=== PATIENT | female | born 1965 | race Caucasian/White ===

== ENCOUNTER 2018-01-04 10:48 | Emergency (ER) | payer BC ==
[~2018-01-04] VITALS: Ht 162.6 cm; Wt 100.0 kg
[~2018-01-04 10:48] MED LIST: ACET-1256 PO; ALPR0.254 PO; CRANBERRY D MANNOSE PO
[2018-01-04 10:50] VITALS: TEMP 36.8; Ht 162.6 cm; Wt 100.0 kg
[2018-01-04] MEDS ORDERED: SODIUM CHLORIDE 0.9% 1000ML 1,000 ML IV STA (11:06)
[2018-01-04] MEDS ORDERED: SODIUM CHLORIDE 0.9% 500ML 500 ML IV STA (11:06)
[2018-01-04] MEDS ORDERED: POLYSOL (11:27)
[2018-01-04 11:32] LABS: BASO % 0.4 %; BASO ABS # 0.02 K/uL (0-0.2); EOS % 0.2 %; EOS ABS # 0.01 K/uL (0-0.5); HEMATOCRIT 45.5 % (37-47); HEMOGLOBIN 15.2 g/dL (12.0-16.0); IG# 0.01 K/uL (0.00-0.02); LYMPH % 29.3 %; LYMPH ABS # 1.46 K/uL (1.2-3.4); MEAN CELL VOLUME 83.6 fL (80-100); MEAN CORPUSCULAR HEMOGLOBIN 27.9 pg (25-34); MEAN CORPUSCULAR HGB CONC 33.4 g/dl (32-36); MEAN PLATELET VOLUME 10.9 fL (7.4-10.4); MONO % 6.8 %; MONO ABS # 0.34 K/uL (0.11-0.59); NEUT % 63.1 %; NEUT ABS # 3.15 K/uL (1.4-6.5); PLATELET COUNT 157 K/uL (130-400); RED CELL DISTRIBUTION WIDTH CV 12.5 % (11.5-14.5); RED CELL DISTRIBUTION WIDTH SD 37.5 fL (36.4-46.3); WHITE BLOOD COUNT 4.99 K/uL (4.8-10.8)
[2018-01-04 11:53] LABS: ALBUMIN 4.1 gm/dl (3.4-5.0); CALCIUM 8.9 mg/dl (8.5-10.1); CREATININE 0.83 mg/dl (0.60-1.20); POTASSIUM 4.2 mmol/L (3.5-5.1); TOTAL PROTEIN 7.9 gm/dl (6.4-8.2)
--- NOTE | 2018-01-04 12:07 | DIAGNOSTIC IMAGING REPORT ---
CT SCAN OF THE ABDOMEN AND PELVIS WITHOUT CONTRAST CLINICAL HISTORY: Lower abdominal pain and urinary symptoms. COMPARISON STUDY: No previous studies for comparison. TECHNIQUE: CT scan of the abdomen and pelvis was performed from the lung bases to the proximal femurs. Images are reviewed in the axial, sagittal, and coronal planes. IV contrast was not administered for this examination. A dose lowering technique was utilized adhering to the principles of ALARA. CT DOSE: 1519.36 mGy.cm FINDINGS: Lower chest: The heart is normal in size and configuration, without pericardial effusion. The lung bases and pleural spaces are clear. Liver: The unenhanced liver is normal in size, contour, and attenuation. There is no intrahepatic biliary ductal dilatation. Gallbladder: Surgically absent Spleen: Normal in size and attenuation. Pancreas: Unremarkable. Adrenal glands: Unremarkable. Kidneys: No renal, ureteral, or bladder calculi are visualized. Bowel: There are no transition zones indicate bowel obstruction. There are no findings to indicate acute appendicitis. There is no evidence of acute diverticulitis. Peritoneum: There is no intraperitoneal free air or abdominal ascites. Vasculature: The abdominal aorta is normal in course and caliber. Adenopathy: None. Pelvic viscera: The uterus appears surgically absent. Skeletal structures: No destructive osseous lesions are seen. IMPRESSION: 1. No acute intra-abdominal or pelvic findings 2. Surgically absent gallbladder and uterus 3. No renal, ureteral, or bladder calculi identified 4. No evidence of bowel obstruction. No evidence of free air. Electronically signed by: Delfino Lagunas M.D. 01/04/2018 12:06 PM Dictated Date/Time: 01/04/2018 12:03 PM
[2018-01-04] MEDS ORDERED: PHENAZOPYRIDINE HCL 200 MG TAB PO STA (12:35)
[2018-01-04] MEDS ORDERED: PHEN-775 PO (12:37)
[2018-01-04 12:42] VITALS: BP 132/78; PULSE 67; O2SAT 97
--- NOTE | 2018-01-04 13:47 | EMERGENCY ROOM VISIT NOTE ---
History Report prepared by Luis: Marlene oRgers Under the Supervision of: Dr. Sangita Arita M.D. First contact with patient: 11:03 Chief Complaint: URINARY SYMPTOMS Stated Complaint: URINARY SY, BACK PAIN History of Present Illness The patient is a 52 year old female who presents to the Emergency Room with complaints of worsening urinary symptoms that started today. The patient states she could not urinate today and woke up with back pain that radiated to her abdomen. She states she was constantly urinating yesterday. She claims she has been having urinary problems for the past 3 months and has been taking Amoxicillin. She notes that she called her urologist, Dr. Rodriguez, yesterday, but they never called back. The patient complains of feeling faint, dizzy, exhausted, abdominal pain, vaginal gas, loss of appetite, weight loss, and pain/ spasms in her urethra. Source of History: patient Onset: today Position: abdomen Quality: other (urianry symptoms) Timing: worsening Associated Symptoms: + abdominal pain, + back pain Note: The patient complains of feeling faint, dizzy, exhausted, vaginal gas, loss of appetite, weight loss, and pain/spasms in her urethra. Review of Systems See HPI for pertinent positives & negatives. A total of 10 systems reviewed and were otherwise negative. Past Medical & Surgical Medical Problems: (1) Factor VIII deficiency (2) HTN (hypertension) (3) Von Willebrand disease Surgical Problems: (1) H/O: hysterectomy (2) S/P cholecystectomy Family History Patient reports no known family medical history. Social History Smoking Status: Former Smoker Marital Status: Housing Status: lives with family Occupation Status: unemployed Current/Historical Medications Scheduled Phenazopyridine Hcl (Pyridium), 200 MG PO TID [Cranberry D-Mannose], 1 DOSE PO UD Scheduled PRN Acetaminophen (Tylenol), 1,000 MG PO UD PRN for Pain Alprazolam (Alprazolam), 0.5 MG PO QID PRN for Anxiety Miscellaneous Medications Polyvinyl Alcohol-Povidone (Op (Refresh) Allergies Coded Allergies: Azelastine (Verified Allergy, Unknown, UNSURE, 01/04/18) Budesonide (Verified Allergy, Unknown, PT UNSURE, 01/04/18) CI Pigment Blue 63 (Verified Allergy, Unknown, PT UNSURE, 01/04/18) Cephalexin (Verified Allergy, Unknown, PT UNSURE, 01/04/18) Clavulanic Acid (Verified Allergy, Unknown, PT UNSURE, 01/04/18) Fexofenadine (Verified Allergy, Unknown, UNSURE, 01/04/18) Fluoxetine (Verified Allergy, Unknown, PT UNSURE, 01/04/18) Iodinated Diagnostic Agents (Verified Allergy, Unknown, ANAPHYLAXIS, ) DOCTOR WAS UNSURE IF IT WAS THE CONTRAST DYE OR VERSED THAT CAUSED ANAPHYLAXIS Levofloxacin (Verified Allergy, Unknown, PT UNSURE, 01/04/18) Midazolam (Verified Allergy, Unknown, ANAPHYLAXIS, 01/04/18) VERSED VS IV CONTRAST DYE Nebivolol (Verified Allergy, Unknown, PT UNSURE, 01/04/18) Nitrofurantoin (Verified Allergy, Unknown, PT UNSURE, 01/04/18) Nizatidine (Verified Allergy, Unknown, PT UNSURE, 01/04/18) Sorbitan (Verified Allergy, Unknown, PT UNSURE, 01/04/18) Sulfa Antibiotics (Verified Allergy, Unknown, PT UNSURE, 01/04/18) Sulfamethoxazole w/Trimethoprim (Verified Allergy, Unknown, PT UNSURE, ) Venlafaxine (Verified Allergy, Unknown, PT UNSURE, 01/04/18) Yellow Dye (Verified Allergy, Unknown, PT UNSURE, 01/04/18) Aspirin (Verified Adverse Reaction, Unknown, PT BLEEDS VERY EASILY, ) Caffeine (Verified Adverse Reaction, Unknown, PT BLEEDS VERY EASILY, ) Phenacetin (Verified Adverse Reaction, Unknown, PT BLEEDS VERY EASILY, ) Physical Exam Vital Signs Date Time Temp Pulse Resp B/P (MAP) Pulse Ox O2 Delivery O2 Flow Rate FiO2 01/04/18 12:42 67 20 132/78 97 Room Air 01/04/18 11:21 84 20 161/92 97 Room Air 01/04/18 11:18 96 01/04/18 10:50 36.8 93 17 140/84 98 Room Air Physical Exam Vital signs reviewed. General: Well-appearing, in no significant distress. HEENT: No scleral icterus, PERRLA, neck supple. Atraumatic. Cardiovascular: Regular rate and rhythm, no extra sounds. Pulmonary: Clear to auscultation bilaterally, normal work of breathing. Abdomen: Soft, mild diffuse abdominal tenderness, no guarding, no rebound, nondistended, positive bowel sounds. Obese abdomen with appendicular folds. Musculoskeletal: Atraumatic, no peripheral edema. Neurologic: Patient awake alert and oriented x 3 Skin: Warm, dry, no rash Medical Decision & Procedures ER Provider Diagnostic Interpretation: Radiology results as stated below per my review and radiologist interpretation: CT SCAN OF THE ABDOMEN AND PELVIS WITHOUT CONTRAST CLINICAL HISTORY: Lower abdominal pain and urinary symptoms. COMPARISON STUDY: No previous studies for comparison. TECHNIQUE: CT scan of the abdomen and pelvis was performed from the lung bases to the proximal femurs. Images are reviewed in the axial, sagittal, and coronal planes. IV contrast was not administered for this examination. A dose lowering technique was utilized adhering to the principles of ALARA. CT DOSE: 1519.36 mGy.cm FINDINGS: Lower chest: The heart is normal in size and configuration, without pericardial effusion. The lung bases and pleural spaces are clear. Liver: The unenhanced liver is normal in size, contour, and attenuation. There is no intrahepatic biliary ductal dilatation. Gallbladder: Surgically absent Spleen: Normal in size and attenuation. Pancreas: Unremarkable. Adrenal glands: Unremarkable. Kidneys: No renal, ureteral, or bladder calculi are visualized. Bowel: There are no transition zones indicate bowel obstruction. There are no findings to indicate acute appendicitis. There is no evidence of acute diverticulitis. Peritoneum: There is no intraperitoneal free air or abdominal ascites. Vasculature: The abdominal aorta is normal in course and caliber. Adenopathy: None. Pelvic viscera: The uterus appears surgically absent. Skeletal structures: No destructive osseous lesions are seen. IMPRESSION: 1. No acute intra-abdominal or pelvic findings 2. Surgically absent gallbladder and uterus 3. No renal, ureteral, or bladder calculi identified 4. No evidence of bowel obstruction. No evidence of free air. Electronically signed by: Delfino Lagunas M.D. 01/04/2018 12:06 PM Dictated Date/Time: 01/04/2018 12:03 PM Laboratory Results 01/04/18 11:22 Red Blood Count 5.44, Mean Corpuscular Volume 83.6, Mean Corpuscular Hemoglobin 27.9, Mean Corpuscular Hemoglobin Concent 33.4, Mean Platelet Volume 10.9, Neutrophils (%) (Auto) 63.1, Lymphocytes (%) (Auto) 29.3, Monocytes (%) (Auto) 6.8, Eosinophils (%) (Auto) 0.2, Basophils (%) (Auto) 0.4, Neutrophils # (Auto) 3.15, Lymphocytes # (Auto) 1.46, Monocytes # (Auto) 0.34, Eosinophils # (Auto) 0.01, Basophils # (Auto) 0.02 01/04/18 11:22 Test 01/04/18 11:00 01/04/18 11:22 Urine Color YELLOW Urine Appearance CLEAR (CLEAR) Urine pH 7.0 (4.5-7.5) Urine Specific [place] 1.003 (1.000-1.030) Urine Protein NEG (NEG) Urine Glucose (UA) NEG (NEG) Urine Ketones NEG (NEG) Urine Occult Blood NEG (NEG) Urine Nitrite NEG (NEG) Urine Bilirubin NEG (NEG) Urine Urobilinogen NEG (NEG) Urine Leukocyte Esterase NEG (NEG) White Blood Count 4.99 K/uL (4.8-10.8) Red Blood Count 5.44 M/uL (4.2-5.4) Hemoglobin 15.2 g/dL (12.0-16.0) Hematocrit 45.5 % (37-47) Mean Corpuscular Volume 83.6 fL (80-100) Mean Corpuscular Hemoglobin 27.9 pg (25-34) Mean Corpuscular Hemoglobin Concent 33.4 g/dl (32-36) Platelet Count 157 K/uL (130-400) Mean Platelet Volume 10.9 fL (7.4-10.4) Neutrophils (%) (Auto) 63.1 % Lymphocytes (%) (Auto) 29.3 % Monocytes (%) (Auto) 6.8 % Eosinophils (%) (Auto) 0.2 % Basophils (%) (Auto) 0.4 % Neutrophils # (Auto) 3.15 K/uL (1.4-6.5) Lymphocytes # (Auto) 1.46 K/uL (1.2-3.4) Monocytes # (Auto) 0.34 K/uL (0.11-0.59) Eosinophils # (Auto) 0.01 K/uL (0-0.5) Basophils # (Auto) 0.02 K/uL (0-0.2) RDW Standard Deviation 37.5 fL (36.4-46.3) RDW Coefficient of Variation 12.5 % (11.5-14.5) Immature Granulocyte % (Auto) 0.2 % Immature Granulocyte # (Auto) 0.01 K/uL (0.00-0.02) Anion Gap 6.0 mmol/L (3-11) Est Creatinine Clear Calc Drug Dose 90.1 ml/min Estimated GFR () 93.3 Estimated GFR (Non- 80.5 BUN/Creatinine Ratio 11.4 (10-20) Calcium Level 8.9 mg/dl (8.5-10.1) Total Bilirubin 0.5 mg/dl (0.2-1) Direct Bilirubin 0.2 mg/dl (0-0.2) Aspartate Amino Transf (AST/SGOT) 32 U/L (15-37) Alanine Aminotransferase (ALT/SGPT) 56 U/L (12-78) Alkaline Phosphatase 67 U/L (45-117) Total Protein 7.9 gm/dl (6.4-8.2) Albumin 4.1 gm/dl (3.4-5.0) Laboratory results per my review. Medications Administered Medications (Trade) Dose Ordered Sig/Ade Route Start Time Stop Time Status Last Admin Dose Admin Sodium Chloride 500 ml @ 999 mls/hr Q31M STAT IV 01/04/18 11:06 01/04/18 11:36 DC 01/04/18 11:06 999 MLS/HR Sodium Chloride 1,000 ml @ 125 mls/hr Q8H STAT IV 01/04/18 11:06 01/04/18 13:23 DC 01/04/18 11:06 125 MLS/HR Phenazopyridine HCl (Pyridium Tab) 200 mg NOW STAT PO 01/04/18 12:35 01/04/18 12:37 DC 01/04/18 12:43 200 MG ED Course 1103: Past medical records reviewed. The patient was evaluated in room C6. A complete history and physical examination was performed. 1106: Ordered NSS 1000 ml @ 125 mls/hr IV, NSS 500 ml @ 999 mls/hr IV. 1235: Ordered Pyridium Tab 200 mg PO. 1243: Upon reevaluation, the patient appeared to have improvement of her symptoms. I discussed findings with her. She verbalized agreement of the treatment plan. The patient was discharged home. Medical Decision Differential diagnoses include kidney stone, UTI, pyelonephritis, rectovaginal fistula, diverticulitis, psychosomatic symptoms. This patient was evaluated and appeared to be in no significant distress. IV access was obtained and laboratory work was drawn. Patient was placed on media monitor. The patient is concerned with the possibility of a rectovaginal fistula. She states she has been passing stool in her urine. Patient also is concerned with the possibility of kidney stone. She states she has had multiple CT scans in the past however had an ultrasound just 10 days ago. Laboratory work is fairly unrevealing, UA is clean. Patient is afebrile. CT scan of the abdomen pelvis was performed without contrast to rule out kidney stone. This study is negative. The patient was informed of the negative findings and was reassured. She was given Pyridium 3 days. She will follow-up with her urologist for further issues. She will return to the ED for worsening of symptoms or any medical concerns. Medication Reconcilliation Current Medication List: was personally reviewed by me Blood Pressure Screening Patient's blood pressure: Elevated blood pressure Blood pressure disposition: Elevated BP felt to be situational Impression Primary Impression: Dysuria Scribe Attestation The scribe's documentation has been prepared under my direction and personally reviewed by me in its entirety. I confirm that the note above accurately reflects all work, treatment, procedures, and medical decision making performed by me. Departure Information Dispostion Home / Self-Care Prescriptions Phenazopyridine Hcl (PYRIDIUM) 200 Mg Tab 200 MG PO TID, #6 TAB Prov: Sangita Arita M.D. 01/04/18 Referrals Warner Sharma M.D. (PCP) Forms HOME CARE DOCUMENTATION FORM, IMPORTANT VISIT INFORMATION Patient Instructions My [facility] Additional Instructions Diagnosis: Dysuria Pyridium 200 mg three times daily as needed for urinary symptoms 3 days. Drink plenty of clear fluids. Follow-up with your primary care physician and urology for further management. Return to the emergency department for worsening of symptoms or any medical concerns.
== END 2018-01-04 12:54 | disposition home or self-care (01) ==
LOC: C.EDB 10:49 → C.EDC 12:54
DX: R30.0 Dysuria (principal); D66 Hereditary factor VIII deficiency; I10 Essential (primary) hypertension; D68.0 Von Willebrand disease; E66.9 Obesity, unspecified; Z90.710 Acquired absence of both cervix and uterus; Z90.49 Acquired absence of other specified parts of digestive tract; Z87.891 Personal history of nicotine dependence; Z88.2 Allergy status to sulfonamides; Z88.8 Allergy status to other drugs, medicaments and biological substances; Z91.041 Radiographic dye allergy status

== ENCOUNTER → 2018-01-13 | Outpatient (CLI) | payer BC ==
[~2018-01-13] MED LIST changes: +MULT-506 PO; +PHEN-775 PO; +POLYSOL
[2018-01-13 14:22] LABS: ALBUMIN 4.2 gm/dl (3.4-5.0); ALKALINE PHOSPHATASE 65 U/L (45-117); ALT/SGPT 54 U/L (12-78); AST/SGOT 32 U/L (15-37); BLOOD UREA NITROGEN 11 mg/dl (7-18); CALCIUM 9.2 mg/dl (8.5-10.1); CARBON DIOXIDE 27 mmol/L (21-32); CREATININE 0.77 mg/dl (0.60-1.20); GLUCOSE 89 mg/dl (70-99); POTASSIUM 3.9 mmol/L (3.5-5.1); SODIUM 138 mmol/L (136-145)
== END | disposition home or self-care (01) ==
LOC: C.LAB 12:43
PROVIDERS: ATTEND Urology
DX: R31.0 Gross hematuria (principal); R42 Dizziness and giddiness; R30.0 Dysuria

== ENCOUNTER 2022-09-20 13:58 | Observation (INO) ==
--- NOTE | 2022-09-20 14:07 | ED Triage Note ---
Date of Service September 20, 2022 History of Present Illness This patient was briefly evaluated while in triage. An abbreviated physical exam was performed. This patient is a 57-year-old Female who presents to the ED for evaluation of vertigo and multiple other complaints. This is her 4th time to the ER for evaluation of similar symptoms. She states that her nervous system and her eyes are all out of sync per patient. Previously had CT scan and MRI of her head as well as labs etc without specific cause found. Physical Exam GENERAL: The patient was anxious and upset on exam that no answers have been found. Non-toxic and in no acute distress. HEENT: Pupils equal. No obvious scleral icterus. HEART: Regular rate and rhythm. LUNGS: Clear to auscultation. No accessory muscle use. ABDOMEN: Soft, non-tender. NEURO: Alert and oriented. No obvious neurological deficits on quick neuro exam. Initial orders for labs and / or imaging were placed and patient was placed in the waiting area until a bed is available. Please see further documentation for the full ED course.
[2022-09-20] MEDS ORDERED: SODIUM CHLORIDE 0.9% 500 ML IV SCH (14:15)
[2022-09-20 16:00] LABS: Basophils # (auto) 0.03 K/uL (0-0.2); Basophils % (auto) 0.5 %; Eosinophils # (auto) 0.02 K/uL (0-0.50); Eosinophils % (auto) 0.3 %; Hematocrit (blood only) 46.6 % (37.0-47.0); Hemoglobin 15.2 g/dl (12.0-16.0); Immature Granulocytes # (auto) 0.02 K/uL (0.01-0.20); Immature Granulocytes % (auto) 0.3 %; Lymphocytes # (auto) 1.95 K/uL (1.2-3.4); Lymphocytes % (auto) 32.2 %; Mean Corpuscular Hemoglobin 27.4 pg (25.0-34.0); Mean Corpuscular Hgb Conc 32.6 g/dL (32.0-36.0); Mean Platelet Volume 10.8 fL (9.4-12.4); Monocytes # (auto) 0.32 K/uL (0.11-0.59); Monocytes % (auto) 5.3 %; Neutrophils # (auto) 3.71 K/uL (1.40-6.50); Neutrophils % (auto) 61.4 %; Platelet Count 176 K/uL (130-400); RDW Coefficient of Variation 12.5 % (11.5-14.5); RDW Standard Deviation 38.4 fL (36.4-46.3); Red Blood Count 5.55 M/uL (4.20-5.40); White Blood Count 6.05 K/ul (4.8-10.8)
[2022-09-20 16:15] LABS: Alanine Aminotransferase 58 U/L (7-52); Albumin Globulin Ratio 1.4 (0.9-2); Albumin Level 4.4 gm/dl (3.4-5.0); Alkaline Phosphatase 58 U/L (34-104); Anion Gap 5 (3-11); Aspartate Aminotransferase 38 U/L (13-39); BUN Creatinine Ratio 15.8 (10-20); Bilirubin,Total 0.5 mg/dl (0.2-1.0); Blood Urea Nitrogen 12 mg/dl (6-23); Calcium 9.7 mg/dl (8.6-10.3); Carbon Dioxide 29 mmol/L (21-32); Chloride 105 mmol/L (98-107); Est GFR (African American) 100.2 ml/min; Est GFR (Non-African American) 86.5 ml/min; Globulin 3.2 gm/dl (2.5-4.0); Glucose 117 mg/dl (70-99(Fasting)); Magnesium 2.1 mg/dl (1.7-2.4); Potassium 4.2 mmol/L (3.5-5.1); Sodium 139 mmol/L (136-145); Total Protein 7.6 gm/dl (6.0-8.3)
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
[2022-09-20 17:55] LABS: Lyme Ab IgG w/WB Rflx Negative (Negative)
[2022-09-20 18:02] LABS: Lyme Ab IgM w/WB Rflx Equivocal (Negative)
[2022-09-20 20:54] LABS: Appearance Urine Clear (Clear); Bilirubin Urine Negative (Negative); Blood Urine Negative (Negative); Color Urine Yellow; Glucose Urine UA Negative (Negative); Ketones Urine Negative (Negative); Leukocyte Esterase Urine Negative (Negative); Nitrite Urine Negative (Negative); Protein Urine Negative (Negative); Specific Gravity Urine 1.014 (1.000-1.030); Urobilinogen Urine Negative (Negative)
--- NOTE | 2022-09-20 23:13 | Magnetic Resonance Report ---
Exam(s): MRA HEAD Without Contrast EXAM: MR Angiography Head Without Intravenous Contrast CLINICAL HISTORY: Reason for exam: dizziness. TECHNIQUE: Magnetic resonance angiography images of the head without intravenous contrast. COMPARISON: No relevant prior studies available. FINDINGS: There is variant intracranial arterial anatomy. 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 The caudal basilar artery is absent. 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 The basilar artery gives rise to bilateral superior cerebellar arteries as well as the right posterior cerebral artery. There is origin of the left posterior cerebral artery, supplied by a well-developed left posterior communicating artery. Bilateral intracranial internal carotid arteries are adequately patent. Bilateral anterior cerebral arteries and middle cerebral arteries are adequately patent. No aneurysm or vascular malformation is visible. IMPRESSION: Patent intracranial circulation with variant anatomy. 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 Please see discussion above for further details. Electronically signed by: Adriane Guillory M.D. 09/20/22 23:12 PM
--- NOTE | 2022-09-20 23:28 | Magnetic Resonance Report ---
Exam(s): MRA NECK Without Contrast EXAM: MR Angiography Neck Without Intravenous Contrast CLINICAL HISTORY: Reason for exam: dizziness. TECHNIQUE: Magnetic resonance angiography images of the neck without intravenous contrast. COMPARISON: MRA brain 09/20/22 FINDINGS: Right common carotid artery: Unremarkable. No significant stenosis. No dissection or occlusion. Right internal carotid artery: Unremarkable. Extracranial segment is patent with no significant stenosis. No dissection or occlusion. Right external carotid artery: Unremarkable. No occlusion. Right vertebral artery: Small caliber right vertebral artery, presumed developmental. Left common carotid artery: Unremarkable. No significant stenosis. No dissection or occlusion. Left internal carotid artery: Unremarkable. Extracranial segment is patent with no significant stenosis. No dissection or occlusion. Left external carotid artery: Unremarkable. No occlusion. Left vertebral artery: Small caliber left vertebral artery, presumed developmental. . CAROTID STENOSIS REFERENCE USING NASCET CRITERIA: % ICA stenosis = (1 - narrowest ICA diameter/diameter of distal cervical ICA) x 100. Mild - <50% stenosis. Moderate - 50-69% stenosis. Severe - 70-94% stenosis. Near occlusion - 95-99% stenosis. Occluded - 100% stenosis. IMPRESSION: 1. Small caliber of the bilateral vertebral arteries are presumed developmental. Please refer to MRA brain of the same date, reported separately. Electronically signed by: Adriane Guillory M.D. 09/20/22 23:27 PM
[2022-09-21] MEDS ORDERED: ACETAMINOPHEN 325 MG TAB PO PRN (00:28)
[2022-09-21] MEDS ORDERED: SCOPOLAMINE 1 MG TDSY TD SCH (01:30)
[2022-09-21] MEDS ORDERED: ALPRAZolam 0.5 MG TABLET ONE (06:04)
[2022-09-21] MEDS: ALPRAZolam 0.25 MG TABLET PO PRN ×2 (06:09→12:30)
[2022-09-21 08:11] LABS: Vitamin B12 451 pg/ml (180-914)
[2022-09-21] MEDS: CHECK SCOPOLAMINE PATCH PLACEMENT SCH ×2 (08:37→16:53)
[2022-09-21] MEDS: lisinopril 5 MG TAB PO SCH (08:37)
[2022-09-21] MEDS: MULTIVITAMIN TAB PO SCH (08:39)
--- NOTE | 2022-09-21 10:51 | Hospitalist Progress Note ---
Date of Service September 21, 2022 Assessment & Plan (1) Vision changes: (2) Dental abscess: (3) Dizziness: Plan Dizziness Patient with long standing history of vertigo and has had extensive workup including at [facility] and [facility]. 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 Recent MRI brain from 08/27 was negative for acute process. 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 PT eval Will need vestibular therapy referral Neuro recs noted Trial of scopolamine. (patient declined meclizine) Trial of neurontin 100mg bid Vision Changes May be related to above. Reports she has been having worsening vision over a long time. She was encouraged to follow up with her practicing dermatologist Reported Dental abscess No sepsis noted. She stated she missed her scheduled procedure some months ago OMFS was consulted on admission Patient advised to follow up with OMFS outpatient Anxiety Continue alprazolam at home doses. Needs follow up with her psychiatrist Hypertensioin Continue lisinopril DVT ppx- SCDs for now. I spent a total of 45 minutes coordinating, documenting and providing care for this patient excluding time spent in performance of separately billed services Admission and Anticipated Discharge Date Admission Date: September 20, 2022 Subjective Patient seen and examined. Continues to report dizziness and feeling weird, objects moving around sometimes. Stated it was different from her normal vertigo Denied headache Denies fevers, chills. Reports melena. Denies nausea, vomiting, abdominal pain Denies chest pain, cough, shortness of breath Denies dysuria, frequency urgency Physical Exam Constitutional: + well hydrated and + obese; no acute distress Eyes: PERRL, conjunctivae normal, anicteric sclerae ENMT: external ear and nose normal, oropharynx normal Respiratory: normal respiratory effort, lungs clear to auscultation Cardiovascular: Rate/Rhythm: regular rate and regular rhythm S1-S2 Gastrointestinal (Abdomen): normal bowel sounds, soft, nontender, no hepatosplenomegaly Musculoskeletal: no cyanosis or clubbing, extremities motor strength 5/5 Neurologic: PERRL, EOMI, accommodation nl, no face palsy, no dysarthria Psychiatric: A+Ox3, euthymic affect Results & Data Results & Data Vital Signs (Past 12 Hours) Vital Signs Pulse Pulse Resp BP BP Pulse Ox Pulse Ox 09/21/22 10:24 65 15 135/81 97 09/21/22 09:55 63 18 151/91 H 96 09/21/22 09:00 70 16 121/72 96 09/21/22 08:37 71 21 145/78 H 97 09/21/22 08:00 65 17 126/81 96 09/21/22 07:20 67 127/76 96 09/21/22 01:00 68 09/21/22 00:28 69 20 149/67 H 96 09/21/22 00:28 95 O2 Del Method O2 Del Method 09/21/22 10:24 Room Air 09/21/22 09:55 Room Air 09/21/22 09:00 Room Air 09/21/22 08:37 Room Air 09/21/22 08:00 Room Air 09/21/22 07:20 Room Air 09/21/22 01:00 09/21/22 00:28 Room Air 09/21/22 00:28 Room Air Laboratory Results Abnormal lab results 09/20/22 09/20/22 09/20/22 Range/Units 15:41 15:41 15:41 RBC 5.55 H (4.20-5.40) M/uL Glucose 117 H (70-99(Fasting)) mg/dl ALT 58 H (7-52) U/L 25-OH Vitamin D Total (30-100) ng/ml Lyme Disease IgM Ab Equivocal A (Negative) 09/21/22 Range/Units 07:07 RBC (4.20-5.40) M/uL Glucose (70-99(Fasting)) mg/dl ALT (7-52) U/L 25-OH Vitamin D Total 24.0 L (30-100) ng/ml Lyme Disease IgM Ab (Negative)
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
[2022-09-21] MEDS: GABAPENTIN 100 MG CAP PO SCH ×2 (13:58→21:00)
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
[2022-09-22] MEDS: CHECK SCOPOLAMINE PATCH PLACEMENT SCH ×4 (00:06→23:21)
--- NOTE | 2022-09-22 05:13 | Electrocardiogram Report ---
Test Reason : Blood Pressure : / mmHG Vent. Rate : 086 BPM Atrial Rate : 086 BPM P-R Int : 144 ms QRS Dur : 078 ms QT Int : 356 ms P-R-T Axes : 007 -19 008 degrees QTc Int : 426 ms Poor data quality, interpretation may be adversely affected Normal sinus rhythm Minimal voltage criteria for LVH, may be normal variant Borderline ECG When compared with ECG of 27-AUG-2022 13:48, No significant change was found Confirmed by Mick Greco ([id number]) on 09/22/2022 5:13:10 AM Referred By: Confirmed By:Mick Greco
[2022-09-22] MEDS: ALPRAZolam 0.25 MG TABLET PO PRN ×3 (05:50→19:16)
[2022-09-22 07:03] LABS: BUN Creatinine Ratio 22.1 (10-20); Calcium 9.1 mg/dl (8.6-10.3); Est GFR (African American) 98.6 ml/min; Est GFR (Non-African American) 85.1 ml/min; Magnesium 2.2 mg/dl (1.7-2.4); Phosphorus 3.7 mg/dl (2.5-4.9); Potassium 4.3 mmol/L (3.5-5.1)
[2022-09-22] MEDS: MULTIVITAMIN TAB PO SCH (08:30)
[2022-09-22] MEDS: GABAPENTIN 100 MG CAP PO SCH ×2 (08:30→21:23)
[2022-09-22] MEDS: lisinopril 5 MG TAB PO SCH (08:30)
--- NOTE | 2022-09-22 11:42 | Hospitalist Progress Note ---
Date of Service September 22, 2022 Assessment & Plan (1) Vision changes: (2) Dental abscess: (3) Dizziness: Plan Dizziness Patient with long standing history of vertigo and has had extensive workup including at [facility] and [facility]. 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 Recent MRI brain from 08/27 was negative for acute process. 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 PT eval noted Will need vestibular therapy referral Neuro recs noted Trial of scopolamine. (patient declined meclizine) Neurontin 100mg bid She stated she already has appt with Neurology Vision Changes May be related to above. Reports she has been having worsening vision over a long time. Follow up with her auto radiator mechanic Reported Dental abscess No sepsis noted. She stated she missed her scheduled procedure some months ago OMFS eval noted. Patient can follow up with hers outpatient Anxiety Continue alprazolam at home doses. Patient requested Psych consult for her anxiety and to see if some of her symptoms may be related to psych as she stated the alprazolam helps her Psych consult placed Hypertensioin Continue lisinopril DVT ppx- SCDs for now. She stated she does not feel ready to go home today Plan for dc tomorrow Get c diff test to rule out c diff I spent a total of 40 minutes coordinating, documenting and providing care for this patient excluding time spent in performance of separately billed services Admission and Anticipated Discharge Date Admission Date: September 20, 2022 Subjective Patient seen and examined. Reports dizziness/vertigo Denied headache Denies fevers, chills. Denied any melena. Reports diarrhea which she thinks may be related to the gabapentin Denies nausea, vomiting, abdominal pain Denies chest pain, cough, shortness of breath Denies dysuria, frequency urgency Physical Exam Constitutional: + well hydrated and + obese; no acute distress Eyes: PERRL, conjunctivae normal, anicteric sclerae ENMT: external ear and nose normal, oropharynx normal Respiratory: normal respiratory effort, lungs clear to auscultation Cardiovascular: Rate/Rhythm: regular rate and regular rhythm S1 S2 Gastrointestinal (Abdomen): normal bowel sounds, soft, nontender, no hepatosplenomegaly Musculoskeletal: no cyanosis or clubbing, extremities motor strength 5/5 Neurologic: PERRL, EOMI, accommodation nl, no face palsy, no dysarthria Psychiatric: A+Ox3, euthymic affect Results & Data Results & Data Vital Signs (Past 12 Hours) Vital Signs Temp Pulse Pulse Resp BP BP Pulse Ox 09/22/22 08:08 36.7 C 62 25 H 120/77 95 09/22/22 07:29 09/22/22 07:29 09/22/22 07:00 113 H 09/22/22 03:14 36.8 C 72 16 100/62 98 09/22/22 04:31 09/22/22 00:06 59 L Pulse Ox O2 Del Method O2 Del Method 09/22/22 08:08 Room Air 09/22/22 07:29 Room Air 09/22/22 07:29 98 Room Air 09/22/22 07:00 09/22/22 03:14 Room Air 09/22/22 04:31 Room Air 09/22/22 00:06 Laboratory Results Abnormal lab results 09/22/22 Range/Units 05:28 BUN/Creatinine Ratio 22.1 H (10-20) Glucose 132 H (70-99(Fasting)) mg/dl
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
[2022-09-22] MEDS ORDERED: ESCITALOPRAM OXALATE ORAL SOLN 5 MG/5 ML UDP PO SCH ×2 (21:00)
[2022-09-22] MEDS ORDERED: ESCITALOPRAM OXALATE 10 MG TAB PO SCH (21:00)
[2022-09-22] MEDS ORDERED: ESCITALOPRAM OXALATE ORAL SOLN 5 MG/5 ML PO SCH (21:00)
[2022-09-23] MEDS: CHECK SCOPOLAMINE PATCH PLACEMENT SCH (07:11)
[2022-09-23] MEDS: ALPRAZolam 0.25 MG TABLET PO PRN (07:11)
[2022-09-23] MEDS: GABAPENTIN 100 MG CAP PO SCH (07:12)
[2022-09-23] MEDS: MULTIVITAMIN TAB PO SCH (07:12)
[2022-09-23] MEDS: lisinopril 5 MG TAB PO SCH (07:12)
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
[2022-09-25 13:46] LABS: Arsenic Blood 5 mcg/L (<23); Lead Blood <1.0 mcg/dL (<3.5); Mercury, blood <4 mcg/L (<=10)
[2022-09-25 14:27] LABS: 18KDIGG Band NON-REACTIVE; 23KDIGG Band NON-REACTIVE; 23KDIGM Band NON-REACTIVE; 28KDIGG Band NON-REACTIVE; 30KDIGG Band NON-REACTIVE; 39KDIGG Band NON-REACTIVE; 39KDIGM Band NON-REACTIVE; 41KDIGG Band NON-REACTIVE; 41KDIGM Band NON-REACTIVE; 45KDIGG Band NON-REACTIVE; 58KDIGG Band REACTIVE; 66KDIGG Band NON-REACTIVE; 93KDIGG Band REACTIVE; Lyme Antibodies, WB IgG NEGATIVE (NEGATIVE); Lyme Antibodies, WB IgM NEGATIVE (NEGATIVE)
== END 2022-09-23 11:17 | disposition home or self-care (01) ==
LOC: ED 13:58 → INTOOBSV 19:55 → EDINP 19:55 → SUATTDRO 19:55 → EDINP 09-21 00:29 → 2S 09-21 10:55

== ENCOUNTER 2023-01-03 12:54 | Observation (INO) ==
--- NOTE | 2023-01-03 13:11 | ED Triage Note ---
Date of Service January 03, 2023 History of Present Illness This patient was briefly evaluated while in triage. An abbreviated physical exam was performed. This patient is a 57-year-old Female who presents to the ED for evaluation of feeling like she's going to pass out. She states that she has been "sick" for 7 months and has been seen multiple times in ERs and by her PCP for the same symptoms. Feels like her heart has been skipping a lot of beats and beating faster and also slower than normal. Also having dizziness and headaches. States that she can't focus her eyes and her vision has been going in and out. Has lost about 50 lbs in the past couple months per patient. Has also been having urinary symptoms. Also having right flank pain radiating into her abdomen. She states that all of her symptoms have been going on for the past 7 months. No new changes today. Just felt like she couldn't manage the symptoms at home today. The patient has had multiple imaging studies done for her symptoms. She states that she does not want any other imaging b/c she was told "I can't have radiation." Physical Exam GENERAL: The patient was uncomfortable from her dizziness. Non-toxic and in no acute distress. HEENT: Pupils equal. No obvious scleral icterus. HEART: Regular rate and rhythm. LUNGS: Clear to auscultation. No accessory muscle use. ABDOMEN: Mild right flank tenderness. NEURO: Alert and oriented. No obvious neurological deficits on quick neuro exam. Initial orders for labs and / or imaging were placed and patient was placed in the waiting area until a bed is available. Please see further documentation for the full ED course.
[2023-01-03] MEDS ORDERED: SODIUM CHLORIDE 0.9% 500 ML IV ONE (13:12)
[2023-01-03] MEDS ORDERED: ONDANSETRON INJ 2 MG/ML 2 ML VIAL IV STA (13:12)
--- NOTE | 2023-01-03 15:06 | Electrocardiogram Report ---
Test Reason : Blood Pressure : / mmHG Vent. Rate : 082 BPM Atrial Rate : 082 BPM P-R Int : 142 ms QRS Dur : 076 ms QT Int : 360 ms P-R-T Axes : 022 -20 031 degrees QTc Int : 420 ms Normal sinus rhythm Normal ECG When compared with ECG of 14-DEC-2022 16:44, No significant change was found Confirmed by Ezequiel Machado ([id number]) on 01/03/2023 3:05:56 PM Referred By: Confirmed By:Ezequiel Machado
[2023-01-03 15:21] LABS: Basophils # (auto) 0.03 K/uL (0-0.2); Basophils % (auto) 0.5 %; Eosinophils # (auto) 0.01 K/uL (0-0.50); Eosinophils % (auto) 0.2 %; Hematocrit (blood only) 46.1 % (37.0-47.0); Hemoglobin 15.5 g/dl (12.0-16.0); Immature Granulocytes # (auto) 0.02 K/uL (0.01-0.20); Immature Granulocytes % (auto) 0.3 %; Lymphocytes # (auto) 1.65 K/uL (1.2-3.4); Lymphocytes % (auto) 28.4 %; Mean Corpuscular Hemoglobin 27.8 pg (25.0-34.0); Mean Corpuscular Hgb Conc 33.6 g/dL (32.0-36.0); Mean Corpuscular Volume 82.6 fL (80.0-100.0); Mean Platelet Volume 11.5 fL (9.4-12.4); Monocytes # (auto) 0.31 K/uL (0.11-0.59); Monocytes % (auto) 5.3 %; Neutrophils # (auto) 3.79 K/uL (1.40-6.50); Neutrophils % (auto) 65.3 %; Platelet Count 154 K/uL (130-400); RDW Standard Deviation 36.4 fL (36.4-46.3); Red Blood Count 5.58 M/uL (4.20-5.40); White Blood Count 5.81 K/ul (4.8-10.8)
[2023-01-03 15:27] LABS: Alanine Aminotransferase 49 U/L (7-52); Albumin Globulin Ratio 1.4 (0.9-2); Albumin Level 4.6 gm/dl (3.4-5.0); Alkaline Phosphatase 54 U/L (34-104); Anion Gap 7 (3-11); Aspartate Aminotransferase 35 U/L (13-39); BUN Creatinine Ratio 17.4 (10-20); Bilirubin,Total 0.5 mg/dl (0.2-1.0); Blood Urea Nitrogen 12 mg/dl (6-23); Calcium 9.9 mg/dl (8.6-10.3); Carbon Dioxide 28 mmol/L (21-32); Chloride 105 mmol/L (98-107); Est GFR (African American) 111.2 ml/min; Globulin 3.2 gm/dl (2.5-4.0); Glucose 96 mg/dl (70-99(Fasting)); Lipase 11 U/L (11-82); Magnesium 2.2 mg/dl (1.7-2.4); Potassium 4.1 mmol/L (3.5-5.1); Sodium 140 mmol/L (136-145); Total Protein 7.8 gm/dl (6.0-8.3)
[2023-01-03 15:33] LABS: Troponin I High Sensitivity < 2.3 pg/ml (0-14)
[2023-01-03 15:37] LABS: Partial Thromboplastin Ratio 1.1; Partial Thromboplastin Time 30.9 Seconds (21.0-31.0); Prothrombin Time 11.1 Seconds (9.0-12.0)
[2023-01-03 16:25] LABS: Appearance Urine Clear (Clear); Bilirubin Urine Negative (Negative); Blood Urine Negative (Negative); Color Urine Yellow; Glucose Urine UA Negative (Negative); Ketones Urine Negative (Negative); Leukocyte Esterase Urine Negative (Negative); Nitrite Urine Negative (Negative); Protein Urine Negative (Negative); Specific Gravity Urine 1.006 (1.000-1.030); Urobilinogen Urine Negative (Negative)
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
[2023-01-03] MEDS ORDERED: POLYETHYLENE (MIRALAX) 17 GM PACK PO PRN (20:13)
[2023-01-03] MEDS ORDERED: CARBOHYDRATES FOR HYPOGLYCEMIA PO PRN (20:13)
[2023-01-03] MEDS ORDERED: GLUCOSE 10 TAB/TUBE PO PRN (20:13)
[2023-01-03] MEDS ORDERED: GLUCAGON FOR INJ 1 MG VIAL SQ PRN (20:13)
[2023-01-03] MEDS ORDERED: GLUCOSE 40% GEL 15 GM TUBE PO PRN (20:13)
[2023-01-03] MEDS ORDERED: HYDROCODONE/ACETAMOPHEN 5/325MG TAB PO PRN (20:13)
[2023-01-03] MEDS ORDERED: ACETAMINOPHEN 325 MG TAB PO PRN (20:13)
[2023-01-03] MEDS ORDERED: MAGNESIUM HYDROXIDE SUSP 30 ML UDC PO PRN (20:13)
[2023-01-03] MEDS ORDERED: ALUMINUM/MAGNESIUM SUSP 30 ML UDC PO PRN (20:13)
[2023-01-03] MEDS ORDERED: DEXTROSE 50% 50 ML SYRINGE IV PRN (20:13)
[2023-01-03] MEDS ORDERED: ONDANSETRON INJ 2 MG/ML 2 ML VIAL IV PRN (20:13)
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
[2023-01-04 07:20] LABS: Albumin Globulin Ratio 1.5 (0.9-2); Albumin Level 3.8 gm/dl (3.4-5.0); BUN Creatinine Ratio 15.9 (10-20); Bilirubin,Total 0.6 mg/dl (0.2-1.0); Creatinine Clr Calc Pharmacy 84.5 ml/min; Est GFR (African American) 91.4 ml/min; Est GFR (Non-African American) 78.9 ml/min; Globulin 2.5 gm/dl (2.5-4.0); Magnesium 2.2 mg/dl (1.7-2.4); Potassium 4.2 mmol/L (3.5-5.1); Total Protein 6.3 gm/dl (6.0-8.3)
[2023-01-04] MEDS: ALPRAZolam 0.25 MG TABLET PO PRN ×2 (08:12→13:30)
[2023-01-04] MEDS: MULTIVITAMIN TAB PO SCH (08:12)
[2023-01-04] MEDS: LORATADINE 10 MG TAB PO SCH (08:12)
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
[2023-01-04 09:24] LABS: Basophils # (auto) 0.02 K/uL (0-0.2); Basophils % (auto) 0.5 %; Eosinophils # (auto) 0.02 K/uL (0-0.50); Eosinophils % (auto) 0.5 %; Hematocrit (blood only) 41.3 % (37.0-47.0); Hemoglobin 13.6 g/dl (12.0-16.0); Immature Granulocytes # (auto) 0.01 K/uL (0.01-0.20); Immature Granulocytes % (auto) 0.2 %; Lymphocytes # (auto) 1.63 K/uL (1.2-3.4); Lymphocytes % (auto) 38.4 %; Mean Corpuscular Hemoglobin 27.7 pg (25.0-34.0); Mean Corpuscular Hgb Conc 32.9 g/dL (32.0-36.0); Mean Corpuscular Volume 84.1 fL (80.0-100.0); Mean Platelet Volume 11.7 fL (9.4-12.4); Monocytes # (auto) 0.39 K/uL (0.11-0.59); Monocytes % (auto) 9.2 %; Neutrophils # (auto) 2.18 K/uL (1.40-6.50); Neutrophils % (auto) 51.2 %; Platelet Count 120 K/uL (130-400); RDW Standard Deviation 36.6 fL (36.4-46.3); Red Blood Count 4.91 M/uL (4.20-5.40); White Blood Count 4.25 K/ul (4.8-10.8)
--- NOTE | 2023-01-04 14:00 | Electrocardiogram Report ---
Test Reason : Blood Pressure : / mmHG Vent. Rate : 060 BPM Atrial Rate : 060 BPM P-R Int : 154 ms QRS Dur : 082 ms QT Int : 402 ms P-R-T Axes : 022 -11 030 degrees QTc Int : 402 ms Normal sinus rhythm Minimal voltage criteria for LVH, may be normal variant Borderline ECG When compared with ECG of 03-JAN-2023 14:22, No significant change was found Confirmed by Ezequiel Machado ([id number]) on 01/04/2023 1:59:31 PM Referred By: Christine Bhardwaj Confirmed By:Ezequiel Machado
--- NOTE | 2023-01-04 18:30 | Hospitalist Progress Note ---
Date of Service January 04, 2023 Assessment & Plan (1) Vertigo: (2) Vestibulopathy: (3) Legally blind: (4) Von Willebrand disease: (5) HTN (hypertension): (6) Borrelia infection: Plan This is a 57-year-old female with significant past medical history of T2DM, SVT, Factor VIII deficiency, von Willebrand disease, peripheral neuropathy, depression with anxiety, dizziness and macular dystrophy who presents for dizziness and ill feeling for the past 7 months. Persistent Postural Perceptual Dizziness Vestibulopathy Borrelia infection Admit to telemetry Patient complains of worsening vestibulopathy symptoms to the point she is unable to function at home Ongoing symptoms, I admitted patient 3 months ago for the same complaint Workup to date has been negative including RF, SUSANA, heavy metal screen, lyme, B12, folate, MRI head, MRI cervical spine, MRA head/neck Appreciate Neurology input Vitamin D borderline low--I doubt this is the source of her extensive complaints, may contribute to feelings of weakness/fatigue. 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 carb controlled diet last a1c 11/28/21 7.0 DVT ppx: SCDS FULL CODE PCP: Jeana Bhardwaj Dispo: admit under obs to med tele Admission and Anticipated Discharge Date Admission Date: January 03, 2023 Subjective Ongoing multitude of complaints (vision changes, pain all over, numbness, tingling all over) which she has had chronically Convinced she may have underlying cancer, "I eat so well but I've lost 30lb!" but when suggested that she needs to follow up for mammogram and colonoscopy for routine screening she reports that "I can't do anything until I feel better" Convinced that she has something seriously wrong and that she will despite ongoing symptoms and negative extensive workup to date. When I inquired whether she has sought a second opinion at a Tertiary Center, she replies "I can't get there, I went to [facility] years ago and it was a waste of time" Review of Systems Review of Systems: as above Physical Exam Physical Exam: Anxious, frustrated, no acute distress Respiratory: breathing comfortably on room air, no wheezing/rhonchi Cardiovascular: regular rate and rhythm, no murmurs/rubs Gastrointestinal (Abdomen): soft, non tender Musculoskeletal: No edema Neurologic: awake, alert, spontaneously moving extremities Psychiatric: anxious, tangential speech Results & Data Results & Data Vital Signs (Past 12 Hours) Vital Signs Temp Pulse Pulse Resp BP Pulse Ox O2 Del Method 01/04/23 15:35 61 01/04/23 16:22 36.7 C 68 20 134/82 97 Room Air 01/04/23 09:00 54 L 01/04/23 08:07 36.7 C 79 18 145/85 H 98 Room Air
[2023-01-05] MEDS: ALPRAZolam 0.25 MG TABLET PO PRN ×2 (08:03→13:36)
[2023-01-05] MEDS: LORATADINE 10 MG TAB PO SCH (08:05)
[2023-01-05] MEDS: MULTIVITAMIN TAB PO SCH (08:05)
[2023-01-05 08:57] LABS: Estimated Average Glucose 131 mg/dl; Hemoglobin A1C 6.2 % (4.5-5.6)
--- NOTE | 2023-01-05 17:42 | Hospitalist Progress Note ---
Date of Service January 05, 2023 Assessment & Plan (1) Vertigo: (2) Vestibulopathy: (3) Legally blind: (4) Von Willebrand disease: (5) HTN (hypertension): (6) Borrelia infection: Plan This is a 57-year-old female with significant past medical history of T2DM, SVT, Factor VIII deficiency, von Willebrand disease, peripheral neuropathy, depression with anxiety, dizziness and macular dystrophy who presents for dizziness and ill feeling for the past 7 months. Persistent Postural Perceptual Dizziness Vestibulopathy Borrelia infection Admit to telemetry Patient complains of worsening vestibulopathy symptoms to the point she is unable to function at home Ongoing symptoms, I admitted patient 3 months ago for the same complaint Workup to date has been negative including RF, SUSANA, heavy metal screen, lyme, B12, folate, MRI head, MRI cervical spine, MRA head/neck Appreciate Neurology input Vitamin D borderline low--I doubt this is the source of her extensive complaints, may contribute to feelings of weakness/fatigue. 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 carb controlled diet last a1c 11/28/21 7.0 DVT ppx: SCDS FULL CODE PCP: Jeana Bhardwaj Dispo: Likely discharge home tomorrow Admission and Anticipated Discharge Date Admission Date: January 03, 2023 Subjective 3 episodes of loose stool, 1 was watery diarrhea after lunch Another loose stool after dinner chronic complaints are unchanged (diffuse pain, vision changes, dysequilibrium) No events on telemetry Review of Systems Review of Systems: as above Physical Exam Physical Exam: No acute distress, non toxic, pleasant. at bedside Respiratory: breathing on room air, no wheezing/rhonchi/rales Cardiovascular: regular rate and rhythm, no murmurs/rubs Gastrointestinal (Abdomen): soft, non tender Musculoskeletal: No edema Neurologic: awake, alert, spontaneously moving extremities Psychiatric: anxious Results & Data Results & Data Vital Signs (Past 12 Hours) Vital Signs Temp Pulse Pulse Resp BP Pulse Ox O2 Del Method 01/05/23 15:54 63 01/05/23 15:23 36.8 C 90 18 166/91 H 95 Room Air 01/05/23 11:29 36.7 C 62 18 123/80 96 Room Air 01/05/23 09:08 Room Air 01/05/23 08:25 55 L 01/05/23 07:27 36.6 C 71 20 138/84 97 Room Air
[2023-01-06 07:32] LABS: Basophils # (auto) 0.03 K/uL (0-0.2); Basophils % (auto) 0.6 %; Eosinophils # (auto) 0.05 K/uL (0-0.50); Eosinophils % (auto) 1.1 %; Hematocrit (blood only) 42.3 % (37.0-47.0); Immature Granulocytes # (auto) 0.01 K/uL (0.01-0.20); Immature Granulocytes % (auto) 0.2 %; Lymphocytes # (auto) 1.83 K/uL (1.2-3.4); Lymphocytes % (auto) 38.6 %; Mean Corpuscular Hemoglobin 27.8 pg (25.0-34.0); Mean Corpuscular Hgb Conc 33.1 g/dL (32.0-36.0); Mean Corpuscular Volume 84.1 fL (80.0-100.0); Mean Platelet Volume 11.2 fL (9.4-12.4); Monocytes # (auto) 0.35 K/uL (0.11-0.59); Monocytes % (auto) 7.4 %; Neutrophils # (auto) 2.47 K/uL (1.40-6.50); Neutrophils % (auto) 52.1 %; Platelet Count 125 K/uL (130-400); RDW Standard Deviation 36.3 fL (36.4-46.3); Red Blood Count 5.03 M/uL (4.20-5.40); White Blood Count 4.74 K/ul (4.8-10.8)
[2023-01-06 07:45] LABS: BUN Creatinine Ratio 25.4 (10-20); Calcium 9.3 mg/dl (8.6-10.3); Creatinine Clr Calc Pharmacy 97.3 ml/min; Est GFR (African American) 108.8 ml/min; Est GFR (Non-African American) 93.9 ml/min; Magnesium 2.1 mg/dl (1.7-2.4); Potassium 4.3 mmol/L (3.5-5.1)
[2023-01-06] MEDS: ALPRAZolam 0.25 MG TABLET PO PRN (08:11)
[2023-01-06] MEDS: MULTIVITAMIN TAB PO SCH ×2 (08:12→08:13)
[2023-01-06] MEDS: LORATADINE 10 MG TAB PO SCH ×2 (08:12→08:13)
--- NOTE | 2023-01-06 10:08 | Discharge Summary ---
Date of Service January 06, 2023 Admission HPI Per Admitting Provider This is a 57-year-old female with significant past medical history of T2DM, SVT, Factor VIII deficiency, von Willebrand disease, peripheral neuropathy, depression with anxiety, dizziness and macular dystrophy who presents for dizziness and ill feeling for the past 7 months. Patient was last hospitalized in September due to similar complaints with dizziness. She has known longstanding history of vertigo and has had extensive work-up including [facility] and [facility] in the past, years ago. She has family hx of MS. Hx of LP in 2010 to r/o MS due to FH and pt states, "it went extremely bad they took too much fluid o ut." It is felt she has persistent postural perceptual dizziness per recent neuro notes. She was seen by psychiatry during last hospitalization and started on Lexapro which patient discontinued. She continues to remain on as needed benzos she recently underwent repeat MRI imaging as well as MRI and MRAs which were unremarkable. 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 She does follow with [facility] neurology and her last appointment was November 2022. An MRI of her cervical spine was ordered to eval for any progressive disc bulge and this was negative. It did reveal degenerative changes at C5-C6 but no cord impingement. She was prescribed vestibular therapy with PT but stated that PT would not see her. Patient states she continues to worsen and is currently unable to function. She mostly lays in bed and only gets up to go to the bathroom. This is been ongoing for the last 7 months but other conversation involves that she states and per started approximately a year had a half ago but has been worsening over the last 7 months. She has lost 40 pounds in the last 2 to 3 months, but at bedside attributes this to improved eating habits and dietary changes as he feels that she still eats well. She states she, "feels funny in her head and feels like she is dying." She complains of dizziness and feeling off balance. 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 Of significance she was seen in ED on 12/14/2022 and a tickborne panel was obtained. She did test positive for borreli miyamoti and was allergic to doxycycline and has not seen ID so has not started any antibiotic therapy due to allergies. Azithromycin was offered to her but she is afraid to take this due to it saying it can, "cause heart problems." She is wondering if this has wors ened her symptoms. She states that she generally feels weak. She denies any fever, chills, sweats, nausea, vomiting, abdominal pain, change in bowel or urinary habits. She states she does intermittently get chest pain as well as shortness with exertion but she denies any chest pain or shortness of breath at rest. She denies any current chest pain or shortness of breath. She denies any URI symptoms. She denies any hemoptysis, hematemesis, melena or hematochezia. She also complains of tinnitus that has been on going for years. Principal Diagnosis Chronic vestibular symptoms (light headedness, dizziness) Positive B Miyamotoi IgM serology Mild thrombocytopenia Mild Leukopenia Discharge Exam Patient was seen in her room on the day of discharge. She avoided breakfast today because her last two meals here caused loose stools. No loose stools when she is not eating Appears well, in her usual state of health Telemetry reviewed and no events noted Respiratory Breathing comfortably on room air, no wheezing/rhonchi/rales Cardiovascular Regular rate and rhythm, no murmurs/rubs/gallops Gastrointestinal (Abdomen) soft, non tender, obese Musculoskeletal No edema Neurologic Awake, alert, spontaneously moving extremities Psychiatric anxious, tangential speech Discharge Data Allergies Allergy/AdvReac Type Severity Reaction Status Date / Time Iodinated Contrast Media Allergy Severe Anaphylaxis Verified 11/09/22 10:46 [Iodinated Contrast- Oral and IV Dye] midazolam Allergy Severe Anaphylaxis Verified 11/09/22 10:46 azelastine Allergy Unknown CAN'T Verified 11/09/22 10:46 REMEMBER budesonide Allergy Unknown CAN'T Verified 11/09/22 10:46 REMEMBER cephalexin Allergy Unknown CAN'T Verified 11/09/22 10:46 REMEMBER clavulanic acid Allergy Unknown CAN'T Verified 11/09/22 10:46 REMEMBER fexofenadine Allergy Unknown CAN'T Verified 11/09/22 10:46 REMEMBER levofloxacin Allergy Unknown CAN'T Verified 11/09/22 10:46 REMEMBER nebivolol Allergy Unknown CAN'T Verified 11/09/22 10:46 REMEMBER nitrofurantoin Allergy Unknown CAN'T Verified 11/09/22 10:46 REMEMBER nizatidine Allergy Unknown CAN'T Verified 11/09/22 10:46 REMEMBER pumpkin Allergy Unknown Rash Verified 01/04/23 16:28 sorbitan esters Allergy Unknown CAN'T Verified 11/09/22 10:46 REMEMBER Sulfa (Sulfonamide Allergy Unknown CAN'T Verified 11/09/22 10:46 Antibiotics) REMEMBER sulfamethoxazole Allergy Unknown CAN'T Verified 11/09/22 10:46 [From Bactrim] REMEMBER trimethoprim [From Bactrim] Allergy Unknown CAN'T Verified 11/09/22 10:46 REMEMBER venlafaxine Allergy Unknown CAN'T Verified 11/09/22 10:46 REMEMBER Gadolinium-Containing AdvReac Severe POISONING--REMAINS Verified 11/09/22 10:46 Contrast Medi IN BODY TO PRESENT--HEADACHE aspirin AdvReac Intermediate BLEEDS Verified 11/09/22 10:46 VERY EASILY phenacetin AdvReac Intermediate BLEEDS Verified 11/09/22 10:46 VERY EASILY caffeine AdvReac Unknown CAN'T Verified 11/09/22 10:46 REMEMBER ciprofloxacin [From Cipro] AdvReac Unknown CAN'T Verified 11/09/22 10:46 REMEMBER doxycycline AdvReac Unknown CAN'T Verified 11/09/22 10:46 REMEMBER gentamicin AdvReac Unknown CAN'T Verified 11/09/22 10:46 REMEMBER Consultations 01/03/23 16:51 ED Decision to Admit Stat 01/03/23 18:08 Consult Infectious Diseases Routine Consult Neurology Routine Hospital Course (1) Vertigo: (2) Vestibulopathy: (3) Legally blind: (4) Von Willebrand disease: (5) HTN (hypertension): (6) Borrelia infection: Plan This is a 57-year-old female with significant past medical history of T2DM, SVT, Factor VIII deficiency, von Willebrand disease, peripheral neuropathy, depression with anxiety, dizziness and macular dystrophy who presents for dizziness and ill feeling for the past 7 months. Persistent Postural Perceptual Dizziness Vestibulopathy -Patient has had these symptoms for the past 6-12 months and even longer before that. -Extensive workup to date has been unrevealing -No events were noted on telemetry while here -Orthostatic vital signs were negative for orthostatic hypotension -Prior Workup has included: MRI brain without contrast, MRI cervical spine without contrast, MRA head/neck without contrast, RF, SUSANA, Heavy Metal screen, Lyme, B12, Folate, CRP (only mildly elevated), RPR, TSH -Vitamin D is borderline low and she was started on a supplement. Low Vitamin D level would not explain her ongoing vestibular symptoms but may help with her mood. Would recommend repeat levels in 6 weeks -She was seen by Neurology again this admission and it was suggested these ongoing symptoms may be somatization. -She was seen by PT and rehab or home PT with supervision was suggested to her. She declines rehab and agrees to home PT. It was offered to be set up here but she wants to first speak with her Primary Care physician -Patient is insistent that there is something very wrong with her and that "she will ". She is frustrated at her lack of a diagnosis but has also refused to see a specialist elsewhere because she has seen doctors in [facility] and [facility] in the past and "it was a waste of time". -It was explained to her that regardless of the cause of her symptoms, she would most benefit from vestibular therapy and management of her anxiety. She may seek a second opinion at a tertiary center to review her case given her ongoing symptoms and negative workup so far. Borrelia Myomotoi Positive IgM serology -On prior admission. -She was seen by ID here and repeat serologies were sent. If her IgG serology is now positive (in the setting of a positive IgM serology several weeks earlier), this would support an infection. In the meantime, will hold off on antibiotics especially with her very long list of reported allergies. -Repeat serology study is pending and will need follow up with her PCP Borderline Leukopenia Borderline Thrombocytopenia -Would suggest repeat CBC in 2-4 weeks. If worsens, recommend hematology referral Limited Diarrhea -Most likely due to food intolerance -Diarrhea associated with meals here -stool studies were ordered but not sent due to no recurrence Home Health Attestation I certify that this patient is under my care and that I, or a physicians insurance administrative assistant working with me, had a face to-face encounter that meets the home health [id number] encounter requirements with this patient. The encounter with the patient was in whole, or in part, for the following medical condition, which is the primary reason for home health care (list medical condition): I certify that, based on my findings, the following services are medically necessary home health services: My clinical findings support the need for the above services because: Further, I certify that my clinical findings support that this patient is homebo und (i.e. absences from home require considerable and taxing effort and are for medical reasons or adventist services or infrequently or of short duration when for other reasons) because: Certification for Home Health Services: Based on the above findings, I certify that this patient is confined to the home and needs intermittent custodial care, physical therapy and/or speech therapy or continues to need occupational therapy. The patient is under my care, and I have initiated the establishment of the plan of care. This patient will be followed by a physician who will periodically review the plan of care. Total Time Total Time Spent Total Time Spent (In Minutes): 40 Discharge Plan Discharge Items Patient Disposition: Home - Home Health Services Reason For Visit: DIZZINESS Discharge Diagnosis: Chronic imbalance, light headedness, vestibular symptoms Activity: Resume your previous activity Non-emergency contact: Primary Care Provider and Neurologist Call non-emergency contact if: you have any medication questions Follow-up/Referrals: Christine Bhardwaj, [Primary Care Provider] - Diet: Carb Consistent or DM2 and Heart Healthy Addtl Attending Provider Instructions: You were admitted for chronic imbalance, light headedness, dizziness You have had extensive workup for these conditions which have not revealed a source of your symptoms You were seen by Neurology here and there is a concern that these symptoms are due to somatization (physical symptoms related to underlying emotional distress) You may consider getting a second opinion at a tertiary center ([facility], [facility], [facility], etc) It is HIGHLY RECOMMENDED that you start vestibular PHYSICAL THERAPY Home Health with Home PT was offered to be arranged for you, but you would like to discuss with your Primary Care doctor first. Please let us know if you need making these arrangements You were seen by Infectious Disease doctor for a possible B Miyamotoi infection. It is recommended your serology studies be repeated and if your IgG titer is positive (in setting of positive IgM titer several weeks ago) then it supports infection. Please follow up with your PCP for result of this pending serology. Also, your WBC and Platelet here were borderline low normal. You should have a repeat CBC in 2 weeks. If these counts worsen, you should be referred to see a Agricultural Engineering Teacher Your lisinopril 2.5mg was held here due to your chronic dizziness. Your blood pressure is high normal. You had orthostatic vital signs here which was NEGATIVE. You can follow up with your primary care doctor at your appointment to decide whether Lisinopril should be restarted. In the meantime, keep a daily logbook of your blood pressure readings (do measurements three times a day until you see your doctor. Pending Studies at Discharge: Yes Studies:: Renita Garcia IgG and IgM Stand-Alone Forms: [facility], Sm[facility] Cess[facility] Medications and DC Order Prescriptions: New ergocalciferol (vitamin D2) [Vitamin D2] 1,250 mcg (50,000 unit) capsule 1,250 mcg PO DAILY Qty: 30 0RF Continued alprazolam 0.25 mg tablet 0.25 mg PO TID PRN (Reason: Anxiety) multivitamin Tablet 1 tab PO DAILY hydrocodone-acetaminophen 5-325 mg tablet 1 tab PO Q8 PRN (Reason: Pain) meclizine 12.5 mg tablet 12.5 mg PO TID PRN (Reason: Dizziness) loratadine 10 mg tablet 10 mg PO QAM Discontinued lisinopril 2.5 mg tablet 5 mg PO QAM Krames/Other Patient Handouts: Preventing Lyme Disease, Managing Type 2 Diabetes, Your Body's Response to Anxiety, ED Vertigo, Unspecified Admission Data Admit Date/Time: 01/03/23 17:06 Attending Provider: Ivanna Arias Admit Provider: Asa Lr Primary Care Provider: Christine Bhardwaj Other Providers: Hermelindo Pierre ; Chelsey Zamarripa ; Calos Wang I. ; Brody García II ; Astrid Arce ; Jose Antonio Childress ; Sina Nuñez ; Kayleen Schroeder ; Asa Lr Other Interventions: Discharge Summary Assessment (RN) Last Done: 01/06/23 08:36
[2023-01-09 20:42] LABS: Borrelia miyamotoi IgM Ab 1.47 INDEX
== END 2023-01-06 10:14 | disposition home health service (06) ==
LOC: ED 12:54 → EDINP 12:54 → SUATTDRO 17:06 → 2N 21:39

== ENCOUNTER 2023-10-11 14:31 | Observation (INO) ==
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
[2023-10-11 16:41] LABS: Basophils # (auto) 0.03 K/uL (0.00-0.20); Basophils % (auto) 0.6 %; Hematocrit (blood only) 45.2 % (37.0-47.0); Hemoglobin 14.8 g/dl (12.0-16.0); Immature Granulocytes # (auto) 0.01 K/uL (0.01-0.20); Immature Granulocytes % (auto) 0.2 %; Lymphocytes # (auto) 1.89 K/uL (1.20-3.40); Lymphocytes % (auto) 34.9 %; Mean Corpuscular Hemoglobin 26.8 pg (25.0-34.0); Mean Corpuscular Hgb Conc 32.7 g/dL (32.0-36.0); Mean Corpuscular Volume 81.9 fL (80.0-100.0); Mean Platelet Volume 11.5 fL (9.4-12.4); Monocytes # (auto) 0.28 K/uL (0.11-0.59); Monocytes % (auto) 5.2 %; Neutrophils # (auto) 3.21 K/uL (1.40-6.50); Neutrophils % (auto) 59.1 %; Platelet Count 177 K/uL (130-400); RDW Coefficient of Variation 12.4 % (11.5-14.5); RDW Standard Deviation 37.2 fL (36.4-46.3); Red Blood Count 5.52 M/uL (4.20-5.40); White Blood Count 5.42 K/ul (4.8-10.8)
[2023-10-11 17:12] LABS: Thyroid Stimulating Hormone 1.012 uIu/ml (0.300-4.500); Troponin I High Sensitivity < 2.3 pg/ml (0-14)
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
[2023-10-11 17:20] LABS: Anion Gap 7 (3-11); BUN Creatinine Ratio 24.2 (10-20); Blood Urea Nitrogen 16 mg/dl (6-23); Calcium 9.3 mg/dl (8.6-10.3); Carbon Dioxide 28 mmol/L (21-32); Chloride 106 mmol/L (98-107); Creatinine Clr Calc Pharmacy 105.2 ml/min; Est GFR (African American) 112.1 ml/min; Est GFR (Non-African American) 96.7 ml/min; Glucose 95 mg/dl (70-99(Fasting)); Magnesium 2.2 mg/dl (1.7-2.4); Sodium 141 mmol/L (136-145)
[2023-10-11 17:21] LABS: Albumin Globulin Ratio 1.6 (0.9-2); Albumin Level 4.6 gm/dl (3.4-5.0); Alkaline Phosphatase 50 U/L (34-104); Bilirubin,Total 0.5 mg/dl (0.2-1.0); C Reactive Protein < 0.50 mg/dl (0-0.5); Globulin 2.8 gm/dl (2.5-4.0); Total Protein 7.4 gm/dl (6.0-8.3)
[2023-10-11 17:25] LABS: Aspartate Aminotransferase 20 U/L (13-39)
[2023-10-11 17:27] LABS: Alanine Aminotransferase 23 U/L (7-52); Creatine Kinase 84 U/L (26-192)
--- NOTE | 2023-10-11 19:45 | Magnetic Resonance Report ---
MRI OF LUMBAR SPINE WITHOUT IV CONTRAST CLINICAL HISTORY: Low back pain. Radiculopathy. COMPARISON STUDY: MRI of the lumbar spine dated 12/16/2021. TECHNIQUE: MRI of the lumbar spine was performed utilizing various T1 and T2-weighted sequences in th e axial and sagittal planes. IV contrast was not administered for this examination. FINDINGS: Lumbar spine: Vertebral body height and alignment are maintained throughout the lumbar spine. The tra nsverse and spinous processes appear intact. There is no evidence of spondylolysis. There is chronic degenerative endplate change at L5-S1. No significant endplate edema is seen. There are hemangiomas n oted in the bodies of T10, L2, and L5. No destructive bony lesion is identified. Intervertebral discs: Disc desiccation is seen throughout the lumbar spine. There is only minimal los s of height. Spinal cord: The visualized spinal cord is normal in morphology and signal intensity. The conus medul gustavo terminates at the level of L2. The nerve roots of the cauda equina are normal in morphology. L1-L2: Unremarkable. L2-L3: Unremarkable. L3-L4: Unremarkable. L4-L5: There is minimal posterior disc bulge with annular fissure. The central canal is clear. The ne ural foramina are patent. L5-S1: There is minimal posterior disc bulge. The central canal is clear. Facet arthropathy is of no consequence. The neural foramina are patent. Sacrum: The visualized sacrum is normal in morphology and signal intensity. Soft tissues: There is mild fatty atrophy of the paraspinous musculature. The retroperitoneal structu res are grossly unremarkable but incompletely evaluated. Diverticulosis is noted with the partially i singh sigmoid there IMPRESSION: 1. Mild degenerative disc disease as above with no large disc herniation, central canal stenosis, or neural foraminal narrowing seen throughout the lumbar spine. 2. No destructive bony process is seen. Electronically signed by: Oseas Ervin M.D. 10/11/2023 7:44 PM
[2023-10-11] MEDS: AMOXICILLIN 500 MG CAP PO STA (20:07)
[2023-10-11] MEDS ORDERED: POLYETHYLENE (MIRALAX) 17 GM PACK PO PRN (22:28)
[2023-10-11 23:40] LABS: Appearance Urine Clear (Clear); Bilirubin Urine Negative (Negative); Blood Urine Negative (Negative); Color Urine Yellow; Glucose Urine UA Negative (Negative); Ketones Urine Negative (Negative); Leukocyte Esterase Urine Negative (Negative); Nitrite Urine Negative (Negative); Protein Urine Negative (Negative); Specific Gravity Urine 1.028 (1.000-1.030); Urobilinogen Urine Negative (Negative); pH Urine 5.5 (4.5-7.5)
[2023-10-11] MEDS: ACETAMINOPHEN 325 MG TAB PO PRN (23:54)
[2023-10-11] MEDS: LORazepam 0.5 MG TAB PO SCH (23:55)
[2023-10-12] MEDS: ACETAMINOPHEN 500 MG TAB PO SCH (00:03)
[2023-10-12] MEDS: lisinopril 2.5 MG TAB PO SCH (01:13)
[2023-10-12] MEDS: AMOXICILLIN 500 MG CAP PO SCH (06:14)
[2023-10-12 07:45] LABS: Hematocrit (blood only) 40.9 % (37.0-47.0); Hemoglobin 13.3 g/dl (12.0-16.0); Mean Corpuscular Hemoglobin 26.7 pg (25.0-34.0); Mean Corpuscular Hgb Conc 32.5 g/dL (32.0-36.0); Mean Platelet Volume 10.8 fL (9.4-12.4); Platelet Count 137 K/uL (130-400); RDW Coefficient of Variation 12.6 % (11.5-14.5); RDW Standard Deviation 37.8 fL (36.4-46.3); Red Blood Count 4.99 M/uL (4.20-5.40); White Blood Count 4.62 K/ul (4.8-10.8)
[2023-10-12 08:03] LABS: Calcium 8.7 mg/dl (8.6-10.3); Creatinine Clr Calc Pharmacy 110.5 ml/min; Est GFR (African American) 113.8 ml/min; Est GFR (Non-African American) 98.2 ml/min; Potassium 3.7 mmol/L (3.5-5.1)
[2023-10-12 14:30] LABS: Adenovirus PCR Not Detected (NotDetected); Bordetella parapertussis PCR Not Detected (NotDetected); Bordetella pertussis PCR Not Detected (NotDetected); Chlamydia pneumoniae PCR Not Detected (NotDetected); Coronavirus 229E PCR Not Detected (NotDetected); Coronavirus CoV-2 (COVID19)PCR Not Detected (NotDetected); Coronavirus HKU1 PCR Not Detected (NotDetected); Coronavirus NL63 PCR Not Detected (NotDetected); Coronavirus OC43PCR Not Detected (NotDetected); Human Metapneumovirus PCR Not Detected (NotDetected); Influenza A PCR Not Detected (NotDetected); Influenza B PCR Not Detected (NotDetected); Mycoplasma pneumoniae PCR Not Detected (NotDetected); Parainfluenza Virus 1 PCR Not Detected (NotDetected); Parainfluenza Virus 2 PCR Not Detected (NotDetected); Parainfluenza Virus 3 PCR Not Detected (NotDetected); Parainfluenza Virus 4 PCR Not Detected (NotDetected); Respiratory Syncytial VirusPCR Not Detected (NotDetected); Rhinovirus/Enterovirus PCR Not Detected (NotDetected)
--- NOTE | 2023-10-12 14:50 | Hospitalist Progress Note ---
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 She is being managed for the following: Worsening of her chronic generalized pain Post Lyme disease syndrome Patient did come in with worsening pain across her chest, shoulders, upper back and lower back affecting her ADL. No signs of infections are noted. Lumbar spine MRI with no acute finding. Patient was diagnosed with post Lyme disease syndrome at [facility] recently, patient is currently on amoxicillin for the same. Refer to admitting note for details. Patient was recommended pelvic MRI from [facility], patient requesting it be done here. Ordered. Patient reports no improvement in her pain, would not like kirby Ativan due to her feeling drowsy. kirby Ativan discontinued. Pain management consult, await recommendation. PT/OT. Peripheral neuropathy: chronic, persistent. Has been followed by neurology for this. Cryoglobulinemia: normal viral hepatitis panel in Mar 2023. No clear underlying cause. Continues to be monitored for this in outpatient setting. Dysequilibrium: chronic, patient continues to report spells that are intermittent but contribute to her mobility issues. She recently underwent a brain MRI and head and neck MRA for severe vertigo with no acute abnormalities seen. She reports having gone to the balance center in [place]. She will continue to follow up with her PCP. Serologic abnormality: seen by rheumatology for abnormal RF and SUSANA in the past, unclear if she has autoimmune disease. No evidence of inflammatory arthritis at this time. Normal ESR and CRP on workup. DVT proph: SCDs/ambulation, relative contraindication to anticoagulation with patient's h/o factor deficiency and reported bleeding issues. Full Code Dispo- to home after PT/OT recommendations and when her pain and mobility improve. Pain Mx eval pending. Admission and Anticipated Discharge Date Admission Date: October 11, 2023 Subjective Patient was seen and examined at bedside. Patient was lying in bed, on room air, resting comfortably, not in any acute distress. Patient reports that her pain has not improved at all despite scheduled Ativan and scheduled Tylenol. Patient does not want Ativan as she does not want to feel loopy. Ativan discontinued. Patient does not want for me to start any opiates or muscle relaxant at this point. Patient states that she will try with Tylenol for now and will work with PT and OT. Will continue to monitor. Patient reports eating okay and moving bowels okay. Physical Exam Physical Exam: CONSTITUTIONAL: WNWD, vitals as above, generally well-appearing. Obese Class II. EYES: normal conjunctivae, no scleral icterus ENT: external ear and nose normal NECK: trachea midline RESPIRATORY: clear to auscultation bilaterally, no crackles, rales or wheezes, normal respiratory effort CARDIOVASCULAR: regular rate and rhythm, S1 and 2 heard without murmurs, gallops or rubs, no JVD, no peripheral edema CHEST: inspection of chest was normal GASTROINTESTINAL: soft, nontender, ND, no guarding MUSCULOSKELETAL: strength 5/5 throughout, difficulty sitting up 2/2 back pain, head is normocephalic and atraumatic multiple tender points along chest and back, paraspinal muscle tenderness with muscle tightness in the upper thoracic region and in the SI joint region bilaterally. Strap muscles of her neck are also tight. SKIN: warm and dry NEUROLOGIC: CN 2-12 grossly intact, no sensory deficit, normal cognition, n ormal speech, no tremor PSYCHIATRIC: alert cooperative and oriented to person, place and time. Euthymic mood, makes good eye contact, language grossly intact, recent and remote memory grossly intact. Results & Data Results & Data Vital Signs (Past 12 Hours) Vital Signs Temp Pulse Pulse Pulse Resp BP Pulse Ox 10/12/23 11:54 36.6 C 64 18 126/74 97 10/12/23 08:22 56 L 10/12/23 08:06 36.7 C 63 18 119/70 97 10/12/23 04:00 36.6 C 79 18 118/69 97 O2 Del Method 10/12/23 11:54 Room Air 10/12/23 08:22 10/12/23 08:06 Room Air 10/12/23 04:00 Room Air
[2023-10-12] MEDS: ALPRAZolam 0.25 MG TABLET PO PRN (16:36)
--- NOTE | 2023-10-12 19:24 | Magnetic Resonance Report ---
MRI OF THE PELVIS WITHOUT IV CONTRAST CLINICAL HISTORY: Pelvic pain. Assess for sacroiliitis. COMPARISON STUDY: Pelvic CT dated 01/04/2018. TECHNIQUE: MRI of the pelvis is performed utilizing various T1 and T2-weighted sequences in the axial , sagittal, and coronal planes. IV contrast was not administered for this examination. Examination is degraded by large body habitus. Note, the interpretation is suboptimal without plain film correlate. FINDINGS: There is no MRI evidence of acute fracture involving the hips or bony pelvis. No destructiv e bony lesion is identified. There is no evidence of avascular necrosis of femoral heads. There is on ly minimal degenerative change seen in the hips. No hip joint effusion is seen. There is mild degener ative change noted in the sacroiliac joints with minimal marrow edema on the right. No erosive diseas e is seen. The origin of the hamstrings tendons are intact. There is bilateral trochanteric bursitis, left greater than right. The bladder is decompressed and grossly unremarkable. The uterus is surgica lly absent. No adnexal lesion is seen. There is no free fluid in the cul-de-sac. There is no pelvic s idewall or inguinal lymphadenopathy. There is generalized atrophy of the regional musculature. IMPRESSION: 1. No acute bony abnormality is seen involving the hips or pelvis. 2. There is mild degenerative change noted in the sacroiliac joints, right greater than left. Mild ma rrow edema is seen on the right. No erosive disease is identified. 3. Minimal degenerative change is noted in the hips. 4. There is bilateral trochanteric bursitis. Dictated: 10/12/2023 4:16 PM Transcribed: 10/12/2023 5:14 PM Jermaine [id number] [email or web address] Electronically signed by: Oseas Ervin M.D. 10/12/2023 7:22 PM
[2023-10-13 07:32] LABS: Hematocrit (blood only) 44.8 % (37.0-47.0); Hemoglobin 14.2 g/dl (12.0-16.0); Mean Corpuscular Hemoglobin 26.6 pg (25.0-34.0); Mean Corpuscular Hgb Conc 31.7 g/dL (32.0-36.0); Mean Corpuscular Volume 84.1 fL (80.0-100.0); Platelet Count 145 K/uL (130-400); RDW Coefficient of Variation 12.5 % (11.5-14.5); RDW Standard Deviation 38.4 fL (36.4-46.3); Red Blood Count 5.33 M/uL (4.20-5.40); White Blood Count 4.79 K/ul (4.8-10.8)
[2023-10-13 07:49] LABS: BUN Creatinine Ratio 21.4 (10-20); Calcium 8.9 mg/dl (8.6-10.3); Creatinine Clr Calc Pharmacy 98.4 ml/min; Est GFR (African American) 109.9 ml/min; Est GFR (Non-African American) 94.8 ml/min; Magnesium 2.1 mg/dl (1.7-2.4); Phosphorus 3.7 mg/dl (2.5-4.9); Potassium 4.1 mmol/L (3.5-5.1)
[2023-10-13] MEDS: MULTIVITAMIN TAB PO SCH (09:16)
[2023-10-13] MEDS: DICLOFENAC SOD 1% GEL 100 GM TUBE EXT SCH (15:55)
--- NOTE | 2023-10-13 15:58 | Hospitalist Progress Note ---
Date of Service October 13, 2023 Assessment & Plan (1) Pain: Plan 58-year-old lady with PMH of DM, VWD, cryoglobulinemia, rheumatoid arthritis presents to the ED 10/10 with worsening of 4 chronic generalized pain for few days FIREPERSON. She also reported dry cough for few days FIREPERSON, respiratory pathogen panel negative at presentation. She is being managed for the following: Worsening of her chronic generalized pain Post Lyme disease syndrome Patient did come in with worsening pain across her chest, shoulders, upper back and lower back affecting her ADL. No signs of infections are noted. Lumbar spine MRI with no acute finding. Patient was diagnosed with post Lyme disease syndrome at [facility] recently, patient is currently on amoxicillin for the same. Refer to admitting note for details. Patient reports no improvement in her pain. Pain management consult, await recommendation. PT/OT. Bilateral trochanteric bursitis: Noted on pelvic MRI 10/11. Patient agreeable for diclofenac gel, patient does not want oral NSAIDs due to her hematologic conditions. Peripheral neuropathy: chronic, persistent. Has been followed by neurology for this. Cryoglobulinemia: normal viral hepatitis panel in Mar 2023. No clear underlying cause. Continues to be monitored for this in outpatient setting. Dysequilibrium: chronic, patient continues to report spells that are intermittent but contribute to her mobility issues. She recently underwent a brain MRI and head and neck MRA for severe vertigo with no acute abnormalities seen. She reports having ronak e to the balance center in [place]. She will continue to follow up with her PCP. Serologic abnormality: seen by rheumatology for abnormal RF and SUSANA in the past, unclear if she has autoimmune disease. No evidence of inflammatory arthritis at this time. Normal ESR and CRP on workup. DVT proph: SCDs/ambulation, relative contraindication to anticoagulation with patient's h/o factor deficiency and reported bleeding issues. Full Code Dispo- to home after PT/OT recommendations and when her pain and mobility improve. Pain Mx eval pending. Admission and Anticipated Discharge Date Admission Date: October 11, 2023 Subjective Patient was seen and examined at bedside. Patient was lying in bed, on room air, resting comfortably, not in any acute distress. Patient's was also at bedside who was also updated on plan of care. Patient's pelvic MRI findings were discussed with the patient, patient agreeable with diclofenac gel, ordered. Patient still reports pain being about the same but has been ambulating around per patient's . Patient denies any febrile illness or new cough. Physical Exam Physical Exam: CONSTITUTIONAL: WNWD, vitals as above, generally well-appearing. Obese Class II. EYES: normal conjunctivae, no scleral icterus ENT: external ear and nose normal NECK: trachea midline RESPIRATORY: clear to auscultation bilaterally, no crackles, rales or wheezes, normal respiratory effort CARDIOVASCULAR: regular rate and rhythm, S1 and 2 heard without murmurs, gallops or rubs, no JVD, no peripheral edema CHEST: inspection of chest was normal GASTROINTESTINAL: soft, nontender, ND, no guarding MUSCULOSKELETAL: strength 5/5 throughout, difficulty sitting up 2/2 back pain, head is normocephalic and atraumatic multiple tender points along chest and back, paraspinal muscle tenderness with muscle tightness in the upper thoracic region and in the SI joint region bilaterally. Strap muscles of her neck are also tight. SKIN: warm and dry NEUROLOGIC: CN 2-12 grossly intact, no sensory deficit, normal cognition, normal speech, no tremor PSYCHIATRIC: alert cooperative and oriented to person, place and time. Euthymic mood, makes good eye contact, language grossly intact, recent and remote memory grossly intact. Results & Data Results & Data Vital Signs (Past 12 Hours) Vital Signs Temp Pulse Pulse Resp BP Pulse Ox O2 Del Method 10/13/23 15:52 36.9 C 67 18 150/90 H 98 Room Air 10/13/23 11:29 36.8 C 62 18 124/73 96 Room Air 10/13/23 10:00 58 L 10/13/23 08:32 36.7 C 64 18 123/78 96 Room Air 10/13/23 04:00 36.8 C 66 18 108/66 98 Room Air
--- OUTSIDE RECORDS SUMMARY | 2023-10-13 18:29 | External Medical Summary | Summary of Care ---
Author Name Unknown Organization [facility] Address [address] [place] [address] Phone [phone] Care Team Providers Care Sheet Tester Name Role Phone Christine Bhardwaj DO Primary Care Provider [phone] Reason for Visit * Reason Comments Follow Up Encounter Details Date Type Department Care Team (Late st Contact Info) Description 09/23/2023 3:50 PM EDT Telemedicine General Internal Medicine, [facility] [address] [place] [address] Warner Santiago MD [address] [place] [address] Fatigue, unspecified type*; Vertigo; Numbness; Generalized pain Allergies Active Allergy Reactions Criticality Noted Date Comments Amoxicillin Hives 04/30/2023 Aspirin Bleeding High 09/04/2013 "I don't take because I'm a bleeder." Astelin 04/30/2023 Other Reaction(s): Burning Nose Bactrim 04/24/2011 Clavulanic Acid 04/30/2023 Other Reaction(s): Hives Venlafaxine Hydrochloride Seizure High 09/04/2013 "I can't have any Anti-depressants" Fexofenadine Hcl 04/24/2011 Fluoxetine Unknown 05/08/2018 Gadolinium Unknown 05/08/2018 Iodinated Contrast Media 04/24/2011 Levofloxacin 04/24/2011 Nitrofurantoin Monohydrate Macrocrystals 04/24/2011 Wheezing. Stomach Issues. Midazolam Hcl 04/24/2011 Nebivolol Unknown 05/08/2018 Nizatidine 04/24/2011 Budesonide 04/24/2011 Sulfa Antibiotics Unknown 05/08/2018 Sulfamethoxazole-Trimethoprim Unknown 2017 Trimethoprim 04/30/2023 documented as of this encounter (statuses as of 10/06/2023) Medications Medication Sig Dispensed Refills Start Date End Date Status TYLENOL EXTRA STRENGTH 500 MG PO TABS Take by mouth. 0 Active CENTRUM PO TABS Take by mouth. Centrum Silver 0 Active OneTouch Delica Lancets FineIndications:P rediabetes Test BS one time daily 100 Each 5 04/05/2020 Active OneTouch Delica Plus [id number] use 1 LANCET to TEST BLOOD SUGAR UP TO four times a day as directed 400 Each 1 10/04/2022 Active OneTouch Ultra 2 w/Device KitIndications:Ty pe 2 diabetes mellitus with hemoglobin A1c goal of less than 7.0% ([facility]) Use 4x/day as directed. E11.9. 1 Kit 0 10/26/2022 Active Lisinopril 2.5 MG Oral Tablet (Prinivil) Take 1-2 Tablets by mouth in the morning. 0 01/21/2023 Active Nystatin 402651 UNIT/GM External Cream Apply topically to affected area 2 times a day. To affacted area for two weeks. 30 g 2 02/04/2023 Active Estradiol 0.1 MG/GM Vaginal Cream (Estrace)Indicati ons:Vaginal atrophy,Atrophy of vulva Administer 2 g into the vagina in the morning. as directed.. 42.5 g 3 03/27/2023 Active Additional Information Patient not taking.Reported on 09/04/2023 Vitamin D3 1000 UNIT Oral Capsule Take 1 Capsule by mouth in the morning. 0 Active OneTouch Ultra In Vitro Strip (Glucose Blood)Indications :Prediabetes TEST BLOOD SUGAR THREE TIMES A DAY 100 Strip 5 05/01/2023 Active Diclofenac Sodium 1 % External Gel (Voltaren)Indicat ions:Acute right-sided low back pain, unspecified whether sciatica present Apply topically to affected area 4 times a day. Apply to low back 150 g 1 06/27/2023 Active Additional Information Patient not taking.Reported on 09/04/2023 Carboxymethylcell ulose Sod PF 0.5 % Ophthalmic Solution (Refresh Plus) Instill into eye. 0 Active Triamcinolone Acetonide 0.025 % External Ointment (Aristocort) APPLY A THIN LAYER TO AFFECTED AREA TWICE DAILY 0 08/30/2023 Active ALPRAZolam 0.25 MG Oral Tablet (xaNAX)Indication s:Generalized anxiety disorder Take 1 Tablet by mouth 3 times a day as needed (severe anxiety). 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 Type 2 diabetes mellitus wit h hemoglobin A1c goal of less than 7.0% 11/28/2021 Body mass index (BMI) of 40.0 to 44.9 in adult 0 11/20/2021 Overview: Per Obesity protocol Severe episode of recurrent major depressive disorder, without psychotic features 11/18/2018 SVT (supraventricular tachycardia) 11/18/2018 JEANINE (generalized anxiety disorder) 10/02/2018 Urinary bladder neurogenic dysfunction 9 Imbalance 06/13/2018 Peripheral neuropathy 06/13/2018 Chronic rhinitis 05/05/2018 Overview: [place]ast -- high mites, moderate oak, low cats/dogs Von Willebrand disease, type I 05/02/2018 Degeneration of lumbosacral intervertebral disc 09/14/2011 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 Encephalopathy 06/22/2011 Overview: ICD-10 update of inactive term documented as of this encounter (statuses as of 10/06/2023) Resolved Problems Problem Noted Date Diagnosed Date Resolved Date Diabetes mellitus with background retinopathy 04/04/20 19 04/04/2019 Diabetes mellitus without complication 04/04/2019 04/04/2019 Disorder of arteries and arterioles 04/04/2019 08/05/2019 Essential and other specified forms of tremor 06/22/19 12 07/14/2018 documented as of this encounter (statuses as of 10/06/2023) Social History Tobacco Use Types Packs/Day Years Used Date Smoking Tobacco: Former Cigarettes 14 0 06/10/1981 - 06/10/1995 Smokeless Tobacco: Never Alcohol Use Standard Drinks/Week Comments No 0 (1 standard drink = 0.6 oz pur e alcohol) very rare PHQ-2 Answer Date Recorded PHQ Adult Total Score 6 12/04/2022 Hunger Vital Sign Answer Date Recorded Within the past 12 months, y ou worried that your food would run out before you got the money to buy more. Sometimes true Within the past 12 months, t he food you bought just didn't last and you didn't have money to get more. Sometimes true Sex and Gender Information Value Date Recorded Sex Assigned at Female 07/16/2019 1:30 PM EST Gender Identity Female 07/16/2019 1:30 PM EST Sexual Orientation Straight 07/16/2019 1: 30 PM EST Job Start Date Occupation Industry Not on file Not on file Not on file documented as of this encounter Progress Notes * Warner Santiago MD - 09/23/2023 4:11 PM EDT Patient location: HOME. I was in a hospital or clinic location. After connecting through [employer],patient was verified with two unique identifiers. Patient (or authorized legal hospital insurance representative) was then informed that this was a Telemedicine visit and being conducted confidentially over secure lines. Methods to assure confidentiality were taken. Patient acknowledged consent and understanding of pr ivacy and security of the Telemedicine visit. The patient agreed to participate. Subjective: Mirta Webb is a 58 year old female. Chief Complaint Patient presents with Follow Up HPI: I had met her 6 months ago when she presented for evaluation of one year of symptoms including dizziness/imbalance without vertigo, numbness, tingling, and generalized pain throughout her body, all seeming to be associated with an episode of back pain beginning while gardening and a bull's eye rash. She had already had extensive but generally inconclusive evaluation, including: - a positive borelia miyamotoi test - positive Lyme tests at a Lyme-literate doctor - question of positive cryoglobulins After our first visit she did see two hematologists and a linotyper, was not felt to have cryoglobulinemia At the Lyme-literate doctor she did have testing which came back positive for multiple viruses, Lyme disease and syphilis, although none of that has been confirmed elsewhere as far as a I know. She has a doxycycline allergy but has taken amoxicillin on and off over the past year including 10 days for Lyme disease, several courses for abscessed teeth, and an additional 28 days. When I saw her four months ago she did send me a picture of a rash with central clearing. She reports she has had these symptoms on and off over the past few months. 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 Since I saw her she did go to [facility] and did not receive a definitive diagnosis. Current symptoms include: - a feeling of imbalance, clumsiness, not falling - spells of worsening imbalance and an indescribable sensation in her head - No shaking during episodes - indicates she has inner tremors - she has been having some urinary incontinence. Feels she is constantly fighting a UTI. Urinates every 40-45 minutes. - feels like she has lost her memory - also with constant chronic pain all over her body States she has gadolinium poisoning. 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 Encephalopathy G93.40 Degeneration of lumbosacral intervertebral disc M51.37 Von Willebrand disease, type I ([facility]) D68.01 Chronic rhinitis J31.0 Imbalance R26.89 Peripheral neuropathy G62.9 JEANINE (generalized anxiety disorder) F41.1 Urinary bladder neurogenic dysfunction N31.9 Severe episode of recurrent major depressive disorder, without psychotic features ([facility]) F33.2 SVT (supraventricular tachycardia) ([facility]) I47.10 Body mass index (BMI) of 40.0 to 44.9 in adult ([facility]) Z68.41 Type 2 diabetes mellitus with hemoglobin A1c goal of less than 7.0% ([facility]) E11.9 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 General: appears well on video link Neuro Exam: grossly (i.e. generally) normal speech and cognition Assessment: Fatigue, unspecified type (Primary) Vertigo Numbness Generalized pain I let her know I am not sure what is causing her symptoms. Her current complaints are mostly apparently neurological but it is challenging to evaluate neurological complaints without a physical exam. Diagnosis is unclear. May be fibromyalgia or chronic fatigue syndrome. Encouraged to consider sleep study, as diagnosing and treating RANDY is one route through which she could potentially improve. Encouraged to follow up with neurology for office visit as scheduled Encouraged to consider duloxetine. She is not interested in taking duloxetine. Will send her a lifestyle medicine packet. Current Outpatient Medications Medication Sig Dispense Refill TYLENOL EXTRA STRENGTH 500 MG PO TABS Take by mouth. CENTRUM PO TABS Take by mouth. Centrum Silver OneTouch Delica Lancets Fine Test BS one time daily 100 Each 5 OneTouch Delica Plus [id number] use 1 LANCET to TEST BLOOD SUGAR UP TO four times a day as directed 400 Each 1 MamboCarTouch Ultra 2 w/Device Kit Use 4x/day as directed. E11.9. 1 Kit 0 Lisinopril 2.5 MG Oral Tablet (Prinivil) Take 1-2 Tablets by mouth in the morning. Nystatin 682272 UNIT/GM External Cream Apply topically to affected area 2 times a day. To affacted area for two weeks. 30 g 2 Estradiol 0.1 MG/GM Vaginal Cream (Estrace) Administer 2 g into the vagina in the morning. as directed.. (Patient not taking: Reported on 09/04/2023) 42.5 g 3 Vitamin D3 1000 UNIT Oral Capsule Take 1 Capsule by mouth in the morning. MamboCarTouch Ultra In Vitro Strip (Glucose Blood) TEST BLOOD SUGAR THREE TIMES A DAY 100 Strip 5 Diclofenac Sodium 1 % External Gel (Voltaren) Apply topically to affected area 4 times a day. Applyto low back (Patient not taking: Reported on 09/04/2023) 150 g 1 Carboxymethylcellulose Sod PF 0.5 % Ophthalmic Solution (Refresh Plus) Instill into eye. Triamcinolone Acetonide 0.025 % External Ointment (Aristocort) APPLY A THIN LAYER TO AFFECTED AREA TWICE DAILY ALPRAZolam 0.25 MG Oral Tablet (xaNAX) Take 1 Tablet by mouth 3 times a day as needed (severe anxiety). 90 Tablet 0 Warner Santiago M.D. Associate, General Internal Medicine documented in this encounter Plan of Treatment Upcoming Encounters Date Type Department Care Team (Late st Contact Info) Description 10/10/2023 4:00 PM EDT Office Visit Neurology [facility] [address] [place] [id number] Hina Oropeza PA-C [address] [place] [address] 10/23/2023 4:00 PM EDT Office Visit Hematology/Oncology [facility] [address] [place] [phone] River Vizcaino MD [address] [place] [address] 10/30/2023 5:20 PM EDT Office Visit Family Practice [facility] [address] [place] [id number] Christine Bhardwaj DO [address] [place] [address] 01/23/2024 1:00 PM EDT Telemedicine Psychiatry, [facility] [address] [place] [address] Nela Figueroa CRNP [address] [place] [address] Health Maintenance Due Date Last Done Comments Pneumococcal Vaccine: Pediatrics (0 to 5 Years) and At-Risk Patients (6 to 64 Years) (1 of 2 - PCV) 1970 HIV Screening 1979 Albumin/Creatinine Ratio 1982 Diabetic Foot Exam 1982 DTaP,Tdap,and Td Vaccines (1 - Tdap) 1983 Hepatitis B (1 of 3 - 19+ 3-dose series) 1983 Mammogram 2004 Colonoscopy 2009 Fecal Occult Blood Test 2009 Sigmoidoscopy 2009 Zoster Vaccines (1 of 2) 2014 COVID-19 Vaccine ( season) 2023 HbA1c 10/05/2023 04/05/2023, 12/10, 07/20/2022, Additional history exists Influenza Vaccine (FLU shot) (Season Ended) 2024 Diabetic Eye Exam 05/28/2024 05/28/2023, , 01/29/2023, Additional history exists GFR 06/06/2024 06/06/2023, 03/11, 02/04/2023, Additional history exists Cologuard 01/19/2026 01/19/2023, 08/2022, 01/10/2023, Additional history exists Colorectal Cancer Screening 01/19/2026 Lipid Panel 02/05/2028 02/04/2023, 07/11, 11/28/2021, Additional history exists GARDASIL-HPV IMMUNIZATION SERIES Aged Out No longer eligible based on patient's age to complete this topic MENINGOCOCCAL (MENACTRA/MENVEO) Aged Out No longer eligible based on patient's age to complete this topic documented as of this encounter Medical Devices Not on filedocumented as of this encounter Visit Diagnoses Diagnosis Fatigue, unspecified type- Primary Vertigo Dizziness and giddiness Numbness Disturbance of skin sensation Generalized pain documented in this encounter Advance Directives Latest Code Status on File Code Status Date Activated Date Inactivated Comments Full Code 06/11/2018 10:31 PM 06/13/2018 4:48 PM This o rder reflects the patients wishes and were consensually agreed upon. Question Answer Comments Discussion of Advance Directives occurred with: Patient Care Teams Sheet Tester Relationship Specialty Start Date End Date Christine Bhardwaj DO [address] [place] [id number] PCP - General Family Medicine 10/03/22 documented as of this encounter
--- OUTSIDE RECORDS SUMMARY | 2023-10-13 18:30 | External Medical Summary | Summary of Care ---
Author Name Unknown Organization [facility] Address [address] [facility] [place] [address] Phone [phone] Care Team Providers Care Data Center Manager Name Role Phone Christine Bhardwaj DO Primary Care Provider [phone] Reason for Referral * Evaluate & Treat - Unlimited Visits (Within 10 days (routine)) - Pending Review Specialty Diagnoses / Procedures Referred By Lynsey t Referred To Contact Physical Therapy / Physical Medicine And Rehab Diagnoses Acute right-sided low back pain, unspecified whether sciatica present Kalani Ruiz CRNP [address] [place] [address] Referral ID Status Reason Start Date Expiration Date Visits Requested Visits Authorized [id number] Pending Review Specialty Services Required 06/27/[phone] Question Answer Referral Priority Within 10 days (routine) Where should this appointment be scheduled? [facility] Reason for Visit * Reason Comments Acute Dysuria x 1+ week al hernandez with odor. Back pain x 2-3+ days consistently. Hx back pain with imaging. No loss of urine or bowel function. Encounter Details Date Type Department Care Team (Late st Contact Info) Description 06/27/2023 6:20 PM EST Office Visit [facility] [address] [place] [address] Kaalni Ruiz CRNP [address] [place] [address] Acute right-sided low back pain, unspecified whether sciatica present*; Dysuria; Vaginal odor Allergies Active Allergy Reactions Criticality Noted Date [...] as of this encounter (statuses as of 07/02/2023) Medications Medication Sig Dispensed Refills Start Date End Date Status TYLENOL EXTRA STRENGTH 500 MG PO TABS Take by mouth. 0 Active CENTRUM PO TABS Take by mouth. Centrum Silver 0 Active OneTouch Delica Lancets FineIndications:Pr ediabetes Test BS one time daily 100 Each 5 04/05/2020 Active OneTouch Delica Plus [id number] use 1 LANCET to TEST BLOOD SUGAR UP TO four times a day as directed 400 Each 1 10/04/2022 Active OneTouch Ultra 2 w/Device KitIndications:Typ e 2 diabetes mellitus with hemoglobin A1c goal of less than 7.0% ([facility]) Use 4x/day as directed. E11.9. 1 Kit 0 10/26/2022 Active Lisinopril 2.5 MG Oral Tablet (Prinivil) Take 1-2 Tablets by mouth in the morning. 0 01/21/2023 Active Nystatin 507681 UNIT/GM External Cream Apply topically to affected area 2 times a day. To affacted area for two weeks. 30 g 2 02/04/2023 Active Estradiol 0.1 MG/GM Vaginal Cream (Estrace)Indicatio ns:Vaginal atrophy,Atrophy of vulva Administer 2 g into the vagina in the morning. as directed.. 42.5 g 3 03/27/2023 Active Amoxicillin 500 MG Oral Capsule (Amoxil) Take 1 Capsule by mouth in the morning and 1 Capsule at noon and 1 Capsule before bedtime. 0 04/05/2023 Active Vitamin D3 1000 UNIT Oral Capsule Take 1 Capsule by mouth in the morning. 0 Active OneTouch Ultra In Vitro Strip (Glucose Blood)Indications: Prediabetes TEST BLOOD SUGAR THREE TIMES A DAY 100 Strip 5 05/01/2023 Active ALPRAZolam 0.25 MG Oral Tablet (xaNAX)Indications :Generalized anxiety disorder Take 1 Tablet by mouth 3 times a day as needed (severe anxiety). 90 Tablet 0 05/30/2023 Active metroNIDAZOLE 0.75 % Vaginal Gel (Metrogel-Vaginal) Indications:Vagina l odor Administer 1 Applicator into the vagina at bedtime for 5 days. For 5 days. 70 g 0 06/27/2023 07/02/2023 Active Diclofenac Sodium 1 % External Gel (Voltaren)Indicati ons:Acute right-sided low back pain, unspecified whether sciatica present Apply topically to affected area 4 times a day. Apply to low back 150 g 1 06/27/2023 Active Fluconazole 150 MG Oral Tablet (Diflucan)Indicati ons:Vaginal odor Take 1 Tablet by mouth once for 1 dose. 1 Tablet 0 06/27/2023 06/27/2023 documented as of this encounter (statuses as of 07/02/2023) Active Problems Problem Noted Date Diagnosed Date Food insecurity 06/17/2023 Overview: Per [employer] [...] as of this encounter (statuses as of 07/02/2023) Resolved Problems Problem Noted Date Diagnosed Date Resolved Date Diabetes mellitus with background retinopathy 04/04/20 19 04/04/2019 Diabetes mellitus without complication 04/04/2019 04/04/2019 Disorder of arteries and arterioles 04/04/2019 08/05/2019 Essential and other specified forms of tremor 06/22/19 12 07/14/2018 documented as of this encounter (statuses as of 07/02/2023) Social History Tobacco Use Types Packs/Day Years Used Date Smoking Tobacco: Former Cigarettes 14 Q uit: 06/10/1995 Smokeless Tobacco: Never Tobacco Cessation:Counseling Given: Not Answered Alcohol Use Standard Drinks/Week Comments No 0 [...] on file documented as of this encounter Last Filed Vital Signs Vital Sign Reading Time Taken Comments Blood Pressure 140/86 06/27/2023 6:32 PM EST Pulse 81 06/27/2023 6:32 PM EST Temperature 37.2 C (99 F) 06/27/2023 6:32 PM EST Respiratory Rate - - Oxygen Saturation 98% 06/27/2023 6:32 PM EST Inhaled Oxygen Concentration - - Weight - - Height - - Body Mass Index - - documented in this encounter Progress Notes * Kalani Ruiz CRNP - 06/27/2023 6:47 PM EST Images from the original note were not included. History of Present Illness Mirta Webb is a 57 year old female that presents for Acute (Dysuria x 1+ week along with odor. Back pain x 2-3+ days consistently. Hx back pain with imaging. No loss of urine or bowel function.) HPI Here for dysuria as above. Describes urinary frequency, "weird" feeling with urination, sometimes burning. Also having back pain. Using estrogen cream for vaginal dryness. No vaginal discharge R lumbar pain spasming, radiates up into R flank Radiates into R hip Having some neuropathy in her R leg Very bad last 2-3 days Has had this issue in past Follows with [facility] for shoulders [facility] checked her R hip when having low back pain before Hasn't been able to walk due to pain in last few days On a few months of amox for "lyme doctor" treatment Can't tolerate vaginal exam due to back pain -- wants treatment Can't take steroids due to high eye pressure. Can't tolerate antidepressants such as cymbalta or effexor Outpatient Medications Marked as Taking for the 06/27/23 encounter (Office Visit) with Kalani Ruiz CRNP Medication Sig Diclofenac Sodium 1 % External Gel (Voltaren) Apply topically to affected area 4 times a day. Applyto low back [] Fluconazole 150 MG Oral Tablet (Diflucan) Take 1 Tablet by mouth once for 1 dose. metroNIDAZOLE 0.75 % Vaginal Gel (Metrogel-Vaginal) Administer 1 Applicator into the vagina at bedtime for 5 days. For 5 days. OneTouch Ultra In Vitro Strip (Glucose Blood) TEST BLOOD SUGAR THREE TIMES A DAY Amoxicillin 500 MG Oral Capsule (Amoxil) Take 1 Capsule by mouth in the morning and 1 Capsule at noon and 1 Capsule before bedtime. Vitamin D3 1000 UNIT Oral Capsule Take 1 Capsule by mouth in the morning. Estradiol 0.1 MG/GM Vaginal Cream (Estrace) Administer 2 g into the vagina in the morning. as directed.. Nystatin 323002 UNIT/GM External Cream Apply topically to affected area 2 times a day. To affacted area for two weeks. Lisinopril 2.5 MG Oral Tablet (Prinivil) Take 1-2 Tablets by mouth in the morning. Chapatiz Ultra 2 w/Device Kit Use 4x/day as directed. E11.9. [employer] Plus [id number] use 1 LANCET to TEST BLOOD SUGAR UP TO four times a day as directed [employer] Delica Lancets Fine Test BS one time daily CENTRUM PO TABS Take by mouth. Centrum Silver TYLENOL EXTRA STRENGTH 500 MG PO TABS Take by mouth. Physical Exam Vitals: 06/27/23 1832 Temp: 37.2 C (99 F) Pulse: 81 SpO2: 98% BP: 140/86 Physical Exam Vitals reviewed. Abdominal: General: There is no distension. Palpations: Abdomen is soft. Tenderness: There is no abdominal tenderness. There is no right CVA tenderness or left CVA tenderness. Musculoskeletal: Right lower leg: No edema. Left lower leg: No edema. Skin: General: Skin is warm and dry. Neurological: Mental Status: She is alert and oriented to person, place, and time. Comments: Seated in wheelchair due to back pain Psychiatric: Comments: Tearful during visit Assessment and Plan Acute right-sided low back pain, unspecified whether sciatica present - Diclofenac Sodium 1 % External Gel (Voltaren); Apply topically to affected area 4 times a day. Apply to low back - PHYSICAL THERAPY REFERRAL OP Dysuria Await culture prior to treatment - URINALYSIS, POINT OF CARE - CULTURE, URINE, QUANTITATIVE Vaginal odor Empiric treatment requested due to inability to tolerate pelvic exam today - Fluconazole 150 MG Oral Tablet (Diflucan); Take 1 Tablet by mouth once for 1 dose. - metroNIDAZOLE 0.75 % Vaginal Gel (Metrogel-Vaginal); Administer 1 Applicator into the vagina at bedtime for 5 days. For 5 days. Wrap-Up Follow Up: Return if symptoms worsen or fail to improve. Time: I spent a total of 30-39 minutes (exact time 30 mins) on the date of service in preparation, delivery, and documentation of the care provided to Mirta Webb excluding any time spent in the performance of separately billed services. documented in this encounter Plan of Treatment Upcoming Encounters Date Type Department Care Team (Late st Contact Info) Description 07/12/2023 10:00 AM EST Telemedicine General Internal Medicine, Replaced By [facility] [address] [place] [address] Warner Santiago MD [address] [place] [address] 07/31/2023 1:20 PM EST Office Visit Neurology [facility] [address] [place] [address] Hina Oropeza PA-C [address] [facility] [place] [address] 08/09/2023 2:45 PM EST Office Visit Dermatology [facility] [address] [place] [address] Oseas Lainez MD [address] [place] [address] 09/04/2023 5:00 PM EDT Office Visit [facility] [address] [facility] [place] [address] Christine [facility]hardwaj DO [address] [facility] [place] [address] 10/03/2023 1:00 PM EDT Telemedicine Psychiatry, [facility] [address] [place] [address] [address] Nela Figueroa CRNP [address] [facility] [place] [address] 10/23/2023 4:00 PM EDT Office Visit Hematology/Oncology [facility] [place] [address] [place] [address] [address] River Vizcaino MD [address] [place] [address] 10/30/2023 5:20 PM EDT Office Visit Family Practice [facility] [address] [place] [address] Christine Bhardwaj DO [address] [place] [address] Scheduled Orders Name Type Priority Associated Diagnoses Orde r Schedule URINALYSIS, POINT OF CARE Point of Care Testing - Unsolicited Results Routine Dysuria Ordered: 06/27/2023 Scheduled Referrals Name Type Priority Associated Diagnoses Orde r Schedule PHYSICAL THERAPY REFERRAL OP Referral Within 10 days (routine) Acute right-sided low back pain, unspecified whether sciatica present Ordered: 06/27/2023 Health Maintenance Due Date Last Done Comments Hepatitis B (1 of 3 - 3-dose series) 1965 COVID-19 Vaccine (#1) 01/21/1965 Pneumococcal Vaccine: Pediatrics (0 to 5 Years) and At-Risk Patients (6 to 64 Years) (1 - PCV) 1970 HIV Screening 1979 Albumin/Creatinine Ratio 1982 Diabetic Foot Exam 1982 DTaP,Tdap,and Td Vaccines (1 - Tdap) 1983 Mammogram 2004 Colonoscopy 2009 Fecal Occult Blood Test 2009 Sigmoidoscopy 2009 Zoster Vaccines (1 of 2) 2014 Influenza Vaccine (FLU shot) (#1) 2023 HbA1c 10/05/2023 04/05/2023, 07/3 , 07/20/2022, Additional history exists Depression Screening 12/05/2023 12/04/2022 Diabetic Eye Exam 05/28/2024 05/28/2023, , 01/29/2023, Additional history exists GFR 06/06/2024 06/06/2023, 10/12/2022, 02/04/2023, Additional history exists Cologuard 01/19/2026 01/19/2023, 08/0 08/2022, 01/10/2023, Additional history exists Colorectal Cancer Screening 01/19/2026 Lipid Panel 02/05/2028 02/04/2023, 07/11, 11/28/2021, Additional history exists GARDASIL-HPV IMMUNIZATION SERIES Aged Out No longer eligible based on patient's age to complete this topic MENINGOCOCCAL (MENACTRA/MENVEO) Aged Out No longer eligible based on patient's age to complete this topic documented as of this encounter Medical Devices Not on filedocumented as of this encounter Procedures Procedure Name Priority Date/Time Associated Diagnosis Comments CULTURE, URINE, QUANTITATIVE Routine 06/27/2023 6:55 PM EST Dysuria documented in this encounter Results * CULTURE, URINE, QUANTITATIVE (06/27/2023 6:55 PM EST) Culture Growth No significant growth 06/29/2023 8:48 AM EST [facility] [place] Urine specimen obtained by clean catch procedure / Unknown Non-blood Collection / Unknown 06/27/2023 6:55 PM EST 06/27/2023 6:55 PM EST Kalani BAIN [facility] MICRO - GENERA L ORDERABLES [facility] [address] [facility] [place] [address] documented in this encounter Visit Diagnoses Diagnosis Acute right-sided low back pain, unspecified whether sciatica present- Primary Dysuria Vaginal odor Unspecified symptom associated with female genital organs documented in this encounter Advance Directives Latest Code Status on File Code Status Date Activated Date Inactivated Comments Full Code 06/11/2018 10:31 PM 06/13/2018 4:48 PM This o rder reflects the patients wishes and were consensually agreed upon. Question Answer Comments Discussion of Advance Directives occurred with: Patient Care Teams Data Center Manager Relationship Specialty Start Date End Date Christine Bhardwaj DO [address] [place] [address] PCP - General Family Medicine 10/03/22 documented as of this encounter
--- OUTSIDE RECORDS SUMMARY | 2023-10-13 18:30 | External Medical Summary | Summary of Care ---
Author Name Unknown Organization [facility] Address [address] [facility] [place] [address] Phone [phone] Care Team Providers Care Commercial Journeyman Electrician Name Role Phone Juan Merritt DO Primary Care Provider [phone] Reason for Visit * Reason Onset Date Comments Medication Refill 07/08/2023 Encounter Details Date Type Department Care Team (Late st Contact Info) Description 07/08/2023 Refill Family Practice [facility] [address] [place] [address] Juan Merritt DO [address] [place] [address] Generalized anxiety disorder Allergies Active Allergy Reactions Criticality Noted Date [...] as of this encounter (statuses as of 07/08/2023) Medications Medication Sig Dispensed Refills Start Date End Date Status TYLENOL EXTRA STRENGTH 500 MG PO TABS Take by mouth. 0 Active CENTRUM PO TABS Take by mouth. Centrum Silver 0 Active OneTouch Delica Lancets FineIndications:Pred iabetes Test BS one time daily 100 Each 5 04/05/2020 Active OneTouch Delica Plus [id number] use 1 LANCET to TEST BLOOD SUGAR UP TO four times a day as directed 400 Each 1 10/04/2022 Active OneTouch Ultra 2 w/Device KitIndications:Type 2 diabetes mellitus with hemoglobin A1c goal of less than 7.0% ([facility]) Use 4x/day as directed. E11.9. 1 Kit 0 10/26/2022 Active Lisinopril 2.5 MG Oral Tablet (Prinivil) Take 1-2 Tablets by mouth in the morning. 0 01/21/2023 Active Nystatin 395693 UNIT/GM External Cream Apply topically to affected area 2 times a day. To affacted area for two weeks. 30 g 2 02/04/2023 Active Estradiol 0.1 MG/GM Vaginal Cream (Estrace)Indications :Vaginal atrophy,Atrophy of vulva Administer 2 g into [...] Active OneTouch Ultra In Vitro Strip (Glucose Blood)Indications:Pr ediabetes TEST BLOOD SUGAR THREE TIMES A DAY 100 Strip 5 05/01/2023 Active ALPRAZolam 0.25 MG Oral Tablet (xaNAX)Indications:G eneralized anxiety disorder Take 1 Tablet by mouth 3 times a day as needed (severe anxiety). 90 Tablet 0 05/30/2023 Active Diclofenac Sodium 1 % External Gel (Voltaren)Indication s:Acute right-sided low back pain, unspecified whether sciatica present Apply topically to affected area 4 times a day. Apply to low back 150 g 1 06/27/2023 Active documented as of this encounter (statuses as of 07/08/2023) Active Problems Problem Noted Date Diagnosed Date [...] as of this encounter (statuses as of 07/08/2023) Resolved Problems Problem Noted Date Diagnosed Date Resolved Date Diabetes mellitus with background retinopathy 04/04/20 19 04/04/2019 Diabetes mellitus without complication 04/04/2019 04/04/2019 Disorder of arteries and arterioles 04/04/2019 08/05/2019 Essential and other specified forms of tremor 06/22/19 12 07/14/2018 documented as of this encounter (statuses as of 07/08/2023) Social History Tobacco Use Types Packs/Day Years Used Date Smoking Tobacco: Former Cigarettes 14 Q uit: 06/10/1995 Smokeless Tobacco: Never Alcohol Use Standard [...] on file documented as of this encounter Miscellaneous Notes * Telephone Encounter - Juan Merritt DO - 07/08/2023 11:28 AM EST Managed by psychiatry * Telephone Encounter - Juan Merritt DO - 07/08/2023 11:28 AM ESTRefused Prescriptions: Disp Refills ALPRAZolam 0.25 MG Oral Tablet (xaNAX) 90 Tab*0 Sig: Take 1 Tablet by mouth 3 times a day as needed (severe anxiety). Refused By: JUAN MERRITT Reason for Refusal: Managed by another physician * Telephone Encounter - Danelle Cox [facility] - 07/08/2023 10:16 AM ESTPending Prescriptions: Disp Refills ALPRAZolam 0.25 MG Oral Tablet (xaNAX) 90 Tab*0 Sig: Take 1 Tablet by mouth 3 times a day as needed (severe anxiety). * Telephone Encounter - Danelle Cox [facility] - 07/08/2023 10:14 AM EST I have reviewed the patients controlled substance dispensing history in the Prescription Drug Monitoring Program in compliance with the [facility] regulations before prescribing a controlled substance. PDMP checked on 07/08/2023. Pending Prescriptions: Disp Refills ALPRAZolam 0.25 MG Oral Tablet (xaNAX) 90 Tab*0 Sig: Take 1 Tablet by mouth 3 times a day as needed (severe anxiety). Last Visit: 06/27/2023 (in office), 05/29/2023 (telemedicine) Next Visit: 09/04/2023 Date medication was last filled: 05/30/23 Date medication is due for refill: 06/28/23 Pharmacy: [id number] [address] [place] [address] Is this request for a controlled substance? Yes and Urine Drug Screen Not completed Toxicology results: No results found for this or any previous visit. Please approve if appropriate. Thanks, Danelle Cox, PharmD Clinical Pharmacist [facility] ([facility]) [phone] 07/08/2023, 10:14 AM * Telephone Encounter - Francesca Cain CPhT - 07/08/2023 9:51 AM EST Patient is out of medication and asking for high priority. Did you pend patient's preferred pharmacy and medication before forwarding?yes [facility]acy: [id number] [address] [place] [address] Pending Prescriptions: Disp Refills ALPRAZolam 0.25 MG Oral Tablet (xaNAX) 90 Tab*0 Sig: Take 1 Tablet by mouth 3 times a day as needed (severe anxiety). Last Visit: 06/27/2023 (in office), 05/29/2023 (telemedicine) Next Visit: 09/04/2023 If no future appointments scheduled, and last appointment is greater than a year ago, please schedule patient for a follow-up appointment Last date the medication was ordered: 05/30/2023 Is this request for a controlled substance?Yes, What was the last refill date 05/30/2023 w/ quantity 90 and dosage 0.25mg and Urine Drug Screen Not completed Urine Drug Screen:No results found for this or any previous visit. Patient Phone Numbers Labs: Lab Results Component Value Date/Time CREAT 0.66 06/06/2023 12:00 AM CREAT 0.80 12/05/2022 09:19 AM CREAT 0.8 06/13/2018 04:25 AM POTASSIUM 4.0 06/06/2023 12:00 AM POTASSIUM 4.5 12/05/2022 09:19 AM POTASSIUM 3.7 06/13/2018 04:25 AM TSH 1.660 06/06/2023 12:00 AM TSH 0.99 05/02/2018 02:16 PM LDLCALC 123 07/20/2022 03:49 PM LDLDIRECT 91 02/04/2023 03:19 PM ALT 25 03/30/2023 10:12 AM ALT 18 08/21/2018 11:57 AM HGBA1C 6.3 (A) 04/05/2023 12:00 AM HGBA1C 7.0 07/20/2022 03:49 PM HGBA1C 5.8 (H) 05/08/2018 05:10 PM documented in this encounter Plan of Treatment Upcoming Encounters Date Type Department Care Team (Late st Contact Info) Description 07/31/2023 1:20 PM EST Office Visit [facility] [address] [place] [address] Hina Oropeza PA-C [address] [place] [address] 08/09/2023 2:45 PM EST Office Visit [facility] [address] [place] [address] [address] Oseas Lainez MD [address] [place] [address] 08/20/2023 2:30 PM EDT Telemedicine General Internal Medicine, [facility] [address] [place] [address] Warner Santiago MD [address] [place] [address] 09/04/2023 5:00 PM EDT Office Visit [facility] [address] [facility] [place] [address] Juan Merritt, DO [address] [facility] [place] [address] 10/03/2023 1:00 PM EDT Telemedicine Psychiatry, [facility] [address] [facility] [place] [address] Nela Figueroa CRNP [address] [facility] [place] [address] 10/23/2023 4:00 PM EDT Office Visit Hematology/Oncology [facility] [address] [place] [address] River Vizcaino MD [address] [facility] [place] [address] 10/30/2023 5:20 PM EDT Office Visit [facility] [address] [facility] [place] [address] Juan Merritt, DO [address] [facility] [place] [address] Health Maintenance Due Date Last Done Comments [...] (FLU shot) (#1) 2023 HbA1c 10/05/2023 04/05/2023, 12/10, 07/20/2022, Additional history exists Depression Screening 12/05/2023 [...] as of this encounter Visit Diagnoses Diagnosis Generalized anxiety disorder documented in this encounter Advance Directives Latest Code Status on File Code Status Date Activated Date Inactivated Comments Full Code 06/11/2018 10:31 PM 06/13/2018 4:48 PM This o rder reflects the patients wishes and were consensually agreed upon. Question Answer Comments Discussion of Advance Directives occurred with: Patient Care Teams Commercial Journeyman Electrician Relationship Specialty Start Date End Date Juan Merritt DO [address] [place] [address] PCP - General Family Medicine 10/03/22 documented as of this encounter
--- OUTSIDE RECORDS SUMMARY | 2023-10-13 18:30 | External Medical Summary | Summary of Care ---
Author Name Unknown Organization [facility] Address [address] [place] [address] Phone [phone] Care Team Providers Care Cnc Set Up Operator Name Role Phone Christine Bhardwaj DO Primary Care Provider [phone] Reason for Visit * Reason Onset Date Comments Test Results Lab 04/30/2023September from [facility] calling to inform Dr Orta, she will be faxing 7 pgs total of results and cover sheet for pt Mirta Martel # [id number], pt wanted Dr Orta to have results today - Any questions, you may reach September from [facility] at [phone] Option 7 Encounter Details Date Type Department Care Team (Late st Contact Info) Description 04/30/2023 Telephone Access Center, [place] [facility] [address] [facility] *DO NOT REMOVE THIS DEPARTMENT* [place] [address] Services, Scheduling [address] [place] [address] Test Results Lab (September from [facility] call... Allergies Active Allergy Reactions Criticality Noted Date [...] as of this encounter (statuses as of 07/30/2023) Medications Medication Sig Dispensed Refills Start Date End Date Status TYLENOL EXTRA STRENGTH 500 MG PO TABS Take by mouth. 0 Active CENTRUM PO TABS Take by mouth. Centrum Silver 0 Active OneTouch Delica Lancets FineIndications:Pred iabetes Test BS one time daily 100 Each 5 04/05/2020 Active OneTouch Delica Plus [id number] use 1 LANCET to TEST BLOOD SUGAR UP TO four times a day as directed 400 Each 1 10/04/2022 Active NoemalifeTouch Ultra 2 w/Device KitIndications:Type 2 diabetes mellitus with hemoglobin A1c goal of less than 7.0% ([facility]) Use 4x/day as directed. E11.9. 1 Kit 0 10/26/2022 Active Lisinopril 2.5 MG Oral Tablet (Prinivil) Take 1-2 Tablets by mouth in the morning. 0 01/21/2023 Active Nystatin 034683 UNIT/GM External Cream Apply topically to affected [...] by mouth in the morning. 0 Active documented as of this encounter (statuses as of 07/30/2023) Active Problems Problem Noted Date Diagnosed Date [...] as of this encounter (statuses as of 07/30/2023) Resolved Problems Problem Noted Date Diagnosed Date Resolved Date Diabetes mellitus with background retinopathy 04/04/20 19 04/04/2019 Diabetes mellitus without complication 04/04/2019 04/04/2019 Disorder of arteries and arterioles 04/04/2019 08/05/2019 Essential and other specified forms of tremor 06/22/19 12 07/14/2018 documented as of this encounter (statuses as of 07/30/2023) Social History Tobacco Use Types Packs/Day Years [...] encounter Miscellaneous Notes * Telephone Encounter - Raven Manley OSA - 04/30/2023 10:29 AM EST September from [facility] calling to inform Dr Orta, she will be faxing 7 pgs total of results and cover sheet for pt Mirta Tahmina # [id number], pt wanted Dr Orta to have results today - Any questions, you may reach September from [facility] at [phone] Option 7 Thank-you! Raven documented in this encounter Plan of Treatment Upcoming Encounters Date Type Department Care Team (Late st Contact Info) Description 08/09/2023 2:45 PM EST Office Visit Dermatology [facility] [address] [place] [address] Oseas Lainez MD [address] [place] [address] 08/20/2023 2:30 PM EDT Telemedicine General Internal Medicine, [facility] [address] [place] [address] Warner Santiago MD [address] [place] [address] 09/04/2023 5:00 PM EDT Office Visit Family Practice [facility] [place] [address] Christine Bhardwaj DO [address] [place] [address] 10/03/2023 1:00 PM EDT Telemedicine Psychiatry, [facility] [address] [place] [address] Nela Figueroa CRNP 200 [facility] [place] [address] 10/10/2023 4:00 PM EDT Office Visit Neurology [facility] 200 [facility] [place] [address] Hina Oropeza PA-C 200 [facility] [place] [address] 10/23/2023 4:00 PM EDT Office Visit Hematology/Oncology [facility] 200 [facility] [place] [address] River Vizcaino MD 200 [facility] [place] [address] 10/30/2023 5:20 PM EDT Office Visit Family [facility] [address] [place] [address] Christine Bhardwaj DO [address] [place] [address] Health Maintenance Due Date Last Done Comments [...] Vaccines (1 of 2) 2014 COVID-19 Vaccine (1 - 2022-24 season) 2023 Influenza Vaccine (FLU shot) (#1) 2023 HbA1c 10/05/2023 04/05/2023, 07/3 , 07/20/2022, Additional history exists Depression Screening 12/05/2023 12/04/2022 Diabetic Eye Exam 05/28/2024 05/28/2023, , 01/29/2023, Additional history exists GFR 06/06/2024 06/06/2023, 03/11, 02/04/2023, Additional history exists Cologuard 01/19/2026 01/19/2023, 0808/2022, 01/10/2023, Additional history exists Colorectal Cancer Screening 01/19/2026 Lipid Panel 02/05/2028 02/04/2023, 07/11, 11/28/2021, Additional history exists GARDASIL-HPV IMMUNIZATION SERIES Aged Out No longer eligible based on patient's age to complete this topic MENINGOCOCCAL (MENACTRA/MENVEO) Aged Out No longer eligible based on patient's age to complete this topic documented as of this encounter Medical Devices Not on filedocumented as of this encounter Advance Directives Latest Code Status on File Code Status Date Activated Date Inactivated Comments Full Code 06/11/2018 10:31 PM 06/13/2018 4:48 PM This o rder reflects the patients wishes and were consensually agreed upon. Question Answer Comments Discussion of Advance Directives occurred with: Patient Care Teams Cnc Set Up Operator Relationship Specialty Start Date End Date Christine Bhardwaj DO [address] [place] [address] PCP - General Family Medicine 10/03/22 documented as of this encounter
--- OUTSIDE RECORDS SUMMARY | 2023-10-13 18:30 | External Medical Summary | Summary of Care ---
Author Name Unknown Organization [facility] Address [address] [facility] [place] [address] Phone [phone] Care Team Providers Care Ehs Specialist Name Role Phone Christine Bhardwaj DO Primary Care Provider [phone] Reason for Visit * Reason Onset Date Comments Medication Refill 08/02/2023 Encounter Details Date Type Department Care Team (Late st Contact Info) Description 08/02/2023 Refill Family Practice [facility] [address] [place] [address] Christine Bhardwaj DO [address] [place] [address] Generalized anxiety disorder Allergies Active Allergy Reactions [...] as of this encounter (statuses as of 08/02/2023) Medications Medication Sig Dispensed Refills Start Date End Date Status TYLENOL EXTRA STRENGTH 500 MG PO TABS Take by mouth. 0 Active CENTRUM PO TABS Take by mouth. Centrum Silver 0 Active OneTouch Delica Lancets FineIndications:P rediabetes Test BS one time daily 100 Each 5 04/05/2020 Active OneTouch Delica Plus [id number] use 1 LANCET to TEST BLOOD SUGAR UP TO four times a day as directed 400 Each 1 10/04/2022 Active OneTouch Ultra 2 w/Device KitIndications:Ty pe 2 diabetes mellitus with hemoglobin A1c goal of less than 7.0% ([facility]) Use 4x/day as directed. E11.9. 1 Kit 0 10/26/2022 Active Lisinopril 2.5 MG Oral Tablet (Prinivil) Take 1-2 Tablets by mouth in the morning. 0 01/21/2023 Active Nystatin 780499 UNIT/GM External Cream Apply topically to affected [...] low back 150 g 1 06/27/2023 Active ALPRAZolam 0.25 MG Oral Tablet (xaNAX)Indication s:Generalized anxiety disorder Take 1 Tablet by mouth 3 times a day as needed (severe anxiety). Do not fill before 08/05/23. 90 Tablet 0 08/02/2023 Active ALPRAZolam 0.25 MG Oral Tablet (xaNAX)Indication s:Generalized anxiety disorder Take 1 Tablet by mouth 3 times a day as needed (severe anxiety). 90 Tablet 0 07/08/2023 08/02/2023 Discontinue d(Refill) documented as of this encounter (statuses as of 08/02/2023) Active Problems Problem Noted Date Diagnosed Date [...] as of this encounter (statuses as of 08/02/2023) Resolved Problems Problem Noted Date Diagnosed Date Resolved Date Diabetes mellitus with background retinopathy 04/04/20 19 04/04/2019 Diabetes mellitus without complication 04/04/2019 04/04/2019 Disorder of arteries and arterioles 04/04/2019 08/05/2019 Essential and other specified forms of tremor 06/22/19 12 07/14/2018 documented as of this encounter (statuses as of 08/02/2023) Social History Tobacco Use Types Packs/Day Years [...] encounter Miscellaneous Notes * Telephone Encounter - Nela Figueroa CRNP - 08/02/2023 5:11 PM ESTSigned Prescriptions: Disp Refills ALPRAZolam 0.25 MG Oral Tablet (xaNAX) 90 Tab*0 Sig: Take 1 Tablet by mouth 3 times a day as needed (severe anxiety). Do not fill before 08/05/23.Authorizing Provider: NELA FIGUEROA * Telephone Encounter - Ezequiel Waters [facility] - 08/02/2023 12:50 PM EST Pending Prescriptions: Disp Refills ALPRAZolam 0.25 MG Oral Tablet (xaNAX) 90 Tab*0 Sig: Take 1 Tablet by mouth 3 times a day as needed (severe anxiety). * Telephone Encounter - Ezequiel Waters [facility] - 08/02/2023 12:49 PM EST I have reviewed the patients controlled substance dispensing history in the Prescription Drug Monitoring Program in compliance with the [facility] regulations before prescribing a controlled substance. PDMP checked on 08/02/2023. Pending Prescriptions: Disp Refills ALPRAZolam 0.25 MG Oral Tablet (xaNAX) 90 Tab*0 Sig: Take 1 Tablet by mouth 3 times a day as needed (severe anxiety). Last Visit: 06/27/2023 (in office), 05/29/2023 (telemedicine) Next Visit: 09/04/2023 Date medication was last filled: 07/08 Date medication is due for refill: 08/06 [facility]: [id number] [address] [place] [address] Is this request for a controlled substance? Yes and Urine Drug Screen Not completed Toxicology results: No results found for this or any previous visit. Please approve if appropriate. Thanks, Ezequiel Waters, UyenD Clinical Pharmacist [facility](formerly telepharmacy) [phone] 08/02/2023, 12:49 PM * Telephone Encounter - Erin Hansen wall to wall carpet installer - 08/02/2023 9:18 AM EST Did you pend patient's preferred pharmacy and medication before forwarding?yes [facility]acy: [id number] [address] [place] [address] Pending Prescriptions: Disp Refills ALPRAZolam 0.25 MG Oral Tablet (xaNAX) 90 Tab*0 Sig: Take 1 Tablet by mouth 3 times a day as needed (severe anxiety). Last Visit: 06/27/2023 (in office), 05/29/2023 (telemedicine) Next Visit: 09/04/2023 If no future appointments scheduled, and last appointment is greater than a year ago, please schedule patient for a follow-up appointment Last date the medication was ordered: 07/08/2023 Is this request for a controlled substance?Yes, What was the last refill date 07/08/2023 w/ [id number] TAB and dosage 0.25 MG and Urine Drug Screen Not completed Urine [...] 08/09/2023 2:45 PM EST Office Visit Dermatology [facility] [place] 200 [facility] [place] [address] Oseas Lainez MD 16 [facility] [address] 08/20/2023 2:30 PM EDT Telemedicine General Internal Medicine, [address] [place] [address] Warner Santiago MD [address] [facility] [place], [place] [address] 09/04/2023 5:00 PM EDT Office Visit [facility] [address] [place] [address] Christine Bhardwaj, DO 132 [facility] [place] [address] 10/03/2023 1:00 PM EDT Telemedicine Psychiatry, [facility] [address] [facility] [place] [address] Nela Figueroa CRNP 200 [facility] [place] [address] 10/10/2023 4:00 PM EDT Office Visit Neurology [facility] [address] [facility] [place] [address] Hina Oropeza PA-C 200 [facility] [place] [address] 10/23/2023 4:00 PM EDT Office Visit Hematology/Oncology [facility] [address] [facility] [place] [address] River Vizcaino MD 200 [facility] [place] [address] 10/30/2023 5:20 PM EDT Office Visit [facility] [address] [place] [address] Christine Bhardwaj, DO [address] [place] [address] Health Maintenance Due Date Last Done Comments [...] of 2) 2014 COVID-19 Vaccine (1 - season) 2023 Influenza Vaccine (FLU shot) (#1) 2023 HbA1c 10/05/2023 04/05/2023, 07/, 07/20/2022, Additional history exists Depression Screening 12/05/2023 [...] Advance Directives occurred with: Patient Care Teams Ehs Specialist Relationship Specialty Start Date End Date Christine Bhardwaj DO [address] [place] [address] [place] [address] PCP - General Family Medicine 10/03/22 documented as of this encounter
--- OUTSIDE RECORDS SUMMARY | 2023-10-13 18:30 | External Medical Summary | Summary of Care ---
Author Name Unknown Organization [facility] Address [address] [facility] [address] Phone [phone] Care Team Providers Care Ballroom Dance Instructor Name Role Phone Christine Bhardwaj DO Primary Care Provider [phone] Reason for Visit * Reason Onset Date Comments Medication Refill 09/06/2023 Encounter Details Date Type Department Care Team (Late st Contact Info) Description 09/06/2023 Refill Psychiatry, [facility] [address] [facility] [place] [address] Nela Figueroa CRNP 200 [facility] [place] [address] Generalized anxiety disorder Allergies Active Allergy Reactions [...] as of this encounter (statuses as of 09/06/2023) Medications Medication Sig Dispensed Refills Start Date End Date Status TYLENOL EXTRA STRENGTH 500 MG PO TABS Take by mouth. 0 Active CENTRUM PO TABS Take by mouth. Centrum Silver 0 Active OneTouch Delica Lancets FineIndications:P rediabetes Test BS one time daily 100 Each 5 04/05/2020 Active OneTouch Delica Plus Shottk26L use 1 LANCET to TEST BLOOD SUGAR UP TO four times a day as directed 400 Each 1 10/04/2022 Active CISSOIDTouch Ultra 2 w/Device KitIndications:Ty pe 2 diabetes mellitus with hemoglobin A1c goal of less than 7.0% ([facility]) Use 4x/day as directed. E11.9. 1 Kit 0 10/26/2022 Active Lisinopril 2.5 MG Oral Tablet (Prinivil) Take 1-2 Tablets by mouth in the morning. 0 01/21/2023 Active Nystatin 932638 UNIT/GM External Cream Apply topically to affected [...] needed (severe anxiety). 90 Tablet 0 09/06/2023 Active ALPRAZolam 0.25 MG Oral Tablet (xaNAX)Indication s:Generalized anxiety disorder Take 1 Tablet by mouth 3 times a day as needed (severe anxiety). Do not fill before 08/05/23. 90 Tablet 0 08/02/2023 Discontinue d(Refill) documented as of this encounter (statuses as of 09/06/2023) Active Problems Problem Noted Date Diagnosed Date [...] as of this encounter (statuses as of 09/06/2023) Resolved Problems Problem Noted Date Diagnosed Date Resolved Date Diabetes mellitus with background retinopathy 04/04/20 19 04/04/2019 Diabetes mellitus without complication 04/04/2019 04/04/2019 Disorder of arteries and arterioles 04/04/2019 08/05/2019 Essential and other specified forms of tremor 06/22/19 12 07/14/2018 documented as of this encounter (statuses as of 09/06/2023) Social History Tobacco Use Types Packs/Day Years [...] Telephone Encounter - Nela Figueroa CRNP - 09/06/2023 4:16 PM EDTSigned Prescriptions: Disp Refills ALPRAZolam 0.25 MG Oral Tablet (xaNAX) 90 Tab*0 Sig: Take 1 Tablet by mouth 3 times a day as needed (severe anxiety).Authorizing Provider: NELA FIGUEROA------ * Telephone Encounter - Lyric Gonzalez MED DEBORAH - 09/06/2023 12:41 PM EDTPending Prescriptions: Disp Refills ALPRAZolam 0.25 MG Oral Tablet (xaNAX) 90 Tab*0 Sig: Take 1 Tablet by mouth 3 times a day as needed (severe anxiety). Do not fill before 08/05/23. * Telephone Encounter - Lyric Gonzalez MED ASSIST - 09/06/2023 12:41 PM EDT Refill request from patient (Andreea) for Xanax 0.25mg. Medication last filled on 08/02/23 with 0 refills. Patient last seen on 06/06/23 with return appointment scheduled for 10/03/23. Patient had 0 cancelled appointments and 0 NO SHOW appointments. * Telephone Encounter - Francesca Cain CPhT - 09/06/2023 12:23 PM EDT Patient is asking for high priority, states that she is out. She had requested this 2 days ago but it went to the wrong Provider. Did you pend patient's preferred pharmacy and medication before forwarding?yes Pharmacy: [id number] [address] [place] [address] Pending Prescriptions: Disp Refills ALPRAZolam 0.25 MG Oral Tablet (xaNAX) 90 Tab*0 Sig: Take 1 Tablet by mouth 3 times a day as needed (severe anxiety). Do not fill before 08/05/23. Last Visit: Visit date not found (in office), 06/06/2023 (telemedicine) Next Visit: 10/03/2023 If no future appointments scheduled, and last appointment is greater than a year ago, please schedule patient for a follow-up appointment Last date the medication was ordered: 08/02/2023 Is this request for a controlled substance?Yes, What was the last refill date 08/02/2023 w/ quantity 90 and dosage 0.25mg and [...] 3:50 PM EDT Telemedicine [facility] [address] [place] [address] Warner Santiago MD [address] [place] [address] 10/03/2023 1:00 PM EDT Telemedicine Psychiatry, [facility] [address] [place] [address] Nela Figueroa CRNP [address] [place] [address] 10/10/2023 4:00 PM EDT Office Visit Neurology [facility] [place] [address] [place] [address] Hina Oropeza PA-C 200 [facility] [place] [address] 10/23/2023 4:00 PM EDT Office Visit Hematology/Oncology [facility] [place] [address] [facility] [place] [address] River Vizcaino MD 200 [facility] [place] [address] 10/30/2023 5:20 PM EDT Office Visit Family [facility] [address] [place] [address] Christine Bhardwaj DO [address] [place] [address] Health Maintenance Due Date Last Done Comments [...] Advance Directives occurred with: Patient Care Teams Ballroom Dance Instructor Relationship Specialty Start Date End Date Christine Bhardwaj DO [address] [place] [address] PCP - General Family Medicine 10/03/22 documented as of this encounter
--- OUTSIDE RECORDS SUMMARY | 2023-10-13 18:30 | External Medical Summary | Summary of Care ---
Author Name Unknown Organization [facility] Address [address] [facility] [place] [address] Phone [phone] Care Team Providers Care Cream Maker Name Role Phone Christine Bhardwaj DO Primary Care Provider [phone] Reason for Visit * Reason Comments Re-Check 3 mo check, off monica nce, occ dizziness, feel like passing out sometimes, fatigue, severe back pain, R eye floaters, sweating during sleep Encounter Details Date Type Department Care Team (Late st Contact Info) Description 09/04/2023 5:00 PM EDT Office Visit Family Practice [facility] [address] [place] [address] Christine Bhardwaj, [address] [facility] [place] [address] Episodic lightheadedness*; Multiple neurological symptoms; Severe episode of recurrent major depressive disorder, without psychotic features ([facility]); JEANINE (generalized anxiety disorder); Type 2 diabetes mellitus with hemoglobin A1c goal of less than 7.0% ([facility]); 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 0 Active CENTRUM PO TABS Take by mouth. Centrum Silver 0 Active OneTouch Delica Lancets FineIndications:P rediabetes Test BS one time daily 100 Each 5 04/05/2020 Active OneTouch Delica Plus [id number] use 1 LANCET to TEST BLOOD SUGAR UP TO four times a day as directed 400 Each 1 10/04/2022 Active OneTouch Ultra 2 w/Device KitIndications:Ty pe 2 diabetes mellitus with hemoglobin A1c goal of less than 7.0% ([facility]) Use 4x/day as directed. E11.9. 1 Kit 0 10/26/2022 Active Lisinopril 2.5 MG Oral Tablet (Prinivil) Take 1-2 Tablets by mouth in the morning. 0 01/21/2023 Active Nystatin [id number] UNIT/GM External Cream Apply topically to affected [...] AFFECTED AREA TWICE DAILY 0 08/30/2023 Active Amoxicillin 500 MG Oral Capsule (Amoxil) Take 1 Capsule by mouth in the morning and 1 Capsule at noon and 1 Capsule before bedtime. 0 04/05/2023 4 Discontinue d(Medicatio n List Clean Up) ALPRAZolam 0.25 MG Oral Tablet (xaNAX)Indication s:Generalized anxiety disorder Take 1 Tablet by mouth 3 times a day as needed (severe anxiety). Do not fill before 08/05/23. 90 Tablet 0 08/02/2023 4 Discontinue d(Refill) documented as of this encounter (statuses as of 09/21/2023) Active Problems Problem Noted Date Diagnosed Date [...] as of this encounter (statuses as of 09/21/2023) Resolved Problems Problem Noted Date Diagnosed Date Resolved Date Diabetes mellitus with background retinopathy 04/04/20 19 04/04/2019 Diabetes mellitus without complication 04/04/2019 04/04/2019 Disorder of arteries and arterioles 04/04/2019 08/05/2019 Essential and other specified forms of tremor 06/22/19 12 07/14/2018 documented as of this encounter (statuses as of 09/21/2023) Social History Tobacco Use Types Packs/Day Years [...] Sign Reading Time Taken Comments Blood Pressure 136/72 09/04/2023 4:52 PM EDT Pulse 88 09/04/2023 4:52 PM EDT Temperature 36.6 C (97.9 F) 09/04/2023 4:52 PM ED T Respiratory Rate 16 09/04/2023 4:52 PM EDT Oxygen Saturation - - Inhaled Oxygen Concentration - - Weight 100.2 kg (221 lb) 09/04/2023 4:52 PM EDT Height - - Body Mass Index 37.93 04/17/2023 3:02 PM EST documented in this encounter Progress Notes * FelipeChristine hamm, DO - 09/04/2023 5:10 PM EDT Subjective: Mirta Webb is a 58 year old female. Chief Complaint Patient presents with Re-Check 3 mo check, off balance, occ dizziness, feel like passing out sometimes, fatigue, severe back pain,R eye floaters, sweating during sleep HPI: Pt presents for follow up today. Has been having some newer symptoms - at night feels very flushed, is very lightheaded. Sx don't improve over time like they usually do. Was seen at urgent care - did EKG and recommended ED but pt declined. Pt reports pain in her R flank for a few weeks, radiates around to the front. UA done at urgent care was unremarkable. Pt also reports increased frequency of urination. C/o clicking of her neck, tightness in the R side of her neck, sometimes radiates to the R back. Saw dermatology for chronic rash on her L side. Feels extremely tired, notes some chest pain and SOB over the past few days. Completed 1 month of amoxicillin for 28 days prescribed by lyme literate provider. Reports she feltbetter during that time, was able to take longer walks. Head felt clearer. Had diarrhea by the end of the course. Sx returned after only a few days. No longer following w/this provider due to the expense. [facility] yesterday - one physician felt she has sx of Lyme disease, another felt that sx were rheumatologic. Reports no additional testing or treatment initiated at this time. They were to discuss her case and follow up scheduled in September. Labs low for vit D, forgets to take this often, sometimes forgets lisinopril. Finds that she is very forgetful. Pt does snore, went for RANDY testing but was not able to fall asleep. Not sure if she could toleratetest right now. She will get back to me. 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 Encephalopathy G93.40 Degeneration of lumbosacral intervertebral disc M51.37 Von Willebrand disease, type I ([facility]) D68.01 Chronic rhinitis J31.0 Imbalance R26.89 Peripheral neuropathy G62.9 JEANINE (generalized anxiety disorder) F41.1 Urinary bladder neurogenic dysfunction N31.9 Severe episode of recurrent major depressive disorder, without psychotic features ([facility]) F33.2 SVT (supraventricular tachycardia) I47.10 Body mass index (BMI) of 40.0 to 44.9 in adult ([facility]) Z68.41 Type 2 diabetes mellitus with hemoglobin A1c goal of less than 7.0% ([facility]) E11.9 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 CENTRUM PO TABS Take by mouth. Centrum Silver Interacting TechnologyTouch Delica Lancets Fine Test BS one time daily 100 Each 5 OneTouch Delica Plus [id number] use 1 LANCET to TEST BLOOD SUGAR UP TO four times a day as directed 400 Each 1 [employer] Ultra 2 w/Device Kit Use 4x/day as directed. E11.9. 1 Kit 0 Lisinopril 2.5 MG Oral Tablet (Prinivil) Take 1-2 Tablets by mouth in the morning. Nystatin 307576 UNIT/GM External Cream Apply topically to affected area 2 times a day. To affacted area for two weeks. 30 g 2 Vitamin D3 1000 UNIT Oral Capsule Take 1 Capsule by mouth in the morning. [employer] Ultra In Vitro Strip (Glucose Blood) TEST BLOOD SUGAR THREE TIMES A DAY 100 Strip 5 ALPRAZolam 0.25 MG Oral Tablet (xaNAX) Take 1 Tablet by mouth 3 times a day as needed (severe anxiety). Do not fill before 08/05/23. 90 Tablet 0 Carboxymethylcellulose Sod PF 0.5 % Ophthalmic Solution (Refresh Plus) Instill into eye. Triamcinolone Acetonide 0.025 % External Ointment (Aristocort) APPLY A THIN LAYER TO AFFECTED AREA TWICE DAILY Estradiol 0.1 MG/GM Vaginal Cream (Estrace) Administer 2 g into the vagina in the morning. as directed.. (Patient not taking: Reported on 09/04/2023) 42.5 g 3 Diclofenac Sodium 1 % External Gel (Voltaren) Apply topically to affected area 4 times a day. Applyto low back (Patient not taking: Reported on 09/04/2023) 150 g 1 No current facility-administered medications for this visit. 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, without psychotic features (HCC) 11/18/2018 SVT (supraventricular tachycardia) 11/18/2018 Urinary bladder neurogenic dysfunction 10/02/2018 Vision loss best's disease OS Past Surgical History: Procedure Laterality Date BREAST LESION,OTHER,EXCISION cyst on R breast removed, lateral LAPAROSCOPY; CHOLECYSTECTOMY NASAL SURGERY PROCEDURE NEC TOTAL ABD HYSTERECTOMY W/WO REMOVAL OF TUBE(S) Review of patient's allergies indicates: Allergen Reactions Aspirin Bleeding "I don't take because I'm a bleeder." Effexor [Venlafaxine Hydrochloride] Seizure "I can't have any Anti-depressants" Amoxicillin Hives Astelin Other Reaction(s): Burning Nose Bactrim Clavulanic Acid Other Reaction(s): Hives Fexofenadine Hcl Fluoxetine Unknown Gadolinium Unknown Iodinated Contrast Media Levofloxacin Macrobid [Nitrofurantoin Monohydrate Macrocrystals] Wheezing. Stomach Issues. Midazolam Hcl Nebivolol Unknown Nizatidine Rhinocort [Budesonide] Sulfa Antibiotics Unknown Sulfamethoxazole-Trimethoprim Unknown Trimethoprim Objective: BP 136/72 (BP Site: Left Arm, BP Position: Sitting, BP Cuff Size: Large) | Pulse 88 | Temp 36.6 C(97.9 F) (Tympanic) | Resp 16 | Wt 100.2 kg (221 lb) | BMI 37.93 kg/m | BSA 2.13 m Review of Systems: As per HPI, all other ROS neg. Physical Exam: General: alert, anxious, distressed, and tearful at times Episodic lightheadedness (Primary) - EXTERNAL EKG 8 TO 15 DAYS; Future; Expected date: 09/05/2023 Multiple somatic complaints & Multiple neurological symptoms Yet undiagnosed Question chronic lyme - differing serology results from outside providers Hopefully she'll be able to get a final and convincing answer from [place] Severe episode of recurrent major depressive disorder, without psychotic features (HCC) Denies SI/HI, declines therapy JEANINE (generalized anxiety disorder) Following w/psychiatry Currently prescribed clonazepam Type 2 diabetes mellitus with hemoglobin A1c goal of less than 7.0% (HCC) Stable Factor VIII deficiency (HCC) Von Willebrand's disease (HCC) Body mass index (BMI) of 40.0 to 44.9 in adult (HCC) I spent a total of 40-54 minutes (exact time 40 mins) on the date of service in preparation, delivery, and documentation of the care provided to Mirta Webb excluding any time spent in the performance of separately billed services. Follow up: in 3 month(s). Christine Bhardwaj DO documented in this encounter Plan of Treatment Upcoming Encounters Date Type Department Care Team (Late st Contact Info) Description 09/23/2023 3:50 PM EDT Telemedicine General Internal Medicine, [facility] [address] [place] [address] Warner Santiago MD [address] [place] [address] 10/03/2023 1:00 PM EDT Telemedicine Psychiatry, [facility] [address] [place] [address] Nela Figueroa CRNP [address] [place] [address] 10/10/2023 4:00 PM EDT Office Visit Neurology [facility] [place] [address] [facility] [place] [id number] Hina Oropeza PA-C [address] [facility] [place] [address] 10/23/2023 4:00 PM EDT Office Visit Hematology/Oncology [facility] [address] [facility] [place] [address] River Vizcaino MD [address] [facility] [place] [address] 10/30/2023 5:20 PM EDT Office Visit Family Practice [facility] [address] [place] [address] Christine Bhardwaj DO [address] [place] [address] Scheduled Orders Name Type Priority Associated Diagnoses Orde r Schedule EXTERNAL EKG 8 TO 15 DAYS Holter Routine Episodic lightheadedness Expected: 09/05/2023 (Approximate), Expires: 09/03/2024 Health Maintenance Due Date Last Done Comments [...] 2014 COVID-19 Vaccine (1 - season) 2023 HbA1c 10/05/2023 04/05/2023, 07, 07/20/2022, Additional history exists Influenza Vaccine (FLU [...] as of this encounter Visit Diagnoses Diagnosis Episodic lightheadedness- Primary Dizziness and giddiness Multiple neurological symptoms Other symptoms involving nervous and musculoskeletal systems Severe episode of recurrent major depressive disorder, without psychotic features (HCC) JEANINE (generalized anxiety disorder) Generalized anxiety disorder Type 2 diabetes mellitus with hemoglobin A1c goal of less than 7.0% (HCC) Factor VIII deficiency (HCC) Congenital factor VIII disorder Von Willebrand's disease (HCC) Von Willebrand's disease Body mass index (BMI) of 40.0 to 44.9 in adult (HCC) documented in this encounter Advance Directives Latest Code Status on File Code Status Date Activated Date Inactivated Comments Full Code 06/11/2018 10:31 PM 06/13/2018 4:48 PM This o rder reflects the patients wishes and were consensually agreed upon. Question Answer Comments Discussion of Advance Directives occurred with: Patient Care Teams Cream Maker Relationship Specialty Start Date End Date Christine Bhardwaj DO [address] [place] [address] PCP - General Family Medicine 10/03/22 documented as of this encounter
--- OUTSIDE RECORDS SUMMARY | 2023-10-13 18:30 | External Medical Summary | Summary of Care ---
Author Name Unknown Organization [facility] Address [address] [facility] [place] [address] Phone [phone] Care Team Providers Care Medical Pathologist Name Role Phone Juan Merritt DO Primary Care Provider [phone] Reason for Visit * Reason Onset Date Comments Medication Refill 07/08/2023 Encounter Details Date Type Department Care Team (Late st Contact Info) Description 07/08/2023 Refill Family Practice [facility] [address] [place] [address] Juan Merritt DO [address] [place] [address] Generalized anxiety disorder Allergies Active Allergy Reactions [...] Each 5 04/05/2020 Active OneTouch Delica Plus [id number] use 1 LANCET to TEST BLOOD SUGAR UP TO four times a day as directed 400 Each 1 10/04/2022 Active OneTouch Ultra 2 w/Device KitIndications:Ty pe 2 diabetes mellitus with hemoglobin A1c goal of less than 7.0% ([facility]) Use 4x/day as directed. E11.9. 1 Kit 0 10/26/2022 Active Lisinopril 2.5 MG Oral Tablet (Prinivil) Take 1-2 Tablets by mouth in the morning. 0 01/21/2023 Active Nystatin 889620 UNIT/GM External Cream Apply topically to affected [...] needed (severe anxiety). 90 Tablet 0 07/08/2023 Active ALPRAZolam 0.25 MG Oral Tablet (xaNAX)Indication s:Generalized anxiety disorder Take 1 Tablet by mouth 3 times a day as needed (severe anxiety). 90 Tablet 0 05/30/2023 07/08/2023 Discontinue d(Refill) documented as of this encounter [...] as of this encounter Miscellaneous Notes * Addendum Note - Nela Figueroa CRNP - 07/08/2023 1:22 PM ESTAddended by: NELA FIGUEROA on: 07/08/2023 01:22 PM Modules accepted: Orders * Telephone Encounter - Juan Merritt DO [...] physician * Telephone Encounter - Danelle Cox [facility] - 07/08/2023 10:16 AM ESTPending Prescriptions: Disp Refills ALPRAZolam 0.25 MG Oral Tablet (xaNAX) 90 Tab*0 Sig: Take 1 Tablet by mouth 3 times a day as needed (severe anxiety). * Telephone Encounter - Danelle Cox [facility] - 07/08/2023 10:14 AM EST I have reviewed the patients controlled substance dispensing history in the Prescription Drug Monitoring Program in compliance with the [facility] regulations before prescribing a controlled substance. PDMP checked on 07/08/2023. Pending Prescriptions: Disp Refills ALPRAZolam 0.25 MG Oral Tablet (xaNAX) 90 Tab*0 Sig: Take 1 Tablet by mouth 3 times a day as needed (severe anxiety). Last Visit: 06/27/2023 (in office), 05/29/2023 (telemedicine) Next Visit: 09/04/2023 Date medication was last filled: 05/30/23 Date medication is due for refill: 06/28/23 Pharmacy: [facility] #[id number] Is this request for a controlled substance? Yes and Urine Drug Screen Not completed Toxicology results: No results found for this or any previous visit. Please approve if appropriate. Thanks, Danelle Cox, PharmD Clinical Pharmacist [facility] ([facility]) [phone] 07/08/2023, 10:14 AM * Telephone Encounter - Francesca Cain CPhT - 07/08/2023 9:51 AM EST Patient is out of medication and asking for high priority. Did you pend patient's preferred pharmacy and medication before forwarding?yes Pharmacy: [facility] #[id number] [address] [place] [address] Pending Prescriptions: Disp Refills ALPRAZolam 0.25 MG [...] 07/31/2023 1:20 PM EST Office Visit Neurology [facility] [place] [address] [place] [address] Hina Oropeza PA-C [address] [place] [address] [address] 08/09/2023 2:45 PM EST Office Visit Dermatology [facility] [place] [address] [place] [address] Oseas Lainez MD [address] [place], [place] [id number] 08/20/2023 2:30 PM EDT Telemedicine General Internal Medicine, [facility] [address] [place], [place] [address] Warner Santiago MD [address] [place], [place] [id number] 09/04/2023 5:00 PM EDT Office Visit [facility] [address] [place] [address] Juan Merritt DO [address] [place] [address] 10/03/2023 1:00 PM EDT Telemedicine Psychiatry, [facility] [address] [place] [address] [address] Nela Figueroa CRNP [address] [place] [address] [address] 10/23/2023 4:00 PM EDT Office Visit Hematology/Oncology [facility] [place] [address] [place] [address] River Vzicaino MD [address] [place] [address] [address] 10/30/2023 5:20 PM EDT Office Visit Family [facility] [address] [place] [address] Juan Merritt DO [address] [place] [address] Health Maintenance Due Date Last Done Comments [...] Advance Directives occurred with: Patient Care Teams Medical Pathologist Relationship Specialty Start Date End Date Juan Merritt DO [address] [place] [address] PCP - General Family Medicine 10/03/22 documented as of this encounter
--- OUTSIDE RECORDS SUMMARY | 2023-10-13 18:30 | External Medical Summary | Summary of Care ---
Author Name Unknown Organization [facility] Address [address] [place] [address] Phone [phone] Care Team Providers Care Cardiac Rehab Nurse Name Role Phone Christine Bhardwaj DO Primary Care Provider [phone] Reason for Visit * Reason Onset Date Comments Follow Up 05/26/2023 Encounter Details Date Type Department Care Team (Late st Contact Info) Description 05/26/2023 Telephone General Internal Medicine, [facility] [address] [place], [place] [id number] Warner Santiago MD [address] [place] [address] Follow Up Allergies Active Allergy Reactions Criticality Noted Date [...] as of this encounter (statuses as of 08/25/2023) Medications Medication Sig Dispensed Refills Start Date End Date Status TYLENOL EXTRA STRENGTH 500 MG PO TABS Take by mouth. 0 Active CENTRUM PO TABS Take by mouth. Centrum Silver 0 Active OneTouch Delica Lancets FineIndications:Pre diabetes Test BS one time daily 100 Each 5 04/05/2020 Active OneTouch Delica Plus [id number] use 1 LANCET to TEST BLOOD SUGAR UP TO four times a day as directed 400 Each 1 10/04/2022 Active OneTouch Ultra 2 w/Device KitIndications:Type 2 diabetes mellitus with hemoglobin A1c goal of less than 7.0% ([facility]) Use 4x/day as directed. E11.9. 1 Kit 0 10/26/2022 Active Lisinopril 2.5 MG Oral Tablet (Prinivil) Take 1-2 Tablets by mouth in the morning. 0 01/21/2023 Active Nystatin 542340 UNIT/GM External Cream Apply topically to affected area 2 times a day. To affacted area for two weeks. 30 g 2 02/04/2023 Active Estradiol 0.1 MG/GM Vaginal Cream (Estrace)Indication s:Vaginal atrophy,Atrophy of vulva Administer 2 g into [...] Active OneTouch Ultra In Vitro Strip (Glucose Blood)Indications:P rediabetes TEST BLOOD SUGAR THREE TIMES A DAY 100 Strip 5 05/01/2023 Active documented as of this encounter (statuses as of 08/25/2023) Active Problems Problem Noted Date Diagnosed Date [...] as of this encounter (statuses as of 08/25/2023) Resolved Problems Problem Noted Date Diagnosed Date Resolved Date Diabetes mellitus with background retinopathy 04/04/20 19 04/04/2019 Diabetes mellitus without complication 04/04/2019 04/04/2019 Disorder of arteries and arterioles 04/04/2019 08/05/2019 Essential and other specified forms of tremor 06/22/19 12 07/14/2018 documented as of this encounter (statuses as of 08/25/2023) Social History Tobacco Use Types Packs/Day Years [...] encounter Miscellaneous Notes * Telephone Encounter - Tami Anderson OSA - 05/27/2023 2:34 PM EST Mailed Lifestyle packet to patient per Dr Santiago. * Telephone Encounter - Tami Anderson OSA - 05/27/2023 2:14 PM EST I will mail out Lifestyle packet- not sure if you have any more tape measures? Please advise. * Telephone Encounter - Warner Santiago MD - 05/26/2023 6:31 PM EST Tami, could you please mail this patient a lifestyle medicine folder? documented in this encounter Plan of Treatment Upcoming Encounters Date Type Department Care Team (Late st Contact Info) Description 09/04/2023 5:00 PM EDT Office Visit Family Practice [facility] [address] [place] [address] Christine Bhardwaj DO [address] [facility] [place] [address] 09/23/2023 3:50 PM EDT Telemedicine General Internal Medicine, [facility] [address] [facility] [place] [address] Warner Santiago MD [address] [facility] [place] [address] 10/03/2023 1:00 PM EDT Telemedicine Psychiatry, [facility] [address] [place] [address] Nela Figueroa CRNP [address] [place] [address] 10/10/2023 4:00 PM EDT Office Visit Neurology [facility] [address] [facility] [place] [address] Hina Oropeza PA-C [address] [facility] [place] [address] 10/23/2023 4:00 PM EDT Office Visit Hematology/Oncology [facility] [address] [facility] [place] [address] River Vizcaino MD [address] [facility] [place] [address] 10/30/2023 5:20 PM EDT Office Visit Family [facility] [address] [place] [address] Christine Bhardwaj DO [address] [place] [address] Health Maintenance Due Date Last Done Comments [...] Advance Directives occurred with: Patient Care Teams Cardiac Rehab Nurse Relationship Specialty Start Date End Date Christine Bhardwaj DO [address] [place] [address] PCP - General Family Medicine 10/03/22 documented as of this encounter
--- OUTSIDE RECORDS SUMMARY | 2023-10-13 18:30 | External Medical Summary | Summary of Care ---
Author Name Unknown Organization [facility] Address [address] [place] [address] Phone [phone] Care Team Providers Care Visual Merchandiser Name Role Phone Juan Merritt DO Primary Care Provider [phone] Reason for Visit * Reason Comments NEW PATIENT Patient here for hernandez oing rash that comes and goes on her inner thighs and abdominal area. She says it's been ongoing for about 2-3 years. Has episodes of dizziness, gets a red circular rash, not itchy. She says the Lyme is uncertain. She has had an overall feeling of feeling unwell. * Evaluate & Treat - Unlimited Visits (Within 10 days (routine)) - Pending Review Specialty Diagnoses / Procedures Referred By Lynsey moreland Referred To Contact Dermatology Diagnoses Rash and nonspecific skin eruption Warner Santiago MD [address] [place] [address] Referral ID Status Reason Start Date Expiration Date Visits Requested Visits Authorized [id number] Pending Review Specialty Services Required 3 12/03/2024 1 1 Encounter Details Date Type Department Care Team (Late st Contact Info) Description 08/09/2023 2:45 PM EST Office Visit Dermatology [facility] [place] [address] [place] [address] Oseas Lainez MD [address] [place] [address] Dermatitis*; Xerosis cutis; Nevus; Seborrheic keratoses; Nail anomaly Allergies Active Allergy Reactions Criticality Noted Date [...] as of this encounter (statuses as of 08/09/2023) Medications Medication Sig Dispensed Refills Start Date End Date Status TYLENOL EXTRA STRENGTH 500 MG PO TABS Take by mouth. 0 Active CENTRUM PO TABS Take by mouth. Centrum Silver 0 Active OneTouch Delica Lancets FineIndications:Pred iabetes Test BS one time daily 100 Each 5 04/05/2020 Active OneTouch Delica Plus [id number] use 1 LANCET to TEST BLOOD SUGAR UP TO four times a day as directed 400 Each 1 10/04/2022 Active OneTouch Ultra 2 w/Device KitIndications:Type 2 diabetes mellitus with hemoglobin A1c goal of less than 7.0% ([facility]) Use 4x/day as directed. E11.9. 1 Kit 0 10/26/2022 Active Lisinopril 2.5 MG Oral Tablet (Prinivil) Take 1-2 Tablets by mouth in the morning. 0 01/21/2023 Active Nystatin 358789 UNIT/GM External Cream Apply topically to affected [...] 06/27/2023 Active ALPRAZolam 0.25 MG Oral Tablet (xaNAX)Indications:G eneralized anxiety disorder Take 1 Tablet by mouth 3 times a day as needed (severe anxiety). Do not fill before 08/05/23. 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 Encephalopathy 06/22/2011 Overview: ICD-10 update of inactive term documented as of this encounter (statuses as of 08/09/2023) Resolved Problems Problem Noted Date Diagnosed Date Resolved Date Diabetes mellitus with background retinopathy 04/04/20 19 04/04/2019 Diabetes mellitus without complication 04/04/2019 04/04/2019 Disorder of arteries and arterioles 04/04/2019 08/05/2019 Essential and other specified forms of tremor 06/22/19 12 07/14/2018 documented as of this encounter (statuses as of 08/09/2023) Social History Tobacco Use Types Packs/Day Years [...] as of this encounter Progress Notes * Oseas Lainez MD - 08/09/2023 2:48 PM EST SUBJECTIVE: Chief Complaint: Chief Complaint Patient presents with NEW PATIENT Patient here for ongoing rash that comes and goes on her inner thighs and abdominal area. She says it's been ongoing for about 2-3 years. Has episodes of dizziness, gets a red circular rash, not itchy. She says the Lyme is uncertain. She has had an overall feeling of feeling unwell. History of Present Illness: Mirta Webb is a 58 year old female seen at the request of Warner Santiago MD for evaluation and treatment of rash. The rash is not symptomatic, it has been present for about 2 years, she is notcertain if it comes or goes because she says she is legally blind. Her isnt certain. She was given steroids and antifungals at one point. There was a biopsy done in [place] but she is not certain of the results. She has a dark area on the right side of her body and some fingernail changes. The course of the rash has been complicated by a number of other symptoms and overall she feels unwell. She often feels dizzy, and there has been a question of lyme disease. She has not taken doxycycline but has been on amoxicillin for this. 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, without psychotic features ([facility]) F33.2 SVT (supraventricular tachycardia) I47.10 Body mass index (BMI) of 40.0 to 44.9 in adult ([facility]) Z68.41 Type 2 diabetes mellitus with hemoglobin A1c goal of less than 7.0% ([facility]) 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 CENTRUM PO TABS Take by mouth. Centrum Silver OneTouch Delica Lancets Fine Test BS one time daily 100 Each 5 OneTouch Delica Plus [id number] use 1 LANCET to TEST BLOOD SUGAR UP TO four times a day as directed 400 Each 1 OneTouch Ultra 2 w/Device Kit Use 4x/day as directed. E11.9. 1 Kit 0 Lisinopril 2.5 MG Oral Tablet (Prinivil) Take 1-2 Tablets by mouth in the morning. Nystatin [id number] UNIT/GM External Cream Apply topically to affected area 2 times a day. To affacted area for two weeks. 30 g 2 Estradiol 0.1 MG/GM Vaginal Cream (Estrace) Administer 2 g into the vagina in the morning. as directed.. 42.5 g 3 Amoxicillin 500 MG Oral Capsule (Amoxil) Take 1 Capsule by mouth in the morning and 1 Capsule at noon and 1 Capsule before bedtime. Vitamin D3 1000 UNIT Oral Capsule Take 1 Capsule by mouth in the morning. OneTouch Ultra In Vitro Strip (Glucose Blood) TEST BLOOD SUGAR THREE TIMES A DAY 100 Strip 5 Diclofenac Sodium 1 % External Gel (Voltaren) Apply topically to affected area 4 times a day. Applyto low back 150 g 1 ALPRAZolam 0.25 MG Oral Tablet (xaNAX) Take 1 Tablet by mouth 3 times a day as needed (severe anxiety). Do not fill before 08/05/23. 90 Tablet 0 No current facility-administered medications for this visit. Review of patient's allergies indicates: Allergen Reactions [...] [Budesonide] Sulfa Antibiotics Unknown Sulfamethoxazole-Trimethoprim Unknown Trimethoprim Physical Exam: Gen: alert and no distress. Complete body examined and normal except several stuck on keratotic plaques and brown papules on the trunk, arms, legs. There is roughness and distal splitting of the thumbnails. She has mild xerosis. There are faint arcuate patches/thin plaques limited to the proximal lateral/anterior thighs. Assessment and Plan: 1. Rash Ddx to include granuloma annulare - will obtain outside biopsy Offered repeat biopsy but she does not want to get another biopsy and scar Usually granuloma annulare is not associated with systemic disease but interstitial granulomatous dermatitis can be associated with systemic conditions such as rheumatoid arthritis or connective tissue disease She is seeing ID regarding the possibility of lyme. 2. Seborrheic/Benign Keratosis(-es) Xerosis Nail changes Suggested clear nail hardener for nails, change from dial to dove (she wants to stay with dial d/t antibacterial effects for now). Will send message once biopsy is obtained Oseas Lainez MD 08/09/2023 2:48 PM Ref: WARNER SANTIAGO[[id number]] [address] [place] [address] (office) [phone] (fax) PCP: JUAN MERRITT [address] [place] [address] [phone] documented in this encounter Plan of Treatment Upcoming Encounters Date Type Department Care Team (Late st Contact Info) Description 08/20/2023 2:30 PM EDT Telemedicine General Internal Medicine, [facility] [address] [place] [address] Warner Santiago MD [address] [place] [address] 09/04/2023 5:00 PM EDT Office Visit Family Practice [facility] [address] [place] [address] Juan Merritt, [address] [place] [address] 10/03/2023 1:00 PM EDT Telemedicine Psychiatry, [facility] [address] [place] [address] Nela Figueroa CRNP [address] [place] [id number] 10/10/2023 4:00 PM EDT Office Visit Neurology [facility] [place] [address] [place] [address] Hina Oropeza PA-C [address] [place] [id number] 10/23/2023 4:00 PM EDT Office Visit Hematology/Oncology [facility] [address] [facility] [place], [place] [address] River Vizcaino MD [address] [place] [address] 10/30/2023 5:20 PM EDT Office Visit Family Practice [facility] [address] [place] [address] Juan Merritt DO [address] [place] [address] Health Maintenance Due Date Last Done Comments [...] (FLU shot) (#1) 2023 HbA1c 10/05/2023 04/05/2023, 073 , 07/20/2022, Additional history exists Depression Screening [...] as of this encounter Visit Diagnoses Diagnosis Dermatitis- Primary Contact dermatitis and other eczema, due to unspecified cause Xerosis cutis Other specified disease of sebaceous glands Nevus Benign neoplasm of skin, site unspecified Seborrheic keratoses 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 Question Answer Comments Discussion of Advance Directives occurred with: Patient Care Teams Visual Merchandiser Relationship Specialty Start Date End Date Juan Merritt DO [address] [place] [address] PCP - General Family Medicine 10/03/22 documented as of this encounter
--- OUTSIDE RECORDS SUMMARY | 2023-10-13 18:30 | External Medical Summary | Summary of Care ---
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 reflects the patients wishes and were consensually agreed upon. Question Answer Comments Discussion of Advance Directives occurred with: Patient Care Teams District Representative Relationship Specialty Start Date End Date Christine Bhardwaj DO [address] [place] [address] PCP - General Family Medicine 10/03/22 documented as of this encounter
--- OUTSIDE RECORDS SUMMARY | 2023-10-13 18:30 | External Medical Summary | Summary of Care ---
Author Name Unknown Organization [facility] Address [address] [place] [address] Phone [phone] Care Team Providers Care Marketing Development Specialist Name Role Phone Christine Bhardwaj DO Primary Care Provider [phone] Reason for Visit * Reason Onset Date Comments Appointment 04/07/2023 Encounter Details Date Type Department Care Team (Late st Contact Info) Description 04/07/2023 Telephone General Internal Medicine, Pending Sale To [facility] [address] [place] [address] Warner Santiago MD [address] [place] [address] Appointment Allergies Active Allergy Reactions Criticality Noted Date [...] as of this encounter (statuses as of 07/07/2023) Medications Medication Sig Dispensed Refills Start Date End Date Status TYLENOL EXTRA STRENGTH 500 MG PO TABS Take by mouth. 0 Active CENTRUM PO TABS Take by mouth. Centrum Silver 0 Active OneTouch Delica Lancets FineIndications :Prediabetes Test BS one time daily 100 Each 5 04/05/2020 Active OneTouch Delica Plus [id number] use 1 LANCET to TEST BLOOD SUGAR UP TO four times a day as directed 400 Each 1 10/04/2022 Active Towandas bookTouch Ultra 2 w/Device KitIndications: Type 2 diabetes mellitus with hemoglobin A1c goal of less than 7.0% ([facility]) Use 4x/day as directed. E11.9. 1 Kit 0 10/26/2022 Active Lisinopril 2.5 MG Oral Tablet (Prinivil) Take 1-2 Tablets by mouth in the morning. 0 01/21/2023 Active Nystatin 712693 UNIT/GM External Cream Apply topically to affected area 2 times a day. To affacted area for two weeks. 30 g 2 02/04/2023 Active Estradiol 0.1 MG/GM Vaginal Cream (Estrace)Indica tions:Vaginal atrophy,Atrophy of vulva Administer 2 g into the vagina in the morning. as directed.. 42.5 g 3 03/27/2023 Active OneTouch Ultra In Vitro Strip (Glucose Blood)Indicatio ns:Prediabetes TEST BLOOD SUGAR THREE TIMES A DAY 100 Strip 1 02/05/2023 3 Discontinued ALPRAZolam 0.25 MG Oral Tablet (xaNAX)Indicati ons:Generalized anxiety disorder Take 1 Tablet by mouth 3 times a day as needed (severe anxiety). 90 Tablet 0 03/14/2023 3 Discontinued(Ref ill) documented as of this encounter (statuses as of 07/07/2023) Active Problems Problem Noted Date Diagnosed Date [...] as of this encounter (statuses as of 07/07/2023) Resolved Problems Problem Noted Date Diagnosed Date Resolved Date Diabetes mellitus with background retinopathy 04/04/20 19 04/04/2019 Diabetes mellitus without complication 04/04/2019 04/04/2019 Disorder of arteries and arterioles 04/04/2019 08/05/2019 Essential and other specified forms of tremor 06/22/19 12 07/14/2018 documented as of this encounter (statuses as of 07/07/2023) Social History Tobacco Use Types Packs/Day Years [...] encounter Miscellaneous Notes * Telephone Encounter - Gay Hill OSA - 04/11/2023 11:15 AM EDT Pt is scheduled for 05/03/23 for a video visit and is aware Thanks * Telephone Encounter - Warner Santiago MD - 04/10/2023 11:59 AM EDT Thanks Gay, that's a great question. I don't want this patient to fall through the cracks. Can weschedule her in about 4 weeks? That way I can check in with her and make sure her needs are being met. * Telephone Encounter - Gay Hill OSA - 04/09/2023 9:[address] Santiago, Would you like us to hold off on scheduling your return appt then? Please advise Thanks * Telephone Encounter - Warner Santiago MD - 04/08/2023 6:39 PM EDT Thank you Shanita. This makes sense. I thought she had told me she had an appointment but I didn't see an appointment available. I'm glad we are able to ensure she has access. I really appreciate howluisu handled this. * Telephone Encounter - Shanita Tucker OSA - 04/08/2023 4:17 PM EDT Holger Santiago, I discussed with the [facility] [place] [facility] about an [facility]. [facility] would like to see how that provider appointment goes. We scheduled her for next available appointment with us on 04/17 at 3:[address] Vizcaino. [facility]! Kind Regards, Hem/Onc Scheduling * Telephone Encounter - Warner Santiago MD - 04/07/2023 10:42 PM EDT Hematology appointments, this patient needs to be seen as soon as possible in hematology. Has referral - could you please reach out to her? When you make her appointment, could you please forward this encounter back to the [facility] appointmentspool. I'd like to see this patient 2-3 weeks after her hematology appointment to tie up loose ends. documented in this encounter Plan of Treatment Upcoming Encounters Date Type Department Care Team (Late st Contact Info) Description 07/31/2023 1:20 PM EST Office Visit Neurology [facility] [address] [place] [address] Hina Oropeza PA-C 200 [facility] [place] [address] 08/09/2023 2:45 PM EST Office Visit Dermatology [facility] [address] [facility] [place] [address] Oseas Lainez MD [address] [place] [address] 08/20/2023 2:30 PM EDT Telemedicine General Internal Medicine, Pending Sale To [facility] [address] [place], [place] [id number] Warner Santiago MD [address] [place] [address] 09/04/2023 5:00 PM EDT Office Visit Family Practice [facility] [address] [address] Christine Bhardwaj, DO [address] [place] [address] 10/03/2023 1:00 PM EDT Telemedicine Psychiatry, [facility] [address] [place] [address] Nela Figueroa CRNP 200 [facility] [place] [address] 10/23/2023 4:00 PM EDT Office Visit Hematology/Oncology [facility] [address] [place] [address] River Vizcaino MD 200 [facility] [place] [address] 10/30/2023 5:20 PM EDT Office Visit Family Practice [facility] [address] [place] [address] Christine Bhardwaj, DO [address] [place] [address] Health Maintenance Due Date Last Done Comments [...] Advance Directives occurred with: Patient Care Teams Marketing Development Specialist Relationship Specialty Start Date End Date Christine Bhardwaj DO [address] [place] [address] PCP - General Family Medicine 10/03/22 documented as of this encounter
--- OUTSIDE RECORDS SUMMARY | 2023-10-13 18:30 | External Medical Summary | Summary of Care ---
Author Name Unknown Organization [facility] Address [address] [facility] [place] [address] Phone [phone] Care Team Providers Care Restorative Aide Name Role Phone Christine Bhardwaj DO Primary Care Provider [phone] Reason for Visit * Reason Onset Date Comments Appointment 06/26/2023 Encounter Details Date Type Department Care Team (Late st Contact Info) Description 06/26/2023 Telephone Family Practice [facility] [address] [place] [address] Christine Bhardwaj DO [address] [place] [address] Appointment Allergies Active Allergy Reactions Criticality Noted [...] as of this encounter (statuses as of 09/25/2023) Medications Medication Sig Dispensed Refills Start Date End Date Status TYLENOL EXTRA STRENGTH 500 MG PO TABS Take by mouth. 0 Active CENTRUM PO TABS Take by mouth. Centrum Silver 0 Active OneTouch Delica Lancets FineIndications:Pre diabetes Test BS one time daily 100 Each 5 04/05/2020 Active OneTouch Delica Plus [id number] use 1 LANCET to TEST BLOOD SUGAR UP TO four times a day as directed 400 Each 1 10/04/2022 Active OneTouch Ultra 2 w/Device KitIndications:Type 2 diabetes mellitus with hemoglobin A1c goal of less than 7.0% ([facility]) Use 4x/day as directed. E11.9. 1 Kit 0 10/26/2022 Active Lisinopril 2.5 MG Oral Tablet (Prinivil) Take 1-2 Tablets by mouth in the morning. 0 01/21/2023 Active Nystatin [id number] UNIT/GM External Cream Apply topically to affected [...] by mouth in the morning. 0 Active twidoxTouch Ultra In Vitro Strip (Glucose Blood)Indications:P rediabetes TEST BLOOD SUGAR THREE TIMES A DAY 100 Strip 5 05/01/2023 Active documented as of this encounter (statuses as of 09/25/2023) Active Problems Problem Noted Date Diagnosed Date [...] as of this encounter (statuses as of 09/25/2023) Resolved Problems Problem Noted Date Diagnosed Date Resolved Date Diabetes mellitus with background retinopathy 04/04/20 19 04/04/2019 Diabetes mellitus without complication 04/04/2019 04/04/2019 Disorder of arteries and arterioles 04/04/2019 08/05/2019 Essential and other specified forms of tremor 06/22/19 12 07/14/2018 documented as of this encounter (statuses as of 09/25/2023) Social History Tobacco Use Types Packs/Day Years [...] encounter Miscellaneous Notes * Telephone Encounter - Louann Schmid LPN - 06/26/2023 10:22 AM EST Patient calling. Placed with ODE[facility] Trejo on 06/27/23 @ 6:20 for low back pain. Patient has to have an appt. After 4:30 p.m. Placed first available. documented in this encounter Plan of Treatment Upcoming Encounters Date Type Department Care Team (Late st Contact Info) Description 10/03/2023 1:00 PM EDT Telemedicine Psychiatry, [facility] [address] [place] [address] Nela Figueroa CRNP 200 [facility] [place] [address] 10/10/2023 4:00 PM EDT Office Visit Neurology [facility] [address] [place] [address] Hina Oropeza PA-C 200 [facility] [place] [address] 10/23/2023 4:00 PM EDT Office Visit Hematology/Oncology [facility] [address] [place] [id number] River Vizcaino MD 200 [facility] [place] [address] 10/30/2023 5:20 PM EDT Office Visit Family Practice [facility] [place] [address] Christine Bhardwaj DO [address] [place] [address] Health Maintenance Due Date Last Done Comments [...] (1 - season) 2023 HbA1c 10/05/2023 04/05/2023, 12/10, 07/20/2022, [...] Advance Directives occurred with: Patient Care Teams Restorative Aide Relationship Specialty Start Date End Date Christine Bhardwaj DO [address] [place] [address] PCP - General Family Medicine 10/03/22 documented as of this encounter
--- OUTSIDE RECORDS SUMMARY | 2023-10-13 18:30 | External Medical Summary | Summary of Care ---
Author Name Unknown Organization [facility] Address [address] [facility] [place] [address] Phone [phone] Care Team Providers Care Pamphlet Distributor Name Role Phone Christine Bhardwaj DO Primary Care Provider [phone] Encounter Details Date Type Department Care Team (Late st Contact Info) Description 06/06/2023 Result Scan Unspecified Department Christine Bhardwaj DO [address] [facility] [place] [address] <No scans attached> Allergies Active Allergy Reactions Criticality Noted Date [...] as of this encounter (statuses as of 06/27/2023) Medications Medication Sig Dispensed Refills Start Date End Date Status TYLENOL EXTRA STRENGTH 500 MG PO TABS Take by mouth. 0 Active CENTRUM PO TABS Take by mouth. Centrum Silver 0 Active OneTouch Delica Lancets FineIndications:Pre diabetes Test BS one time daily 100 Each 5 04/05/2020 Active OneTouch Delica Plus [id number] use 1 LANCET to TEST BLOOD SUGAR UP TO four times a day as directed 400 Each 1 10/04/2022 Active OneTouch Ultra 2 w/Device KitIndications:Type 2 diabetes mellitus with hemoglobin A1c goal of less than 7.0% ([facility]) Use 4x/day as directed. E11.9. 1 Kit 0 10/26/2022 Active Lisinopril 2.5 MG Oral Tablet (Prinivil) Take 1-2 Tablets by mouth in the morning. 0 01/21/2023 Active Nystatin [id number] UNIT/GM External Cream Apply topically to affected [...] 05/01/2023 Active ALPRAZolam 0.25 MG Oral Tablet (xaNAX)Indications: Generalized anxiety disorder Take 1 Tablet by mouth 3 times a day as needed (severe anxiety). 90 Tablet 0 05/30/2023 Active documented as of this encounter (statuses as of 06/27/2023) Active Problems Problem Noted Date Diagnosed Date [...] as of this encounter (statuses as of 06/27/2023) Resolved Problems Problem Noted Date Diagnosed Date Resolved Date Diabetes mellitus with background retinopathy 04/04/20 19 04/04/2019 Diabetes mellitus without complication 04/04/2019 04/04/2019 Disorder of arteries and arterioles 04/04/2019 08/05/2019 Essential and other specified forms of tremor 06/22/19 12 07/14/2018 documented as of this encounter (statuses as of 06/27/2023) Social History Tobacco Use Types Packs/Day Years [...] on file documented as of this encounter Plan of Treatment Upcoming Encounters Date Type Department Care Team (Late st Contact Info) Description 06/27/2023 6:20 PM EST Office Visit [facility] [address] [place] [address] Kalani Ruiz CRNP [address] [place] [address] 07/12/2023 10:00 AM EST Telemedicine General Internal Medicine, [facility] [address] [place], [place] [id number] Warner Santiago MD [address] [place], [place] [id number] 07/31/2023 1:20 PM EST Office Visit Neurology [facility] [address] [facility] [place] [address] Hina Oropeza PA-C [address] [facility] [address] [place] [address] 08/09/2023 2:45 PM EST Office Visit Dermatology [facility] [address] [place] [address] Oseas Lainez MD [address] [place] [address] 09/04/2023 5:00 PM EDT Office Visit [facility] [address] [place] [address] Christine Bhardwaj DO [address] [address] 10/03/2023 1:00 PM EDT Telemedicine Psychiatry, [facility] [address] [facility] [place] [address] Nela Figueroa CRNP [address] [facility] [place] [address] 10/23/2023 4:00 PM EDT Office Visit Hematology/Oncology [facility] [place] [address] [place] [address] River Vizcaino MD 200 [place] [address] 10/30/2023 5:20 PM EDT Office Visit Family Practice [facility] [address] [place] [address] Christine Bhardwaj DO [address] [place] [address] Health Maintenance Due Date Last Done Comments [...] Procedure Name Priority Date/Time Associated Diagnosis Comments OUTSIDE LAB RESULTS 06/06/2023 documented in this encounter Results * OUTSIDE LAB RESULTS (06/06/2023) 06/06/2023 Christine Bhardwaj DO LABORATORY documented in this encounter Advance Directives Latest Code Status on File Code Status Date Activated Date Inactivated Comments Full Code 06/11/2018 10:31 PM 06/13/2018 4:48 PM This o rder reflects the patients wishes and were consensually agreed upon. Question Answer Comments Discussion of Advance Directives occurred with: Patient Care Teams Pamphlet Distributor Relationship Specialty Start Date End Date Christine Bhardwaj DO [address] [place] [address] PCP - General Family Medicine 10/03/22 documented as of this encounter
--- OUTSIDE RECORDS SUMMARY | 2023-10-13 18:31 | External Medical Summary | Summary of Care ---
Author Name Unknown Organization [facility] Address [address] [place] [address] Phone [phone] Care Team Providers Care Single Pointed Operator Name Role Phone Christine Bhardwaj DO Primary Care Provider [phone] Reason for Visit * Reason Onset Date Comments Other 03/27/2023 Encounter Details Date Type Department Care Team (Late st Contact Info) Description 03/27/2023 Telephone Neurology [facility] [address] [place], [place] [phone] Services, Scheduling [address] [place] [address] Other Allergies Active Allergy Reactions Criticality Noted Date [...] as of this encounter (statuses as of 06/26/2023) Medications Medication Sig Dispensed Refills Start Date End Date Status TYLENOL EXTRA STRENGTH 500 MG PO TABS Take by mouth. 0 Active CENTRUM PO TABS Take by mouth. Centrum Silver 0 Active OneTouch Delica Lancets FineIndications :Prediabetes Test BS one time daily 100 Each 5 04/05/2020 Active OneTouch Delica Plus [id number] use 1 LANCET to TEST BLOOD SUGAR UP TO four times a day as directed 400 Each 1 10/04/2022 Active OneTouch Ultra 2 w/Device KitIndications: Type 2 diabetes mellitus with hemoglobin A1c goal of less than 7.0% ([facility]) Use 4x/day as directed. E11.9. 1 Kit 0 10/26/2022 Active Lisinopril 2.5 MG Oral Tablet (Prinivil) Take 1-2 Tablets by mouth in the morning. 0 01/21/2023 Active Nystatin 723893 UNIT/GM External Cream Apply topically to affected [...] as of this encounter (statuses as of 06/26/2023) Active Problems Problem Noted Date Diagnosed Date [...] as of this encounter (statuses as of 06/26/2023) Resolved Problems Problem Noted Date Diagnosed Date Resolved Date Diabetes mellitus with background retinopathy 04/04/20 19 04/04/2019 Diabetes mellitus without complication 04/04/2019 04/04/2019 Disorder of arteries and arterioles 04/04/2019 08/05/2019 Essential and other specified forms of tremor 06/22/19 12 07/14/2018 documented as of this encounter (statuses as of 06/26/2023) Social History Tobacco Use Types Packs/Day Years [...] encounter Miscellaneous Notes * Telephone Encounter - Fabienne Avalos MED ASSIST - 03/28/2023 8:09 AM EDT This is being addressed in a MyG * Telephone Encounter - Edna William OSA - 03/27/2023 5:15 PM EDT Patient calling in looking to speak with a nurse. Patient saw blood work results came back and is curious and concerned about some of it. Patient would like a call back at [phone]. Please adviseand thank you! documented in this encounter Plan of Treatment Upcoming Encounters Date Type Department Care Team (Late st Contact Info) Description 06/27/2023 6:20 PM EST Office Visit Family Practice [facility] 132 [facility] [place] [address] Kalani Ruiz CRNP [address] [place] [address] 07/12/2023 10:00 AM EST Telemedicine General Internal Medicine, [facility] [address] [place] [address] Warner Santiago MD [address] [place] [address] 07/31/2023 1:20 PM EST Office Visit Neurology [facility] [place] [address] [place] [address] Hina Oropeza PA-C [address] [place] [address] 08/09/2023 2:45 PM EST Office Visit Dermatology [facility] [place] [facility] [place] [address] Oseas Lainez MD [address] [place] [address] 09/04/2023 5:00 PM EDT Office Visit [facility] [address] [place] [address] Christine Bhardwaj, DO 132 [facility] [place] [address] 10/03/2023 1:00 PM EDT Telemedicine Psychiatry, [facility] 200 [facility] [place] [address] Nela Figueroa CRNP 200 [facility] [place] [address] 10/23/2023 4:00 PM EDT Office Visit Hematology/Oncology [facility] [address] [place] [address] River Vizcaino MD [address] [place] [address] 10/30/2023 5:20 PM EDT Office Visit [facility] [place] [address] Christine Bhardwaj, DO 132 [facility] [place] [address] Health Maintenance Due Date Last Done Comments [...] Advance Directives occurred with: Patient Care Teams Single Pointed Operator Relationship Specialty Start Date End Date Christine Bhardwaj DO [address] [place] [address] PCP - General Family Medicine 10/03/22 documented as of this encounter
--- OUTSIDE RECORDS SUMMARY | 2023-10-13 18:31 | External Medical Summary | Summary of Care ---
Author Name Unknown Organization [facility] Address [address] [facility] [place] [address] Phone [phone] Care Team Providers Care Rotor Winder Name Role Phone Christine Bhardwaj DO Primary Care Provider [phone] Encounter Details Date Type Department Care Team (Late st Contact Info) Description 06/18/2023 Orders Only Family Practice [facility] [address] [facility] [place] [address] Christine Bhardwaj DO [address] [place] [address] Allergies Active Allergy Reactions Criticality Noted Date [...] as of this encounter (statuses as of 06/18/2023) Medications Medication Sig Dispensed Refills Start Date End Date Status TYLENOL EXTRA STRENGTH 500 MG PO TABS Take by mouth. 0 Active CENTRUM PO TABS Take by mouth. Centrum Silver 0 Active OneTouch Delica Lancets FineIndications:Pre diabetes Test BS one time daily 100 Each 5 04/05/2020 Active OneTouch Delica Plus [id number] use 1 LANCET to TEST BLOOD SUGAR UP TO four times a day as directed 400 Each 1 10/04/2022 Active OneTouch Ultra 2 w/Device KitIndications:Type 2 diabetes mellitus with hemoglobin A1c goal of less than 7.0% ([facility]) Use 4x/day as directed. E11.9. 1 Kit 0 10/26/2022 Active Lisinopril 2.5 MG Oral Tablet (Prinivil) Take 1-2 Tablets by mouth in the morning. 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 Dizziness 07/18/2022 Factor VIII deficiency [...] as of this encounter (statuses as of 06/18/2023) Resolved Problems Problem Noted Date Diagnosed Date Resolved Date Diabetes mellitus with background retinopathy 04/04/20 19 04/04/2019 Diabetes mellitus without complication 04/04/2019 04/04/2019 Disorder of arteries and arterioles 04/04/2019 08/05/2019 Essential and other specified forms of tremor 06/22/19 12 07/14/2018 documented as of this encounter (statuses as of 06/18/2023) Social History Tobacco Use Types Packs/Day Years [...] 10:00 AM EST Telemedicine General Internal Medicine, [facility] [address] [place] [address] Warner Santiago MD [address] [place], [place] [id number] 07/31/2023 1:20 PM EST Office Visit Neurology [facility] [address] [place] [address] Hina Oropeza PA-C [address] [place] [address] 08/09/2023 2:45 PM EST Office Visit Dermatology [facility] [address] [place] [address] Oseas Lainez MD 16 [place] [address] 09/04/2023 5:00 PM EDT Office Visit Family Practice [facility] [address] [place] [address] Christine Bahrdwaj, [address] [place] [address] 10/03/2023 1:00 PM EDT Telemedicine Psychiatry, [facility] [address] [place] [place] [address] Nela Figueroa CRNP [address] [place] [address] 10/23/2023 4:00 PM EDT Office Visit Hematology/Oncology [facility] [address] [place] [place] [address] River Vizcaino MD [address] [place] [address] 10/30/2023 5:20 PM EDT Office Visit Family [facility] [address] [place] [address] Christine Bhardwaj DO [address] [place] [address] Pending Results Name Type Priority Associated Diagnoses Date /Time CHEMISTRY-OUTSIDE Lab Routine 023 TSH Lab Routine 04/05/2023 Health Maintenance Due Date Last Done Comments [...] Influenza Vaccine (FLU shot) (#1) 2023 HbA1c 07/09/2023 01/06/2023, 07/11, 11/28/2021, Additional history exists Depression Screening 12/05/2023 12/04/2022 Diabetic Eye Exam 05/28/2024 05/28/2023, , 01/29/2023, Additional history exists GFR 06/06/2024 06/06/2023, 01/09, 01/25/2023, Additional history exists Cologuard 01/19/2026 01/19/2023, 08/0 [...] Advance Directives occurred with: Patient Care Teams Rotor Winder Relationship Specialty Start Date End Date Christine Bhardwaj DO [address] [place] [address] PCP - General Family Medicine 10/03/22 documented as of this encounter
--- OUTSIDE RECORDS SUMMARY | 2023-10-13 18:31 | External Medical Summary ---
Author Name Unknown Address Unknown Organization K01:[facility] [place] [address] [place] [id number] Laboratory Report Ordering Provider Test Date Status TERELL ATKINS 06/27/2023 18:55:28 Final Observation Date Value Abnormality Reference (Units) Status Bacteria identified in Specimen by Culture 06/27/2023 18:55:28 No significant growth Final Test: Culture, Urine, Quanti tative
Specimen Source: Urine, Clean Catch
Specimen Type: Urine
Specimen Date: 06/27/2023 6:55 PM
Result Date: 06/29/2023 8:48 AM
Result Status: Final result
Resulting Lab: [facility]
[address]
Jenny [facility]22

CULTURE

No significant growth

null Performing Location [facility] [place] [address] [facility] [address]
--- OUTSIDE RECORDS SUMMARY | 2023-10-13 18:31 | External Medical Summary | Summary of Care ---
Author Name Unknown Organization [facility] Address [address] [facility] [place] [address] Phone [phone] Care Team Providers Care General Production Manager Name Role Phone Christine Bhardwaj DO Primary Care Provider [phone] Reason for Visit * Reason Onset Date Comments Advice 06/13/2023 Encounter Details Date Type Department Care Team (Late st Contact Info) Description 06/13/[address] [facility] [address] [place] [address] Christine Bhardwaj DO [address] [place] [address] Advice Allergies Active Allergy Reactions Criticality Noted Date [...] Each 5 04/05/2020 Active OneTouch Delica Plus [id number] use 1 LANCET to TEST BLOOD SUGAR [...] in the morning. 0 01/21/2023 Active Nystatin 214495 UNIT/GM External Cream Apply topically to affected [...] encounter Miscellaneous Notes * Telephone Encounter - Christine Bhardwaj DO - 06/26/2023 7:05 PM EST Vit D and SUSANA addressed by rheumatology Can discuss outside labs at next visit Would defer to ordering physician * Telephone Encounter - Fabi Granados LPN - 06/13/2023 10:41 AM EST Pt is calling and states that she just got lab work results back from her lyme doctor and she is concerned about the results. Reports that she does not know what is going on with her body. Is concerned that there may be something autoimmune going on. Also does not understand why her vitamin D level is going down. Is asking if PCP could look at the lab results and give more of an explanation? Will send lab results via MyG. Please advise. documented in this encounter Plan of Treatment Upcoming Encounters Date Type Department Care Team (Late st Contact Info) Description 06/27/2023 6:20 PM EST Office Visit Family [facility] [address] [place] [address] Kalani Ruiz CRNP [address] [place] [address] 07/12/2023 10:00 AM EST Telemedicine General Internal Medicine, [facility] [address] [place] [address] Warner Santiago MD [address] [place] [address] 07/31/2023 1:20 PM EST Office Visit Neurology [facility] [address] [place] [address] Hina Oropeza PA-C 200 [facility] [place] [address] 08/09/2023 2:45 PM EST Office Visit Dermatology [facility] [address] [place] [address] Oseas Lainez MD [address] [place] [address] 09/04/2023 5:00 PM EDT Office Visit [facility] [address] [place] [address] Christine Bhardwaj, DO 132 [facility] [place] [address] 10/03/2023 1:00 PM EDT Telemedicine Psychiatry, [facility] [address] [place], [place] [address] Nela Figueroa CRNP 200 [facility] [place] [address] 10/23/2023 4:00 PM EDT Office Visit Hematology/Oncology [facility] [address] [facility] [address] [place] [address] River Vizcaino MD 200 [facility] [place] [address] 10/30/2023 5:20 PM EDT Office Visit [facility] [address] [place] [address] Christine Bhardwaj, DO 132 [facility] [place] [address] Health Maintenance Due Date Last Done Comments [...] Advance Directives occurred with: Patient Care Teams General Production Manager Relationship Specialty Start Date End Date Christine Bhardwaj DO [address] [place] [address] PCP - General Family Medicine 10/03/22 documented as of this encounter
--- OUTSIDE RECORDS SUMMARY | 2023-10-13 18:31 | External Medical Summary | Summary of Care ---
Author Name Unknown Organization [facility] Address [address] [facility] [place] [address] Phone [phone] Care Team Providers Care Milker Machine Name Role Phone Christine Bhardwaj DO Primary Care Provider [phone] Encounter Details Date Type Department Care Team (Late st Contact Info) Description 05/29/2023 1:40 PM EST Telemedicine Family Practice [facility] [address] [place] [address] Christine Bhardwaj DO [address] [facility] [place] [address] Vitamin D deficiency*; Positive RPR test Allergies Active Allergy Reactions Criticality Noted Date [...] as of this encounter (statuses as of 06/22/2023) Medications Medication Sig Dispensed Refills Start Date End Date Status TYLENOL EXTRA STRENGTH 500 MG PO TABS Take by mouth. 0 Active CENTRUM PO TABS Take by mouth. Centrum Silver 0 Active OneTouch Delica Lancets FineIndications: Prediabetes Test BS one time daily 100 Each 5 04/05/2020 Active OneTouch Delica Plus [id number] use 1 LANCET to TEST BLOOD SUGAR UP TO four times a day as directed 400 Each 1 10/04/2022 Active OneTouch Ultra 2 w/Device KitIndications:T ype 2 diabetes mellitus with hemoglobin A1c goal of less than 7.0% ([facility]) Use 4x/day as directed. E11.9. 1 Kit 0 10/26/2022 Active Lisinopril 2.5 MG Oral Tablet (Prinivil) Take 1-2 Tablets by mouth in the morning. 0 01/21/2023 Active Nystatin 695889 UNIT/GM External Cream Apply topically to affected area 2 times a day. To affacted area for two weeks. 30 g 2 02/04/2023 Active Estradiol 0.1 MG/GM Vaginal Cream (Estrace)Indicat ions:Vaginal atrophy,Atrophy of vulva Administer 2 g into [...] Active OneTouch Ultra In Vitro Strip (Glucose Blood)Indication s:Prediabetes TEST BLOOD SUGAR THREE TIMES A DAY 100 Strip 5 05/01/2023 Active ALPRAZolam 0.25 MG Oral Tablet (xaNAX)Indicatio ns:Generalized anxiety disorder Take 1 Tablet by mouth 3 times a day as needed (severe anxiety). 90 Tablet 0 04/30/2023 05/30/2023 Discontinued (Refill) documented as of this encounter (statuses as of 06/22/2023) Active Problems Problem Noted Date Diagnosed Date [...] as of this encounter (statuses as of 06/22/2023) Resolved Problems Problem Noted Date Diagnosed Date Resolved Date Diabetes mellitus with background retinopathy 04/04/20 19 04/04/2019 Diabetes mellitus without complication 04/04/2019 04/04/2019 Disorder of arteries and arterioles 04/04/2019 08/05/2019 Essential and other specified forms of tremor 06/22/19 12 07/14/2018 documented as of this encounter (statuses as of 06/22/2023) Social History Tobacco Use Types Packs/Day Years [...] the money to buy more. Sometimes true 12 / Within the past 12 months, t he [...] as of this encounter Progress Notes * Christine Bhardwaj, DO - 05/29/2023 1:41 PM EST Subjective: Mirta Webb is a 57 year old female. No chief complaint on file. Patient location: HOME. I was in a hospital or clinic location. After connecting through [employer],patient was verified with two unique identifiers. Patient (or authorized legal exhibit display representative) was then informed that this was a Telemedicine visit and being conducted confidentially over secure lines. Methods to assure confidentiality were taken. Patient acknowledged consent and understanding of pr ivacy and security of the Telemedicine visit. The patient agreed to participate. HPI: Pt presents for video visit. Reports she is not doing well at all. Feels constant pain, vibration of her body, tremor. Was seen by "lyme literate" provider - told she had several strains of lyme, + syphilis, + other pathogens. Was taking amoxicillin but stopped due to diarrhea. Wants to know if she really has lyme or not - reads that Western medicine is not addressing it effectively but outside care providers are very expensive. Saw ortho for xray finding of her shoulders. Referred to physical therapy to improve mobility. Has pain in hips and legs, feels they are unable to support her. Continues to have a rash on her leg - red spot on her back seems to be fading. She has a follow up appointment with dermatology. Estrace is not helping w/her vaginal discomfort. She stopped using this and switched to vaseline. Pt has been walking 15-20 minutes a day. Doing stretches that she learned for back pain in the past. 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 CENTRUM PO TABS Take by mouth. Centrum Silver (Patient not taking: Reported on 04/23/2023) Spotlight.fmTouch Delica Lancets Fine Test BS one time daily 100 Each 5 OneTouch Delica Plus Szhyqx29X use 1 LANCET to TEST BLOOD SUGAR UP TO four times a day as directed 400 Each 1 Spotlight.fmTouch Ultra 2 w/Device Kit Use 4x/day as directed. E11.9. 1 Kit 0 Lisinopril 2.5 MG Oral Tablet (Prinivil) Take 1-2 Tablets by mouth in the morning. Nystatin 334826 UNIT/GM External Cream Apply topically to affected [...] 1 Capsule by mouth in the morning. ALPRAZolam 0.25 MG Oral Tablet (xaNAX) Take 1 Tablet by mouth 3 times a day as needed (severe anxiety). 90 Tablet 0 Spotlight.fmTouch Ultra In Vitro Strip (Glucose Blood) TEST BLOOD SUGAR THREE TIMES A DAY 100 Strip 5 No current facility-administered medications for this visit. [...] Sulfa Antibiotics Unknown Sulfamethoxazole-Trimethoprim Unknown Trimethoprim Objective: There were no vitals taken for this visit. Review of Systems: As per HPI, all other ROS neg. Physical Exam: General: alert, healthy, and no distress Vitamin D deficiency (Primary) - 25-HYDROXY VITAMIN D; Future; Expected date: 05/29/2023 Positive RPR test - TREPONEMA PALLIDUM AB, PARTICLE AGGLUTINATION; Future; Expected date: 05/29/2023 Pt w/multiple sx/complaints Discussed results available from lyme specialist Ordered f/u test for syphilis Encouraged pt to f/u w/integrative medicine I spent a total of 30-39 minutes (exact time 36 mins) on the date of service in preparation, delivery, and documentation of the care provided to Mirta Webb excluding any time spent in the performance of separately billed services. Follow up: as needed. Christine Bhardwaj DO documented in this encounter Plan of Treatment Upcoming Encounters Date Type Department Care Team (Late st Contact Info) Description 07/12/2023 10:00 AM EST Telemedicine General Internal Medicine, [facility] [address] [place] [address] Warner Santiago MD [address] [place] [address] 07/31/2023 1:20 PM EST Office Visit Neurology [facility] [place] [address] [place] [address] Hina Oropeza PA-C [address] [place] [address] 08/09/2023 2:45 PM EST Office Visit Dermatology [facility] [address] [place] [address] Oseas Lainez MD [address] [place] [address] 09/04/2023 5:00 PM EDT Office Visit Family [facility] [address] [facility] [place] [address] Christine [facility]waj DO [facility] [place] [address] 10/03/2023 1:00 PM EDT Telemedicine Psychiatry, [facility] [address] [place] [address] Nela Figueroa CRNP [address] [place] [address] [address] 10/23/2023 4:00 PM EDT Office Visit Hematology/Oncology [facility] [address] [place] [address] River Vizcaino MD [address] [place] [address] 10/30/2023 5:20 PM EDT Office Visit [facility] [address] [facility] [place] [address] Christine Bhardwaj, DO [address] [place] [address] Scheduled Orders Name Type Priority Associated Diagnoses Orde r Schedule TREPONEMA PALLIDUM AB, PARTICLE AGGLUTINATION Lab Routine Positive RPR test Expected: 05/29/2023, Expires: 05/29/2024 Health Maintenance Due Date Last Done Comments [...] Not on filedocumented as of this encounter Results * (ABNORMAL) 25-HYDROXY VITAMIN D (06/06/2023) 25-HYDROXY VITAMIN D - OUTSIDE LAB 24.1(A) 30.0 - 100.0 NG/ML OUTSIDE LAB (SEE SCANNED REPORT) Blood Venous blood specimen / Unknown 06/06/2023 Christine Bhardwaj DO LAB BLOOD ORDERABLE S OUTSIDE LAB (SEE SCANNED REPORT) documented in this encounter Visit Diagnoses Diagnosis Vitamin D deficiency- Primary Unspecified vitamin D deficiency Positive RPR test documented in this encounter Advance Directives Latest Code Status on File Code Status Date Activated Date Inactivated Comments Full Code 06/11/2018 10:31 PM 06/13/2018 4:48 PM This o rder reflects the patients wishes and were consensually agreed upon. Question Answer Comments Discussion of Advance Directives occurred with: Patient Care Teams Milker Machine Relationship Specialty Start Date End Date Christine Bhardwaj DO [address] [place] [address] PCP - General Family Medicine 10/03/22 documented as of this encounter
--- OUTSIDE RECORDS SUMMARY | 2023-10-13 18:31 | External Medical Summary | Summary of Care ---
Author Name Unknown Organization [facility] Address [address] [place] [address] Phone [phone] Care Team Providers Care Sales Marketing Coordinator Name Role Phone Christine Bhardwaj DO Primary Care Provider [phone] Reason for Visit * Reason Onset Date Comments Advice 06/14/2023 Needs afternoon appt Encounter Details Date Type Department Care Team (Late st Contact Info) Description 06/14/2023 Telephone Dermatology [facility] [address] [facility] [address] [facility], Scheduling [address] [place] [address] Advice (Needs afternoon appt) Allergies Active Allergy Reactions Criticality Noted Date [...] as of this encounter (statuses as of 06/14/2023) Medications Medication Sig Dispensed Refills Start Date End Date Status TYLENOL EXTRA STRENGTH 500 MG PO TABS Take by mouth. 0 Active CENTRUM PO TABS Take by mouth. Centrum Silver 0 Active OneTouch Delica Lancets FineIndications:Pre diabetes Test BS one time daily 100 Each 5 04/05/2020 Active OneTouch Delica Plus Lxqyay31K use 1 LANCET to TEST BLOOD SUGAR UP TO four times a day as directed 400 Each 1 10/04/2022 Active TuckerNuckTouch Ultra 2 w/Device KitIndications:Type 2 diabetes mellitus with hemoglobin A1c goal of less than 7.0% ([facility]) Use 4x/day as directed. E11.9. 1 Kit 0 10/26/2022 Active Lisinopril 2.5 MG Oral Tablet (Prinivil) Take 1-2 Tablets by mouth in the morning. 0 01/21/2023 Active Nystatin 349552 UNIT/GM External Cream Apply topically to affected [...] as of this encounter (statuses as of 06/14/2023) Active Problems Problem Noted Date Diagnosed Date [...] as of this encounter (statuses as of 06/14/2023) Resolved Problems Problem Noted Date Diagnosed Date Resolved Date Diabetes mellitus with background retinopathy 04/04/20 19 04/04/2019 Diabetes mellitus without complication 04/04/2019 04/04/2019 Disorder of arteries and arterioles 04/04/2019 08/05/2019 Essential and other specified forms of tremor 06/22/19 12 07/14/2018 documented as of this encounter (statuses as of 06/14/2023) Social History Tobacco Use Types Packs/Day Years [...] encounter Miscellaneous Notes * Telephone Encounter - Viola Guallpa OSA - 06/14/2023 10:45 AM EST Patient returned call and rescheduled for 08/09/[address] Lainez. * Telephone Encounter - Viola Guallpa OSA - 06/14/2023 10:00 AM EST Called home #, it rang and got message that call cannot be completed at this time. Called cell, gotsame message that call cannot be completed at this time. If she calls back, may offer 08/08 at 2:45pmwith Dr. aLinez or 09/22 at 2:[address] Miguel if still available. * Telephone Encounter - Rebecca Dahl OSA - 06/14/2023 9:28 AM EST Burton Wren would like to reschedule her 06/24/23 to a different day, to an afternoon any time after 1pm due to work complications. Please Rebecca burch OSA documented in this encounter Plan of Treatment Upcoming Encounters Date Type Department Care Team (Late st Contact Info) Description 07/12/2023 10:00 AM EST Telemedicine General Internal Medicine, [facility] [address] [facility] [place] [address] Warner Santiago MD [address] [facility] [place] [address] 07/31/2023 1:20 PM EST Office Visit Neurology [facility] [place] [address] [place] [address] Hina Oropeza PA-C [address] [facility] [address] [place] [address] 08/09/2023 2:45 PM EST Office Visit Dermatology [facility] 200 [facility] [place] [address] Oseas Lainez MD [address] [place] [address] 09/04/2023 5:00 PM EDT Office Visit [facility] [place] [address] Christine Bhardwaj, DO 132 [facility] [place] [address] 10/03/2023 1:00 PM EDT Telemedicine Psychiatry, [facility] 200 [facility] [place] [address] Nela Figueroa CRNP 200 [facility] [place] [address] 10/23/2023 4:00 PM EDT Office Visit Hematology/Oncology [facility] 200 [facility] [place] [address] River Vizcaino MD 200 [facility] [place] [address] 10/30/2023 5:20 PM EDT Office Visit [facility] 132 [facility] [place] [address] Christine Bhardwaj, DO 132 [facility] [place] [address] Health Maintenance Due Date Last Done Comments [...] 01/29/2023, Additional history exists GFR 06/06/2024 06/06/2023, 08/2 01/2023, 01/25/2023, Additional history exists Cologuard 01/19/2026 01/19/2023, [...] Advance Directives occurred with: Patient Care Teams Sales Marketing Coordinator Relationship Specialty Start Date End Date Christine Bhardwaj DO [address] [place] [address] PCP - General Family Medicine 10/03/22 documented as of this encounter
--- OUTSIDE RECORDS SUMMARY | 2023-10-13 18:31 | External Medical Summary | Summary of Care ---
Author Name Unknown Organization [facility] Address [address] [facility] [place] [address] Phone [phone] Care Team Providers Care Fraternity Adviser Name Role Phone Christine Bhardwaj DO Primary Care Provider [phone] Reason for Visit * Reason Onset Date Comments Appointment 03/26/2023 Encounter Details Date Type Department Care Team (Late st Contact Info) Description 03/26/2023 Telephone [facility] [address] [place] [address] Angely Guevara CRNP [address] [place] [address] Appointment Allergies Active Allergy Reactions Criticality Noted [...] as of this encounter (statuses as of 06/25/2023) Medications Medication Sig Dispensed Refills Start Date End Date Status TYLENOL EXTRA STRENGTH 500 MG PO TABS Take by mouth. 0 Active CENTRUM PO TABS Take by mouth. Centrum Silver 0 Active OneTouch Delica Lancets FineIndications :Prediabetes Test BS one time daily 100 Each 5 04/05/2020 Active OneTouch Delica Plus [id number] use 1 LANCET to TEST BLOOD SUGAR UP TO four times a day as directed 400 Each 1 10/04/2022 Active Cicero NetworksTouch Ultra 2 w/Device KitIndications: Type 2 diabetes mellitus with hemoglobin A1c goal of less than 7.0% (HCC) Use 4x/day as directed. E11.9. 1 Kit 0 10/26/2022 Active Lisinopril 2.5 MG Oral Tablet (Prinivil) Take 1-2 Tablets by mouth in the morning. 0 01/21/2023 Active Nystatin 136930 UNIT/GM External Cream Apply topically to affected area 2 times a day. To affacted area for two weeks. 30 g 2 02/04/2023 Active Cicero NetworksTouch Ultra In Vitro Strip (Glucose Blood)Indicatio ns:Prediabetes TEST BLOOD SUGAR THREE TIMES A DAY 100 Strip 1 02/05/2023 3 Discontinued ALPRAZolam 0.25 MG Oral Tablet (xaNAX)Indicati ons:Generalized anxiety disorder Take 1 Tablet by mouth 3 times a day as needed (severe anxiety). 90 Tablet 0 03/14/2023 3 Discontinued(Refi ll) documented as of this encounter (statuses as of 06/25/2023) Active Problems Problem Noted Date Diagnosed Date [...] as of this encounter (statuses as of 06/25/2023) Resolved Problems Problem Noted Date Diagnosed Date Resolved Date Diabetes mellitus with background retinopathy 04/04/20 19 04/04/2019 Diabetes mellitus without complication 04/04/2019 04/04/2019 Disorder of arteries and arterioles 04/04/2019 08/05/2019 Essential and other specified forms of tremor 06/22/19 12 07/14/2018 documented as of this encounter (statuses as of 06/25/2023) Social History Tobacco Use Types Packs/Day Years [...] encounter Miscellaneous Notes * Telephone Encounter - Saranya Jett OSA - 03/26/2023 1:48 PM EDT Apt scheduled; pt aware * Telephone Encounter - Anna Almazan OSA - 03/26/2023 1:04 PM EDT Pt called in she states she needs to be seen YOLI for vag issues, pt is uncomfortable. Pt would like appointment late in the day if possible documented in this encounter Plan of Treatment Upcoming Encounters Date Type Department Care Team (Late st Contact Info) Description 07/12/2023 10:00 AM EST Telemedicine General Internal Medicine, [facility] [address] [place] [address] Warner Santiago MD [address] [place] [address] 07/31/2023 1:20 PM EST Office Visit Neurology [facility] 200 [facility] [place] [address] Hina Oropeza PA-C 200 [facility] [place] [address] 08/09/2023 2:45 PM EST Office Visit Dermatology [facility] 200 [facility] [place] [address] Oseas Lainez MD [address] [place] [address] 09/04/2023 5:00 PM EDT Office Visit Family Practice [facility] [address] [place] [address] Christine Bhardwaj DO [address] [place] [address] 10/03/2023 1:00 PM EDT Telemedicine Psychiatry, [facility] [address] [place] [address] Nela Figueroa CRNP 200 [facility] [place] [address] 10/23/2023 4:00 PM EDT Office Visit Hematology/Oncology [facility] 200 [facility] [place] [address] River Vizcaino MD 200 [facility] [place] [address] 10/30/2023 5:20 PM EDT Office Visit Family Practice [facility] [address] [place] [address] Christine Bhardwaj DO [address] [facility] [place] [address] Health Maintenance Due Date Last Done Comments [...] Advance Directives occurred with: Patient Care Teams Fraternity Adviser Relationship Specialty Start Date End Date Christine Bhardwaj DO [address] [place] [address] PCP - General Family Medicine 10/03/22 documented as of this encounter
--- OUTSIDE RECORDS SUMMARY | 2023-10-13 18:32 | External Medical Summary | Summary of Care ---
Author Name Unknown Organization [facility] Address [address] [facility] [place] [address] Phone [phone] Care Team Providers Care Fur Buyer Name Role Phone Christine Bhardwaj DO Primary Care Provider [phone] Reason for Visit * Reason Onset Date Comments Advice 06/04/2023 Encounter Details Date Type Department Care Team (Late st Contact Info) Description 06/04/2023 Telephone Family Practice [facility] [address] [place] [address] Christine Bhardwaj DO [address] [place] [address] Advice Allergies Active Allergy Reactions Criticality Noted [...] as of this encounter (statuses as of 06/04/2023) Medications Medication Sig Dispensed Refills Start Date End Date Status TYLENOL EXTRA STRENGTH 500 MG PO TABS Take by mouth. 0 Active CENTRUM PO TABS Take by mouth. Centrum Silver 0 Active OneTouch Delica Lancets FineIndications:Pre diabetes Test BS one time daily 100 Each 5 04/05/2020 Active OneTouch Delica Plus [id number] use 1 LANCET to TEST BLOOD SUGAR [...] in the morning. 0 01/21/2023 Active Nystatin 246493 UNIT/GM External Cream Apply topically to affected [...] as of this encounter (statuses as of 06/04/2023) Active Problems Problem Noted Date Diagnosed Date [...] as of this encounter (statuses as of 06/04/2023) Resolved Problems Problem Noted Date Diagnosed Date Resolved Date Diabetes mellitus with background retinopathy 04/04/20 19 04/04/2019 Diabetes mellitus without complication 04/04/2019 04/04/2019 Disorder of arteries and arterioles 04/04/2019 08/05/2019 Essential and other specified forms of tremor 06/22/19 12 07/14/2018 documented as of this encounter (statuses as of 06/04/2023) Social History Tobacco Use Types Packs/Day Years Used Date Smoking Tobacco: Former Cigarettes 14 Q uit: 06/10/1995 Smokeless Tobacco: Never Alcohol Use Standard Drinks/Week Comments No 0 (1 standard drink = 0.6 oz pur e alcohol) very rare PHQ-2 Answer Date Recorded PHQ Adult Total Score 6 12/04/2022 Sex and Gender Information Value Date Recorded Sex Assigned at Female 07/16/2019 1:30 PM EST Gender Identity Female 07/16/2019 1:30 PM EST Sexual Orientation Straight 07/16/2019 1: 30 PM EST Job Start Date Occupation Industry Not on file Not on file Not on file documented as of this encounter Miscellaneous Notes * Telephone Encounter - Kassandra Herrera LPN - 06/04/2023 10:45 AM EST Patient called and needed assistance to get her lab orders printed She was not able to get them printed from [facility] I sent the lab orders to her via [employer] message and then she was able to print them documented in this encounter Plan of Treatment Upcoming Encounters Date Type Department Care Team (Late st Contact Info) Description 06/06/2023 2:00 PM EST Telemedicine Psychiatry, [facility] [address] [place] [address] Nela Figueroa CRNP [address] [place] [address] 07/31/2023 1:20 PM EST Office Visit Neurology [facility] [address] [place] [address] Hina Oropeza PA-C [address] [place] [address] 09/04/2023 5:00 PM EDT Office Visit [facility] [address] [place] [address] Christine Bhardwaj, DO [address] [place] [address] 10/23/2023 4:00 PM EDT Office Visit Hematology/Oncology [facility] [address] [place] [address] River Vizcaino MD [address] [place] [address] 10/30/2023 5:20 PM EDT Office Visit [facility] [address] [place] [address] Christine Bhardwaj, DO [address] [place] [address] Health Maintenance Due Date Last Done Comments [...] Additional history exists Depression Screening 12/05/2023 12/04/2022 GFR 02/05/2024 02/04/2023, 01/08, 01/06/2023, Additional history exists Diabetic Eye Exam 05/28/2024 05/28/2023, , 01/29/2023, Additional history exists Cologuard 01/19/2026 01/19/2023, 08/0 [...] Advance Directives occurred with: Patient Care Teams Fur Buyer Relationship Specialty Start Date End Date Christine Bhardwaj DO [address] [place] [address] PCP - General Family Medicine 10/03/22 documented as of this encounter
--- OUTSIDE RECORDS SUMMARY | 2023-10-13 18:32 | External Medical Summary | Summary of Care ---
Author Name Unknown Organization [facility] Address [address] [facility] [place] [address] Phone [phone] Care Team Providers Care Conference Organizer Name Role Phone Christine Bhardwaj DO Primary Care Provider [phone] Reason for Visit * Reason Onset Date Comments Order Request 05/30/2023 Encounter Details Date Type Department Care Team (Late st Contact Info) Description 05/30/2023 Telephone Family Practice [facility] [address] [place] [address] Christine Bhardwaj DO [address] [place] [address] Order Request Allergies Active Allergy Reactions Criticality Noted Date [...] Each 5 04/05/2020 Active OneTouch Delica Plus [id number] use 1 LANCET to TEST BLOOD SUGAR UP TO four times a day as directed 400 Each 1 10/04/2022 Active OneTouch Ultra 2 w/Device KitIndications:Type 2 diabetes mellitus with hemoglobin A1c goal of less than 7.0% ([facility]) Use 4x/day as directed. E11.9. 1 Kit 0 10/26/2022 Active Lisinopril 2.5 MG Oral Tablet (Prinivil) Take 1-2 Tablets by mouth in the morning. 0 01/21/2023 Active Nystatin 263273 UNIT/GM External Cream Apply topically to affected [...] encounter Miscellaneous Notes * Telephone Encounter - Mercedes Bang RN - 06/04/2023 11:58 AM EST All open lab orders attached to [employer] message and sent to pt. * Telephone Encounter - Aggie Watters OSA - 05/30/2023 1:33 PM EST Mirta says she requested copy of her labs orders to take to [facility] and is requesting you send themto her portal or email so she can go next week. documented in this encounter Plan of Treatment Upcoming Encounters Date Type Department Care Team (Late st Contact Info) Description 06/06/2023 2:00 PM EST Telemedicine Psychiatry, [facility] [address] [place] [address] Nela Figueroa CRNP [address] [place] [address] 07/31/2023 1:20 PM EST Office Visit Neurology [facility] [address] [place] [address] Hina Oropeza PA-C [address] [place] [address] 09/04/2023 5:00 PM EDT Office Visit Family Practice [facility] [address] [place] [address] Christine Bhardwaj DO [address] [place] [address] 10/23/2023 4:00 PM EDT Office Visit Hematology/Oncology [facility] [address] [place] [address] [address] River Vizcaino MD [address] [place] [place] [address] 10/30/2023 5:20 PM EDT Office Visit Family Practice [facility] [address] [place] [address] Christine Bhardwaj DO [address] [place] [address] Health Maintenance Due Date Last Done Comments [...] 01/29/2023, Additional history exists Cologuard 01/19/2026 01/19/2023, 0808/2022, [...] Advance Directives occurred with: Patient Care Teams Conference Organizer Relationship Specialty Start Date End Date Christine Bhardwaj DO [address] [place] [address] PCP - General Family Medicine 10/03/22 documented as of this encounter
--- OUTSIDE RECORDS SUMMARY | 2023-10-13 18:32 | External Medical Summary | Summary of Care ---
Author Name Unknown Organization [facility] Address [address] [facility] [place] [address] Phone [phone] Care Team Providers Care Ice Delivery Driver Name Role Phone Christine Bhardwaj DO Primary Care Provider [phone] Reason for Visit * Reason Comments Medication Management Follow Up Encounter Details Date Type Department Care Team (Late st Contact Info) Description 06/06/2023 2:00 PM [facility] Psychiatry, [facility] [address] [facility] [place] [address] FigueroaNela CRNP [address] [facility] [place] [address] Generalized anxiety disorder*; Depressive disorder Allergies Active [...] as of this encounter (statuses as of 06/06/2023) Medications Medication Sig Dispensed Refills Start Date End Date Status TYLENOL EXTRA STRENGTH 500 MG PO TABS Take by mouth. 0 Active CENTRUM PO TABS Take by mouth. Centrum Silver 0 Active OneTouch Delica Lancets FineIndications:Pre diabetes Test BS one time daily 100 Each 5 04/05/2020 Active OneTouch Delica Plus [id number] use 1 LANCET to TEST BLOOD SUGAR UP TO four times a day as directed 400 Each 1 10/04/2022 Active MailanaTouch Ultra 2 w/Device KitIndications:Type 2 diabetes mellitus with hemoglobin A1c goal of less than 7.0% ([facility]) Use 4x/day as directed. E11.9. 1 Kit 0 10/26/2022 Active Lisinopril 2.5 MG Oral Tablet (Prinivil) Take 1-2 Tablets by mouth in the morning. 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 Type 2 diabetes mellitus wit h hemoglobin A1c goal of less than 7.0% 11/28/2021 Body mass index (BMI) of 40.0 to 44.9 in adult 0 11/20/2021 Overview: Per Obesity protocol Severe episode of recurrent major depressive disorder, without psychotic features 11/18/2018 SVT (supraventricular tachycardia) 11/18/2018 SILVER (generalized anxiety disorder) 10/02/2018 Urinary bladder neurogenic dysfunction 9 Imbalance 06/13/2018 Peripheral neuropathy 06/13/2018 Chronic rhinitis 05/05/2018 Overview: NE Rast -- high mites, moderate oak, low cats/dogs Von Willebrand disease, type I 05/02/2018 Degeneration of lumbosacral intervertebral disc 09/14/2011 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 Encephalopathy 06/22/2011 Overview: ICD-10 update of inactive term documented as of this encounter (statuses as of 06/06/2023) Resolved Problems Problem Noted Date Diagnosed Date Resolved Date Diabetes mellitus with background retinopathy 04/04/20 19 04/04/2019 Diabetes mellitus without complication 04/04/2019 04/04/2019 Disorder of arteries and arterioles 04/04/2019 08/05/2019 Essential and other specified forms of tremor 06/22/19 12 07/14/2018 documented as of this encounter (statuses as of 06/06/2023) Social History Tobacco Use Types Packs/Day Years [...] of this encounter Progress Notes * Nela Figueroa, ODELL - 06/06/2023 2:03 PM EST Images from the original note were not included. OUTPATIENT PSYCHIATRY DIVISION OF PSYCHIATRY [facility] [address] [place] [address] MEDICATION MANAGEMENT & PSYCHOTHERAPY RETURN VISIT NOTE Name: Mirta Webb : 1965 Date Seen: 06/06/2023 LOCATION FROM WHICH SERVICE IS DELIVERED Provider's Home via HIPAA-compliant platform PATIENT'S CURRENT PHYSICAL LOCATION Home (address on file) After connecting through [employer], patient was verified with two unique identifiers. Patient (or authorized legal disability representative) was then informed that this was a Telemedicine visit and being conducted confidentially over secure lines. Methods to assure confidentiality were taken. Patient acknowledged consent and understanding of privacy and security of the Telemedicine visit. The patient agreed to participate. The patient was seen and interviewed, and available records and data were reviewed today. SUBJECTIVE: Mirta Webb is a 57 year old female presenting for follow-up of [...] or current CYS involvement: none History of homelessness/jail living? 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 history: none Legal history: none Trauma history: see above Social support/supportive people in life: Leisure/recreational activities: gardening, walk (but haven't been able to recently), read bible/listen on audio Sikh/philosophical beliefs: Rastafari Outpatient treatment: Rastafari counselors after father 15 years ago for short time Prior diagnoses: Anxiety, depression Hospitalizations: IP for one day after of her son FAMILY PSYCHIATRIC/ANGEL HISTORY: Mental illness: None - mother depressed after of father Attempted/Completed suicides: none Drug and alcohol abuse: none CHANGE IN SUBSTANCE USE PATTERNS: N/A OBJECTIVE DATA: Silver-7 Question 06/06/2023 1:52 PM EST - Filed by Patient Over the last 2 weeks, how often have you been bothered by the following problems? Feeling nervous, anxious, or on edge More than half the days Not being able to stop or control worrying Several days Worrying too much about different things Not at all Trouble relaxing Not at all Being so restless that is hard to sit still Not at all Becoming easily annoyed or irritable Several days Feeling afraid as if something awful might happen Several days Total score of all questions (range: 0 - 21) 5 (Mild) Social Needs Screening Question 06/06/2023 1:55 PM EST - Filed by Patient We want to ensure that you can live your healthiest life, part of that is ensuring you have can find resources when you need them. We know that if you have trouble accessing things like food, housing, or transportation, it can impact your health. We encourage you to take a couple minutes to fill out this social needs questionnaire. Your care team will go over the screening with you at your upcoming visit and can connect you to local resources. Within the past 12 months, you worried that your food would run out before you got the money to buymore. Sometimes true Within the past 12 months, the food you bought just didnt last and you didnt have money to get more. Sometimes true Do you need food for this week? No Do you currently live in a jail or have no steady place to sleep at night? No Do you think you are at risk of becoming homeless? No Do you have trouble getting a ride to medical visits or work? Sometimes True Do you have any trouble paying for your medications, or do you think you might in the future? No How often do you feel lonely or isolated from those around you? Sometimes Do you feel unsafe or have concerns for your safety? No Do you feel overwhelmed with taking care of a child, family member or friend? No Have you been unable to get clothing when it was really needed? No Do you have trouble paying your heating, water, or electric bill? No Are you unemployed or without regular income? Yes Would you like help connecting to resources in any of these categories? None Review of patient's allergies indicates: Allergen Reactions [...] appointments: Wt Readings from Last 3 Encounters: 04/30/23 97.5 kg (215 lb) 04/23/23 96.9 kg (213 lb 11.2 oz) 04/17/23 94.8 kg (209 lb) LABORATORY RESULTS: Recent Results (from the past 1344 hour(s)) TISSUE TRANSGLUTAMINASE IGA ANTIBODY Collection Time: 05/11/23 1:49 PM Result Value Ref Range Tissue Transglutaminase IgA Antibody Interpretation Negative Negative Tissue Transglutaminase IgA Antibody Value 0.7 <7 U/mL GLIADIN (DEAMIDATED) IGA AND IGG ANTIBODIES Collection Time: 05/11/23 1:49 PM Result Value Ref Range Gliadin (Deamidated) IgG Antibody Interpretation Negative Negative Gliadin (Deamidated) IgG Antibody Value <0.6 <7 U/mL Gliadin (Deamidated) IgA Antibody Interpretation Negative Negative Gliadin (Deamidated) IgA Antibody Value 0.8 <7 U/mL REVIEW OF SYSTEMS: Unremarkable MENTAL STATUS EVALUATION: General Appearance: appropriately dressed, appropriately groomed, and good eye contact Attitude/Behavior: cooperative, engaged Motor Behavior/Muscle Strength & Tone/Gait & Station: no gross abnormalities noted via video assessment. Speech: normal, rate, tone and volume and goal directed Mood: euthymic Affect: mood-congruent Thought Process: focused on medical conditions/concerns. Thought Content/Perceptions: denies suicidal ideations, homicidal ideations, auditory hallucinations, visual hallucinations, delusions, impulsivity to act out [...] Insight: fair Judgement: fair Impulse Control: good Tilly Suicide Severity Rating Scale Results 06/06/2023 14:10 [place] SUICIDE SEVERITY RATING SCALE (C-SSRS) Have you wished you were or wished you could go to sleep and not wake up? (In the Past Month or Since Last Visit) No Have you had any actual thoughts of [...] past 3 months? No Level of Risk No Risk Identified Outpatient Adult Psychiatry Treatment Plan Treatment plan was developed on 03/14/23, treatment will continue to focus on goals below; Treatmentupdate will occur when clinically indicated or by 09/13/23. Patient's goals captured in patient's words: "I want to be well." Crisis Planning: What I can do if I ever experience a crisis (much worse symptoms, severe distress or thoughts of self-harm): Exercise/Walk and Prayer/Nohemy People I can call in the event of a crisis: Spouse/partner/significant other: Additional resources I can utilize if the previous steps are ineffective (e.g: ED, hotlines): Suicide and Crisis Lifeline - 988 and [employer] access to crisis numbers Patient/Family Received Copy of Treatment Plan: Patient has access to [employer] Signature Obtained on Treatment Plan: Treatment plan developed with patient and/or family during telemedicine/telephonic visit. No treatment plan signature page was signed. Will obtain signatures once sessions resume in clinic. Expected family or significant other involvement: Offer Support and Crisis Support Patient strengths and facilitating factors to care:Seeking help, Goal Oriented, Good support systemand Able to care for own personal hygiene Patient Identified Needs/Goals Interventions/Type of Service Duration of Treatment Frequency of Treatment Objective/ Discharge Criteria Problem/Need1: Medication Management Medication Management 1 year Monthly PHQ<5 and SILVER<5 ASSESSMENT, FORMULATION, AND PLAN: Mirta Webb is [...] in 4 months. No prescription needed today Diagnosis: SILVER Depressive disorder Rule out Conversion disorder Rule out PTSD Medications: Continue Xanax 0.25 mg TID PRN for anxiety I have reviewed the patient's controlled substance dispensing history in the Prescription Drug Monitoring Program in compliance with the [facility] regulations before prescribing a controlled substance. [...] including reaching clinic after hours, or accessing group [facility] mental health and medical services, either at a local emergency department or by [facility] crisis teams and EMS. Psychoeducation was provided [...] symptom management and pose increased health risks. Nela Figueroa, MSN, WOOD TYPE CUTTER, PMHNP-BC [facility] Psychiatry [facility] Current Outpatient Medications Medication Sig Dispense Refill TYLENOL EXTRA STRENGTH 500 MG PO TABS Take by mouth. CENTRUM PO TABS Take by mouth. Centrum Silver (Patient not taking: Reported on 04/23/2023) [employer] Delica Lancets Fine Test BS one time daily 100 Each 5 OneTouch Delica Plus [id number] use 1 LANCET to TEST BLOOD SUGAR UP TO four times a day as directed 400 Each 1 MailanaTouch Ultra 2 w/Device Kit Use 4x/day as directed. E11.9. 1 Kit 0 Lisinopril 2.5 MG Oral Tablet (Prinivil) Take 1-2 Tablets by mouth in the morning. Nystatin 245158 UNIT/GM External Cream Apply topically to affected [...] as needed (severe anxiety). 90 Tablet 0 No current facility-administered medications for this visit. documented in this encounter Plan of Treatment Upcoming Encounters Date Type Department Care Team (Late st Contact Info) Description 06/24/2023 10:00 AM EST Office Visit Dermatology [facility] [place] [address] [place] [address] Chris Miguel MD [address] [place] [address] 07/12/2023 10:00 AM EST Office Visit General Internal Medicine, [facility] [address] [place] [address] Warner Santiago MD [address] [place], [place] [id number] 07/31/2023 1:20 PM EST Office Visit Neurology [facility] [address] [place] [address] Hina Oropeza PA-C [address] [facility] [place] [address] 09/04/2023 5:00 PM EDT Office Visit Family Practice [facility] [address] [place] [address] Christine Bhardwaj DO [address] [place] [address] 10/03/2023 1:00 PM EDT Telemedicine Psychiatry, [facility] [address] [place] [address] Nela Figueroa CRNP [address] [place] [address] 10/23/2023 4:00 PM EDT Office Visit Hematology/Oncology [facility] [address] [place] [address] River Vizcaino MD [address] [place] [address] 10/30/2023 5:20 PM EDT Office Visit Family [facility] [address] [place] [address] Christine Bhardwaj DO [address] [place] [address] Health Maintenance Due Date Last Done Comments [...] Advance Directives occurred with: Patient Care Teams Ice Delivery Driver Relationship Specialty Start Date End Date Christine Bhardwaj DO [address] [place] [address] PCP - General Family Medicine 10/03/22 documented as of this encounter
--- OUTSIDE RECORDS SUMMARY | 2023-10-13 18:32 | External Medical Summary | Summary of Care ---
Author Name Unknown Organization [facility] Address [address] [facility] [place] [address] Phone [phone] Care Team Providers Care Vending Machine Servicer Name Role Phone Christine Bhardwaj DO Primary Care Provider [phone] Reason for Visit * Reason Onset Date Comments Order Request 06/05/2023 Encounter Details Date Type Department Care Team (Late st Contact Info) Description 06/05/2023 Telephone Family Practice [facility] [address] [place] [address] Christine Bhardwaj DO [address] [place] [address] Order Request Allergies Active Allergy Reactions Criticality [...] as of this encounter (statuses as of 06/05/2023) Medications Medication Sig Dispensed Refills Start Date End Date Status TYLENOL EXTRA STRENGTH 500 MG PO TABS Take by mouth. 0 Active CENTRUM PO TABS Take by mouth. Centrum Silver 0 Active OneTouch Delica Lancets FineIndications:Pre diabetes Test BS one time daily 100 Each 5 04/05/2020 Active OneTouch Delica Plus Oeldsl13L use 1 LANCET to TEST BLOOD SUGAR UP TO four times a day as directed 400 Each 1 10/04/2022 Active OneTouch Ultra 2 w/Device KitIndications:Type 2 diabetes mellitus with hemoglobin A1c goal of less than 7.0% ([facility]) Use 4x/day as directed. E11.9. 1 Kit 0 10/26/2022 Active Lisinopril 2.5 MG Oral Tablet (Prinivil) Take 1-2 Tablets by mouth in the morning. 0 01/21/2023 Active Nystatin [id number] UNIT/GM External Cream Apply topically to affected [...] as of this encounter (statuses as of 06/05/2023) Active Problems Problem Noted Date Diagnosed Date [...] as of this encounter (statuses as of 06/05/2023) Resolved Problems Problem Noted Date Diagnosed Date Resolved Date Diabetes mellitus with background retinopathy 04/04/20 19 04/04/2019 Diabetes mellitus without complication 04/04/2019 04/04/2019 Disorder of arteries and arterioles 04/04/2019 08/05/2019 Essential and other specified forms of tremor 06/22/19 12 07/14/2018 documented as of this encounter (statuses as of 06/05/2023) Social History Tobacco Use Types Packs/Day Years [...] Telephone Encounter - Mercedes Bang RN - 06/05/2023 1:37 PM EST Lab order sent to pt in separate MyG message. * Telephone Encounter - Christine Bhardwaj DO - 06/05/2023 1:03 PM EST Order placed Please send via myg * Telephone Encounter - Kassandra Herrera LPN - 06/05/2023 10:25 AM EST Patient states that she has been having diarrhea since No blood in the diarrhea, it is watery and she noted mucus in it and it has a strange foul odor She is having some abdominal pain that comes and goes, worse on but not has bad today The abdominal pain is her whole entire stomach, not just one area Had nausea on only, none since Had cold sweats yesterday with her diarrhea episodes yesterday and at night per usual No Chills or fevers but she is very fatigued and feels terrible in general She was recently on an antibiotic and is concerned that she may have C Diff She would like to know if she could get an order for a C Diff test She will need an off site order (going to take it to [facility]) Please send order if placed to her via a MyG message so she can print it Please advise documented in this encounter Plan of Treatment Upcoming Encounters Date Type Department Care Team (Late st Contact Info) Description 06/06/2023 2:00 PM EST Telemedicine Psychiatry, [facility] [address] [place] [address] Figueroa, ODELL Jeong [address] [place] [address] [address] 06/24/2023 10:00 AM EST Office Visit Dermatology [facility] [address] [place] [address] [address] Chris Miguel MD 200 [facility] [place] [address] 07/12/2023 10:00 AM EST Office Visit General Internal Medicine, [facility] [address] [place] [address] Warner Santiago MD [address], [place] [id number] 07/31/2023 1:20 PM EST Office Visit Neurology [facility] [address] [facility] [place] [address] Hina Oropeza PA-C 200 [facility] [place] [address] 09/04/2023 5:00 PM EDT Office Visit [facility] [address] [place] [address] Christine Bhardwaj, DO [address] [place] [address] 10/23/2023 4:00 PM EDT Office Visit Hematology/Oncology [facility] [address] [place] [address] [place] [address] River Vizcaino MD 200 [facility] [place] [address] 10/30/2023 5:20 PM EDT Office Visit [facility] [address] [place] [address] Christine Bhardwaj, DO [address] [place] [address] Scheduled Orders Name Type Priority Associated Diagnoses Orde r Schedule CLOSTRIDIUM DIFFICILE, PCR Lab Routine Diarrhea of presumed infectious origin Expected: 06/05/2023 (Approximate), Expires: 06/04/2024 Health Maintenance Due Date Last Done Comments [...] as of this encounter Visit Diagnoses Diagnosis Diarrhea of presumed infectious origin- Primary documented in this encounter Advance Directives Latest Code Status on File Code Status Date Activated Date Inactivated Comments Full Code 06/11/2018 10:31 PM 06/13/2018 4:48 PM This o rder reflects the patients wishes and were consensually agreed upon. Question Answer Comments Discussion of Advance Directives occurred with: Patient Care Teams Vending Machine Servicer Relationship Specialty Start Date End Date Christine Bhardwaj DO [address] [place] [address] PCP - General Family Medicine 10/03/22 documented as of this encounter
--- OUTSIDE RECORDS SUMMARY | 2023-10-13 18:32 | External Medical Summary | Summary of Care ---
Author Name Unknown Organization [facility] Address [address] [place] [address] Phone [phone] Care Team Providers Care Property Staff Accountant Name Role Phone Christine Bhardwaj DO Primary Care Provider [phone] Reason for Visit * Reason Comments Follow Up Encounter Details Date Type Department Care Team (Late st Contact Info) Description 05/31/2023 12:30 PM EST Telemedicine General Internal Medicine, [facility] [address], [place] [id number] Warner Santiago MD [address] [place], [place] [id number] Rash and nonspecific skin eruption*; Balance problem; Back pain, unspecified back location, unspecified back pain laterality, unspecified chronicity Allergies Active Allergy Reactions Criticality Noted Date [...] as of this encounter (statuses as of 05/31/2023) Medications Medication Sig Dispensed Refills Start Date End Date Status TYLENOL EXTRA STRENGTH 500 MG PO TABS Take by mouth. 0 Active CENTRUM PO TABS Take by mouth. Centrum Silver 0 Active OneTouch Delica Lancets FineIndications:Pre diabetes Test BS one time daily 100 Each 5 04/05/2020 Active OneTouch Delica Plus Esqqjl30I use 1 LANCET to TEST BLOOD SUGAR UP TO four times a day as directed 400 Each 1 10/04/2022 Active OneTouch Ultra 2 w/Device KitIndications:Type 2 diabetes mellitus with hemoglobin A1c goal of less than 7.0% ([facility]) Use 4x/day as directed. E11.9. 1 Kit 0 10/26/2022 Active Lisinopril 2.5 MG Oral Tablet (Prinivil) Take 1-2 Tablets by mouth in the morning. 0 01/21/2023 Active Nystatin 931644 UNIT/GM External Cream Apply topically to affected [...] as of this encounter (statuses as of 05/31/2023) Active Problems Problem Noted Date Diagnosed Date [...] as of this encounter (statuses as of 05/31/2023) Resolved Problems Problem Noted Date Diagnosed Date Resolved Date Diabetes mellitus with background retinopathy 04/04/20 19 04/04/2019 Diabetes mellitus without complication 04/04/2019 04/04/2019 Disorder of arteries and arterioles 04/04/2019 08/05/2019 Essential and other specified forms of tremor 06/22/19 12 07/14/2018 documented as of this encounter (statuses as of 05/31/2023) Social History Tobacco Use Types Packs/Day Years [...] Progress Notes * Warner Santiago MD - 05/31/2023 12:39 PM EST Patient location: HOME. I was in a hospital or clinic location. After connecting through [employer],patient was verified with two unique identifiers. Patient (or authorized legal school admissions representative) was then informed that this was a Telemedicine visit and being conducted confidentially over secure lines. Methods to assure confidentiality were taken. Patient acknowledged consent and understanding of pr ivacy and security of the Telemedicine visit. The patient agreed to participate. Subjective: Mirta Webb is a 57 year old female. Chief Complaint Patient presents with Follow Up HPI: Since I saw her she has continue to feel unwell. Has migrating numbness or tingling. She has migrating visual symptoms. Pain in her hips and back. Right hip mainly (had x-ray over the summer showing nothing). Short tempered, feels like she has brain fog. Reports having a rash. She sent a series of photos which are in the Media section of her chart. I reviewed them and they show some red rashes with central clearing. Reports that he had gotten additional bull's eyes spreading on her legs towards her genitals. She reports she does not have rashes that look exactly like the photos in question but she has current active red rashes with central clearing. The photos are from about a year ago. She did have it evaluated by a blindstitch lining feller in [place] and it was biopsied, reportedly sent to [place] with a focused question of whether it showed Lyme, came back negative for that. She had ten days of antiobiotics at the beginning of this syndrome. Ultimately did see a Lyme literate doctor and was diagnosed with multiple infections including multiple strains of Lyme, syphilis, and EBV. She did take 3 weeks of amoxicillin recently, with improvement in balance, but her fatigue and pain and rash did not really resolve. 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 General: alert, healthy, and no distress Neuro Exam: grossly (i.e. generally) normal speech and cognition Image quality does not really allow me to see any rash - requested she send photos of the current rash Assessment: Rash and nonspecific skin eruption (Primary) Balance problem Back pain, unspecified back location, unspecified back pain laterality, unspecified chronicity Unclear cause of symptoms. She has discordant results with the Lyme specialist and the testing hereor [place]. I do note a pretty noteworthy set of rashes in the photos she shared. I think she may need a biopsy. Some of these photos do look like Lyme, although I would expect her to have a positive test If Celiac is a concern we could get an EGD. She will send results from the Lyme specialist. Ask-a-doc submitted to request dermatology review and guidance re: next steps. Current Outpatient Medications Medication Sig Dispense Refill TYLENOL EXTRA STRENGTH 500 MG PO TABS Take by mouth. CENTRUM PO TABS Take by mouth. Centrum Silver (Patient not taking: Reported on 04/23/2023) OneTouch Delica Lancets Fine Test BS one time daily 100 Each 5 OneTouch Delica Plus Fzqrht55O use 1 LANCET to TEST BLOOD SUGAR UP TO four times a day as directed 400 Each 1 OneTouch Ultra 2 w/Device Kit Use 4x/day as directed. E11.9. 1 Kit 0 Lisinopril 2.5 MG Oral Tablet (Prinivil) Take 1-2 Tablets by mouth in the morning. Nystatin 801576 UNIT/GM External Cream Apply topically to affected [...] 06/06/2023 2:00 PM EST Telemedicine Psychiatry, [facility] [address] [place] [address] [address] Nela Figueroa CRNP [address] [place] [address] [place] [address] 07/31/2023 1:20 PM EST Office Visit Neurology [facility] [place] [place] [address] [place] [address] Hina Oropeza PA-C [address] [place] [place] [address] 09/04/2023 5:00 PM EDT Office Visit [facility] [address] [facility] [place] [address] Christine Bhardwaj DO 132 [facility] [place] [address] 10/23/2023 4:00 PM EDT Office Visit Hematology/Oncology [facility] [place] [address] [place] [address] River Vizcaino MD [address] [place] [address] [address] 10/30/2023 5:20 PM EDT Office Visit [facility] 132 [facility] [place] [address] Christine Bhardwaj, DO [address] [place] [address] Health Maintenance Due Date Last Done Comments [...] as of this encounter Visit Diagnoses Diagnosis Rash and nonspecific skin eruption- Primary Rash and other nonspecific skin eruption Balance problem Other symptoms involving nervous and musculoskeletal systems Back pain, unspecified back location, unspecified back pain laterality, unspecified chronicity documented in this encounter Advance Directives Latest Code Status on File Code Status Date Activated Date Inactivated Comments Full Code 06/11/2018 10:31 PM 06/13/2018 4:48 PM This o rder reflects the patients wishes and were consensually agreed upon. Question Answer Comments Discussion of Advance Directives occurred with: Patient Care Teams Property Staff Accountant Relationship Specialty Start Date End Date Christine Bhardwaj DO [address] [facility] [place] [address] PCP - General Family Medicine 10/03/22 documented as of this encounter
--- OUTSIDE RECORDS SUMMARY | 2023-10-13 18:32 | External Medical Summary | Summary of Care ---
Author Name Unknown Organization [facility] Address [address] [facility] [place] [address] Phone [phone] Care Team Providers Care Toddler Teacher Name Role Phone Christine Bhardwaj DO Primary Care Provider [phone] Encounter Details Date Type Department Care Team (Late st Contact Info) Description 05/29/2023 Orders Only Family Practice [facility] [address] [email or web address] [place] [address] Christine Bhardwaj DO [address] [place] [address] Allergies Active Allergy Reactions Criticality Noted Date [...] as of this encounter (statuses as of 05/29/2023) Medications Medication Sig Dispensed Refills Start Date End Date Status TYLENOL EXTRA STRENGTH 500 MG PO TABS Take by mouth. 0 Active CENTRUM PO TABS Take by mouth. Centrum Silver 0 Active OneTouch Delica Lancets FineIndications:Pre diabetes Test BS one time daily 100 Each 5 04/05/2020 Active OneTouch Delica Plus Tasiab00T use 1 LANCET to TEST BLOOD SUGAR UP TO four times a day as directed 400 Each 1 10/04/2022 Active OneTouch Ultra 2 w/Device KitIndications:Type 2 diabetes mellitus with hemoglobin A1c goal of less than 7.0% ([facility]) Use 4x/day as directed. E11.9. 1 Kit 0 10/26/2022 Active Lisinopril 2.5 MG Oral Tablet (Prinivil) Take 1-2 Tablets by mouth in the morning. 0 01/21/2023 Active Nystatin [id number] UNIT/GM External Cream Apply topically to affected [...] by mouth in the morning. 0 Active ALPRAZolam 0.25 MG Oral Tablet (xaNAX)Indications: Generalized anxiety disorder Take 1 Tablet by mouth 3 times a day as needed (severe anxiety). 90 Tablet 0 04/30/2023 Active OneTouch Ultra In Vitro Strip (Glucose Blood)Indications:P rediabetes TEST BLOOD SUGAR THREE TIMES A DAY 100 Strip 5 05/01/2023 Active documented as of this encounter (statuses as of 05/29/2023) Active Problems Problem Noted Date Diagnosed Date [...] as of this encounter (statuses as of 05/29/2023) Resolved Problems Problem Noted Date Diagnosed Date Resolved Date Diabetes mellitus with background retinopathy 04/04/20 19 04/04/2019 Diabetes mellitus without complication 04/04/2019 04/04/2019 Disorder of arteries and arterioles 04/04/2019 08/05/2019 Essential and other specified forms of tremor 06/22/19 12 07/14/2018 documented as of this encounter (statuses as of 05/29/2023) Social History Tobacco Use Types Packs/Day Years [...] 05/29/2023 1:40 PM EST Telemedicine Family Practice [facility] [address] [place] [address] Christine Bhardwaj, DO [address] [place] [address] 05/31/2023 12:30 PM EST Telemedicine General Internal Medicine, [facility] [address] [place] [address] Warner Santiago MD [address] [place] [address] 06/06/2023 2:00 PM EST Telemedicine Psychiatry, [facility] [address] [place] [address] Nela Figueroa CRNP 200 [facility] [place] [address] 07/31/2023 1:20 PM EST Office Visit Neurology [facility] [address] [facility] [place] [address] Hina Oropeza PA-C 200 [facility] [place] [address] 09/04/2023 5:00 PM EDT Office Visit Family [facility] [address] [place] [address] Christine Bhardwaj, DO 132 [facility] [place] [address] 10/23/2023 4:00 PM EDT Office Visit Hematology/Oncology [facility] [address] [place] [address] [address] River Vizcaino MD [address] [place] [address] Health Maintenance Due Date Last Done Comments [...] Procedure Name Priority Date/Time Associated Diagnosis Comments DIABETIC EYE EXAM Routine 05/28/2023 documented in this encounter Results * DIABETIC EYE EXAM (05/28/2023) 05/28/2023 History Per Patient OTHER OUTSIDE LAB (SEE SCANNED REPORT) documented in this encounter Advance Directives Latest Code Status on File Code Status Date Activated Date Inactivated Comments Full Code 06/11/2018 10:31 PM 06/13/2018 4:48 PM This o rder reflects the patients wishes and were consensually agreed upon. Question Answer Comments Discussion of Advance Directives occurred with: Patient Care Teams Toddler Teacher Relationship Specialty Start Date End Date Christine Bhardwaj DO [address] [place] [address] PCP - General Family Medicine 10/03/22 documented as of this encounter
--- OUTSIDE RECORDS SUMMARY | 2023-10-13 18:32 | External Medical Summary | Summary of Care ---
Author Name Unknown Organization [facility] Address [address] [facility] [place] [address] Phone [phone] Care Team Providers Care Fiberglasser Name Role Phone Christine Bhardwaj DO Primary Care Provider [phone] Encounter Details Date Type Department Care Team (Late st Contact Info) Description 04/19/2023 Result Scan Unspecified Department <No scans attached> Allergies Active Allergy Reactions [...] Each 5 04/05/2020 Active OneTouch Delica Plus Rlmame90R use 1 LANCET to TEST BLOOD SUGAR UP TO four times a day as directed 400 Each 1 10/04/2022 Active OneTouch Ultra 2 w/Device KitIndications:Type 2 diabetes mellitus with hemoglobin A1c goal of less than 7.0% ([facility]) Use 4x/day as directed. E11.9. 1 Kit 0 10/26/2022 Active Lisinopril 2.5 MG Oral Tablet (Prinivil) Take 1-2 Tablets by mouth in the morning. 0 01/21/2023 Active Nystatin 923214 UNIT/GM External Cream Apply topically to affected area 2 times a day. To affacted area for two weeks. 30 g 2 02/04/2023 Active Estradiol 0.1 MG/GM Vaginal Cream (Estrace)Indications :Vaginal atrophy,Atrophy of vulva Administer 2 g into the vagina in the morning. as directed.. 42.5 g 3 03/27/2023 Active documented as of this encounter (statuses [...] Description 06/06/2023 2:00 PM EST Telemedicine Psychiatry, [facility] [address] [place] [address] Nela Figueroa CRNP [address] [place] [address] 07/31/2023 1:20 PM EST Office Visit Neurology [facility] [address] [place] [address] Hina Oropeza PA-C [address] [place] [address] 09/04/2023 5:00 PM EDT Office Visit Family Practice [facility] [address] [place] [address] Christine Bhadrwaj DO [address] [place] [address] 10/23/2023 4:00 PM EDT Office Visit Hematology/Oncology [facility] 200 [place] [address] River Vizcaino MD 200 [facility] [place] [address] 10/30/2023 5:20 PM EDT Office Visit Family Practice [facility] [address] [place] [address] Christine Bhardwaj DO [address] [place] [address] Health Maintenance Due Date Last Done Comments [...] Date/Time Associated Diagnosis Comments OUTSIDE LAB RESULTS 04/19/2023 documented in this encounter Results * OUTSIDE LAB RESULTS (04/19/2023) 04/19/2023 No Physician Data Unknown LABORATORY documented in this encounter Advance Directives Latest Code Status on File Code Status Date Activated Date Inactivated Comments Full Code 06/11/2018 10:31 PM 06/13/2018 4:48 PM This o rder reflects the patients wishes and were consensually agreed upon. Question Answer Comments Discussion of Advance Directives occurred with: Patient Care Teams Fiberglasser Relationship Specialty Start Date End Date Christine Bhardwaj DO [address] [place] [address] PCP - General Family Medicine 10/03/22 documented as of this encounter
--- OUTSIDE RECORDS SUMMARY | 2023-10-13 18:32 | External Medical Summary | Summary of Care ---
Author Name Unknown Organization [facility] Address [address] [facility] [place] [address] Phone [phone] Care Team Providers Care Roof Tile Layer Name Role Phone Christine Bhardwaj DO Primary Care Provider [phone] Reason for Visit * Reason Comments Medication Management Follow Up Encounter Details Date Type Department Care Team (Late st Contact Info) Description 06/06/2023 2:00 PM [facility] Psychiatry, [facility] [address] [place] [address] FigueroaNela CRNP [address] [facility] [place] [address] Generalized anxiety disorder*; Depressive disorder Allergies Active [...] Each 5 04/05/2020 Active OneTouch Delica Plus [id number] use 1 LANCET to TEST BLOOD SUGAR UP TO four times a day as directed 400 Each 1 10/04/2022 Active Sundia CorporationTouch Ultra 2 w/Device KitIndications:Type 2 diabetes mellitus with hemoglobin A1c goal of less than 7.0% ([facility]) Use 4x/day as directed. E11.9. 1 Kit 0 10/26/2022 Active Lisinopril 2.5 MG Oral Tablet (Prinivil) Take 1-2 Tablets by mouth in the morning. 0 01/21/2023 Active Nystatin 949958 UNIT/GM External Cream Apply topically to affected [...] not included. OUTPATIENT PSYCHIATRY DIVISION OF PSYCHIATRY [facility] [address] [place] [address] MEDICATION MANAGEMENT & PSYCHOTHERAPY RETURN VISIT NOTE Name: Mirta Webb : 1965 Date Seen: 06/06/2023 LOCATION FROM WHICH SERVICE IS DELIVERED Provider's Home via HIPAA-compliant platform PATIENT'S CURRENT PHYSICAL LOCATION Home (address on file) After connecting through [employer], patient was verified with two unique identifiers. Patient (or authorized legal sales representative aircraft) was then informed that this was a [...] or current CYS involvement: none History of homelessness/chcf living? 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 business history: none Legal history: none Trauma history: see above Social support/supportive people in life: Leisure/recreational activities: gardening, walk (but haven't been able to recently), read bible/listen on audio Jewish/philosophical beliefs: Caodaism Outpatient treatment: [employer] counselors after father 15 years ago for [...] No Do you currently live in a chcf or have no steady place to sleep [...] Insight: fair Judgement: fair Impulse Control: good [place] Suicide Severity Rating Scale Results 06/06/2023 14:10 [...] Suicide and Crisis Lifeline - 988 and [employer] access to crisis numbers Patient/Family Received Copy of Treatment Plan: Patient has access to [employer] Signature Obtained on Treatment Plan: Treatment plan [...] Drug Monitoring Program in compliance with the [facility] regulations before prescribing a controlled substance. [...] at a local emergency department or by [facility] crisis teams and EMS. Psychoeducation was provided [...] pose increased health risks. Nela Figueroa, MSN, REVIT DRAFTER, PMHNP-BC [facility] Psychiatry [facility] Current Outpatient Medications Medication Sig Dispense Refill TYLENOL EXTRA STRENGTH 500 MG PO TABS Take by mouth. CENTRUM PO TABS Take by mouth. Centrum Silver (Patient not taking: Reported on 04/23/2023) weartolookuch Delica Lancets Fine Test BS one time daily 100 Each 5 OneTouch Delica Plus [id number] use 1 LANCET to TEST BLOOD SUGAR UP TO four times a day as directed 400 Each 1 Sundia CorporationTouch Ultra 2 w/Device Kit Use 4x/day as directed. E11.9. 1 Kit 0 Lisinopril 2.5 MG Oral Tablet (Prinivil) Take 1-2 Tablets by mouth in the morning. Nystatin 441062 UNIT/GM External Cream Apply topically to affected [...] 06/24/2023 10:00 AM EST Office Visit Dermatology [facility] [place] [address] [place] [address] Chris Miguel MD [address] [place] [address] 07/12/2023 10:00 AM EST Office Visit General Internal Medicine, [facility] [address] [place] [address] Warner Santiago MD [address] [place], [place] [id number] 07/31/2023 1:20 PM EST Office Visit Neurology [facility] [address] [place] [address] Hina Oropeza PA-C [facility] [place] [address] 09/04/2023 5:00 PM EDT Office Visit Family Practice [facility] [address] [facility] [place] [address] Christine Bhardwaj DO [address] [facility] [place] [address] 10/03/2023 1:00 PM EDT Telemedicine Psychiatry, [facility] [address] [place] [address] Nela Figueroa CRNP [address] [place] [address] 10/23/2023 4:00 PM EDT Office Visit Hematology/Oncology [facility] [address] [place] [address] River Vizcaino MD [address] [place] [address] 10/30/2023 5:20 PM EDT Office Visit Family [facility] [address] [place] [address] Christine Bhardwaj DO [address] [place] [address] Health Maintenance Due Date Last Done Comments [...] Advance Directives occurred with: Patient Care Teams Roof Tile Layer Relationship Specialty Start Date End Date Christine Bhardwaj DO [address] [place] [address] PCP - General Family Medicine 10/03/22 documented as of this encounter
--- OUTSIDE RECORDS SUMMARY | 2023-10-13 18:32 | External Medical Summary | Summary of Care ---
Author Name Unknown Organization [facility] Address [address] [facility] [place] [address] Phone [phone] Care Team Providers Care Powerbuilder Name Role Phone Christine Bhardwaj DO Primary Care Provider [phone] Reason for Visit * Reason Onset Date Comments Medication Refill 05/30/2023 Encounter Details Date Type Department Care Team (Late st Contact Info) Description 05/30/2023 Refill Psychiatry, [facility] [address] [place] [address] Reid Figueroa CRNP 200 [facility] [place] [address] Generalized anxiety disorder Allergies Active Allergy Reactions [...] as of this encounter (statuses as of 05/30/2023) Medications Medication Sig Dispensed Refills Start Date End Date Status TYLENOL EXTRA STRENGTH 500 MG PO TABS Take by mouth. 0 Active CENTRUM PO TABS Take by mouth. Centrum Silver 0 Active OneTouch Delica Lancets FineIndications: Prediabetes Test BS one time daily 100 Each 5 04/05/2020 Active OneTouch Delica Plus [id number] use 1 LANCET to TEST BLOOD SUGAR UP TO four times a day as directed 400 Each 1 10/04/2022 Active EpunchitTouch Ultra 2 w/Device KitIndications:T ype 2 diabetes mellitus with hemoglobin A1c goal of less than 7.0% ([facility]) Use 4x/day as directed. E11.9. 1 Kit 0 10/26/2022 Active Lisinopril 2.5 MG Oral Tablet (Prinivil) Take 1-2 Tablets by mouth in the morning. 0 01/21/2023 Active Nystatin 330614 UNIT/GM External Cream Apply topically to affected [...] (severe anxiety). 90 Tablet 0 05/30/2023 Active ALPRAZolam 0.25 MG Oral Tablet (xaNAX)Indicatio ns:Generalized anxiety disorder Take 1 Tablet by mouth 3 times a day as needed (severe anxiety). 90 Tablet 0 04/30/2023 05/30/2023 Discontinued (Refill) documented as of this encounter (statuses as of 05/30/2023) Active Problems Problem Noted Date Diagnosed Date [...] as of this encounter (statuses as of 05/30/2023) Resolved Problems Problem Noted Date Diagnosed Date Resolved Date Diabetes mellitus with background retinopathy 04/04/20 19 04/04/2019 Diabetes mellitus without complication 04/04/2019 04/04/2019 Disorder of arteries and arterioles 04/04/2019 08/05/2019 Essential and other specified forms of tremor 06/22/19 12 07/14/2018 documented as of this encounter (statuses as of 05/30/2023) Social History Tobacco Use Types Packs/Day Years [...] encounter Miscellaneous Notes * Telephone Encounter - Reid Figueroa CRNP - 05/30/2023 12:26 PM EST Signed Prescriptions: Disp Refills ALPRAZolam 0.25 MG Oral Tablet (xaNAX) 90 Tab*0 Sig: Take 1 Tablet by mouth 3 times a day as needed (severe anxiety).Authorizing Provider: REID FIGUEROA------- * Telephone Encounter - Reid Figueroa CRNP - 05/30/2023 12:26 PM EST Signed Prescriptions: Disp Refills ALPRAZolam 0.25 MG Oral Tablet (xaNAX) 90 Tab*0 Sig: Take 1 Tablet by mouth 3 times a day as needed (severe anxiety).Authorizing Provider: REID FIGUEROA------- * Telephone Encounter - Lyric Gonzalez OSA - 05/30/2023 10:44 AM EST Pending Prescriptions: Disp Refills ALPRAZolam 0.25 MG Oral Tablet (xaNAX) 90 Tab*0 Sig: Take 1 Tablet by mouth 3 times a day as needed (severe anxiety). * Telephone Encounter - Vidhi Queen, volunteer fire fighter - 05/30/2023 10:41 AM EST Did you pend patient's preferred pharmacy and medication before forwarding?yes Pharmacy: [id number] [address] [place] [address] Pending Prescriptions: Disp Refills ALPRAZolam 0.25 MG Oral Tablet (xaNAX) 90 Tab*0 Sig: Take 1 Tablet by mouth 3 times a day as needed (severe anxiety). Last Visit: Visit date not found (in office), 03/14/2023 (telemedicine) Next Visit: 06/06/2023 If no future appointments scheduled, and last appointment is greater than a year ago, please schedule patient for a follow-up appointment Last date the medication was ordered: Is this request for a controlled substance?Yes, What was the last refill date 04/30 w/ quantity 90 and dosage 025 mg and Urine Drug Screen Not completed Urine Drug Screen:No results found for this or any previous visit. Patient Phone Numbers Labs: Lab Results Component Value Date/Time CREAT 0.7 02/04/2023 03:19 PM CREAT 0.71 01/06/2023 12:00 AM CREAT 0.80 12/05/2022 09:19 AM CREAT 0.8 06/13/2018 04:25 AM POTASSIUM 4.2 02/04/2023 03:19 PM POTASSIUM 4.3 01/06/2023 12:00 AM POTASSIUM 4.5 12/05/2022 09:19 AM POTASSIUM 3.7 06/13/2018 04:25 AM TSH 0.753 01/03/2023 12:00 AM TSH 0.99 05/02/2018 02:16 PM LDLCALC 123 07/20/2022 03:49 PM LDLDIRECT 91 02/04/2023 03:19 PM ALT 25 03/30/2023 10:12 AM ALT 18 08/21/2018 11:57 AM HGBA1C 6.2 (A) 01/06/2023 12:00 AM HGBA1C 7.0 07/20/2022 03:49 PM HGBA1C 5.8 (H) 05/08/2018 05:10 PM * Telephone Encounter - Lyric Gonzalez OSA - 05/30/2023 9:37 AM EST Pharmacy requesting refill on Xanax 0.25mg. Medication was last filled on 04/30/23 with 0 refills. Patient last seen on 03/14/23 with return appointment scheduled for 06/06/23. Patient had 0 cancelled appointments and 0 NO SHOW appointments. documented in this encounter Plan of Treatment Upcoming Encounters Date Type Department Care Team (Late st Contact Info) Description 05/31/2023 12:30 PM EST Telemedicine General Internal Medicine, [facility] [address] [place] [address] Warner Santiago MD [address] [place] [address] 06/06/2023 2:00 PM EST Telemedicine Psychiatry, [facility] [address] [place] [address] Reid Figueroa CRNP [address] [place] [address] 07/31/2023 1:20 PM EST Office Visit Neurology [facility] [address] [place] [address] Hina Oropeza PA-C 200 [facility] [place] [address] 09/04/2023 5:00 PM EDT Office Visit Family [facility] [address] [facility] [place] [id number] Christine Bhardwaj, DO [address] [place] [address] 10/23/2023 4:00 PM EDT Office Visit Hematology/Oncology [facility] [address] [place] [address] River Vizcaino MD [address] [place] [address] 10/30/2023 5:20 PM EDT Office Visit Family [facility] [address] [place] [address] Christine Bhardwaj, DO [address] [place] [address] Health Maintenance Due Date Last Done Comments [...] 01/29/2023, Additional history exists Cologuard 01/19/2026 01/19/2023, 08/2022, [...] Advance Directives occurred with: Patient Care Teams Powerbuilder Relationship Specialty Start Date End Date Christine Bhardwaj DO [address] [place] [address] PCP - General Family Medicine 10/03/22 documented as of this encounter
--- OUTSIDE RECORDS SUMMARY | 2023-10-13 18:32 | External Medical Summary | Summary of Care ---
Author Name Unknown Organization [facility] Address [address] [facility] [place] [address] Phone [phone] Care Team Providers Care Shell Assembler Name Role Phone Christine Bhardwaj DO Primary Care Provider [phone] Reason for Visit * Reason Onset Date Comments Advice 03/05/2023 Encounter Details Date Type Department Care Team (Late st Contact Info) Description 03/05/2023 Telephone Family Practice [facility] [address] [place] [address] Christine Bhardwaj DO [address] [place] [address] Advice Allergies Active Allergy Reactions Criticality Noted [...] Each 5 04/05/2020 Active OneTouch Delica Plus [id number] use 1 LANCET to TEST BLOOD SUGAR UP TO four times a day as directed 400 Each 1 10/04/2022 Active OneTouch Ultra 2 w/Device KitIndications:Type 2 diabetes mellitus with hemoglobin A1c goal of less than 7.0% ([facility]) Use 4x/day as directed. E11.9. 1 Kit 0 10/26/2022 Active Lisinopril 2.5 MG Oral Tablet (Prinivil) Take 1-2 Tablets by mouth in the morning. 0 01/21/2023 Active Nystatin 894499 UNIT/GM External Cream Apply topically to affected area 2 times a day. To affacted area for two weeks. 30 g 2 02/04/2023 Active documented as of this encounter (statuses [...] Telephone Encounter - Mercedes Bang RN - 03/05/2023 3:59 PM EDT Called pt and gave message. Scheduling, please hold on scheduling EMG * Telephone Encounter - Christine Bhardwaj DO - 03/05/2023 1:58 PM EDT Please call - would hold off on nerve testing right now Not sure how helpful it would be Would rec focusing on PT and ortho follow up Can revisit EMG is pain not improved * Telephone Encounter - Carrie Gale OSA - 03/05/2023 12:34 PM EDT Patient called requesting to know if PCP still recommends completing the EMG testing on 03/07/23. Patient is requesting a return call and can be contacted at [phone] documented in this encounter Plan of Treatment Upcoming Encounters Date Type Department Care Team (Late st Contact Info) Description 06/06/2023 2:00 PM EST Telemedicine Psychiatry, [facility] 200 [facility] [place] [address] Nela Figueroa CRNP 200 [facility] [place] [address] 07/31/2023 1:20 PM EST Office Visit Neurology [facility] 200 [facility] [place] [address] Hina Oropeza PA-C 200 [facility] [place] [address] 09/04/2023 5:00 PM EDT Office Visit [facility] [address] [place] [address] Christine Bhardwaj, DO [address] [place] [address] 10/23/2023 4:00 PM EDT Office Visit Hematology/Oncology [facility] [address] [place] [address] River Vizcaino MD 200 [facility] [place] [address] 10/30/2023 5:20 PM EDT Office Visit [facility] [address] [place] [address] Christine Bhardwaj, DO [address] [place] [address] Health Maintenance Due Date Last Done Comments [...] Advance Directives occurred with: Patient Care Teams Shell Assembler Relationship Specialty Start Date End Date Christine Bhardwaj DO [address] [place] [address] PCP - General Family Medicine 10/03/22 documented as of this encounter
--- OUTSIDE RECORDS SUMMARY | 2023-10-13 18:32 | External Medical Summary | Summary of Care ---
Author Name Unknown Organization [facility] Address [address] [facility] [place] [address] Phone [phone] Care Team Providers Care Civilian Technician Name Role Phone Christine Bhardwaj DO Primary Care Provider [phone] Reason for Visit * Reason Onset Date Comments Order Request 06/05/2023 Encounter Details Date Type Department Care Team (Late st Contact Info) Description 06/05/2023 Telephone Family Practice [facility] [address] [place] [address] Christine Bhardwaj DO [address] [place] [address] Order Request Allergies Active Allergy Reactions Criticality [...] Each 5 04/05/2020 Active OneTouch Delica Plus [id number] use 1 LANCET to TEST BLOOD SUGAR [...] in the morning. 0 01/21/2023 Active Nystatin 271705 UNIT/GM External Cream Apply topically to affected [...] Encounter - Kassandra Herrera LPN - 06/05/2023 2:46 PM EST Called Mirta and made her aware * Telephone Encounter - Mercedes Bang RN [...] site order (going to take it to [facility]) Please send order if placed to her via a MyG message so she can print it Please advise documented in this encounter Plan of Treatment Upcoming Encounters Date Type Department Care Team (Late st Contact Info) Description 06/06/2023 2:00 PM EST Telemedicine Psychiatry, [address] [place] [address] Nela Figueroa CRNP [address] [place] [address] 06/24/2023 10:00 AM EST Office Visit Dermatology [facility] [place] [address] [place] [address] Chris Miguel MD [address] [place] [address] 07/12/2023 10:00 AM EST [facility] [address] [place] [address] Warner Santiago MD [address] [place], [place] [address] 07/31/2023 1:20 PM EST Office Visit Neurology [facility] [address] [place] [address] Hina Oropeza PA-C [address] [place] [address] 09/04/2023 5:00 PM EDT Office Visit [facility] [address] [facility] [place] [address] Christine Bhardwaj, DO [address] [facility] [place] [address] 10/23/2023 4:00 PM EDT Office Visit Hematology/Oncology [facility] [address] [place] [address] River Vizcaino MD [address] [place] [address] 10/30/2023 5:20 PM EDT Office Visit [facility] [address] [place] [address] Christine Bhardwaj, DO [address] [place] [address] Scheduled Orders Name Type Priority Associated Diagnoses [...] Advance Directives occurred with: Patient Care Teams Civilian Technician Relationship Specialty Start Date End Date Christine Bhardwaj DO [address] [place] [address] PCP - General Family Medicine 10/03/22 documented as of this encounter
--- OUTSIDE RECORDS SUMMARY | 2023-10-13 18:32 | External Medical Summary | Summary of Care ---
Author Name Unknown Organization [facility] Address [address] [facility] [place] [address] Phone [phone] Care Team Providers Care Electric Truck Driver Name Role Phone Christine Bhardwaj DO Primary Care Provider [phone] Reason for Visit * Reason Onset Date Comments Advice 05/17/2023 Encounter Details Date Type Department Care Team (Late st Contact Info) Description 05/17/2023 Telephone Family Practice [facility] [address] [place] [address] Christine Bhardwaj DO [address] [place] [address] Advice Allergies Active Allergy Reactions Criticality Noted [...] Each 5 04/05/2020 Active OneTouch Delica Plus [id number] use 1 LANCET to TEST BLOOD SUGAR UP TO four times a day as directed 400 Each 1 10/04/2022 Active OneTouch Ultra 2 w/Device KitIndications:Type 2 diabetes mellitus with hemoglobin A1c goal of less than 7.0% ([facility]) Use 4x/day as directed. E11.9. 1 Kit 0 10/26/2022 Active Lisinopril 2.5 MG Oral Tablet (Prinivil) Take 1-2 Tablets by mouth in the morning. 0 01/21/2023 Active Nystatin 512327 UNIT/GM External Cream Apply topically to affected [...] encounter Miscellaneous Notes * Telephone Encounter - Alva Casas LPN - 05/23/2023 10:02 AM EST Pt calling back about previous messages. She is very frustrated and exhausted she is not getting any better. She is inconstant pain has eneida leg and something came out on her back. She is sending pictures of rash and thing on her back. She gets pricking in knees and tremors. Her balance is off. She doesn't know where to turn. She feels like she is being ignored and getting the round around. She is looking for recommendations? "I wont go to ER, it's a joke." Scheduled VV with dr Bhardwaj on 05/29 1:40 * Telephone Encounter - Kassandra Herrera LPN - 05/23/2023 9:56 AM EST Patient calling to see if PCP replied to her message yet She states that she is not doing very well and does not know where to turn Then the call dropped * Telephone Encounter - Fabi Granados LPN - 05/17/2023 9:58 AM EST Pt is calling to make PCP aware that EMG results are available for review. Also wants to make PCP aware that she had to stop abx for a little bit because she was having sharpabd pain to the point it was causing her double over until she went to the bathroom. Was not havingdiarrhea and almost seemed as if she was constipated. -Is planning on starting abx again with a probiotic. Reports that she has daphney fog, has night sweats, skin hurts to shower, teeth hurt, right shoulder hurts, right lower back/right flank and right hip hurts, Dizziness comes and goes- is not as bad as it was. LLMD- Lyme doctor told her that she has 3 strains of Lyme. Also was told by the Lyme doctor that syphilis, dylon bar, too much gluten and pancreas is not functioning correctly. Pt states that she is not sure who to believe. States that does exercise as much as she can, walks 15-20 minutes a day, does arm exercises, is hydrating, did try some gluten free food but does not feel she can tolerate gluten free foods. Is asking PCP's input on this. Please advise. documented in this encounter Plan of Treatment Upcoming Encounters Date Type Department Care Team (Late st Contact Info) Description 05/31/2023 12:30 PM EST Telemedicine General Internal Medicine, [facility] [address] [place] [address] Warner Santiago MD [address] [place] [address] 06/06/2023 2:00 PM EST Telemedicine Psychiatry, [facility] 200 [facility] [place] [address] Nela Figueroa CRNP 200 [facility] [place] [address] 07/31/2023 1:20 PM EST Office Visit Neurology [facility] [address] [place] [address] Hina Oropeza PA-C 200 [facility] [place] [address] 09/04/2023 5:00 PM EDT Office Visit Family Practice [facility] 132 [facility] [place] [address] Christine Bhardwaj DO [address] [place] [address] 10/23/2023 4:00 PM EDT Office Visit Hematology/Oncology [facility] [address] [place] [address] [address] River Vizcaino MD 200 [facility] [place] [address] Health Maintenance Due Date Last Done Comments [...] Advance Directives occurred with: Patient Care Teams Electric Truck Driver Relationship Specialty Start Date End Date Christine Bhardwaj DO [address] [place] [address] PCP - General Family Medicine 10/03/22 documented as of this encounter
--- OUTSIDE RECORDS SUMMARY | 2023-10-13 18:32 | External Medical Summary | Summary of Care ---
Author Name Unknown Organization [facility] Address [address] [facility] [address] Phone [phone] Care Team Providers Care Supervisor Commissary Production Name Role Phone Christine Bhardwaj DO Primary Care Provider [phone] Reason for Visit * Reason Onset Date Comments Order Request 06/11/2023 Encounter Details Date Type Department Care Team (Late st Contact Info) Description 06/11/2023 Telephone Rheumatology [place] [id number] [facility] [place] [address] Eusebio Orta MD [facility] [employer] [place] [address] Order Request Allergies Active Allergy Reactions Criticality [...] as of this encounter (statuses as of 06/11/2023) Medications Medication Sig Dispensed Refills Start Date End Date Status TYLENOL EXTRA STRENGTH 500 MG PO TABS Take by mouth. 0 Active CENTRUM PO TABS Take by mouth. Centrum Silver 0 Active OneTouch Delica Lancets FineIndications:Pre diabetes Test BS one time daily 100 Each 5 04/05/2020 Active OneTouch Delica Plus [id number] use 1 LANCET to TEST BLOOD SUGAR UP TO four times a day as directed 400 Each 1 10/04/2022 Active osmogames.comTouch Ultra 2 w/Device KitIndications:Type 2 diabetes mellitus with hemoglobin A1c goal of less than 7.0% ([facility]) Use 4x/day as directed. E11.9. 1 Kit 0 10/26/2022 Active Lisinopril 2.5 MG Oral Tablet (Prinivil) Take 1-2 Tablets by mouth in the morning. 0 01/21/2023 Active Nystatin 235224 UNIT/GM External Cream Apply topically to affected [...] as of this encounter (statuses as of 06/11/2023) Active Problems Problem Noted Date Diagnosed Date [...] as of this encounter (statuses as of 06/11/2023) Resolved Problems Problem Noted Date Diagnosed Date Resolved Date Diabetes mellitus with background retinopathy 04/04/20 19 04/04/2019 Diabetes mellitus without complication 04/04/2019 04/04/2019 Disorder of arteries and arterioles 04/04/2019 08/05/2019 Essential and other specified forms of tremor 06/22/19 12 07/14/2018 documented as of this encounter (statuses as of 06/11/2023) Social History Tobacco Use Types Packs/Day Years [...] encounter Miscellaneous Notes * Telephone Encounter - Eusebio Orta MD - 06/11/2023 7:43 AM EST See email documented in this encounter Plan of Treatment Upcoming Encounters Date Type Department Care Team (Late st Contact Info) Description 06/24/2023 10:00 AM EST Office Visit Dermatology [facility] [address] [address] Chris Miguel MD [address] [place] [address] 07/12/2023 10:00 AM EST Office Visit General Internal Medicine, [facility] [address] [place] [address] Warner Santiago MD [address] [place] [address] 07/31/2023 1:20 PM EST Office Visit Neurology [facility] [address] [place] [address] Hina Oropeza PA-C [address] [place] [address] 09/04/2023 5:00 PM EDT Office Visit Family Practice [facility] [address] [place] [address] Christine Bhardwaj DO [address] [place] [address] 10/03/2023 1:00 PM EDT Telemedicine Psychiatry, [facility] [address] [place] [address] Nela Figueroa CRNP [address] [address] 10/23/2023 4:00 PM EDT Office Visit Hematology/Oncology [facility] [address] [facility] [place] [address] River Vizcaino MD [address] [facility] [place] [address] 10/30/2023 5:20 PM EDT Office Visit Family Practice [facility] [address] [place] [address] Christine Bhardwaj DO [address] [place] [address] Scheduled Orders Name Type Priority Associated Diagnoses Orde r Schedule 25-HYDROXY VITAMIN D Lab Routine Vitamin D deficiency Expected: 06/11/2023, Expires: 06/11/2024 Health Maintenance Due Date Last Done Comments [...] as of this encounter Visit Diagnoses Diagnosis Vitamin D deficiency- Primary Unspecified vitamin D deficiency documented in this encounter Advance Directives Latest Code Status on File Code Status Date Activated Date Inactivated Comments Full Code 06/11/2018 10:31 PM 06/13/2018 4:48 PM This o rder reflects the patients wishes and were consensually agreed upon. Question Answer Comments Discussion of Advance Directives occurred with: Patient Care Teams Supervisor Commissary Production Relationship Specialty Start Date End Date Christine Bhardwaj DO [address] [place] [address] PCP - General Family Medicine 10/03/22 documented as of this encounter
--- OUTSIDE RECORDS SUMMARY | 2023-10-13 18:32 | External Medical Summary | Summary of Care ---
Author Name Unknown Organization [facility] Address [address] [place] [address] Phone [phone] Care Team Providers Care Crime Specialist Name Role Phone Christine Bhardwaj DO Primary Care Provider [phone] Reason for Referral * Evaluate & Treat - Unlimited Visits (Within 10 days (routine)) - Pending Review Specialty Diagnoses / Procedures Referred By Lynsey t Referred To Contact Dermatology Diagnoses Rash and nonspecific skin eruption Warner Santiago MD [address] [place] [address] Referral ID Status Reason Start Date Expiration Date Visits Requested Visits Authorized [id number] Pending Review Specialty Services Required 3 1 1 Question Answer Referral Priority Within 10 days (routine) Are you referring the patient for Mohs Surgery and have a current positive skin cancer biopsy result? No What is the reason for the patient referral? Rash/Skin Check/Eval of Lesion or Mole Where should this appointment be scheduled? [facility] Comments Please evaluate her residual rash and photos of erythema with central pallor. Has been seeing "Lyme literate" doctor with positive results and negative results in our serologies. Does have some old photos with rash that could be EM, sent new photos of very faint redness with central pallor. Ask-a-Doc provider recommended in-person visit. Reason for Visit * Reason Comments Follow Up Encounter Details Date Type Department Care Team ([facility] Contact Info) Description 05/31/2023 12:30 PM EST Telemedicine General Internal Medicine, [facility] [address] [place] [address] Warner Santiago MD [address] [place] [address] Rash and nonspecific skin eruption*; Balance problem; [...] Each 5 04/05/2020 Active OneTouch Delica Plus Tcuwna47D use 1 LANCET to TEST BLOOD SUGAR UP TO four times a day as directed 400 Each 1 10/04/2022 Active OneTouch Ultra 2 w/Device KitIndications:Type 2 diabetes mellitus with hemoglobin A1c goal of less than 7.0% ([facility]) Use 4x/day as directed. E11.9. 1 Kit 0 10/26/2022 Active Lisinopril 2.5 MG Oral Tablet (Prinivil) Take 1-2 Tablets by mouth in the morning. 0 01/21/2023 Active Nystatin 864795 UNIT/GM External Cream Apply topically to affected [...] psychotic features 11/18/2018 SVT (supraventricular tachycardia) 11/18/2018 JAENINE (generalized anxiety disorder) 10/02/2018 Urinary bladder neurogenic [...] hospital or clinic location. After connecting through televideo,patient was verified with two unique identifiers. Patient (or authorized legal sales representative health insurance) was then informed that this was a [...] She did have it evaluated by a tier over in [place] and it was biopsied, reportedly sent to [place] with a focused question of whether it [...] disc M51.37 Von Willebrand disease, type I ([facility]) D68.01 Chronic rhinitis J31.0 Imbalance R26.89 Peripheral neuropathy G62.9 JEANINE (generalized anxiety disorder) F41.1 Urinary bladder neurogenic dysfunction N31.9 Severe episode of recurrent major depressive disorder, without psychotic features ([facility]) F33.2 SVT (supraventricular tachycardia) I47.10 Body mass index (BMI) of 40.0 to 44.9 in adult ([facility]) Z68.41 Type 2 diabetes mellitus with hemoglobin A1c goal of less than 7.0% ([facility]) 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 E11.9. 1 Kit 0 Lisinopril 2.5 MG Oral Tablet (Prinivil) Take 1-2 Tablets by mouth in the morning. Nystatin 336184 UNIT/GM External Cream Apply topically to affected [...] General Internal Medicine documented in this encounter Miscellaneous Notes * Addendum Note - Warner Santiago MD - 05/31/2023 8:39 PM ESTAddended by: WARNER SANTIAGO on: 05/31/2023 08:39 PM Modules accepted: Orders documented in this encounter Plan of Treatment Upcoming Encounters Date Type Department Care Team (Late st Contact Info) Description 06/06/2023 2:00 PM EST Telemedicine Psychiatry, [facility] [address] [facility] [place] [address] Nela Figueroa CRNP [address] [facility] [place] [address] 07/31/2023 1:20 PM EST Office Visit Neurology [facility] [place] [address] [facility] [place] [address] Hina Oropeza PA-C [address] [facility] [place] [address] 09/04/2023 5:00 PM EDT Office Visit [facility] [address] [place] [address] Christine Bhardwaj, DO [address] [place] [address] 10/23/2023 4:00 PM EDT Office Visit Hematology/Oncology [facility] [place] [address] [facility] [place] [address] River Vizcaino MD [address] [facility] [place] [address] 10/30/2023 5:20 PM EDT Office Visit [facility] [address] [place] [address] Christine Bhardwaj, DO [address] [place] [address] Scheduled Referrals Name Type Priority Associated Diagnoses Orde r Schedule DERMATOLOGY REFERRAL OP Referral Within 10 days (routine) Rash and nonspecific skin eruption Ordered: 05/31/2023 Health Maintenance Due Date Last Done Comments [...] Advance Directives occurred with: Patient Care Teams Crime Specialist Relationship Specialty Start Date End Date Christine Bhardwaj DO [address] [place] [address] [place] [address] PCP - General Family Medicine 10/03/22 documented as of this encounter
--- OUTSIDE RECORDS SUMMARY | 2023-10-13 18:33 | External Medical Summary | Summary of Care ---
Author Name Unknown Organization [facility] Address [address] [facility] [place] [address] Phone [phone] Care Team Providers Care Tooling Mechanic Name Role Phone Christine Bhardwaj DO Primary Care Provider [phone] Reason for Visit * Reason Comments Outpatient Testing Encounter Details Date Type Department Care Team (Late st Contact Info) Description 05/11/2023 1:50 PM EST Laboratory Laboratory, [facility] [address] [facility] [place] [address] [facility] [address] [place] [address] Arthralgia, unspecified joint; Gluten intolerance Allergies Active Allergy Reactions Criticality Noted Date [...] as of this encounter (statuses as of 05/14/2023) Medications Medication Sig Dispensed Refills Start Date End Date Status TYLENOL EXTRA STRENGTH 500 MG PO TABS Take by mouth. 0 Active CENTRUM PO TABS Take by mouth. Centrum Silver 0 Active OneTouch Delica Lancets FineIndications:Pre diabetes Test BS one time daily 100 Each 5 04/05/2020 Active OneTouch Delica Plus Briwyv91V use 1 LANCET to TEST BLOOD SUGAR UP TO four times a day as directed 400 Each 1 10/04/2022 Active OneTouch Ultra 2 w/Device KitIndications:Type 2 diabetes mellitus with hemoglobin A1c goal of less than 7.0% ([facility]) Use 4x/day as directed. E11.9. 1 Kit 0 10/26/2022 Active Lisinopril 2.5 MG Oral Tablet (Prinivil) Take 1-2 Tablets by mouth in the morning. 0 01/21/2023 Active Nystatin [id number] UNIT/GM External Cream Apply topically to affected [...] as of this encounter (statuses as of 05/14/2023) Active Problems Problem Noted Date Diagnosed Date [...] as of this encounter (statuses as of 05/14/2023) Resolved Problems Problem Noted Date Diagnosed Date Resolved Date Diabetes mellitus with background retinopathy 04/04/20 19 04/04/2019 Diabetes mellitus without complication 04/04/2019 04/04/2019 Disorder of arteries and arterioles 04/04/2019 08/05/2019 Essential and other specified forms of tremor 06/22/19 12 07/14/2018 documented as of this encounter (statuses as of 05/14/2023) Social History Tobacco Use Types Packs/Day Years [...] Care Team (Late st Contact Info) Description 05/16/2023 3:00 PM EST NeuroDiagnostic Study Neurophysiology [facility] [address] [place] [address] Chace Ackerman, DO [address] [facility] [place] [address] 05/31/2023 12:30 PM EST Telemedicine General Internal Medicine, [facility] [address] [place] [address] Warner Santiago MD [address], [place] [id number] 06/06/2023 2:00 PM EST Telemedicine Psychiatry, [facility] [address] [place] [address] Nela Figueroa CRNP [address] [place] [address] 07/31/2023 1:20 PM EST Office Visit Neurology [facility] [employer] [address] [place] [address] Hina Oropeza PA-C 200 [facility] [place] [address] 09/04/2023 5:00 PM EDT Office Visit Family Practice [facility] [address] [place] [address] Christine Bhardwaj, DO [address] [place] [address] 10/23/2023 4:00 PM EDT Office Visit Hematology/Oncology [facility] [address] [place] [address] River Vizcaino MD [address] [facility] [place] [address] Health Maintenance Due Date Last Done Comments [...] Depression Screening 12/05/2023 12/04/2022 Diabetic Eye Exam 01/30/2024 01/29/2023, , 01/29/2023, Additional history exists GFR 02/05/2024 02/04/2023, 01/08, 01/06/2023, Additional history exists Cologuard 01/19/2026 01/19/2023, 08/0 [...] Procedure Name Priority Date/Time Associated Diagnosis Comments TISSUE TRANSGLUTAMINASE IGA ANTIBODY Routine 05/11/2023 1:49 PM EST Arthralgia, unspecified joint GLIADIN (DEAMIDATED) IGA AND IGG ANTIBODIES Routine 05/11/2023 1:49 PM EST Gluten intolerance documented in this encounter Results * GLIADIN (DEAMIDATED) IGA AND IGG ANTIBODIES (05/11/2023 1:49 PM EST) Gliadin (Deamidated) IgG Antibody Interpretation Negative Negative 05/13/2023 11:57 AM EST [facility] Gliadin (Deamidated) IgG Antibody Value <0.6 <7 U/mL 05/13/2023 11:57 AM EST [facility] Gliadin (Deamidated) IgA Antibody Interpretation Negative Negative 05/13/2023 11:57 AM EST [facility] Gliadin (Deamidated) IgA Antibody Value 0.8 <7 U/mL 05/13/2023 11:57 AM EST [facility] Blood Venous blood specimen / Unknown Venipuncture / Unknown 05/11/2023 1:49 PM EST 05/11/2023 1:51 PM EST Warner Santiago MD LAB BLOOD ORDERABLES Performing Organization Address City/[facility]/ZIP Co de Phone Number [facility] [address] [place] [address] * TISSUE TRANSGLUTAMINASE IGA ANTIBODY (05/11/2023 1:49 PM EST) Tissue Transglutaminase IgA Antibody Interpretation Negative Negative 05/13/2023 11:57 AM EST [facility] Tissue Transglutaminase IgA Antibody Value 0.7 <7 U/mL 05/13/2023 11:57 AM EST [facility] Blood Venous blood specimen / Unknown Venipuncture / Unknown 05/11/2023 1:49 PM EST 05/11/2023 1:51 PM EST Christine Bhardwaj DO LAB BLOOD ORDERABLE S Performing Organization Address City/[facility]/ZIP Co de Phone Number [facility] [address], [place] [phone] documented in this encounter Visit Diagnoses Diagnosis Arthralgia, unspecified joint Gluten intolerance Celiac disease documented in this encounter Advance Directives Latest Code Status on File Code Status Date Activated Date Inactivated Comments Full Code 06/11/2018 10:31 PM 06/13/2018 4:48 PM This o rder reflects the patients wishes and were consensually agreed upon. Question Answer Comments Discussion of Advance Directives occurred with: Patient Care Teams Tooling Mechanic Relationship Specialty Start Date End Date Christine Bhardwaj DO [address] [place] [address] PCP - General Family Medicine 10/03/22 documented as of this encounter
--- OUTSIDE RECORDS SUMMARY | 2023-10-13 18:33 | External Medical Summary | Summary of Care ---
Author Name Unknown Organization [facility] Address [address] [place] [address] Phone [phone] Care Team Providers Care Seat Trimmer Name Role Phone Juan Bhardwaj DO Primary Care Provider [phone] Reason for Visit * Reason Comments NEW PATIENT Encounter Details Date Type Department Care Team (Late st Contact Info) Description 01/29/2023 2:00 PM EDT [facility] [address] [place] [address] Gualberto Betancourt DO [address], [place] [id number] Nystagmus*; Best's vitelliform macular dystrophy Allergies Active Allergy Reactions Criticality Noted Date [...] as of this encounter (statuses as of 05/26/2023) Medications Medication Sig Dispensed Refills Start Date End Date Status TYLENOL EXTRA STRENGTH 500 MG PO TABS Take by mouth. 0 Active CENTRUM PO TABS Take by mouth. Centrum Silver 0 Active OneTouch Delica Lancets FineIndications: Prediabetes Test BS one time daily 100 Each 5 04/05/2020 Active OneTouch Delica Plus [id number] use 1 LANCET to TEST BLOOD SUGAR UP TO four times a day as directed 400 Each 1 10/04/2022 Active Perpetuelle.comTouch Ultra 2 w/Device KitIndications:T ype 2 diabetes mellitus with hemoglobin A1c goal of less than 7.0% ([facility]) Use 4x/day as directed. E11.9. 1 Kit 0 10/26/2022 Active Lisinopril 2.5 MG Oral Tablet (Prinivil) Take 1-2 Tablets by mouth in the morning. 0 01/21/2023 Active OneTouch Ultra Blue In Vitro Strip (Glucose Blood)Indication s:Prediabetes Test BS three times a day. E11.9 100 Strip 5 12/05/2021 02/06/20 23 Discontinued Vitamin D (Ergocalciferol) 1.25 MG (77206 UT) Oral Capsule (Drisdol) Take 1 Capsule by mouth once a week. 0 01/06/2023 03/05/20 23 Discontinued(Med ication List Clean Up) ALPRAZolam 0.25 MG Oral Tablet (xaNAX)Indicatio ns:Generalized anxiety disorder Take 1 Tablet by mouth 3 times a day as needed (severe anxiety). Do not start before January 25, 2023. 90 Tablet 0 01/25/2023 02/29/20 23 Discontinued(Ref ill) Cephalexin 500 MG Oral CapsuleIndicatio ns:Cellulitis, unspecified cellulitis site Take 1 Capsule by mouth in the morning and 1 Capsule at noon and 1 Capsule before bedtime. Do all this for 10 days. 30 Capsule 0 01/28/2023 02/08/20 23 Mupirocin 2 % External Ointment (Bactroban)Indic ations:Celluliti s, unspecified cellulitis site Apply topically to affected area 3 times a day for 14 days. To affected area for up to 14 days. 22 g 1 01/28/2023 02/12/20 23 documented as of this encounter (statuses as of 05/26/2023) Active Problems Problem Noted Date Diagnosed Date [...] as of this encounter (statuses as of 05/26/2023) Resolved Problems Problem Noted Date Diagnosed Date Resolved Date Diabetes mellitus with background retinopathy 04/04/20 19 04/04/2019 Diabetes mellitus without complication 04/04/2019 04/04/2019 Disorder of arteries and arterioles 04/04/2019 08/05/2019 Essential and other specified forms of tremor 06/22/19 12 07/14/2018 documented as of this encounter (statuses as of 05/26/2023) Social History Tobacco Use Types Packs/Day Years [...] on file documented as of this encounter Patient Instructions * Patient Instructions* Gualberto Betancourt DO - 01/29/2023 3:36 PM EDT Need to see Josh Avery in the [facility] Need to get blood work Need to consider PPPD Persistent Postural-Perceptual Dizziness documented in this encounter Progress Notes * Gualberto Betancourt DO - 01/29/2023 2:30 PM EDT NEURO-OPHTHALMOLOGY- Consultation [facility] Name: Mirta Webb Ref: JUAN BHARDWAJ[[id number]] [address] [place] [address] (office) [phone] (fax) PCP: JUAN BHRADWAJ [address] [place] [address] [phone] History provided by: Patient and Family Chief Complaint: Chief Complaint Patient presents with NEW PATIENT HPI: 57 year old female seen today by Neuro-Ophthalmology for Nystagmus . Dizziness Takes glasses off will fall Bests disease CT and MRI Gadalidium poisoning Dizziness - not lightheaded, not vetigo, all over the place -cannot describe Dizzy all the time, turns head dizziness triples - sees things in periphery going fast and going by. 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 Borderline diabetes 2009 Degeneration of lumbosacral intervertebral disc 09/14/2011 Encephalopathy, unspecified 06/22/2011 Essential and other specified forms of tremor 06/22/2011 Factor VIII deficiency (HCC) JEANINE (generalized anxiety disorder) 10/02/2018 HTN (hypertension) Ocular hypertension Polycystic ovarian disease Presbyopia OU Rosacea 2013 Seizure ([facility]) caused by Effexor Severe episode of recurrent major depressive disorder, without psychotic features ([facility]) 11/18/2018 SVT (supraventricular tachycardia) ([facility]) 11/18/2018 Urinary bladder neurogenic dysfunction 10/02/2018 Vision loss best's disease OS Current Outpatient Medications: Current Outpatient Medications Medication Sig Dispense Refill TYLENOL EXTRA STRENGTH 500 MG PO TABS Take by mouth. CENTRUM PO TABS Take by mouth. Perpetuelle.comTouch Delica Lancets Fine Test BS one time daily 100 Each 5 OneTouch Ultra Blue In Vitro Strip (Glucose Blood) Test BS three times a day. E11.9 100 Strip 5 Perpetuelle.comTouch Delica Plus [id number] use 1 LANCET to TEST BLOOD SUGAR UP TO four times a day as directed 400 Each 1 OneTouch Ultra 2 w/Device Kit Use 4x/day as directed. E11.9. 1 Kit 0 Vitamin D (Ergocalciferol) 1.25 MG (54471 UT) Oral Capsule (Drisdol) Take 1 Capsule by mouth once aweek. (Patient not taking: Reported on 01/28/2023) ALPRAZolam 0.25 MG Oral Tablet (xaNAX) Take 1 Tablet by mouth 3 times a day as needed (severe anxiety). Do not start before January 25, 2023. 90 Tablet 0 Lisinopril 2.5 MG Oral Tablet (Prinivil) Take 1-2 Tablets by mouth in the morning. Cephalexin 500 MG Oral Capsule Take 1 Capsule by mouth in the morning and 1 Capsule at noon and 1 Capsule before bedtime. Do all this for 10 days. 30 Capsule 0 Mupirocin 2 % External Ointment (Bactroban) Apply topically to affected area 3 times a day for 14 days. To affected area for up to 14 days. 22 g 1 No current facility-administered medications for this visit. PAST SURGICAL HISTORY: Past Surgical History: Procedure Laterality Date BREAST LESION,OTHER,EXCISION cyst on R breast removed, lateral LAPAROSCOPY; CHOLECYSTECTOMY NASAL SURGERY PROCEDURE NEC TOTAL ABD HYSTERECTOMY W/WO REMOVAL OF TUBE(S) FAMILY HISTORY: Family History Problem Relation Age of Onset Gastro-intestinal disorder Mother Cancer Mother Hypertension Mother Other (uterine cancer) Mother Other (anemia) Mother Other (HTN) Father Other (kidney cancer) Father Cancer Father Heart Disorder Father Multiple Sclerosis Sister Diabetes Grandmother (Maternal) Heart Disorder Grandmother (Maternal) Cancer Grandmother (Paternal) Stroke Grandmother (Paternal) Cancer Grandfather (Paternal) No Known Problems Son Eye Problems Aunt (Unspecified) Blindness from Trauma Eye Problems Other Denies Known FH: AMD, Glaucoma or RD's SOCIAL HISTORY: Social History Tobacco Use Smoking status: Former Years: 14.00 Types: Cigarettes Quit date: 06/10/1995 Years since quittin.6 Smokeless tobacco: Never Vaping Use Vaping Use: Never used Substance Use Topics Alcohol use: No Comment: very rare Drug use: No ALLERGIES: Aspirin, Effexor [venlafaxine hydrochloride], Astelin, Bactrim, Fexofenadine hcl, Fluoxetine, Gadolinium, Iodinated contrast media, Levofloxacin, Macrobid [nitrofurantoin monohydrate macrocrystals], Midazolam hcl, Nebivolol, Nizatidine, Rhinocort [budesonide], Sulfa antibiotics, and Sulfamethoxazole -trimethoprim ROS: 14 systems were reviewed are otherwise negative unless noted in HPI. PHYSICAL EXAMINATION: Most Recent Vital Signs: There were no vitals filed for this visit. General -pleasant , NAD, well appearing. HEENT - normocephalic, atraumatic, no JVD Eyes - see below CV - RRR PULM - No increased work of breathing Abd- normal Ext - no edema bilaterally, no cyanosis Skin- no rashes nor ecchymosis Neuro - see below Psych - normal, not depressed Neuro-Ophthalmology exam Base Eye Exam Visual Acuity (Snellen - Linear) Right Left Dist cc 20/150 +1 20/200 -2 Dist ph cc 20/100 -2 NI Correction: Glasses Visual Acuity #2 (Snellen - Linear) Right Left Dist cc 20/100 20/70 Visual Acuity Comments Some change after fogging Pupils Pupils Right PERRL Left PERRL Visual Lucio Right Left Full Full Extraocular Movement Right Left Full Full Additional Tests Color Right Left Ishihara 8/8 8/8 Strabismus Exam No nystagmus OKN perfect VOR gain normal No changes with fixation blocked Slit Lamp and Fundus Exam External Exam Right Left External Normal Normal Slit Lamp Exam Right Left Lids/Lashes Normal Normal Conjunctiva/Sclera White and quiet White and quiet Cornea Clear Clear Anterior Chamber Deep and quiet Deep and quiet Iris Round and reactive Round and reactive Lens Trace nuclear sclerosis Trace nuclear sclerosis Anterior Vitreous Normal Normal Fundus Exam Right Left Disc Normal Normal C/D Ratio 0.25 0.25 Macula hua foveal lesions hua foveal lesions Vessels Normal Normal Periphery Normal Normal LABORATORY: Labs reviewed and pertinent findings are indicated below: No new Review of prior Radiology Studies: No new imaging of the brain. Report of the MRI was normal OCT Interpretation Optic Nerve - Nerve Fiber Layer Right: Normal Left: Normal Macula: Elevation tash fovea Line scans/Multi Color/Etc: Normal Stable compared to previous imaging ICD-10-CM 1. Nystagmus H55.00 2. 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 At this time my examination looks to be normal other than retinal disease. She seems very stuck on the term oscillopsia but I do not see any changes on examination that look consistent with nystagmus. She complains of things in the periphery moving fast which would be something that I would see with optic kinetic nystagmus but testing is very normal. Everything she states seems to be positional in nature but I do not see that on my examination today. I would like her to see Josh Avery in the [facility] Center to see if he can find any abnormalities that were not seen today. She may have had BPPV previously and now have something like PPPD. She stated that the symptoms were quite continuous and worsened with maneuvers however on my examination today they were not evident and she says perhapsthey have been getting better lately. I will check lab work for certain types of nystagmus. I do wonder if there is some functional component to her symptoms. This has been theorized in the past. She was told that her vision had worsened over time a short time however when I fog her vision today her visual acuity is improved with a prescription that is close to her current glasses.. Other etiologies could be migraine with vestibular aura, orthostatic issues etc. Return if symptoms worsen or fail to improve. Gualberto Betancourt DO Neuro-Ophthalmology, Neurology 01/29/2023 2:31 PM I have provided a significant and separately identifiable visit with today's procedure because (VF)there were multiple complex differential diagnoses for this patient, including visual field changesrelated to migraine headaches, stroke causing visual field loss, vasculitis, retinal disease, opticnerve disease documented in this encounter Plan of Treatment Upcoming Encounters Date Type Department Care Team (Late st Contact Info) Description 05/29/2023 1:40 PM EST Telemedicine [facility] [address] [place] [address] Juan Bhardwaj DO [address] [place] [address] 05/31/2023 12:30 PM EST Telemedicine General Internal Medicine, [facility] [address] [place] [address] Warner Santiago MD [address] [place] [address] 06/06/2023 2:00 PM EST Telemedicine Psychiatry, [facility] [address] [place] [address] Nela Figueroa CRNP [address] [place] [address] 07/31/2023 1:20 PM EST Office Visit Neurology [facility] [address] [place] [address] Hina Oropeza PA-C [address] [place] [address] 09/04/2023 5:00 PM EDT Office Visit [facility] [address] [place] [address] Juan Bhardwaj DO [address] [place] [address] 10/23/2023 4:00 PM EDT Office Visit Hematology/Oncology [facility] [employer] [address] [place] [address] River Vizcaino MD [address] [place] [address] Scheduled Orders Name Type Priority Associated Diagnoses Orde r Schedule RETINA SCAN DIAGNOSTIC IMAGE, POSTERIOR Procedures Routine Nystagmus Best's vitelliform macular dystrophy Ordered: 01/29/2023 Health Maintenance Due Date Last Done Comments [...] Procedure Name Priority Date/Time Associated Diagnosis Comments VITAMIN E (TOCOPHEROL) Routine 01/29/2023 4:00 PM EDT Nystagmus FTA-ABS Routine 01/29/2023 4:00 PM EDT Nystagmus RPR Routine 01/29/2023 4:00 PM EDT Nystagmus MAGNESIUM Routine 01/29/2023 4:00 PM EDT Nystagmus documented in this encounter Results * RPR (01/29/2023 4:00 PM EDT) RPR Screen Nonreactive Nonreactive 01/30/2023 11:16 AM EDT [facility] Blood Venous blood specimen / Unknown Venipuncture / Unknown 01/29/2023 4:00 PM EDT 01/29/2023 4:26 PM EDT Gualberto Betancourt DO LAB BLOOD O RDERABLES [facility] [address] [place] [address] * FTA-ABS (01/29/2023 4:00 PM EDT) FTA-ABS Nonreactive Nonreactive 01/31/2023 5:39 PM EDT Sandag WELSH Comment: The FTA-ABS is a treponemal assay that is intended to be used with other tests (e.g., RPR) as part of a diagnostic algorithm in the diagnosis of syphilis. Test Performed at: [facility] [address] [address] Julius Loco M.D., Ph.D.,Director of Laboratories Blood Venous blood specimen / Unknown Venipuncture / Unknown 01/29/2023 4:00 PM EDT 01/29/2023 4:26 PM EDT Gualberto Betancourt DO LAB BLOOD O RDERABLES Performing Organization Address [facility]/ZIP Co de Phone Number Sandag WELSH [address] [place] [address] * VITAMIN E (TOCOPHEROL) (01/29/2023 4:00 PM EDT) Alpha-Tocopherol 15.6 5.7 - 19.9 mg/L 02/01/2023 6:20 PM EDT Sandag WELSH Comment: Levels of alpha-tocopherol <5 mg/L are consistent with Vitamin E deficiency in adults. Rvpy-Jaize-Pugaeypt ol <1.0 <=4.3 mg/L 02/01/2023 6:20 PM EDT Sandag WELSH Comment: Vitamin supplementation within 24 hours prior to blood draw may affect the accuracy of the results. This test was developed and its analytical performance characteristics have been determined by [facility] [place], [place]. It has not been cleared or approved by the U.S. Food and Drug Administration. This assay has been validated pursuant to the CLIA regulations and is used for clinical purposes. Test Performed at: [facility] [address] [address] Julius Loco M.D., Ph.D.,Director of Laboratories Blood Venous blood specimen / Unknown Venipuncture / Unknown 01/29/2023 4:00 PM EDT 01/29/2023 4:27 PM EDT Gualberto Willard Betancourt LAB BLOOD O RDERABLES Performing Organization Address [facility]/ZIP Co de Phone Number [facility] [address] [place] [address] * MAGNESIUM (01/29/2023 4:00 PM EDT) Magnesium 2.2 1.5 - 2.6 mg/dL 01/29/2023 5:02 PM EDT [facility] Blood Venous blood specimen / Unknown Venipuncture / Unknown 01/29/2023 4:00 PM EDT 01/29/2023 4:26 PM EDT Gualberto Betancourt DO LAB BLOOD O RDERABLES [facility] [address] [facility] [address] [place] [address] documented in this encounter Visit Diagnoses Diagnosis Nystagmus- Primary Nystagmus, unspecified Best's vitelliform macular dystrophy Dystrophies primarily involving the retinal pigment epithelium documented in this encounter Advance Directives Latest Code Status on File Code Status Date Activated Date Inactivated Comments Full Code 06/11/2018 10:31 PM 06/13/2018 4:48 PM This o rder reflects the patients wishes and were consensually agreed upon. Question Answer Comments Discussion of Advance Directives occurred with: Patient Care Teams Seat Trimmer Relationship Specialty Start Date End Date Juan Bhardwaj DO [address] [place] [address] [place] [address] PCP - General Family Medicine 10/03/22 documented as of this encounter
--- OUTSIDE RECORDS SUMMARY | 2023-10-13 18:33 | External Medical Summary | Summary of Care ---
Author Name Unknown Organization [facility] Address [address] [facility] [place] [address] Phone [phone] Care Team Providers Care Pulp Drier Firer Name Role Phone Christine Bhardwaj DO Primary Care Provider [phone] Encounter Details Date Type Department Care Team (Late st Contact Info) Description 04/17/2023 Result Scan Unspecified Department Eusebio Orta MD [address] [place] [address] <No scans attached> Allergies Active Allergy Reactions [...] Each 5 04/05/2020 Active OneTouch Delica Plus [id number] use 1 LANCET to TEST BLOOD SUGAR UP TO four times a day as directed 400 Each 1 10/04/2022 Active OneTouch Ultra 2 w/Device KitIndications:Type 2 diabetes mellitus with hemoglobin A1c goal of less than 7.0% ([facility]) Use 4x/day as directed. E11.9. 1 Kit 0 10/26/2022 Active Lisinopril 2.5 MG Oral Tablet (Prinivil) Take 1-2 Tablets by mouth in the morning. 0 01/21/2023 Active Nystatin 931089 UNIT/GM External Cream Apply topically to affected [...] 05/16/2023 3:00 PM EST NeuroDiagnostic Study Neurophysiology [facility] [address] [facility] [place] [address] Chace Ackerman, [address] [facility] [place] [address] 05/31/2023 12:30 PM EST Telemedicine General Internal Medicine, [facility] [address] [place] [address] Warner Santiago MD [address] [place] [address] 06/06/2023 2:00 PM EST Telemedicine Psychiatry, [facility] [address] [facility] [place] [address] Nela Figueroa CRNP [address] [facility] [place] [address] 07/31/2023 1:20 PM EST Office Visit Neurology [facility] [address] [place] [address] Hina Oropeza PA-C [address] [facility] [place] [address] 09/04/2023 5:00 PM EDT Office Visit Family [facility] [address] [place] [address] Christine Bhardwaj DO [address] [place] [address] 10/23/2023 4:00 PM EDT Office Visit Hematology/Oncology [facility] [address] [facility] [place] [address] River Vizcaino MD [address] [facility] [place] [address] Health Maintenance Due Date Last Done Comments [...] 01/06/2023, Additional history exists Cologuard 01/19/2026 01/19/2023, 0808/2022, [...] Date/Time Associated Diagnosis Comments OUTSIDE LAB RESULTS 04/17/2023 documented in this encounter Results * OUTSIDE LAB RESULTS (04/17/2023) 04/17/2023 Eusebio Orta MD LABORATORY documented in this encounter Advance Directives Latest Code Status on File Code Status Date Activated Date Inactivated Comments Full Code 06/11/2018 10:31 PM 06/13/2018 4:48 PM This o rder reflects the patients wishes and were consensually agreed upon. Question Answer Comments Discussion of Advance Directives occurred with: Patient Care Teams Pulp Drier Firer Relationship Specialty Start Date End Date Christine Bhardwaj DO [address] [place] [address] PCP - General Family Medicine 10/03/22 documented as of this encounter
--- OUTSIDE RECORDS SUMMARY | 2023-10-13 18:33 | External Medical Summary ---
Author Name Unknown Address Unknown Organization K01:[facility] [address] [place] [address] Laboratory Report Ordering Provider Test Date Status SHAINA MARTINEZ 05/11/2023 13:49:14 Final Observation Date Value Abnormality Reference (Units ) Status Tissue transglutaminase IgA Ab [Presence] in Serum by Immunoassay 05/11/2023 13:49:14 Negative Negative Final Tissue transglutaminase IgA Ab [Units/volume] in Serum by Immunoassay 05/11/2023 13:49:14 0.7 <7 (U/mL) Final Performing Location [facility] [address] [place] [address]
--- OUTSIDE RECORDS SUMMARY | 2023-10-13 18:33 | External Medical Summary | Summary of Care ---
Author Name Unknown Organization [facility] Address [address] [facility] [place] [address] Phone [phone] Care Team Providers Care Fuel Buyer Name Role Phone Juan Merritt DO Primary Care Provider [phone] Reason for Visit * Reason Comments eRx-Medication Refill Encounter Details Date Type Department Care Team (Late st Contact Info) Description 04/30/2023 Refill Family Practice [facility] [address] [place] [address] Juan Merritt DO [address] [place] [address] Prediabetes Allergies Active Allergy Reactions Criticality Noted Date [...] as of this encounter (statuses as of 05/01/2023) Medications Medication Sig Dispensed Refills Start Date End Date Status TYLENOL EXTRA STRENGTH 500 MG PO TABS Take by mouth. 0 Active CENTRUM PO TABS Take by mouth. Centrum Silver 0 Active OneTouch Delica Lancets FineIndications: Prediabetes Test BS one time daily 100 Each 5 04/05/2020 Active OneTouch Delica Plus [id number] use 1 LANCET to TEST BLOOD SUGAR UP TO four times a day as directed 400 Each 1 10/04/2022 Active OneTouch Ultra 2 w/Device KitIndications:T ype 2 diabetes mellitus with hemoglobin A1c goal of less than 7.0% ([facility]) Use 4x/day as directed. E11.9. 1 Kit 0 10/26/2022 Active Lisinopril 2.5 MG Oral Tablet (Prinivil) Take 1-2 Tablets by mouth in the morning. 0 01/21/2023 Active Nystatin 126245 UNIT/GM External Cream Apply topically to affected [...] 0 Active ALPRAZolam 0.25 MG Oral Tablet (xaNAX)Indicatio ns:Generalized anxiety disorder Take 1 Tablet by mouth 3 times a day as needed (severe anxiety). 90 Tablet 0 04/30/2023 Active OneTouch Ultra In Vitro Strip (Glucose Blood)Indication s:Prediabetes TEST BLOOD SUGAR THREE TIMES A DAY 100 Strip 5 05/01/2023 Active OneTouch Ultra In Vitro Strip (Glucose Blood)Indication s:Prediabetes TEST BLOOD SUGAR THREE TIMES A DAY 100 Strip 1 02/05/2023 3 Discontinued documented as of this encounter (statuses as of 05/01/2023) Active Problems Problem Noted Date Diagnosed Date [...] as of this encounter (statuses as of 05/01/2023) Resolved Problems Problem Noted Date Diagnosed Date Resolved Date Diabetes mellitus with background retinopathy 04/04/20 19 04/04/2019 Diabetes mellitus without complication 04/04/2019 04/04/2019 Disorder of arteries and arterioles 04/04/2019 08/05/2019 Essential and other specified forms of tremor 06/22/19 12 07/14/2018 documented as of this encounter (statuses as of 05/01/2023) Social History Tobacco Use Types Packs/Day Years [...] encounter Miscellaneous Notes * Telephone Encounter - Johan Ragland [facility] - 05/01/2023 11:38 AM ESTSigned Prescriptions: Disp Refills OneTouch Ultra In Vitro Strip (Glucose Blo*100 St*5 Sig: TEST BLOOD SUGAR THREE TIMES A DAYAuthorizing Provider: JUAN MERRITT User: JOHAN RAGLAND-- documented in this encounter Plan of Treatment Upcoming Encounters Date Type Department Care Team (Late st Contact Info) Description 05/03/2023 8:40 AM EST Telemedicine General Internal Medicine, [facility] [address] [place] [address] Warner Santiago MD [address] [place] [address] 05/16/2023 3:00 PM EST NeuroDiagnostic Study Neurophysiology [facility] [address] [facility] [place] [id number] Chace Ackerman DO [address] [place] [address] 06/06/2023 2:00 PM EST Telemedicine Psychiatry, [facility] [address] [place] [address] [id number] Nela Figueroa CRNP [address] [id number] 07/31/2023 1:20 PM EST Office Visit Neurology [facility] [address] [facility] [place] [id number] Hina Oropeza PA-C [address] [facility] [place] [address] 09/04/2023 5:00 PM EDT Office Visit Family Practice [facility] [address] [place] [address] Juan Merritt DO [address] [place] [address] 10/23/2023 4:00 PM EDT Office Visit Hematology/Oncology [facility] [address] [facility] [place] [address] River Vizcaino MD [address] [facility] [place] [address] Health Maintenance Due Date Last Done Comments [...] 01/06/2023, Additional history exists Cologuard 01/19/2026 01/19/2023, 08/2022, [...] as of this encounter Visit Diagnoses Diagnosis Prediabetes Other abnormal glucose documented in this encounter Advance Directives Latest Code Status on File Code Status Date Activated Date Inactivated Comments Full Code 06/11/2018 10:31 PM 06/13/2018 4:48 PM This o rder reflects the patients wishes and were consensually agreed upon. Question Answer Comments Discussion of Advance Directives occurred with: Patient Care Teams Fuel Buyer Relationship Specialty Start Date End Date Juan Merritt DO [address] [address] PCP - General Family Medicine 10/03/22 documented as of this encounter
--- OUTSIDE RECORDS SUMMARY | 2023-10-13 18:33 | External Medical Summary | Summary of Care ---
Author Name Unknown Organization [facility] Address [address] [facility] [address] Phone [phone] Care Team Providers Care Operating Room Aide Name Role Phone Christine Bhardwaj DO Primary Care Provider [phone] Reason for Visit * Reason Comments Rheum Follow Up Follow up * Evaluate & Treat - Unlimited Visits (Within 10 days (routine)) - Pending Review Specialty Diagnoses / Procedures Referred By Contakila t Referred To Contact Rheumatology Diagnoses Cryoglobulinemia (HCC) Rheumatoid arthritis, involving unspecified site, unspecified whether rheumatoid factor present (HCC) River Vizcaino MD [address] [place] [address] Referral ID Status Reason Start Date Expiration Date Visits Requested Visits Authorized [id number] Pending Review Specialty Services Required 04/17/[phone] Encounter Details Date Type Department Care Team (Latest Contact Info) Description 04/30/2023 1:20 PM EST Office Visit Rheumatology [address] [place], [place] [address] Eusebio Orta MD [facility] [employer] [place] [address] Serologic abnormality*; Cryoglobulinemia (HCC); Peripheral polyneuropathy Allergies Active Allergy Reactions Criticality Noted Date [...] as of this encounter (statuses as of 04/30/2023) Medications Medication Sig Dispensed Refills Start Date End Date Status TYLENOL EXTRA STRENGTH 500 MG PO TABS Take by mouth. 0 Active CENTRUM PO TABS Take by mouth. Centrum Silver 0 Active OneTouch Delica Lancets FineIndications: Prediabetes Test BS one time daily 100 Each 5 04/05/2020 Active OneTouch Delica Plus [id number] use 1 LANCET to TEST BLOOD SUGAR [...] the morning. 0 01/21/2023 Active OneTouch Ultra In Vitro Strip (Glucose Blood)Indication s:Prediabetes TEST BLOOD SUGAR THREE TIMES A DAY 100 Strip 1 02/05/2023 Active Nystatin 858011 UNIT/GM External Cream Apply topically to affected [...] needed (severe anxiety). 90 Tablet 0 03/14/2023 04/30/2023 Discontinued (Refill) documented as of this encounter (statuses as of 04/30/2023) Active Problems Problem Noted Date Diagnosed Date [...] as of this encounter (statuses as of 04/30/2023) Resolved Problems Problem Noted Date Diagnosed Date Resolved Date Diabetes mellitus with background retinopathy 04/04/20 19 04/04/2019 Diabetes mellitus without complication 04/04/2019 04/04/2019 Disorder of arteries and arterioles 04/04/2019 08/05/2019 Essential and other specified forms of tremor 06/22/19 12 07/14/2018 documented as of this encounter (statuses as of 04/30/2023) Social History Tobacco Use Types Packs/Day Years [...] Sign Reading Time Taken Comments Blood Pressure - - Pulse - - Temperature 36.5 C (97.7 F) 04/30/2023 1:24 PM ES T Respiratory Rate - - Oxygen Saturation - - Inhaled Oxygen Concentration - - Weight 97.5 kg (215 lb) 04/30/2023 1:24 PM EST Height - - Body Mass Index 36.9 04/17/2023 3:02 PM EST documented in this encounter Progress Notes * Eusebio Orta MD - 04/30/2023 1:30 PM EST Subjective: Patient seen today for further follow up evaluation of abnormal labs. Since the last visit she reports that she has not been doing well this year. I had seen her last year for peripheral neuropathy and fibromyalgia. She reports that she does not feel that she has fibromyalgia even though I did agree with this diagnosis last year. She states she is seen other rheumatologists in the past who did not feel she had fibromyalgia. She reports it started off with worsening dizziness, then developed vision issues. She reports that she has been told she has tick-borne illnesses but then other providershave told her she does not have this. She did see ID through [employer] in December who do not feel she had any tick- borne illnesses as her studies were overall normal except for 1 study that was an IgM positive but she never received antibiotics. They did not recommend any antibiotics. She is had several hospitalizations in the [facility] for her symptoms. She reports that she continue not to do well and was seeing Neurology recently. She had blood work that included a cryoglobulin screen(unsure why this was ordered) that came out positive for the screen but the cryocrit was less than 5%. 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 There was an ask a doc done and the technology sales consultant felt that this cryo screen was probably and significant given the small mount but did recommend a hematologyevaluation. She had seen a technology sales consultant in [place] and then also 1 with [facility] more recently. There was raise the question of a autoimmune disorder. They recommended her seeing Rheumatology again.She would contacted me to be seen in this appointment was set up. She is had a history of low positive rheumatoid factor but negative SUSANA multiple times. In the past she had 1 positive SUSANA but all the others have been negative. She is had a negative CCP in the past and also more recently a CCP antibody was negative. 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 She is not sure if that is playing a role in her symptoms. She reports that she has many drug intolerances and has 19 allergies listed. She states she can not take prednisone because of glaucoma/pressures and hereyes. She also has an eye disease that makes her legally blind. She sees an eyeglass lens generator in [place] Dr. Monge. She saw a Lyme doctor in [place] recently who told her she may have Lyme disease and put her on amoxicillin. She is been on amoxicillin for 20 days and not really sure if it is helped much-maybe slight change to dizziness. She continues with diffuse body pains and neuropathy. She reports a 40 lb weight loss this year. She has decreased functionality. She is here with her spouse. Shefeels something is wrong with her. She has seen Cardiology for palpitations. Musculoskeletal ROS: . Abnormal: joint pain, back pain, and painful muscles . Pain scale (0-10): 7 Other ROS: . Constitutional: fatigue and weight loss . Head normal . Eyes: normal . Ears, nose, throat, mouth: normal . Cardiovascular: palpitations . Respiratory: normal . Gastrointestinal: normal . Genitourinary: normal . Neurologic: See above All other ROS reviewed and negative Social History: Social History Tobacco Use Smoking status: Former Years: 14 Types: Cigarettes Quit date: 06/10/1995 Years since quittin.9 Smokeless tobacco: Never Substance Use Topics Alcohol use: No Comment: very rare Vaping/E-Cigarette Use Vaping/E-Cigarette Use Never User Vaping/E-Cigarette Substances Vaping/E-Cigarette Devices Current Outpatient Medications Medication Sig Dispense Refill TYLENOL EXTRA STRENGTH 500 MG PO TABS Take by mouth. CollactiveTouch Delica Lancets Fine Test BS one time daily 100 Each 5 OneTouch Delica Plus [id number] use 1 LANCET to TEST BLOOD SUGAR UP TO four times a day as directed 400 Each 1 CollactiveTouch Ultra 2 w/Device Kit Use 4x/day as directed. E11.9. 1 Kit 0 Lisinopril 2.5 MG Oral Tablet (Prinivil) Take 1-2 Tablets by mouth in the morning. [employer] Ultra In Vitro Strip (Glucose Blood) TEST BLOOD SUGAR THREE TIMES A DAY 100 Strip 1 Nystatin 594457 UNIT/GM External Cream Apply topically to affected area 2 times a day. To affacted area for two weeks. 30 g 2 ALPRAZolam 0.25 MG Oral Tablet (xaNAX) Take 1 Tablet by mouth 3 times a day as needed (severe anxiety). 90 Tablet 0 Estradiol 0.1 MG/GM Vaginal Cream (Estrace) Administer 2 g into the vagina in the morning. as directed.. 42.5 g 3 Amoxicillin 500 MG Oral Capsule (Amoxil) Take 1 Capsule by mouth in the morning and 1 Capsule at noon and 1 Capsule before bedtime. Vitamin D3 1000 UNIT Oral Capsule Take 1 Capsule by mouth in the morning. CENTRUM PO TABS Take by mouth. Centrum Silver (Patient not taking: Reported on 04/23/2023) No current facility-administered medications for this visit. Physical Exam: Temp 36.5 C (97.7 F) (Infrared ) | Wt 97.5 kg (215 lb) | BMI 36.90 kg/m | BSA 2.1 m General: alert, well nourished, and well developed, examined in chair Heart: regular rate & rhythm and no gallops Lungs: clear to auscultation , no rales, wheezes or rhonchi Abdomen: abdomen soft, non-tender, obese, and normal bowel sounds Extremities: no clubbing, no cyanosis Musculoskeletal Exam: Reports tenderness to exam of both knees No knee effusions noted No synovitis of the hands or wrists Assessment: (R89.4) Serologic abnormality (primary encounter diagnosis) (D89.1) Cryoglobulinemia (HCC) (G62.9) Peripheral polyneuropathy She has a mildly elevated rheumatoid factor and positive cryoglobulin screen of unknown significance. In reviewing my clinic note from last year after the appointment, her complaints during that visit were the same that she had today. She has seen a previous flask cleaner in the past as well as melast year and was not felt to have an autoimmune disease. Her SUSANA is been negative multiple times. More recently she is had normal inflammatory markers along with normal SPEP study x2. Her abnormal rheumatoid factor could be related to other causes and not an inflammatory arthritis. I doubt she hasLyme disease or another tick- borne disease and she can stop amoxicillin. She is had no response to a ntibiotics over 20 days and this was discussed with her and her . Could consider a short course of prednisone but would need to discuss with her plunger scoop operator. Overall though, I doubt she has an autoimmune inflammatory process given her history and exam today. Unclear if her gadolinium toxi city/exposure in the past is playing a role in her symptoms today. Plan: 1. Will contact her plunger scoop operator to discuss short course of prednisone 2. Stop antibiotics as she does not seem to have any benefit from them 3. No blood work at this time needed 4. Explained to her and her that it is unclear if she truly has an autoimmune process 5. Return to clinic pending course Eusebio Orta MD Department of Rheumatology documented in this encounter Nursing Notes * Lavonne Lux LPN - 04/30/2023 1:24 PM EST Chief Complaint Patient presents with Rheum Follow Up Follow up documented in this encounter Plan of Treatment Upcoming Encounters Date Type Department Care Team (Late st Contact Info) Description 05/03/2023 8:40 AM EST Telemedicine General Internal Medicine, [facility] [address] [place] [address] Warner Santiago MD [address] [place] [address] 05/16/2023 3:00 PM EST NeuroDiagnostic Study Neurophysiology [facility] [address] [facility] [place] [address] Chace Ackerman, DO [address] [place] [address] [address] 06/06/2023 2:00 PM EST Telemedicine Psychiatry, [facility] [address] [place] [address] Nela Figueroa CRNP [address] [place] [address] 07/31/2023 1:20 PM EST Office Visit Neurology [facility] [place] [address] [place] [address] iHna Oropeza PA-C [address] [place] [address] 09/04/2023 5:00 PM EDT Office Visit Family Practice [facility] [address] [facility] [place] [address] Christine Bhardwaj, DO 132 [facility] [place] [address] 10/23/2023 4:00 PM EDT Office Visit Hematology/Oncology [facility] [address] [place] [address] River Vizcaino MD [address] [place] [address] Scheduled Referrals Name Type Priority Associated Diagnoses Orde r Schedule RHEUMATOLOGY REFERRAL OP Referral Within 10 days (routine) Cryoglobulinemia (HCC) Rheumatoid arthritis, involving unspecified site, unspecified whether rheumatoid factor present (HCC) Ordered: 04/17/2023 Health Maintenance Due Date Last Done Comments [...] as of this encounter Visit Diagnoses Diagnosis Serologic abnormality- Primary Other and unspecified nonspecific immunological findings Cryoglobulinemia (HCC) Other paraproteinemias Peripheral polyneuropathy Unspecified hereditary and idiopathic peripheral neuropathy documented in this encounter Advance Directives Latest Code Status on File Code Status Date Activated Date Inactivated Comments Full Code 06/11/2018 10:31 PM 06/13/2018 4:48 PM This o rder reflects the patients wishes and were consensually agreed upon. Question Answer Comments Discussion of Advance Directives occurred with: Patient Care Teams Operating Room Aide Relationship Specialty Start Date End Date Christine Bhardwaj DO [address] [place] [address] PCP - General Family Medicine 10/03/22 documented as of this encounter
--- OUTSIDE RECORDS SUMMARY | 2023-10-13 18:33 | External Medical Summary ---
Author Name Unknown Address Unknown Organization K01:[facility] [place] [address] [place] [address] Laboratory Report Ordering Provider Test Date Status JONATHAN [place]ERSON 05/11/2023 13:49:14 Final Observation Date Value Abnormality Reference (Units ) Status Gliadin peptide IgG Ab [Presence] in Serum by Immunoassay 05/11/2023 13:49:14 Negative Negative Final Gliadin peptide IgG Ab [Units/volume] in Serum by Immunoassay 05/11/2023 13:49:14 <0.6 <7 (U/mL) Final Gliadin peptide IgA Ab [Presence] in Serum by Immunoassay 05/11/2023 13:49:14 Negative Negative Final Gliadin peptide IgA Ab [Units/volume] in Serum by Immunoassay 05/11/2023 13:49:14 0.8 <7 (U/mL) Final Performing Location [facility] [address] [place] [address]
--- OUTSIDE RECORDS SUMMARY | 2023-10-13 18:33 | External Medical Summary | Summary of Care ---
Author Name Unknown Organization [facility] Address [address] [facility] [place] [address] Phone [phone] Care Team Providers Care Child Support Case Officer Name Role Phone Christine Bhardwaj DO Primary Care Provider [phone] Reason for Visit * Reason Onset Date Comments Advice 04/26/2023 Encounter Details Date Type Department Care Team (Late st Contact Info) Description 04/26/2023 Telephone Family Practice [facility] [address] [place] [address] Christine Bhardwaj DO [address] [place] [address] Advice Allergies Active Allergy Reactions Criticality Noted [...] as of this encounter (statuses as of 05/03/2023) Medications Medication Sig Dispensed Refills Start Date End Date Status TYLENOL EXTRA STRENGTH 500 MG PO TABS Take by mouth. 0 Active CENTRUM PO TABS Take by mouth. Centrum Silver 0 Active OneTouch Delica Lancets FineIndications :Prediabetes Test BS one time daily 100 Each 5 04/05/2020 Active OneTouch Delica Plus [id number] use 1 LANCET to TEST BLOOD SUGAR UP TO four times a day as directed 400 Each 1 10/04/2022 Active OneTouch Ultra 2 w/Device KitIndications: Type 2 diabetes mellitus with hemoglobin A1c goal of less than 7.0% ([facility]) Use 4x/day as directed. E11.9. 1 Kit 0 10/26/2022 Active Lisinopril 2.5 MG Oral Tablet (Prinivil) Take 1-2 Tablets by mouth in the morning. 0 01/21/2023 Active Nystatin 554829 UNIT/GM External Cream Apply topically to affected [...] as of this encounter (statuses as of 05/03/2023) Active Problems Problem Noted Date Diagnosed Date [...] as of this encounter (statuses as of 05/03/2023) Resolved Problems Problem Noted Date Diagnosed Date Resolved Date Diabetes mellitus with background retinopathy 04/04/20 19 04/04/2019 Diabetes mellitus without complication 04/04/2019 04/04/2019 Disorder of arteries and arterioles 04/04/2019 08/05/2019 Essential and other specified forms of tremor 06/22/19 12 07/14/2018 documented as of this encounter (statuses as of 05/03/2023) Social History Tobacco Use Types Packs/Day Years [...] encounter Miscellaneous Notes * Telephone Encounter - Carrie Honeycutt OSA - 04/29/2023 9:02 AM EST I talked to pt, she states all her problems have been ongoing 10+ mo and her stool is back to normal. She will call if she decides an appt is needed She sees rheumatology tomorrow about her pain * Telephone Encounter - Ezequiel Dumont MD - 04/26/2023 8:46 AM EST I cannot give any advice based on this message other than to get checked by someone. There are multiple acute and chronic issues being talked about in the message. * Telephone Encounter - Louann Schmid LPN - 04/26/2023 8:17 AM EST Yesterday noticed her stools where black. No visible blood. It was a mixture of normal color and black. In the evening it was black. Has hip pain and achiness in her lower back all around to the front. She has had hip pain. The lower back around to the front is new. Rates the pain as a 4 or 5 out of 10. She has had dizziness for 10 months. Said it is actually getting a little better. Has changed her diet to gluten. Having a rough time with it. Makes her nauseated. Didn't take her Amoxicillin today in case that is the culprit. Has been super tired the last week. No appts. Today. "Said she is doctored out. She has been very sick over the last 10 months. Has been to all kinds of doctors. It has done her no good. Her is her only ride and he has taken too much time off work already. They only have one vehicle. Offered to check other sites, she said what for? What would they do anyway? Just send a message and give me a call with the advise." Called Joanne in the office and Informed. Will watch the message. documented in this encounter Plan of Treatment Upcoming Encounters Date Type Department Care Team (Late st Contact Info) Description 05/16/2023 3:00 PM EST NeuroDiagnostic Study Neurophysiology [facility] 132 [facility] [place] [address] Chace Ackerman, DO [address] [facility] [place] [address] 06/06/2023 2:00 PM EST [facility] 200 [facility] [place] [address] Nela Figueroa CRNP [address] [facility] [place] [address] 07/31/2023 1:20 PM EST Office Visit Neurology [facility] [address] [place] [address] Hina Oropeza PA-C 200 [facility] [place] [address] 09/04/2023 5:00 PM EDT Office Visit Family Practice [facility] 132 [facility] [place] [address] Christine Bhardwaj, DO 132 [facility] [place] [address] 10/23/2023 4:00 PM EDT Office Visit Hematology/Oncology [facility] [address] [place] [address] River Vizcaino MD [address] [place] [address] Health Maintenance Due Date Last Done Comments [...] Advance Directives occurred with: Patient Care Teams Child Support Case Officer Relationship Specialty Start Date End Date Christine Bhardwaj DO [address] [place] [address] PCP - General Family Medicine 10/03/22 documented as of this encounter
--- OUTSIDE RECORDS SUMMARY | 2023-10-13 18:33 | External Medical Summary | Summary of Care ---
Author Name Unknown Organization [facility] Address [address] [facility] [place] [address] Phone [phone] Care Team Providers Care Rx Specialist Name Role Phone Christine Bhardwaj DO Primary Care Provider [phone] Reason for Visit * Reason Comments EMG Encounter Details Date Type Department Care Team (Late st Contact Info) Description 05/16/2023 3:00 PM EST NeuroDiagnostic Study Neurophysiology [facility] [address] [facility] [place] [address] Chace Ackerman DO [address] [place] [address] Arrived Allergies Active Allergy Reactions Criticality Noted Date [...] as of this encounter (statuses as of 05/16/2023) Medications Medication Sig Dispensed Refills Start Date End Date Status TYLENOL EXTRA STRENGTH 500 MG PO TABS Take by mouth. 0 Active CENTRUM PO TABS Take by mouth. Centrum Silver 0 Active OneTouch Delica Lancets FineIndications:Pre diabetes Test BS one time daily 100 Each 5 04/05/2020 Active OneTouch Delica Plus [id number] use 1 LANCET to TEST BLOOD SUGAR UP TO four times a day as directed 400 Each 1 10/04/2022 Active AeropostaleTouch Ultra 2 w/Device KitIndications:Type 2 diabetes mellitus with hemoglobin A1c goal of less than 7.0% ([facility]) Use 4x/day as directed. E11.9. 1 Kit 0 10/26/2022 Active Lisinopril 2.5 MG Oral Tablet (Prinivil) Take 1-2 Tablets by mouth in the morning. 0 01/21/2023 Active Nystatin 122624 UNIT/GM External Cream Apply topically to affected [...] as of this encounter (statuses as of 05/16/2023) Active Problems Problem Noted Date Diagnosed Date [...] as of this encounter (statuses as of 05/16/2023) Resolved Problems Problem Noted Date Diagnosed Date Resolved Date Diabetes mellitus with background retinopathy 04/04/20 19 04/04/2019 Diabetes mellitus without complication 04/04/2019 04/04/2019 Disorder of arteries and arterioles 04/04/2019 08/05/2019 Essential and other specified forms of tremor 06/22/19 12 07/14/2018 documented as of this encounter (statuses as of 05/16/2023) Social History Tobacco Use Types Packs/Day Years [...] as of this encounter Progress Notes * Chace Ackerman, DO Ag[place] 05/16/2023 3:53 PM EST [facility] [place] Electromyography Report Name: Mirta Webb Date of : 1965 (57 year old) Sex: female Tech: Nick Arrington Referring Physician: Christine Bhardwaj DO Examining Physician: Chace Ackerman DO Examination Date: 05/16/2023 Ht Readings from Last 1 Encounters: 04/17/23 1.626 m (5' 4") Wt Readings from Last 1 Encounters: 04/30/23 97.5 kg (215 lb) Impression: Abnormal study. This electrodiagnostic study is suggestive of a chronic right C8 radiculopathy withno active denervation. There is no electrophysiological evidence of a median or ulnar neuropathy, polyneuropathy, or myopathy in the upper extremities. History and Physical examination: A 57-year-old female with pain, paresthesias, and numbness in herupper extremities. She complains of generalized numbness and tingling. She also complains of neck pain. Examination demonstrates no thenar or FDI muscle atrophy. EMG/NCS performed for evaluation of neuropathy versus radiculopathy. Nerve Conduction Studies Examination Findings: Nerve conduction studies were performed in the bilateral upper extremities. The median, ulnar, and radial sensory nerve study showed normal peak latencies, normal amplitudes, and normal conduction velocities. The right median ulnar comparative study was normal. The bilateral median motor nerve study showed normal distal latencies, normal amplitudes, and normal conduction velocities. The right ulnar motor nerve study showed a normal distal latency, normal amplitude, and normal conduction velocity. Please see the attached document for raw data or the scanned document in [employer]. Reference values are from the [facility] normative data guidelines that are attached at the end ofthis document. Electromyography Examination Findings: Needle examination was performed with a disposable concentric needle electrode in selected muscles of the bilateral upper extremities, as recorded in the tables. No abnormal spontaenous activity was seen. The right 1st dorsal interosseous and extensor indices proprius muscles demonstrated mildly to moderately increased size and mild to moderately reduced recruitment. The motor unit action potentials in the other muscles tested demonstrated normal size, duration, and recruitment. Please see the attached document for raw data or the scanned document in [employer]. The study was done with a concentric needle examination. Chace Ackerman DO documented in this encounter Plan of Treatment Upcoming Encounters Date Type Department Care Team (Late st Contact Info) Description 05/31/2023 12:30 PM EST Telemedicine General Internal Medicine, [facility] [address] [place] [address] Warner Santiago MD [address] [place] [address] 06/06/2023 2:00 PM EST Telemedicine Psychiatry, [facility] [address] [facility] [place] [address] Nela Figueroa CRNP 200 [facility] [place] [id number] 07/31/2023 1:20 PM EST Office Visit Neurology [facility] [address] [facility] [place] [address] Hina Oropeza PA-C [address] [facility] [place] [address] 09/04/2023 5:00 PM EDT Office Visit Family Practice [facility] [address] [facility] [place] [address] Christine Bhardwaj DO [address] [place] [address] 10/23/2023 4:00 PM EDT Office Visit Hematology/Oncology [facility] [place] [address] [place] [address] River Vizcaino MD 200 [facility] [place] [address] Health Maintenance Due Date Last Done Comments [...] as of this encounter Visit Diagnoses Diagnosis Numbness of upper extremity [R20.0]- Primary documented in this encounter Advance Directives Latest Code Status on File Code Status Date Activated Date Inactivated Comments Full Code 06/11/2018 10:31 PM 06/13/2018 4:48 PM This o rder reflects the patients wishes and were consensually agreed upon. Question Answer Comments Discussion of Advance Directives occurred with: Patient Care Teams Rx Specialist Relationship Specialty Start Date End Date Christine Bhardwaj DO [address] [facility] [place] [address] PCP - General Family Medicine 10/03/22 documented as of this encounter
--- OUTSIDE RECORDS SUMMARY | 2023-10-13 18:33 | External Medical Summary | Summary of Care ---
Author Name Unknown Organization [facility] Address [address] [facility] [address] Phone [phone] Care Team Providers Care Embalmer/Funeral Director Name Role Phone Christine Bhardwaj DO Primary Care Provider [phone] Reason for Visit * Reason Onset Date Comments Medication Refill 04/30/2023 Encounter Details Date Type Department Care Team (Late st Contact Info) Description 04/30/2023 Refill Psychiatry, [facility] [address] [place] [address] Reid Figueroa CRNP 200 [facility] [place] [address] Generalized anxiety disorder Allergies Active Allergy Reactions [...] Each 5 04/05/2020 Active OneTouch Delica Plus [id number] use 1 LANCET to TEST BLOOD SUGAR UP TO four times a day as directed 400 Each 1 10/04/2022 Active Share Some StyleTouch Ultra 2 w/Device KitIndications:T ype 2 diabetes mellitus with hemoglobin A1c goal of less than 7.0% ([facility]) Use 4x/day as directed. E11.9. 1 Kit 0 10/26/2022 Active Lisinopril 2.5 MG Oral Tablet (Prinivil) Take 1-2 Tablets by mouth in the morning. 0 01/21/2023 Active Share Some StyleTouch Ultra In Vitro Strip (Glucose Blood)Indication s:Prediabetes TEST BLOOD SUGAR THREE TIMES A DAY 100 Strip 1 02/05/2023 Active Nystatin 675070 UNIT/GM External Cream Apply topically to affected [...] (severe anxiety). 90 Tablet 0 04/30/2023 Active ALPRAZolam 0.25 MG Oral Tablet (xaNAX)Indicatio [...] Telephone Encounter - Reid Figueroa CRNP - 04/30/2023 4:07 PM ESTSigned Prescriptions: Disp Refills ALPRAZolam 0.25 MG Oral Tablet (xaNAX) 90 Tab*0 Sig: Take 1 Tablet by mouth 3 times a day as needed (severe anxiety).Authorizing Provider: REID FIGUEROA------- * Telephone Encounter - Lyric Gonzalez OSA - 04/30/2023 11:51 AM EST Pharmacy requesting refill on Xanax 0.25mg. Medication was last filled on 03/14/23 with 0 refills. Patient last seen on 03/14/23 with return appointment scheduled for 06/06/23. Patient had 0 cancelled appointments and 0 NO SHOW appointments. documented in this encounter Plan of Treatment Upcoming Encounters Date Type Department Care Team (Late st Contact Info) Description 05/03/2023 8:40 AM EST Telemedicine General Internal Medicine, [facility] [address] [place] [facility] [place] [address] Warner Santiago MD [address] [place] [facility] [place] [address] 05/16/2023 3:00 PM EST NeuroDiagnostic Study Neurophysiology [facility] [place] [address] [facility] [place] [address] Chace Ackerman DO 200 [facility] [place] [address] 06/06/2023 2:00 PM EST Telemedicine Psychiatry, [facility] [address] [facility] [place], [place] [address] Reid Figueroa CRNP [address] [facility] [place] [address] 07/31/2023 1:20 PM EST Office Visit Neurology [facility] [address] [facility] [address] [place] [address] Hina Oropeza PA-C [address] [facility] [place] [address] 09/04/2023 5:00 PM EDT Office Visit Family Practice [facility] [address] [place] [address] Christine Bhardwaj DO [address] [place] [place] [address] 10/23/2023 4:00 PM EDT Office Visit Hematology/Oncology [facility] [address] [facility] [place] [address] River Vizcaino MD [address] [facility] [place] [address] Health Maintenance Due Date Last Done Comments [...] Advance Directives occurred with: Patient Care Teams Embalmer/Funeral Director Relationship Specialty Start Date End Date Christine Bhardwaj DO [address] [place] [address] PCP - General Family Medicine 10/03/22 documented as of this encounter
--- OUTSIDE RECORDS SUMMARY | 2023-10-13 18:33 | External Medical Summary | Summary of Care ---
Author Name Unknown Organization [facility] Address [address] [facility] [place] [address] Phone [phone] Care Team Providers Care Ambulatory Technologist Name Role Phone Christine Bhardwaj DO Primary Care Provider [phone] Reason for Visit * Reason Onset Date Comments Health Maintenance 05/14/2023 Encounter Details Date Type Department Care Team (Late st Contact Info) Description 05/14/2023 Telephone Family Practice [facility] [address] [place] [address] Christine Bhardwaj DO [address] [place] [address] Health Maintenance Allergies Active Allergy Reactions Criticality Noted Date [...] Each 5 04/05/2020 Active OneTouch Delica Plus [id number] use 1 LANCET to TEST BLOOD SUGAR UP TO four times a day as directed 400 Each 1 10/04/2022 Active OneTouch Ultra 2 w/Device KitIndications:Type 2 diabetes mellitus with hemoglobin A1c goal of less than 7.0% ([facility]) Use 4x/day as directed. E11.9. 1 Kit 0 10/26/2022 Active Lisinopril 2.5 MG Oral Tablet (Prinivil) Take 1-2 Tablets by mouth in the morning. 0 01/21/2023 Active Nystatin 513898 UNIT/GM External Cream Apply topically to affected [...] encounter Miscellaneous Notes * Telephone Encounter - Violette Eller LPN - 05/14/2023 11:40 AM EST Care Gaps Comprehensive Care Outreach Last Office/Telemedicine Visit: 03/20/2023 (in office), 01/26/2021 (telemedicine) Next Office Visit: 09/04/2023 Hemoglobin AIC Results: Lab Results Component Value Date/Time HEMOGLOBIN A1C - [facility] 7.0 (H) 11/28/2021 03:16 PM HEMOGLOBIN A1C - [facility] 6.6 (H) 01/01/2021 08:36 AM HEMOGLOBIN A1C - [facility] 5.8 (H) 05/08/2018 05:10 PM Reviewed Health Maintenance below: Health Maintenance Topic Date Due Hepatitis B (1 of 3 - 3-dose series) Never done COVID-19 Vaccine (1) Never done Pneumococcal Vaccine: Pediatrics (0 to 5 Years) and At-Risk Patients (6 to 64 Years) (1 - PCV) Never done HIV Screening Never done Albumin/Creatinine Ratio Never done Diabetic Foot Exam Never done DTaP,Tdap,and Td Vaccines (1 - Tdap) Never done Mammogram Never done Zoster Vaccines (1 of 2) Never done Influenza Vaccine (FLU shot) (1) Never done HbA1c 07/09/2023 Labs/urine asked if she can have vit d added to lab order mamm Patient was agreeable to labs being placed. Insurance is changing and she is not sure she will be able to get them. Care Gap Outreach Action Taken: Spoke to patient documented in this encounter Plan of Treatment Upcoming Encounters Date Type Department Care Team (Late st Contact Info) Description 05/16/2023 3:00 PM EST NeuroDiagnostic Study Neurophysiology [facility] [address] [place] [address] Chace Ackerman, 200 [facility] [place] [address] 05/31/2023 12:30 PM EST Telemedicine General Internal Medicine, [facility] [address] [place], [place] [id number] Warner Santiago MD [address] [place], [place] [id number] 06/06/2023 2:00 PM EST Telemedicine Psychiatry, [facility] [address] [place] [address] Nela Figueroa CRNP [address] [facility] [place] [address] 07/31/2023 1:20 PM EST Office Visit Neurology [facility] [address] [facility] [place] [address] Hina Oropeza PA-C [address] [facility] [place] [address] 09/04/2023 5:00 PM EDT Office Visit Family Practice [facility] [address] [facility] [address] Christine Bhardwaj DO [address] [facility] [place] [address] 10/23/2023 4:00 PM EDT Office Visit Hematology/Oncology [facility] [address] [facility] [place] [address] River Vizcaino MD [address] [facility] [place] [address] Scheduled Orders Name Type Priority Associated Diagnoses Orde r Schedule HEMOGLOBIN A1C Lab Routine Prediabetes Expected: 06/14/2023, Expires: 05/14/2024 ALBUMIN / CREATININE RATIO, URINE Lab Routine Screening for nephropathy Expected: 06/14/2023, Expires: 05/14/2024 Health Maintenance Due Date Last Done Comments [...] as of this encounter Visit Diagnoses Diagnosis Diabetes mellitus screening- Primary Screening for diabetes mellitus Screening for nephropathy Prediabetes Other abnormal glucose documented in this encounter Advance Directives Latest Code Status on File Code Status Date Activated Date Inactivated Comments Full Code 06/11/2018 10:31 PM 06/13/2018 4:48 PM This o rder reflects the patients wishes and were consensually agreed upon. Question Answer Comments Discussion of Advance Directives occurred with: Patient Care Teams Ambulatory Technologist Relationship Specialty Start Date End Date Christine Bhardwaj DO [address] [place] [address] PCP - General Family Medicine 10/03/22 documented as of this encounter
--- OUTSIDE RECORDS SUMMARY | 2023-10-13 18:33 | External Medical Summary | Summary of Care ---
Author Name Unknown Organization [facility] Address [address] [facility] [place] [address] Phone [phone] Care Team Providers Care Human Resources Hr Generalist Name Role Phone Christine Bhardwaj DO Primary Care Provider [phone] Reason for Visit * Reason Onset Date Comments Order Request 02/06/2023 Encounter Details Date Type Department Care Team (Late st Contact Info) Description 02/06/2023 Telephone Family Practice [facility] [address] [place] [address] Christine Bhardwaj DO [address] [place] [address] Order Request Allergies Active Allergy Reactions Criticality [...] as of this encounter (statuses as of 05/08/2023) Medications Medication Sig Dispensed Refills Start Date End Date Status TYLENOL EXTRA STRENGTH 500 MG PO TABS Take by mouth. 0 Active CENTRUM PO TABS Take by mouth. Centrum Silver 0 Active OneTouch Delica Lancets FineIndications: Prediabetes Test BS one time daily 100 Each 5 04/05/2020 Active OneTouch Delica Plus [id number] use 1 LANCET to TEST BLOOD SUGAR UP TO four times a day as directed 400 Each 1 10/04/2022 Active OneTouch Ultra 2 w/Device KitIndications:T ype 2 diabetes mellitus with hemoglobin A1c goal of less than 7.0% ([facility]) Use 4x/day as directed. E11.9. 1 Kit 0 10/26/2022 Active Lisinopril 2.5 MG Oral Tablet (Prinivil) Take 1-2 Tablets by mouth in the morning. 0 01/21/2023 Active Nystatin 807420 UNIT/GM External Cream Apply topically to affected area 2 times a day. To affacted area for two weeks. 30 g 2 02/04/2023 Active Vitamin D (Ergocalciferol) 1.25 MG (68367 UT) Oral Capsule (Drisdol) Take 1 Capsule by mouth once a week. 0 01/06/2023 03/05/20 23 Discontinued(Med ication List Clean Up) ALPRAZolam 0.25 MG Oral Tablet (xaNAX)Indicatio ns:Generalized anxiety disorder Take 1 Tablet by mouth 3 times a day as needed (severe anxiety). Do not start before January 25, 2023. 90 Tablet 0 01/25/2023 02/29/20 23 Discontinued(Ref ill) Mupirocin 2 % External Ointment (Bactroban)Indic ations:Celluliti s, unspecified cellulitis site Apply topically to affected area 3 times a day for 14 days. To affected area for up to 14 days. 22 g 1 01/28/2023 02/12/20 23 Doxycycline Hyclate 100 MG Oral CapsuleIndicatio ns:Cellulitis, unspecified cellulitis site Take 1 Capsule by mouth in the morning and 1 Capsule before bedtime. Do all this for 10 days. Until gone.. 20 Capsule 0 02/02/2023 02/13/20 [employer] Ultra In Vitro Strip (Glucose Blood)Indication s:Prediabetes TEST BLOOD SUGAR THREE TIMES A DAY 100 Strip 1 02/05/2023 05/01/20 23 Discontinued documented as of this encounter (statuses as of 05/08/2023) Active Problems Problem Noted Date Diagnosed Date [...] as of this encounter (statuses as of 05/08/2023) Resolved Problems Problem Noted Date Diagnosed Date Resolved Date Diabetes mellitus with background retinopathy 04/04/20 19 04/04/2019 Diabetes mellitus without complication 04/04/2019 04/04/2019 Disorder of arteries and arterioles 04/04/2019 08/05/2019 Essential and other specified forms of tremor 06/22/19 12 07/14/2018 documented as of this encounter (statuses as of 05/08/2023) Social History Tobacco Use Types Packs/Day Years [...] encounter Miscellaneous Notes * Telephone Encounter - Jaz Monteiro LPN - 02/08/2023 4:03 PM EDT Sent my g Scheduling please contact pt in regards to scheduling XR * Telephone Encounter - Kalani Ruiz CRNP - 02/08/2023 12:09 PM EDT An xray would be the first step -- orders placed If pain is severe and she's also having dysuria then she should go to ER for kidney stone evaluation PT will likely be helpful if this is MSK pain She can also follow up with ortho if xray abnormal or PT not helpful * Telephone Encounter - Fabi Granados LPN - 02/06/2023 9:25 AM EDT Provider to address: Pt is calling and reports that she has continued right hip pain as well as pain under her ribs to the right side of back. States that she has this pain everyday. Rates pain a 6-7/10 at this time and is an ache. Also gets a burning sensation in the muscle around her hip that radiates into her groin when standing or walking. Is asking if an US could be ordered to look at those general areas? Prefers not to do an xray. Please advise. Reason for Call: Order Request Contact: Telephone Call Contact Type: Care Coordination Total Time including non face to face (minutes): 10 documented in this encounter Plan of Treatment Upcoming Encounters Date Type Department Care Team (Late st Contact Info) Description 05/16/2023 3:00 PM EST NeuroDiagnostic Study Neurophysiology [facility] [address] [place] [address] Chace Ackerman DO [address] [facility] [place] [address] 05/31/2023 12:30 PM EST Telemedicine General Internal Medicine, [facility] [address] [place] [address] Warner Santiago MD [address] [place] [address] 06/06/2023 2:00 PM EST Telemedicine Psychiatry, [facility] [address] [place] [address] Nela Figueroa CRNP 200 [facility] [place] [address] 07/31/2023 1:20 PM EST Office Visit Neurology [facility] Sonya Geff [address] [place] [address] Hina Oropeza PA-C [address] [facility] [place] [address] 09/04/2023 5:00 PM EDT Office Visit Family Practice [facility] [address] [place] [address] Christine Bhardwaj DO [address] [place] [address] 10/23/2023 4:00 PM EDT Office Visit Hematology/Oncology [facility] Geff [address] [place] [address] River Vizcaino MD [address] [place] [address] Scheduled Orders Name Type Priority Associated Diagnoses Orde r Schedule XR HIP UNILAT 2-3 VIEWS INCLUDING AP PELVIS Medical Imaging Routine Hip pain, right Ordered: 02/08/2023 XR L SPINE AP AND LATERAL Medical Imaging Routine Hip pain, right Ordered: 02/08/2023 XR T SPINE AP AND LATERAL Medical Imaging Routine Chronic right-sided thoracic back pain Ordered: 02/08/2023 Health Maintenance Due Date Last Done Comments [...] as of this encounter Visit Diagnoses Diagnosis Chronic right-sided thoracic back pain- Primary Hip pain, right Pain in joint, pelvic region and thigh documented in this encounter Advance Directives Latest Code Status on File Code Status Date Activated Date Inactivated Comments Full Code 06/11/2018 10:31 PM 06/13/2018 4:48 PM This o rder reflects the patients wishes and were consensually agreed upon. Question Answer Comments Discussion of Advance Directives occurred with: Patient Care Teams Human Resources Hr Generalist Relationship Specialty Start Date End Date Christine Bhardwaj DO 132 [facility] [place] [address] PCP - General Family Medicine 10/03/22 documented as of this encounter
--- OUTSIDE RECORDS SUMMARY | 2023-10-13 18:33 | External Medical Summary | Summary of Care ---
Author Name Unknown Organization [facility] Address [address] [facility] [place] [address] Phone [phone] Care Team Providers Care Splicing Technician Name Role Phone Christine Bhardwaj DO Primary Care Provider [phone] Reason for Visit * Reason Comments Outpatient Testing Encounter Details Date Type Department Care Team (Late st Contact Info) Description 05/11/2023 1:50 PM EST Laboratory Laboratory, [facility] [address] [facility] [facility] [address] [facility] [address] [place] [address] Arthralgia, unspecified joint; Gluten intolerance Allergies Active [...] Each 5 04/05/2020 Active OneTouch Delica Plus [id number] use 1 LANCET to TEST BLOOD SUGAR UP TO four times a day as directed 400 Each 1 10/04/2022 Active OneTouch Ultra 2 w/Device KitIndications:Type 2 diabetes mellitus with hemoglobin A1c goal of less than 7.0% ([facility]) Use 4x/day as directed. E11.9. 1 Kit 0 10/26/2022 Active Lisinopril 2.5 MG Oral Tablet (Prinivil) Take 1-2 Tablets by mouth in the morning. 0 01/21/2023 Active Nystatin 294220 UNIT/GM External Cream Apply topically to affected [...] 05/16/2023 3:00 PM EST NeuroDiagnostic Study Neurophysiology [facility] [address] [place] [address] Chace Ackerman, DO [address] [facility] [place] [address] 05/31/2023 12:30 PM EST Telemedicine General Internal Medicine, [facility] [address] [place] [address] Warner Santiago MD [address] [place], [place] [id number] 06/06/2023 2:00 PM EST Telemedicine Psychiatry, [facility] [address] [place] [address] Nela Figueroa CRNP [address] [place] [address] 07/31/2023 1:20 PM EST Office Visit Neurology [facility] [place] [address] [place] [address] Hina Oropeza PA-C 200 [facility] [place] [address] 09/04/2023 5:00 PM EDT Office Visit Family Practice [facility] [address] [place] [address] Christine Bhardwaj, DO [address] [place] [address] 10/23/2023 4:00 PM EDT Office Visit Hematology/Oncology [facility] [address] [place] [address] River Vizcaino MD 200 [facility] [place] [address] Health Maintenance Due Date Last Done Comments [...] MD LAB BLOOD ORDERABLES Performing Organization Address City/[facility]/ZIP Co de Phone Number [facility] [address] [place] [address] * TISSUE TRANSGLUTAMINASE IGA ANTIBODY (05/11/2023 1:49 PM EST) Tissue Transglutaminase IgA Antibody Interpretation Negative Negative 05/13/2023 11:57 AM EST [facility] Tissue Transglutaminase IgA Antibody Value 0.7 <7 U/mL 05/13/2023 11:57 AM EST [facility] Blood Venous blood specimen / Unknown Venipuncture / Unknown 05/11/2023 1:49 PM EST 05/11/2023 1:51 PM EST Christine Bhardwaj DO LAB BLOOD ORDERABLE S Performing Organization Address City/[facility]/ZIP Co de Phone Number [facility] [address] [place], [place] [phone] documented in this encounter Visit Diagnoses Diagnosis [...] Advance Directives occurred with: Patient Care Teams Splicing Technician Relationship Specialty Start Date End Date Christine Bhardwaj DO [address] [place] [address] PCP - General Family Medicine 10/03/22 documented as of this encounter
--- OUTSIDE RECORDS SUMMARY | 2023-10-13 18:33 | External Medical Summary | Summary of Care ---
Author Name Unknown Organization [facility] Address [address] [place] [address] Phone [phone] Care Team Providers Care Chief Dispatcher Name Role Phone Christine Bhardwaj DO Primary Care Provider [phone] Reason for Visit * Reason Comments Follow Up Encounter Details Date Type Department Care Team ([facility] st Contact Info) Description 05/03/2023 8:40 AM EST Telemedicine General Internal Medicine, [facility] [address] [place] [address] Warner Santiago MD [address] [place], [place] [id number] Chronic fatigue*; Gluten intolerance Allergies Active Allergy Reactions Criticality [...] Each 5 04/05/2020 Active OneTouch Delica Plus [id number] use 1 LANCET to TEST BLOOD SUGAR UP TO four times a day as directed 400 Each 1 10/04/2022 Active OneTouch Ultra 2 w/Device KitIndications:Type 2 diabetes mellitus with hemoglobin A1c goal of less than 7.0% ([facility]) Use 4x/day as directed. E11.9. 1 Kit 0 10/26/2022 Active Lisinopril 2.5 MG Oral Tablet (Prinivil) Take 1-2 Tablets by mouth in the morning. 0 01/21/2023 Active Nystatin 530562 UNIT/GM External Cream Apply topically to affected [...] Progress Notes * Warner Santiago MD - 05/03/2023 9:15 AM EST Patient location: HOME. I was in a hospital or clinic location. After connecting through televideo,patient was verified with two unique identifiers. Patient (or authorized legal agency service representative) was then informed that this was [...] Up HPI: Since I saw her she did see hematology (two hematologists) and rheumatology, not felt to have a cryoglobulinemia by hematology. Rheumatology evaluated her for the mildly elevated rheumatoid factor and not felt to have a clear rheumatic disease. There was a possibility of a short prednisone course raised, although there was concern about effects of this on her eye pressures. She did see the [facility]yme-literate doctor, who did testing and told her she had multiple viruses, 3 types of Lyme, and syphilis. She is on a probiotic and Bulgarian knotweed in addition to antibiotics. She has similar symptoms to what she described last time. She has chronic fatigue and terrible generalized pain in her hips, back, knees, shoulder, and neck, and she had feels a bit less dizzy than she previously had. 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 Encephalopathy G93.40 Degeneration of lumbosacral intervertebral disc M51.37 Von Willebrand disease, type I ([facility]) D68.01 Chronic rhinitis J31.0 Imbalance R26.89 Peripheral neuropathy G62.9 JEANINE (generalized anxiety disorder) F41.1 Urinary bladder neurogenic dysfunction N31.9 Severe episode of recurrent major depressive disorder, without psychotic features ([facility]) F33.2 SVT (supraventricular tachycardia) I47.10 Body mass index (BMI) of 40.0 to 44.9 in adult ([facility]) Z68.41 Type 2 diabetes mellitus with hemoglobin A1c goal of less than 7.0% ([facility]) 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 General: appears well on video link Assessment: Chronic fatigue (Primary) Gluten intolerance Patient with chronic fatigue, dizziness, and whole body pain, in spite of significant work-up here and at other centers, now with positive tests for multiple infections at [place]-liter[facility] doctor, currently on antibiotics. I let her know I doubt the infectious disease diagnoses and would not recommend antibiotics. This could more likely be chronic fatigue syndrome and/or fibromyalgia. Alternative diagnoses are challenging to totally rule out just over televideo. Given concern for gluten intolerance will get Celiac serologies Plan will be for her to complete abx (per her preference) for a little longer -- will send lifestyle medicine folder. She may benefit from transitioning to whole plant foods, working on exercise, andgenerally targeting wellness, nutrition, and reduction in inflammation. - GLIADIN (DEAMIDATED) IGA AND IGG ANTIBODIES; Future; Expected date: 05/03/2023 Current Outpatient Medications Medication Sig Dispense Refill TYLENOL EXTRA STRENGTH 500 MG PO TABS Take by mouth. CENTRUM PO TABS Take by mouth. Centrum Silver (Patient not taking: Reported on 04/23/2023) [place] Delica Lancets Fine Test BS one time daily 100 Each 5 goDog FetchTouch Delica Plus [id number] use 1 LANCET to TEST BLOOD SUGAR UP TO four times a day as directed 400 Each 1 goDog FetchTouch Ultra 2 w/Device Kit Use 4x/day as directed. E11.9. 1 Kit 0 Lisinopril 2.5 MG Oral Tablet (Prinivil) Take 1-2 Tablets by mouth in the morning. Nystatin 080623 UNIT/GM External Cream Apply topically to affected [...] as needed (severe anxiety). 90 Tablet 0 OneTouch Ultra In Vitro Strip (Glucose Blood) TEST BLOOD SUGAR THREE TIMES A DAY 100 Strip 5 Warner Santiago M.D. Associate, General Internal Medicine documented in this encounter Plan of Treatment Upcoming Encounters Date Type Department Care Team (Late st Contact Info) Description 05/29/2023 1:40 PM EST Telemedicine [facility] [address] [place] [address] Christine Bhardwaj, DO [address] [place] [address] 05/31/2023 12:30 PM EST Telemedicine General Internal Medicine, [facility] [address] [place] [address] Warner Santiago MD [address] [place], [place] [id number] 06/06/2023 2:00 PM EST Telemedicine Psychiatry, [facility] 200 [facility] [place] [address] Nela Figueroa CRNP 200 [facility] [place] [address] 07/31/2023 1:20 PM EST Office Visit Neurology [facility] [place] 200 [facility] [place] [address] Hina Oropeza PA-C 200 [facility] [place] [address] 09/04/2023 5:00 PM EDT Office Visit Family [facility] [address] [place] [address] Christine Bhardwaj, DO [address] [place] [address] 10/23/2023 4:00 PM EDT Office Visit Hematology/Oncology [facility] [place] [address] [place] [address] River Vizcaino MD 200 [facility] [place] [address] Health Maintenance Due Date Last Done Comments [...] filedocumented as of this encounter Results * GLIADIN (DEAMIDATED) IGA [...] EST Warner Santiago MD LAB BLOOD ORDERABLES [facility] [address] [facility] [place] [address] documented in this encounter Visit Diagnoses Diagnosis Chronic fatigue- Primary Other malaise and fatigue Gluten intolerance Celiac disease documented in this encounter Advance Directives Latest Code Status on File Code Status Date Activated Date Inactivated Comments Full Code 06/11/2018 10:31 PM 06/13/2018 4:48 PM This o rder reflects the patients wishes and were consensually agreed upon. Question Answer Comments Discussion of Advance Directives occurred with: Patient Care Teams Chief Dispatcher Relationship Specialty Start Date End Date Christine Bhardwaj DO [address] [place] [address] PCP - General Family Medicine 10/03/22 documented as of this encounter
--- OUTSIDE RECORDS SUMMARY | 2023-10-13 18:33 | External Medical Summary | Summary of Care ---
Author Name Unknown Organization [facility] Address [address] [facility] [place] [address] Phone [phone] Care Team Providers Care Child Welfare Director Name Role Phone Christine Bhardwaj DO Primary Care Provider [phone] Reason for Visit * Reason Comments Outpatient Testing Encounter Details Date Type Department Care Team (Late st Contact Info) Description 05/11/2023 1:50 PM EST Laboratory Laboratory, [facility] [address] [facility] [place] [address] [facility] 132 [place] [address] Arthralgia, unspecified joint; Gluten intolerance Allergies Active [...] as of this encounter (statuses as of 05/11/2023) Medications Medication Sig Dispensed Refills Start Date End Date Status TYLENOL EXTRA STRENGTH 500 MG PO TABS Take by mouth. 0 Active CENTRUM PO TABS Take by mouth. Centrum Silver 0 Active OneTouch Delica Lancets FineIndications:Pre diabetes Test BS one time daily 100 Each 5 04/05/2020 Active OneTouch Delica Plus [id number] use 1 LANCET to TEST BLOOD SUGAR [...] in the morning. 0 01/21/2023 Active Nystatin [id number] UNIT/GM External Cream Apply topically to affected [...] as of this encounter (statuses as of 05/11/2023) Active Problems Problem Noted Date Diagnosed Date [...] as of this encounter (statuses as of 05/11/2023) Resolved Problems Problem Noted Date Diagnosed Date Resolved Date Diabetes mellitus with background retinopathy 04/04/20 19 04/04/2019 Diabetes mellitus without complication 04/04/2019 04/04/2019 Disorder of arteries and arterioles 04/04/2019 08/05/2019 Essential and other specified forms of tremor 06/22/19 12 07/14/2018 documented as of this encounter (statuses as of 05/11/2023) Social History Tobacco Use Types Packs/Day Years [...] 05/16/2023 3:00 PM EST NeuroDiagnostic Study [facility]physiology [facility] [place] [address] Chace Ackerman, DO 200 [facility] [place] [address] 05/31/2023 12:30 PM EST Telemedicine General Internal Medicine, [facility] [address] [place] [address] Warner Santiago MD [address] [place] [address] 06/06/2023 2:00 PM EST Telemedicine Psychiatry, [facility] [address] [place] [address] Nela Figueroa CRNP [address] [place] [address] 07/31/2023 1:20 PM EST Office Visit Neurology [facility] [address] [place] [address] Hina Oropeza PA-C 200 [facility] [place] [address] 09/04/2023 5:00 PM EDT Office Visit Family Practice [facility] [address] [place] [address] Christine Bhardwaj, DO [address] [place] [address] 10/23/2023 4:00 PM EDT Office Visit Hematology/Oncology [facility] [address] [place] [address] River Vizcaino MD 200 [facility] [place] [address] Pending Results Name Type Priority Associated Diagnoses Date /Time TISSUE TRANSGLUTAMINASE IGA ANTIBODY Lab Routine Arthralgia, unspecified joint 05/11/2023 1:49 PM EST GLIADIN (DEAMIDATED) IGA AND IGG ANTIBODIES Lab Routine Gluten intolerance 05/11/2023 1:49 PM EST Health Maintenance Due Date Last Done Comments [...] 01/06/2023, Additional history exists Cologuard 01/19/2026 01/19/2023, 08/08/2022, 01/10/2023, Additional history exists Colorectal Cancer Screening [...] as of this encounter Visit Diagnoses Diagnosis Arthralgia, unspecified joint Gluten intolerance Celiac disease documented in this encounter Advance Directives Latest Code Status on File Code Status Date Activated Date Inactivated Comments Full Code 06/11/2018 10:31 PM 06/13/2018 4:48 PM This o rder reflects the patients wishes and were consensually agreed upon. Question Answer Comments Discussion of Advance Directives occurred with: Patient Care Teams Child Welfare Director Relationship Specialty Start Date End Date Christine Bhardwaj DO [address] [place] [address] PCP - General Family Medicine 10/03/22 documented as of this encounter
--- OUTSIDE RECORDS SUMMARY | 2023-10-13 18:34 | External Medical Summary | Summary of Care ---
Author Name Unknown Organization [facility] Address [address] [facility] [place] [address] Phone [phone] Care Team Providers Care Slide Fastener Chain Assembler Name Role Phone Christine Bhardwaj DO Primary Care Provider [phone] Reason for Visit * Reason Onset Date Comments Advice 04/10/2023 Encounter Details Date Type Department Care Team (Late st Contact Info) Description 04/10/2023 Telephone Rheumatology [place] [id number] [place] [address] Billy Fitzgerald MD [facility] [email or web address] [place] [address] Advice Allergies Active Allergy Reactions Criticality Noted Date Comments Aspirin Bleeding High 09/04/2013 "I don't take because I'm a bleeder." Astelin 04/24/2011 Bactrim 04/24/2011 Venlafaxine Hydrochloride Seizure High 09/04/2013 "I can't have any Anti-depressants" Fexofenadine Hcl 04/24/2011 Fluoxetine Unknown 05/08/2018 Gadolinium Unknown 05/08/2018 Iodinated Contrast Media 04/24/2011 Levofloxacin 04/24/2011 Nitrofurantoin Monohydrate Macrocrystals 04/24/2011 Wheezing. Stomach Issues. Midazolam Hcl 04/24/2011 Nebivolol Unknown 05/08/2018 Nizatidine 04/24/2011 Budesonide 04/24/2011 Sulfa Antibiotics Unknown 05/08/2018 Sulfamethoxazole-Trimethoprim Unknown 2017 documented as of this encounter (statuses as of 04/18/2023) Medications Medication Sig Dispensed Refills Start Date End Date Status TYLENOL EXTRA STRENGTH 500 MG PO TABS Take by mouth. 0 Active CENTRUM PO TABS Take by mouth. Centrum Silver 0 Active OneTouch Delica Lancets FineIndications:Pre diabetes Test BS one time daily 100 Each 5 04/05/2020 Active OneTouch Delica Plus Ljpofp90M use 1 LANCET to TEST BLOOD SUGAR UP TO four times a day as directed 400 Each 1 10/04/2022 Active VideostripTouch Ultra 2 w/Device KitIndications:Type 2 diabetes mellitus with hemoglobin A1c goal of less than 7.0% ([facility]) Use 4x/day as directed. E11.9. 1 Kit 0 10/26/2022 Active Lisinopril 2.5 MG Oral Tablet (Prinivil) Take 1-2 Tablets by mouth in the morning. 0 01/21/2023 Active VideostripTouch Ultra In Vitro Strip (Glucose Blood)Indications:P rediabetes TEST BLOOD SUGAR THREE TIMES A DAY 100 Strip 1 02/05/2023 Active Nystatin 399350 UNIT/GM External Cream Apply topically to affected area 2 times a day. To affacted area for two weeks. 30 g 2 02/04/2023 Active ALPRAZolam 0.25 MG Oral Tablet (xaNAX)Indications: Generalized anxiety disorder Take 1 Tablet by mouth 3 times a day as needed (severe anxiety). 90 Tablet 0 03/14/2023 Active Estradiol 0.1 MG/GM Vaginal Cream (Estrace)Indication s:Vaginal atrophy,Atrophy of vulva Administer 2 g into the vagina in the morning. as directed.. 42.5 g 3 03/27/2023 Active documented as of this encounter (statuses as of 04/18/2023) Active Problems Problem Noted Date Diagnosed Date [...] as of this encounter (statuses as of 04/18/2023) Resolved Problems Problem Noted Date Diagnosed Date Resolved Date Diabetes mellitus with background retinopathy 04/04/20 19 04/04/2019 Diabetes mellitus without complication 04/04/2019 04/04/2019 Disorder of arteries and arterioles 04/04/2019 08/05/2019 Essential and other specified forms of tremor 06/22/19 12 07/14/2018 documented as of this encounter (statuses as of 04/18/2023) Social History Tobacco Use Types Packs/Day Years [...] encounter Miscellaneous Notes * Telephone Encounter - Billy Fitzgerald MD - 04/18/2023 3:00 PM EST Selam - please add Apr 29 at 8am * Addendum Note - Billy Fitzgerald MD - 04/11/2023 4:37 PM EDTAddended by: BILLY FITZGERALD on: 04/11/2023 04:37 PM Modules accepted: Orders * Telephone Encounter - Billy Fitzgerald MD - 04/10/2023 4:39 PM EDT Email sent * Telephone Encounter - Alejandro Jefferson OSA - 04/10/2023 11:16 AM EDT Skein Washer - Patient Related Communication Reason for Call: Results of Labs/Imaging and no communication in chart (Physician): Pt is requesting for Dr. Fitzgerald to review labs done. Asked for Dr to review Cryoglobulin. Is having dizziness, numbness and tingling fingers,hand, and feet. Gets sick in the car. Hands hurt, has tremors. Cannot sleep. Had lyme's test done was positive 2 times. Hurts when she is touched. Rash on upper leg. Symptoms have been getting worse. Hematology recommended to follow up with Rheumatology. Last seen 03-01-2022. Declined to schedule next available and wait list due to wanting appointment as soon as possible. Please review and advise RANDY Younger documented in this encounter Plan of Treatment Upcoming Encounters Date Type Department Care Team (Late st Contact Info) Description 04/23/2023 1:00 PM EST Office Visit Cardiology, [facility] [address] [place] [address] Willard Cameron DO [address] [place] [address] 05/03/2023 8:40 AM EST Telemedicine General Internal Medicine, [facility] [address] [place] [address] Warner Santiago MD [address] [place] [address] 05/16/2023 3:00 PM EST NeuroDiagnostic Study Neurophysiology [facility] 132 [facility] [place] [address] Chace Ackerman, DO 200 [facility] [place] [address] 06/06/2023 2:00 PM EST Telemedicine Psychiatry, [facility] 200 [facility] [place] [address] Nela Figueroa CRNP 200 [facility] [place] [address] 07/31/2023 1:20 PM EST Office Visit Neurology [facility] 200 [facility] [place] [address] Hina Oropeza PA-C 200 [facility] [place] [address] 09/04/2023 5:00 PM EDT Office Visit Family Practice [facility] 132 [facility] [place] [address] Christine Bhardwaj, DO 132 [facility] [place] [address] 10/23/2023 4:00 PM EDT Office Visit Hematology/Oncology [facility] 200 [facility] [place] [address] River Vizcaino MD 200 [facility] [place] [address] Scheduled Orders Name Type Priority Associated Diagnoses Orde r Schedule RHEUMATOID FACTOR Lab Routine Serologic abnormality Expected: 04/11/2023, Expires: 04/11/2024 CYCLIC CITRULLINATED PEPTIDE IGG ANTIBODY Lab Routine Serologic abnormality Expected: 04/11/2023, Expires: 04/11/2024 Health Maintenance Due Date Last Done Comments [...] Primary Other and unspecified nonspecific immunological findings documented in this encounter Advance Directives Latest Code Status on File Code Status Date Activated Date Inactivated Comments Full Code 06/11/2018 10:31 PM 06/13/2018 4:48 PM This o rder reflects the patients wishes and were consensually agreed upon. Question Answer Comments Discussion of Advance Directives occurred with: Patient Care Teams Slide Fastener Chain Assembler Relationship Specialty Start Date End Date Christine Bhardwaj DO [address] [place] [address] PCP - General Family Medicine 10/03/22 documented as of this encounter
--- OUTSIDE RECORDS SUMMARY | 2023-10-13 18:34 | External Medical Summary | Summary of Care ---
Author Name Unknown Organization [facility] Address [address] [facility] [place] [address] Phone [phone] Care Team Providers Care International Operations Manager Name Role Phone Christine Bhardwaj DO Primary Care Provider [phone] Reason for Visit * Reason Onset Date Comments Order Request 04/22/2023 Encounter Details Date Type Department Care Team (Late st Contact Info) Description 04/22/[address] [facility] [address] [place] [address] Christine Bhardwaj DO [address] [place] [address] Order Request Allergies Active Allergy Reactions Criticality [...] as of this encounter (statuses as of 04/22/2023) Medications Medication Sig Dispensed Refills Start Date End Date Status TYLENOL EXTRA STRENGTH 500 MG PO TABS Take by mouth. 0 Active CENTRUM PO TABS Take by mouth. Centrum Silver 0 Active OneTouch Delica Lancets FineIndications:Pred iabetes Test BS one time daily 100 Each 5 04/05/2020 Active OneTouch Delica Plus [id number] use 1 LANCET to TEST BLOOD SUGAR [...] DAY 100 Strip 1 02/05/2023 Active Nystatin 848914 UNIT/GM External Cream Apply topically to affected area 2 times a day. To affacted area for two weeks. 30 g 2 02/04/2023 Active ALPRAZolam 0.25 MG Oral Tablet (xaNAX)Indications:G eneralized anxiety disorder Take 1 Tablet by mouth 3 times a day as needed (severe anxiety). 90 Tablet 0 03/14/2023 Active Estradiol 0.1 MG/GM Vaginal Cream (Estrace)Indications :Vaginal atrophy,Atrophy of vulva Administer 2 g into the vagina in the morning. as directed.. 42.5 g 3 03/27/2023 Active Amoxicillin-Pot Clavulanate 500-125 MG Oral Tablet (Augmentin) Take 1 Tablet by mouth in the morning and 1 Tablet at noon and 1 Tablet before bedtime. 0 Active documented as of this encounter (statuses as of 04/22/2023) Active Problems Problem Noted Date Diagnosed Date [...] as of this encounter (statuses as of 04/22/2023) Resolved Problems Problem Noted Date Diagnosed Date Resolved Date Diabetes mellitus with background retinopathy 04/04/20 19 04/04/2019 Diabetes mellitus without complication 04/04/2019 04/04/2019 Disorder of arteries and arterioles 04/04/2019 08/05/2019 Essential and other specified forms of tremor 06/22/19 12 07/14/2018 documented as of this encounter (statuses as of 04/22/2023) Social History Tobacco Use Types Packs/Day Years [...] encounter Miscellaneous Notes * Telephone Encounter - Heidy Tom LPN - 04/22/2023 4:20 PM EST Pt called and aware lab ordered but she will need to eat gluten for a week before doing the trest or it will show a false neg result. Pt wants to continue on gluten free diet for now and see how she feels, if no change then she will resume regular diet with gluten. Then she will do the test a week after eating gluten. * Telephone Encounter - Christine Bhardwaj DO - 04/22/2023 3:21 PM EST Please call patient Blood test ordered for celiac However, she needs to be eating gluten for at least 1 week before doing the test Test done on a gluten-free diet can result in a false negative * Telephone Encounter - Alva Casas LPN - 04/22/2023 12:51 PM EST Pt calling to request labs to check of celiac disease. She was told to eat gluten free after doing saliva test showing her adrenals are not working properly. Test done by Katarina Mejia dr in [place]. Katarina indicated that testing for celiac's could be done but not for a while. Pt doesn't want to wait, she would like to know if she has celiacs rianna. She has been dealing with pain and feeling sick for many months. Pt will have saliva test results to Dr Bhardwaj for review. Please advise. documented in this encounter Plan of Treatment Upcoming Encounters Date Type Department Care Team (Late st Contact Info) Description 04/23/2023 1:00 PM EST Office Visit Cardiology, [facility] [address] [place] [address] Willard Cameron DO [address] [address] 04/30/2023 1:20 PM EST Office Visit Rheumatology [place] [id number] [place] [address] Eusebio Orta MD [facility] [place] [address] 05/03/2023 8:40 AM EST Telemedicine General Internal Medicine, [facility] [address] [place] [address] Warner Santiago MD [address] [place] [address] 05/16/2023 3:00 PM EST NeuroDiagnostic Study Neurophysiology [facility] 132 [facility] [place] [address] Chace Ackerman, DO 200 [facility] [place] [address] 06/06/2023 2:00 PM EST Telemedicine Psychiatry, [facility] [address] [place] [address] Nela Figueroa CRNP 200 [facility] [place] [address] 07/31/2023 1:20 PM EST Office Visit Neurology [facility] [place] [address] [place] [address] Hina Oropeza PA-C 200 [facility] [place] [address] 09/04/2023 5:00 PM EDT Office Visit Family Practice [facility] 132 [facility] [place] [address] Christine Bhardwaj, DO 132 [facility] [place] [address] 10/23/2023 4:00 PM EDT Office Visit Hematology/Oncology [facility] [place] [address] [place] [address] River Vizcaino MD [address] [place] [address] Scheduled Orders Name Type Priority Associated Diagnoses Orde r Schedule TISSUE TRANSGLUTAMINASE IGA ANTIBODY Lab Routine Arthralgia, unspecified joint Expected: 04/22/2023 (Approximate), Expires: 04/21/2024 Health Maintenance Due Date Last Done Comments [...] this encounter Visit Diagnoses Diagnosis Arthralgia, unspecified joint- Primary documented in this encounter Advance Directives Latest Code Status on File Code Status Date Activated Date Inactivated Comments Full Code 06/11/2018 10:31 PM 06/13/2018 4:48 PM This o rder reflects the patients wishes and were consensually agreed upon. Question Answer Comments Discussion of Advance Directives occurred with: Patient Care Teams International Operations Manager Relationship Specialty Start Date End Date Christine Bhardwaj DO [address] [place] [address] PCP - General Family Medicine 10/03/22 documented as of this encounter
--- OUTSIDE RECORDS SUMMARY | 2023-10-13 18:34 | External Medical Summary | Summary of Care ---
Author Name Unknown Organization [facility] Address [address] [facility] [place] [address] Phone [phone] Care Team Providers Care Groundman Name Role Phone Christine Bhardwaj DO Primary Care Provider [phone] Reason for Visit * Reason Onset Date Comments Advice 04/08/2023 Encounter Details Date Type Department Care Team (Late st Contact Info) Description 04/08/2023 Telephone Family Practice [facility] [address] [place] [address] Christine Bhardwaj DO [address] [place] [address] Advice Allergies Active Allergy Reactions Criticality Noted [...] as of this encounter (statuses as of 04/17/2023) Medications Medication Sig Dispensed Refills Start Date End Date Status TYLENOL EXTRA STRENGTH 500 MG PO TABS Take by mouth. 0 Active CENTRUM PO TABS Take by mouth. Centrum Silver 0 Active OneTouch Delica Lancets FineIndications:Pre diabetes Test BS one time daily 100 Each 5 04/05/2020 Active OneTouch Delica Plus [id number] use 1 LANCET to TEST BLOOD SUGAR [...] DAY 100 Strip 1 02/05/2023 Active Nystatin 630574 UNIT/GM External Cream Apply topically to affected [...] as of this encounter (statuses as of 04/17/2023) Active Problems Problem Noted Date Diagnosed Date [...] as of this encounter (statuses as of 04/17/2023) Resolved Problems Problem Noted Date Diagnosed Date Resolved Date Diabetes mellitus with background retinopathy 04/04/20 19 04/04/2019 Diabetes mellitus without complication 04/04/2019 04/04/2019 Disorder of arteries and arterioles 04/04/2019 08/05/2019 Essential and other specified forms of tremor 06/22/19 12 07/14/2018 documented as of this encounter (statuses as of 04/17/2023) Social History Tobacco Use Types Packs/Day Years [...] Telephone Encounter - Mercedes Bang RN - 04/17/2023 5:27 PM EST Called and left message on identified voice mail. * Telephone Encounter - Christine Bhardwaj DO - 04/17/2023 4:33 AM EST Noted, in that case defer to the physician who ordered labs Keep specialist f/u as as scheduled including Integrative Medicine * Telephone Encounter - Jaz Monteiro LPN - 04/12/2023 12:26 PM EDT Called pt-- She states this "lyme literate doctor" ODELL Castillo. PT gave her our information to fax records, she is doing so will take a few weeks. She states the amoxicillin Rx from Katarina states 1 tab TID, then as long as she can tolerate (dose not get then increase) to 2 tabs TID. Did not prescribe for a full year pt states she "just gave me a year supply, to have regarding the labs". Sx include numbness tingling, cold sensitivity, rash, dizzy, body aches- 1 year. Seen [facility] Hem/Onc in [place] Dr. Robertson-- did labs there. Concerns with vasc & cancer concerns. Requested in chart from 04/09/2023. * Telephone Encounter - Christine Bhardwaj DO - 04/11/2023 12:59 AM EDT Please call - generally worry about taking abx for that long, potential resistance/side effects. That said, I don't have results from this new physician * Telephone Encounter - Roxanne Rios OSA - 04/09/2023 12:43 PM EDT Please advise pt needs to have special labs has to protein profile * Telephone Encounter - Renata Harvey LPN - 04/08/2023 10:06 AM EDT Patient stated that she went to the [facility] Katarina Ames, she wants her to take 2 Amoxicillin 500 mg three times daily. Total of 6 pills daily. Pharmacist stated that provider called it in for a year. She cannot Take Doxy due to allergy. Mirta wanted to know if this is safe to do? She stated that she paid $1000 to visit her and she won't give her the results. She stated that something is not right with her body. She stated that she does not have that kind of money to be able to go back plus the [address] ride makes her so sick. She stated that her son is getting in October and she cannot be sick, she has been dealing withthis for 9 months and she is just getting worse. She cannot use either of her shoulders now and loses the sensation in her fingers, she wakes up in the middle of the night in pain She stated that shehad 3 spells and this just makes her dizziness worse. She does daily exercise with bands. She stated that she needs to figure out if this is indeed Lyme. She is also doing a salvia adrenal test that was ordered by Dr. Katarina Ames. She sees Exchange Administrator tomorrow. documented in this encounter Plan of Treatment Upcoming Encounters Date Type Department Care Team (Late st Contact Info) Description 04/23/2023 1:00 PM EST Office Visit Cardiology, [facility] 132 [facility] [place] [address] Willard Cameron, 132 [place] [address] 05/03/2023 8:40 AM EST Telemedicine General Internal Medicine, [facility] [address] [place] [address] Warner Santiago MD [address] [place] [facility] [place] [address] 05/16/2023 3:00 PM EST NeuroDiagnostic Study Neurophysiology [facility] 132 [facility] [place] [address] Chace Ackerman, DO 200 [facility] [place] [address] 06/06/2023 2:00 PM EST Telemedicine Psychiatry, [facility] [address] [place], [place] [address] Nela Figueroa CRNP 200 [facility] [place] [address] 07/31/2023 1:20 PM EST Office Visit Neurology [facility] [address] [place] [address] Hina Oropeza PA-C 200 [facility] [place] [address] 09/04/2023 5:00 PM EDT Office Visit Family Practice [facility] [address] [facility] [address] Christine Bhardwaj, DO [address] [facility] [place] [address] 10/23/2023 4:00 PM EDT Office Visit Hematology/Oncology [facility] 200 [facility] [place] [address] River Vizcaino MD 200 [facility] [place] [address] Health Maintenance Due Date Last Done Comments [...] Advance Directives occurred with: Patient Care Teams Groundman Relationship Specialty Start Date End Date Christine Bhardwaj DO [address] [place] [address] PCP - General Family Medicine 10/03/22 documented as of this encounter
--- OUTSIDE RECORDS SUMMARY | 2023-10-13 18:34 | External Medical Summary | Summary of Care ---
Author Name Unknown Organization [facility] Address [address] [facility] [place] [address] Phone [phone] Care Team Providers Care Food And Beverage Assistant Manager Name Role Phone Christine Bhardwaj DO Primary Care Provider [phone] Reason for Visit * Reason Onset Date Comments Advice 04/26/2023 Encounter Details Date Type Department Care Team (Late st Contact Info) Description 04/26/2023 Telephone Family Practice [facility] [address] [place] [address] Christine Bhardwaj DO [address] [place] [address] Advice Allergies Active Allergy Reactions Criticality Noted [...] as of this encounter (statuses as of 04/29/2023) Medications Medication Sig Dispensed Refills Start Date End Date Status TYLENOL EXTRA STRENGTH 500 MG PO TABS Take by mouth. 0 Active CENTRUM PO TABS Take by mouth. Centrum Silver 0 Active OneTouch Delica Lancets FineIndications:Pre diabetes Test BS one time daily 100 Each 5 04/05/2020 Active OneTouch Delica Plus [id number] use 1 LANCET to TEST BLOOD SUGAR [...] DAY 100 Strip 1 02/05/2023 Active Nystatin 629024 UNIT/GM External Cream Apply topically to affected [...] as of this encounter (statuses as of 04/29/2023) Active Problems Problem Noted Date Diagnosed Date [...] as of this encounter (statuses as of 04/29/2023) Resolved Problems Problem Noted Date Diagnosed Date Resolved Date Diabetes mellitus with background retinopathy 04/04/20 19 04/04/2019 Diabetes mellitus without complication 04/04/2019 04/04/2019 Disorder of arteries and arterioles 04/04/2019 08/05/2019 Essential and other specified forms of tremor 06/22/19 12 07/14/2018 documented as of this encounter (statuses as of 04/29/2023) Social History Tobacco Use Types Packs/Day Years [...] Notes * Telephone Encounter - Carrie Honeycutt Thelma - 04/29/2023 9:02 AM EST I talked [...] visible blood. It was a mixture of liliana color and black. In the evening it [...] Team (Late st Contact Info) Description 04/30/2023 1:20 PM EST Office Visit Rheumatology [address] [place] [address] Eusebio Orta MD [address] [facility] [place], [place] [address] 05/03/2023 8:40 AM EST Telemedicine General Internal Medicine, [facility] [address] [place] [address] Warner Santiago MD [address] [place] [address] 05/16/2023 3:00 PM EST NeuroDiagnostic Study Neurophysiology [facility] 132 [facility] [place] [address] Chace Ackerman, 200 [facility] [place] [address] 06/06/2023 2:00 PM EST Telemedicine Psychiatry, [facility] 200 [facility] [place] [address] Nela Figueroa CRNP 200 [facility] [place] [address] 07/31/2023 1:20 PM EST Office Visit Neurology [facility] [address] [place] [address] Hina Oropeza PA-C 200 [facility] [place] [address] 09/04/2023 5:00 PM EDT Office Visit Family Practice [facility] 132 [facility] [place] [address] Christine Bhardwaj, DO [address] [place] [address] 10/23/2023 4:00 PM EDT Office Visit Hematology/Oncology [facility] [address] [place] [address] River Vizcaino MD [address] [place] [address] Health Maintenance Due Date Last Done Comments [...] Advance Directives occurred with: Patient Care Teams Food And Beverage Assistant Manager Relationship Specialty Start Date End Date Christine Bhardwaj DO [address] [place] [address] PCP - General Family Medicine 10/03/22 documented as of this encounter
--- OUTSIDE RECORDS SUMMARY | 2023-10-13 18:34 | External Medical Summary | Summary of Care ---
Author Name Unknown Organization [facility] Address [address] [facility] [place] [address] Phone [phone] Care Team Providers Care Flamer Sealer Name Role Phone Christine Bhardwaj DO Primary Care Provider [phone] Encounter Details Date Type Department Care Team (Late st Contact Info) Description 04/04/2023 Telephone Family Practice [facility] [address] [place] [address] Christine Bhardwaj DO [address] [place] [address] Allergies Active Allergy Reactions Criticality Noted Date [...] Each 5 04/05/2020 Active OneTouch Delica Plus [id number] use 1 LANCET to TEST BLOOD SUGAR [...] DAY 100 Strip 1 02/05/2023 Active Nystatin 959796 UNIT/GM External Cream Apply topically to affected [...] encounter Miscellaneous Notes * Telephone Encounter - Cheryl Cook LPN - 04/18/2023 7:58 AM EST All 2021 labs that we had were faxed to this specialist today. * Telephone Encounter - Cheryl Cook LPN - 04/05/2023 1:06 PM EDT This is too late now, but what labs specifically is she asking to have faxed, she has had LOTS of blood work in 2021. Need to narrow this now better. MYG message to pt. * Telephone Encounter - Renata Harvey LPN - 04/04/2023 10:14 AM EDT Patient calling in and asking if all her lab work from the last year can be Faxed to a provider in [place] that she is see tomorrow 04/05/2023. Dr. Katarina Ames documented in this encounter Plan of Treatment Upcoming Encounters Date Type Department Care Team (Late st Contact Info) Description 04/23/2023 1:00 PM EST Office Visit Cardiology, [facility] 132 [facility] [place] [address] Willard Cameron, 132 [facility] [place] [address] 05/03/2023 8:40 AM EST Telemedicine General Internal Medicine, [facility] [address] [place] [address] Warner Santiago MD [address] [place] [address] 05/16/2023 3:00 PM EST NeuroDiagnostic Study Neurophysiology [facility] 132 [facility] [place] [address] Chace Ackerman DO 200 [facility] [place] [address] 06/06/2023 2:00 PM EST Telemedicine Psychiatry, [facility] 200 [facility] [place] [address] Nela Figueroa CRNP [address] [place] [address] 07/31/2023 1:20 PM EST Office Visit Neurology [facility] 200 [facility] [place] [address] Hina Oropeza PA-C 200 [facility] [place] [address] 09/04/2023 5:00 PM EDT Office Visit [facility] [address] [place] [address] Christine Bhardwaj DO [address] [place] [address] 10/23/2023 4:00 PM EDT Office Visit Hematology/Oncology [facility] [address] [place] [address] River Vizcaino MD 200 [facility] [place] [address] Health Maintenance Due Date Last Done Comments [...] Advance Directives occurred with: Patient Care Teams Flamer Sealer Relationship Specialty Start Date End Date Christine Bhardwaj DO [address] [place] [address] PCP - General Family Medicine 10/03/22 documented as of this encounter
--- OUTSIDE RECORDS SUMMARY | 2023-10-13 18:34 | External Medical Summary | Summary of Care ---
Author Name Unknown Organization [facility] Address [address] [facility] [place] [address] Phone [phone] Care Team Providers Care Protective Services Case Worker Name Role Phone Christine Bhardwaj DO Primary Care Provider [phone] Reason for Visit * Reason Onset Date Comments Advice 04/10/2023 Encounter Details Date Type Department Care Team (Late st Contact Info) Description 04/10/2023 Telephone Rheumatology [place] [address] [place] [address] Billy Fitzgerald MD [facility] [employer] [place] [address] Advice Allergies Active Allergy Reactions Criticality Noted [...] Each 5 04/05/2020 Active OneTouch Delica Plus [id number] use 1 LANCET to TEST BLOOD SUGAR UP TO four times a day as directed 400 Each 1 10/04/2022 Active RFIDeasTouch Ultra 2 w/Device KitIndications:Type 2 diabetes mellitus with hemoglobin A1c goal of less than 7.0% ([facility]) Use 4x/day as directed. E11.9. 1 Kit 0 10/26/2022 Active Lisinopril 2.5 MG Oral Tablet (Prinivil) Take 1-2 Tablets by mouth in the morning. 0 01/21/2023 Active RFIDeasTouch Ultra In Vitro Strip (Glucose Blood)Indications:P rediabetes TEST BLOOD SUGAR THREE TIMES A DAY 100 Strip 1 02/05/2023 Active Nystatin 858044 UNIT/GM External Cream Apply topically to affected [...] encounter Miscellaneous Notes * Telephone Encounter - Selam Valdez OSA - 04/18/2023 3:06 PM EST Spoke to pt and she is unable to do the 04/29 appt. Scheduled for 04/30 * Telephone Encounter - Billy Fitzgerald MD - 04/18/2023 3:00 PM EST Selam Agosto please add Apr 29 at 8am * Addendum Note - Billy Fitzgerald MD - 04/11/2023 4:37 PM EDTAddended by: BILLY FITZGERALD on: 04/11/2023 04:37 PM Modules accepted: Orders * Telephone Encounter - Billy Fitzgerald MD - 04/10/2023 4:39 PM EDT Email sent * Telephone Encounter - Alejandro [place] OSA - 04/10/2023 11:16 AM EDT [place] - Patient Related Communication Reason for Call: [...] soon as possible. Please review and advise RNADY Younger documented in this encounter Plan of Treatment Upcoming Encounters Date Type Department Care Team (Late st Contact Info) Description 04/23/2023 1:00 PM EST Office Visit Cardiology, [facility] [address] [place] [address] Willard Cameron, [address] [place] [address] 04/30/2023 1:20 PM EST Office Visit Rheumatology [facility] 25[address] [facility] [place], [place] [address] Billy Fitzgerald MD 2520 [facility] [place] [address] 05/03/2023 8:40 AM EST Telemedicine General Internal Medicine, [facility] [address] [place] [address] Warner Santiago MD [address] [place] [address] 05/16/2023 3:00 PM EST NeuroDiagnostic Study Neurophysiology [facility] 132 [facility] [place] [address] Chace Ackerman, [address] [place] [address] [address] 06/06/2023 2:00 PM EST Telemedicine Psychiatry, [facility] [address] [place] [address] Nela Figueroa CRNP [address] [place] [address] 07/31/2023 1:20 PM EST Office Visit Neurology [facility] [place] [address] [place] [address] Hina Oropeza PA-C [address] [place] [address] 09/04/2023 5:00 PM EDT Office Visit Family Practice [facility] 132 [facility] [place] [address] Christine Bhardwaj, DO 132 [facility] [place] [address] 10/23/2023 4:00 PM EDT Office Visit Hematology/Oncology [facility] [address] [place] [address] River Vizcaino MD 200 [facility] [place] [address] Scheduled Orders Name Type Priority Associated Diagnoses [...] Advance Directives occurred with: Patient Care Teams Protective Services Case Worker Relationship Specialty Start Date End Date Christine Bhardwaj DO [address] [place] [address] PCP - General Family Medicine 10/03/22 documented as of this encounter
--- OUTSIDE RECORDS SUMMARY | 2023-10-13 18:34 | External Medical Summary | Summary of Care ---
Author Name Unknown Organization [facility] Address [address] [facility] [place] [address] Phone [phone] Care Team Providers Care Slip Cover Sewer Name Role Phone Christine Bhardwaj DO Primary Care Provider [phone] Reason for Visit * Reason Onset Date Comments Appointment 04/17/2023 Encounter Details Date Type Department Care Team (Late st Contact Info) Description 04/17/2023 Telephone Hematology/Oncology [facility] Sonya [place] [address] [place] [address] River Vizcaino MD [address] [place] [address] Appointment Allergies Active Allergy Reactions Criticality Noted [...] Each 5 04/05/2020 Active OneTouch Delica Plus [id number] use 1 LANCET to TEST BLOOD SUGAR [...] DAY 100 Strip 1 02/05/2023 Active Nystatin 956828 UNIT/GM External Cream Apply topically to affected [...] Miscellaneous Notes * Telephone Encounter - Cheryl Lopez OSA - 04/17/2023 3:41 PM EST Rheum-please contact patient for an appt in regards to 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 documented in this encounter Plan of Treatment Upcoming Encounters Date Type Department Care Team (Late st Contact Info) Description 04/23/2023 1:00 PM EST Office Visit Cardiology, [facility] 132 [facility] [place] [address] Willard Cameron, DO 132 [facility] [place] [address] 05/03/2023 8:40 AM EST Telemedicine General Internal Medicine, [facility] [address] [place], [place] [id number] Warner Santiago MD [address] [place] [address] 05/16/2023 3:00 PM EST NeuroDiagnostic Study Neurophysiology [facility] 132 [facility] [place] [address] Chace Ackerman, DO 200 [facility] [place] [address] 06/06/2023 2:00 PM EST Telemedicine Psychiatry, [facility] 200 [facility] [place] [address] Nela Figueroa CRNP 200 [facility] [place] [address] 07/31/2023 1:20 PM EST Office Visit Neurology [facility] [address] [place] [address] Hina Oropeza PA-C 200 [facility] [place] [address] 09/04/2023 5:00 PM EDT Office Visit Family Practice [facility] 132 [facility] [place] [address] Christine Bhardwaj, DO [address] [place] [address] 10/23/2023 4:00 PM EDT Office Visit Hematology/Oncology Coco Hassan [place] 200 [facility] [place] [address] River Vizcaino MD 200 [facility] [place] [address] Health Maintenance Due Date Last Done Comments [...] Advance Directives occurred with: Patient Care Teams Slip Cover Sewer Relationship Specialty Start Date End Date Christine Bhardwaj DO 132 [place] [address] PCP - General Family Medicine 10/03/22 documented as of this encounter
--- OUTSIDE RECORDS SUMMARY | 2023-10-13 18:34 | External Medical Summary | Summary of Care ---
Author Name Unknown Organization [facility] Address [address] [facility] [place] [address] Phone [phone] Care Team Providers Care Die Welder Name Role Phone Christine Bhardwaj DO Primary Care Provider [phone] Reason for Visit * Reason Onset Date Comments Appointment 04/17/2023 Encounter Details Date Type Department Care Team (Late st Contact Info) Description 04/17/2023 Telephone Hematology/Oncology [facility] Sonya [place] [address] [place] [address] River Vizcaino MD [address] [place] [address] Appointment Allergies Active Allergy Reactions Criticality Noted [...] Each 5 04/05/2020 Active OneTouch Delica Plus [id number] use 1 LANCET to TEST BLOOD SUGAR [...] DAY 100 Strip 1 02/05/2023 Active Nystatin 165731 UNIT/GM External Cream Apply topically to affected [...] Encounter - Selam Valdez OSA - 04/18/2023 9:[address] Orta has been communicating with the patient and he doesn't feel that any of the labs are related to any Rheumatalgically issues. Please see 04/10 tel enc * Telephone Encounter - Cheryl Lopez OSA [...] 04/23/2023 1:00 PM EST Office Visit Cardiology, [facility] 132 [facility] [place] [address] Willard Cameron, 132 [facility] [place] [address] 05/03/2023 8:40 AM EST Telemedicine General Internal Medicine, [facility] [address] [place] [address] Warner Santiago MD [address] [place] [address] 05/16/2023 3:00 PM EST NeuroDiagnostic Study Neurophysiology [facility] 132 [facility] [place] [address] Chace Ackerman, DO 200 [facility] [place] [address] 06/06/2023 2:00 PM EST Telemedicine Psychiatry, [facility] [address] [place] [address] Nela Figueroa CRNP [address] [place] [address] 07/31/2023 1:20 PM EST Office Visit Neurology [facility] [place] [address] [place] [address] Hina Oropeza PA-C 200 [facility] [place] [address] 09/04/2023 5:00 PM EDT Office Visit Family Practice [facility] [address] [place] [address] Christine Bhardwaj DO [address] [place] [address] 10/23/2023 4:00 PM EDT Office Visit Hematology/Oncology [facility] 200 [facility] [place] [address] River Vizcaino MD 200 [facility] [place] [address] Health Maintenance Due Date Last Done Comments [...] Advance Directives occurred with: Patient Care Teams Die Welder Relationship Specialty Start Date End Date Chrsitine Bhardwaj DO [address] [place] [address] PCP - General Family Medicine 10/03/22 documented as of this encounter
--- OUTSIDE RECORDS SUMMARY | 2023-10-13 18:34 | External Medical Summary | Summary of Care ---
Author Name Unknown Organization [facility] Address [address] [facility] [place] [address] Phone [phone] Care Team Providers Care Molder Fitting Name Role Phone Christine Bhardwaj DO Primary Care Provider [phone] Reason for Visit * Reason Onset Date Comments Advice 04/26/2023 Encounter Details Date Type Department Care Team (Late st Contact Info) Description 04/26/2023 Telephone Family Practice [facility] [address] [place] [address] Christine Bhardwaj DO [address] [place] [address] Advice Allergies Active Allergy Reactions Criticality Noted [...] Each 5 04/05/2020 Active OneTouch Delica Plus [id number] use 1 LANCET to TEST BLOOD SUGAR [...] DAY 100 Strip 1 02/05/2023 Active Nystatin 119979 UNIT/GM External Cream Apply topically to affected [...] 04/30/2023 1:20 PM EST Office Visit Rheumatology [address] [place] [address] Eusebio Orta MD 2520 [facility] [place], [place] [address] 05/03/2023 8:40 AM EST Telemedicine General Internal Medicine, [facility] [address] [place] [address] Warner Santiago MD [address] [place] [address] 05/16/2023 3:00 PM EST NeuroDiagnostic Study Neurophysiology [facility] 132 [facility] [place] [address] Chace Ackerman, 200 [facility] [place] [address] 06/06/2023 2:00 PM EST Telemedicine Psychiatry, [facility] 200 [facility] [place] [address] Nela Figueroa CRNP 200 [facility] [place] [address] 07/31/2023 1:20 PM EST Office Visit Neurology [facility] [address] [place] [address] Hina Oropeza PA-C 200 [facility] [place] [address] 09/04/2023 5:00 PM EDT Office Visit Family Practice [facility] 132 [facility] [place] [address] Christine Bhardwaj, DO [address] [place] [address] 10/23/2023 4:00 PM EDT Office Visit Hematology/Oncology [facility] [address] [place] [address] River Vizcaino MD [address] [place] [address] Health Maintenance Due Date Last Done Comments [...] Advance Directives occurred with: Patient Care Teams Molder Fitting Relationship Specialty Start Date End Date Christine Bhardwaj DO 132 [place] [address] PCP - General Family Medicine 10/03/22 documented as of this encounter
--- OUTSIDE RECORDS SUMMARY | 2023-10-13 18:34 | External Medical Summary | Summary of Care ---
Author Name Unknown Organization [facility] Address [address] [facility] [place] [address] Phone [phone] Care Team Providers Care Stem Roller Name Role Phone Juan Bhardwaj DO Primary Care Provider [phone] Reason for Visit * Reason Comments NEW PATIENT * Evaluate & Treat - Unlimited Visits (Within 10 days (routine)) - Pending Review Specialty Diagnoses / Procedures Referred By Contact Referred To Contact Cardiovascular Medicine / Cardiology Diagnoses Abnormal echocardiogram Juan Bhardwaj DO [address] [place] [address] Willard Cameron DO [address] [place] [address] Referral ID Status Reason Start Date Expiration Date Visits Requested Visits Authorized [id number] Pending Review Specialty Services Required 12/19/[phone] Encounter Details Date Type Department Care Team (Late st Contact Info) Description 04/23/2023 1:00 PM EST Office Visit Cardiology, [facility] [address] [place] [address] Willard Cameron DO [address] [place] [address] LVH (left ventricular hypertrophy)* Allergies Active Allergy Reactions Criticality Noted Date [...] as of this encounter (statuses as of 04/23/2023) Medications Medication Sig Dispensed Refills Start Date End Date Status TYLENOL EXTRA STRENGTH 500 MG PO TABS Take by mouth. 0 Active CENTRUM PO TABS Take by mouth. Centrum Silver 0 Active OneTouch Delica Lancets FineIndications:P rediabetes Test BS one time daily 100 Each 5 04/05/2020 Active BleachersTouch Delica Plus Vxyvro93J use 1 LANCET to TEST BLOOD SUGAR UP TO four times a day as directed 400 Each 1 10/04/2022 Active BleachersTouch Ultra 2 w/Device KitIndications:Ty pe 2 diabetes mellitus with hemoglobin A1c goal of less than 7.0% ([facility]) Use 4x/day as directed. E11.9. 1 Kit 0 10/26/2022 Active Lisinopril 2.5 MG Oral Tablet (Prinivil) Take 1-2 Tablets by mouth in the morning. 0 01/21/2023 Active BleachersTouch Ultra In Vitro Strip (Glucose Blood)Indications :Prediabetes TEST BLOOD SUGAR THREE TIMES A DAY 100 Strip 1 02/05/2023 Active Nystatin 928445 UNIT/GM External Cream Apply topically to affected area 2 times a day. To affacted area for two weeks. 30 g 2 02/04/2023 Active ALPRAZolam 0.25 MG Oral Tablet (xaNAX)Indication s:Generalized anxiety disorder Take 1 Tablet by mouth 3 times a day as needed (severe anxiety). 90 Tablet 0 03/14/2023 Active Estradiol 0.1 MG/GM Vaginal Cream (Estrace)Indicati [...] by mouth in the morning. 0 Active Amoxicillin-Pot Clavulanate 500-125 MG Oral Tablet (Augmentin) Take 1 Tablet by mouth in the morning and 1 Tablet at noon and 1 Tablet before bedtime. 0 04/23/2023 Discontinue d(Medicatio n/Dose Changed) documented as of this encounter (statuses as of 04/23/2023) Active Problems Problem Noted Date Diagnosed Date [...] as of this encounter (statuses as of 04/23/2023) Resolved Problems Problem Noted Date Diagnosed Date Resolved Date Diabetes mellitus with background retinopathy 04/04/20 19 04/04/2019 Diabetes mellitus without complication 04/04/2019 04/04/2019 Disorder of arteries and arterioles 04/04/2019 08/05/2019 Essential and other specified forms of tremor 06/22/19 12 07/14/2018 documented as of this encounter (statuses as of 04/23/2023) Social History Tobacco Use Types Packs/Day Years Used Date Smoking Tobacco: Former Cigarettes 14 Q uit: 06/10/1995 Smokeless Tobacco: Never Tobacco Cessation:Counseling Given: No Alcohol Use Standard Drinks/Week Comments No 0 [...] Sign Reading Time Taken Comments Blood Pressure 144/74 04/23/2023 12:54 PM EST Pulse 66 04/23/2023 12:54 PM EST Temperature - - Respiratory Rate 16 04/23/2023 12:5 4 PM EST Oxygen Saturation - - Inhaled Oxygen Concentration - - Weight 96.9 kg (213 lb 11.2 oz) 023 12:54 PM EST Height - - Body Mass Index 36.68 04/17/2023 3:02 PM EST documented in this encounter Progress Notes * Willard Cameron DO - 04/23/2023 1:17 PM EST Cardiology Consultation [facility] 04/23/2023 PCP: JUAN BHARDWAJ [address] [place] [address] [place] [address] [phone] History of Present Illness: Mirta Webb is a 57 year old year old female seen in cardiology consultation per the request of Juan Bhardwaj DO for the evaluation of palpitations and findings of hypertrophy of the basal interventricular septum as observed at the time of echocardiogram performed in December,. The patient follows with Dr. Webb of cardiology in [place] with most recent visit on 01/21/23 andhas a history of occasional dizziness and palpitations. She is had similar symptoms for a number ofmonths and even to some extent longer than that. She is had previous heart monitors that were unrevealing, and per prior cardiology notes was felt that perhaps she has sensed supraventricular and ventricular ectopy. On 12/18/2022 the patient underwent a resting transthoracic echocardiogram at [facility] for the evaluation of palpitations. The study was somewhat technically limited, but per review of the report, as well as the images that were reviewed independently at the time of the patient's visit today mild concentric left ventricular hypertrophy was noted with focal hypertrophy of the basal septum, maximum thickness 1.6 centimeters. The left ventricular wall motion was normal, with normal LVEF in the range of 65-69%. Grade 1 diastolic dysfunction was observed. The left atrium was normal in size. No significant valvular heart disease including no significant mitral regurgitation noted. 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, without psychotic features ([facility]) F33.2 SVT (supraventricular tachycardia) I47.10 Body mass index (BMI) of 40.0 to 44.9 in adult ([facility]) Z68.41 Type 2 diabetes mellitus with hemoglobin A1c goal of less than 7.0% ([facility]) 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 Dizziness R42 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 Past Surgical History: Procedure Laterality Date BREAST LESION,OTHER,EXCISION cyst on R breast removed, lateral LAPAROSCOPY; CHOLECYSTECTOMY NASAL SURGERY PROCEDURE NEC TOTAL ABD HYSTERECTOMY W/WO REMOVAL OF TUBE(S) Family History: Family History Problem Relation Age of Onset [...] Denies Known FH: AMD, Glaucoma or RD's Social History: Social History Socioeconomic History Marital status: Spouse name: Nabeel Tobacco Use Smoking status: Former Years: 14 Types: Cigarettes Quit date: 06/10/1995 Years since quittin.8 Smokeless tobacco: Never Vaping Use Vaping Use: Never used Substance and Sexual Activity Alcohol use: No Comment: very rare Drug use: No Sexual activity: Not on file Allergies: Aspirin, Effexor [venlafaxine hydrochloride], Astelin, Bactrim, Fexofenadine hcl, Fluoxetine, Gadolinium, Iodinated contrast media, Levofloxacin, Macrobid [nitrofurantoin monohydrate macrocrystals], Midazolam hcl, Nebivolol, Nizatidine, Rhinocort [budesonide], Sulfa antibiotics, and Sulfa methoxazole-trimethoprim Medications: Current Outpatient Medications Medication Sig Dispense Refill TYLENOL EXTRA STRENGTH 500 MG PO TABS Take by mouth. [employer] Lancets Fine Test BS one time daily 100 Each 5 [employer] Delica Plus Wcmohx96H use 1 LANCET to TEST BLOOD SUGAR UP TO four times a day as directed 400 Each 1 [employer] Ultra 2 w/Device Kit Use 4x/day as directed. E11.9. 1 Kit 0 Lisinopril 2.5 MG Oral Tablet (Prinivil) Take 1-2 Tablets by mouth in the morning. [employer] Ultra In Vitro Strip (Glucose Blood) TEST BLOOD SUGAR THREE TIMES A DAY 100 Strip 1 Nystatin 884572 UNIT/GM External Cream Apply topically to affected [...] No current facility-administered medications for this visit. OBJECTIVE/PHYSICAL EXAMINATION: BP 144/74 (BP Site: Left Arm, BP Position: Sitting, BP Cuff Size: Large) | Pulse 66 | Resp 16 | Wt 96.9 kg (213 lb 11.2 oz) | BMI 36.68 kg/m | BSA 2.09 m General: no acute distress and stated age Eyes: conjunctiva are pink and non-injected, sclera clear Neck: normal jugular venous pulse, no hepatojugular reflux Chest: normal shape and normal respiratory effort Lungs: clear to auscultation and percussion Cardiac Exam: - regular heart sounds, no murmurs, rubs, or gallops Abdomen: abdomen soft, non-tender, no abnormal masses and no hepatosplenomegaly Musculoskeletal: no gait disturbance, no weakness Extremities: no edema and no cyanosis Neuro: grossly normal exam Psych: appropriate affect and insight. Data: EKG performed at [facility] on 01/04/2023 and interpreted independently by the undersigned today: Sinus rhythm at 60 beats per minute, minimal voltage criteria for LVH versus normal variant, no significantrepolarization changes. IMPRESSION: 57 year old year old female who presents in follow-up of the echocardiogram finding of focal hypertrophy of the basal septum. RECOMMENDATIONS/PLAN: In advance of my interview with the patient today I had reviewed her echocardiogram report as well as the images obtained at the time of the echocardiogram at this institution in December,. I do notthink her echocardiogram is retail sales representative of the hypertrophic cardiomyopathy. It was encouraging that there is no left ventricular outflow tract obstruction detected by echocardiogram and no systolic anterior motion of the mitral valve apparatus, and no mitral regurgitation. We discussed that on some occasions given findings of anatomy that increases the risk of dynamic left ventricular outflow tract obstruction, together with symptoms of palpitations, treatment with a beta-dorota is considered. The patient however strongly prefers to minimize medications as best as she can. With her resting heart rate having been 60 at the time for most recent EKG, I agree with her that perhaps it was most prudent to minimize her medication. Given the results for past cardiac monitors, I think the yield of a repeat monitor with regards to her occasional dizziness is low it appears like it has already been evaluated. Other considerations include proceeding with a cardiac MRI which would overcome some of the technical limitations of her echocardiogram images, however the patient has a history of what she describesas toxicity from gadolinium. Gadolinium would be necessary in order to assess subendocardial fibrosis so without it, I do not think we would gain additional information from a noncontrast cardiac MRIthat would be more helpful than the echocardiogram data that we already have. I recommended ongoing observation. Patient counseled to return to either me or her other vice president of talent management on an as-needed basis should future concerns arise. Willard Cameron DO Cardiology, [facility] 132 [facility] [place] [address] This chart was completed in part utilizing [employer] Voice Recognition Software. Grammatical errors, random word insertions, prounoun errors, and incomplete sentences are an occasional consequence of this system due to software limitations, ambient noise, and hardware issues. Any formal questions or concerns about the content, text, or information contained within the body of this dictation should be directly addressed to the provider for clarification. documented in this encounter Nursing Notes * Brandy Coronel RN - 04/23/2023 12:58 PM EST Examination Room: 10 Name: Mirta Webb Date of : (1965). Reason for Visit: New patient Interim Hospitalization(s): No Problems/Concerns: Here for initial evaluation based on echo findings. Is still established with Cigarette Filter Inspector Dr. Webb. Chest Pain/SOB: Occasional shortness of breath noted. [facility] Discussed: Not applicable My [employer] is a way you can talk to your provider online through e-mail. Would you like to sign up? I can activate it for you? ALREADY ACTIVE Patient was instructed to not get up on the exam table until directed and assisted by their provider; patient is to remain seated in the chair/ wheelchair/ exam table for fall prevention and safety reasons. Patient is aware to have assistance to step down off exam table with personnel. Patient voiced full comprehension of instructions. documented in this encounter Plan of Treatment Upcoming Encounters Date Type Department Care Team (Late st Contact Info) Description 04/30/2023 1:20 PM EST Office Visit Rheumatology [address] [place] [address] Eusebio Orta MD 2520 [facility] [place] [address] 05/03/2023 8:40 AM EST Telemedicine General [facility], [facility] [address] [place] [address] Warner Santiago MD [address] [place] [address] 05/16/2023 3:00 PM EST NeuroDiagnostic Study Neurophysiology [facility] 132 [facility] [place] [address] Chace Ackerman, [address] [place] [address] 06/06/2023 2:00 PM EST Telemedicine Psychiatry, [facility] [address] [place] [address] Nela Figueroa CRNP [address] [place] [address] 07/31/2023 1:20 PM EST Office Visit Neurology [facility] [address] [place] [address] Hina Oropeza PA-C [address] [place] [address] 09/04/2023 5:00 PM EDT Office Visit Family Practice [facility] 132 [facility] [place] [address] Juan Bhardwaj, DO 132 [facility] [place] [address] 10/23/2023 4:00 PM EDT Office Visit Hematology/Oncology [facility] [address] [place] [address] River Vizcaino MD [address] [place] [address] Health Maintenance Due Date Last Done Comments [...] as of this encounter Visit Diagnoses Diagnosis LVH (left ventricular hypertrophy)- Primary Cardiomegaly documented in this encounter Advance Directives Latest Code Status on File Code Status Date Activated Date Inactivated Comments Full Code 06/11/2018 10:31 PM 06/13/2018 4:48 PM This o rder reflects the patients wishes and were consensually agreed upon. Question Answer Comments Discussion of Advance Directives occurred with: Patient Care Teams Stem Roller Relationship Specialty Start Date End Date Juan Bhardwaj DO [address] [place] [address] PCP - General Family Medicine 10/03/22 documented as of this encounter
--- OUTSIDE RECORDS SUMMARY | 2023-10-13 18:34 | External Medical Summary | Summary of Care ---
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 Phone Christine Bhardwaj DO Primary Care Provider [phone] Reason for Referral * Evaluate & Treat - Unlimited Visits (Within 10 days (routine)) - Pending Review Specialty Diagnoses / Procedures Referred By Contac t Referred To Contact Rheumatology Diagnoses Cryoglobulinemia (HCC) Rheumatoid arthritis, involving unspecified site, unspecified whether rheumatoid factor present (HCC) River Vizcaino MD [address] [place] [address] Referral ID Status Reason Start Date Expiration Date Visits Requested Visits Authorized [id number] Pending Review Specialty Services Required 04/17/[phone] Question Answer Referral Priority Within 10 days (routine) Where should this appointment be scheduled? [facility] Reason for referral: Inflammatory arthritis/Autoimmune or Connective Tissue Diseases Reason for Visit * Reason Comments NEW PATIENT Abnormal bloodwork * Evaluate & Treat - Unlimited Visits (Within 10 days (routine)) - Pending Review Specialty Diagnoses / Procedures Referred By Contac t Referred To Contact Hematology/Oncology / Hematology Oncology Diagnoses Von Willebrand disease, type I (HCC) Cryoglobulinemia (HCC) Christine Bhardwaj DO [address] [place] [address] Referral ID Status Reason Start Date Expiration Date Visits Requested Visits Authorized [id number] Pending Review Specialty Services Required 3 [phone] Encounter Details Date Type Department Care Team (Latest Contact Info) Description 04/17/2023 3:00 PM EST Office Visit Hematology/Oncology [facility] [address] [place] [address] River Vizcaino MD [address] [place] [address] Cryoglobulinemia (HCC)*; Rheumatoid arthritis, involving unspecified site, unspecified whether rheumatoid factor present (HCC); Von Willebrand's disease ([facility]) Allergies Active Allergy Reactions Criticality Noted Date [...] Each 5 04/05/2020 Active OneTouch Delica Plus [id number] use 1 LANCET to TEST BLOOD SUGAR [...] DAY 100 Strip 1 02/05/2023 Active Nystatin 235253 UNIT/GM External Cream Apply topically to affected [...] Sign Reading Time Taken Comments Blood Pressure 136/80 04/17/2023 3:02 PM EST Pulse 67 04/17/2023 3:02 PM EST Temperature 36.4 C (97.5 F) 04/17/2023 3:02 PM ES T Respiratory Rate - - Oxygen Saturation 98% 04/17/2023 3:02 PM EST Inhaled Oxygen Concentration - - Weight 94.8 kg (209 lb) 04/17/2023 3:02 PM EST Height 162.6 cm (5' 4") 04/17/2023 3:02 PM EST Body Mass Index 35.87 04/17/2023 3:02 PM EST documented in this encounter Progress Notes * River Vizcaino MD - 04/17/2023 3:01 PM EST Images from the original note were not included. Outpatient Consult Note Data Source: Patient, Epic record. 04/17/2023 3:01 PM Mirta Webb [id number] 57 year old DO Christine Rangel DO Patient Encounter: HEMATOLOGY[facility]ONCOLOGY [facility] Reason for consult: Von Willebrand disease, type I Cryoglobulinemia HPI: 57-year-old female with a history of hypertension, diabetes, abnormal heart rhythm, history of type1 mild von Willebrand disease was referred with the above diagnosis. Patient has multiple complaints including generalized weakness, fatigue, joint pain, tremors, sensitivity to the cold and tinglingsensation and history of neuropathy. She has known longstanding history of vertigo and has had extensive work-up including [facility] and [facility] in the past, years ago. MRI imaging as well as MRI and MRAs which were unremarkable. 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 She does follow with [facility] neurology. An MRI of her cervical spine was ordered to eval for any progressive disc bulge and this was negative. Her recent blood test were done on 04/06/2023 which showed WBC count 6.5, hemoglobin 14.4 and platelet count 184. Creatinine was 0.6 and the rest of the electrolytes and LFTs were within acceptable range. Thyroid profile including TSH, T4, T3 all were within acceptable range. Hemoglobin A1c was 6.3CEA level was normal. Rheumatoid factor was 16.8 which is high and C-reactive protein was 6.65 which is again high. SUSANA was positive. ESR was normal and homocystine level was 9.4 which is normal. Cryoglobulin was positive and the cryocrit was less than 5%, there is a presence of polyclonal immunoglobulin as well as monoclonal IgG consistent. CRYOGLOBULIN REFLEX PROFILE: [id number] Status: Final result Visible to patient: Yes (seen) Next appt: 04/23/2023 at 01:00 PM in *Cardio* (Willard Cameron DO) Dx: Pain in both lower extremities 0 Result Notes Component Ref Range & Units Cryoglobulin Screen Not Detected Positive Abnormal Cryocrit <5 % <5 Immunofixation Interpretation Type II mixed cryoglobulins are present consisting of polyclonal immunoglobulins as well as a monoclonal IgG. Type II mixed cryoglobulins are present consisting of polyclonal immunoglobulins as well as a monoclonal IgM. Pathologist Interpretation Patient history: 57-year-old female with reported von Willebrand disease. Final interpretations - Decreased vWF: Ag (44%) - Decrease vWF:RCo (ristocetin cofactor assay) (33%) - vWF:RCo/vWF:Ag ratio = 0.8 (not decreased) - Factor VIII clotting activity within normal limits (95%) These findings are consistent with von Willebrand comprehensive panel performed on 10/04/2017, The diagnosis of 'Possible Type 1 vWD' may be considered In the past she has been seen by the rheumatology and hematology. Patient quit smoking many years ago. She used to smoke 1 pack per day between 1982 and 1995. Deniesdrinking. Family history significant for the father was diagnosed of kidney cancer and prostate cancer. Mother was diagnosed of ovarian cancer and paternal grandmother was diagnosed of breast cancer. 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 CENTRUM PO TABS Take by mouth. Centrum Silver OneTouch Delica Lancets Fine Test BS one time daily 100 Each 5 OneTouch Delica Plus [id number] use 1 LANCET to TEST BLOOD SUGAR UP TO four times a day as directed 400 Each 1 AFreezeTouch Ultra 2 w/Device Kit Use 4x/day as directed. E11.9. 1 Kit 0 Lisinopril 2.5 MG Oral Tablet (Prinivil) Take 1-2 Tablets by mouth in the morning. AFreezeTouch Ultra In Vitro Strip (Glucose Blood) TEST BLOOD SUGAR THREE TIMES A DAY 100 Strip 1 Nystatin [id number] UNIT/GM External Cream Apply topically to affected area 2 times a day. To affacted area for two weeks. 30 g 2 ALPRAZolam 0.25 MG Oral Tablet (xaNAX) Take 1 Tablet by mouth 3 times a day as needed (severe anxiety). 90 Tablet 0 Estradiol 0.1 MG/GM Vaginal Cream (Estrace) Administer 2 g into the vagina in the morning. as directed.. 42.5 g 3 No current facility-administered medications for this visit. Social History Socioeconomic History Marital status: Spouse name: Not on file Number of children: Not on file Years of education: Not on file Highest education level: Not on file Occupational History Not on file Tobacco Use Smoking status: Former Years: 14 Types: Cigarettes Quit date: 06/10/1995 Years since quittin.8 Smokeless tobacco: Never Vaping Use Vaping Use: Never used Substance and Sexual Activity Alcohol use: No Comment: very rare Drug use: No Sexual activity: Not on file Other Topics Concern Not on file Social History Narrative Not on file Social Determinants of Health Financial Resource Strain: Not on file Food Insecurity: Not on file Transportation Needs: Not on file Physical Activity: Not on file Stress: Not on file Social Connections: Not on file Intimate Partner Violence: Not on file Housing Stability: Not on file Family History Problem Relation Age of Onset [...] Denies Known FH: AMD, Glaucoma or RD's REVIEW OF SYSTEMS: General: No Fever, chills, night sweats, or weight loss. HEENT: No change in visual acuity, blurred or double vision. No epistaxis, facial pain, nasal discharge or change in hearing. Denies dysphagia, no muscosal ulceration, or sores noted. Cardiovascular: No chest pain, RODRIGUEZ, or palpitations Respiratory: No shortness of breath, cough, hemoptysis, or pleuritic chest pain Gastrointestinal: No abdominal pain, nausea, vomiting, diarrhea, rectal pain or bleeding Genitourinary: Denies Hematuria or dysuria Musculoskeletal: Generalized weakness, fatigue, joint pain neuropathy Skin: No skin rash or lesions noted Psychiatric: No vegetative signs of depression Endocrine: No symptoms of hypothyroidism or hyperglycemia Hematologic: No bleeding or lymph nodes noted As mentioned above, all other systems were reviewed in full and are unremarkable. Review of patient's allergies indicates: Allergen Reactions Aspirin Bleeding "I don't take because I'm a bleeder." Effexor [Venlafaxine Hydrochloride] Seizure "I can't have any Anti-depressants" Astelin Bactrim Fexofenadine Hcl Fluoxetine Unknown Gadolinium Unknown Iodinated Contrast Media Levofloxacin Macrobid [Nitrofurantoin Monohydrate Macrocrystals] Wheezing. Stomach Issues. Midazolam Hcl Nebivolol Unknown Nizatidine Rhinocort [Budesonide] Sulfa Antibiotics Unknown Sulfamethoxazole-Trimethoprim Unknown PHYSICAL EXAMINATION: General Appearance: Healthy appearing patient in no acute distress There were no vitals taken for this visit. Vitals were reviewed. HEENT: No oral or pharyngeal masses, ulceration or thrush noted, no sinus tenderness. Neck is supple with no thyromegaly or JVD noted. Lymph Nodes: No lymphadenopathy noted in the occipital, pre and post auricular, cervical, supra andinfraclavicular, axillary, epitrochlear, inguinal, and popliteal region. Lungs/Thorax: Clear to auscultation, no accessory muscles of respiration being used. Heart: Regular rate and rhythm, normal S1, S2. Abdomen: Soft, nontender, bowel sounds present, no appreciable hepatosplenomegaly, no palpable masses Extremeties: Good pulses bilaterally, no peripheral edema. Skin: Normal skin tone with no rash, petechiae, ecchymosis noted. Musculoskeletal: No pain on palpation over bony prominence, no edema, no evidence of gout, no jointor bony deformity ASSESSMENT: 57-year-old female with complicated past medical history including hypertension, diabetes, abnormalheart rhythm, history of type 1 mild von Willebrand disease was referred with the above diagnosis. Patient has multiple complaints including generalized weakness, fatigue, joint pain, tremors, sensitivity to the cold and tingling sensation and history of neuropathy. Patient is being seen in the past by the neurology, hematology and Rheumatology. Recent blood tests are positive for rheumatoid factor SUSANA with high CRP. 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 She is does not have any skin lesion or sign of vasculitis. The recommended treatment is to treat underlying condition. There is also history of infection. Lyme disease was negative. Titer for Borrelia was positive but PCR was negative. Discussed with the patient and about diagnosis reviewed all the available blood test resultwith her. She will have further blood test done including hepatitis profile, serum protein electrophoresis and serum immunofixation. She also has a history of type 1 mild von Willebrand disease. Her recent blood test is consistent with this diagnosis. Clinically patient is doing well with no symptoms of bleeding. She had multiple surgeries done in the past including hysterectomy, tooth extraction, cholecystectomy and sinus surgery without any excessive bleeding. At this point the best option is continue to monitor the patient clinically. PLAN: As above. I will refer the patient to rheumatology for further evaluation. She will return to clinic for follow-up in 6 months with CBC, CMP and repeat cryoglobulin level. I spent a total of 60 minutes on the date of service in preparation, delivery, and documentation ofthe care provided to Mirta Webb excluding any time spent in the performance of separately billed services. All lab results were shown and discussed with patient. The patient voiced understanding of all of the above. All questions and concerns were addressed in an apparently satisfactory manner. River Vizcaino MD (This note was completed using the dictation program Fluency Direct. As such, there may be misspellings, word substitutions, or other variations that should not change the essence of the clinical content of this encounter note. If there is need for further clarification, please direct questions to me.) documented in this encounter Nursing Notes * Alejandro Robbins, BEATA ASSIST - 04/17/2023 3:03 PM EST Patient identified by name and date of . Do you have any concerns about pain management for today's visit? Yes. Patient instructed to discuss pain concerns with provider during the visit today Living Will or Advance Directive for Health Care as noted on problem list. My [facility] is a way you can talk to your provider online through e-mail. Would you like to sign up? I can activate it for you? ALREADY ACTIVE Filed Vitals: 04/17/23 1502 BP: 136/80 Pulse: 67 Temp: 36.4 C (97.5 F) SpO2: 98% Weight: 94.8 kg (209 lb) Height: 1.626 m (5' 4") Patient was instructed to not get up on the exam table/exam chair until directed and assisted by their provider; patient is to remain seated in the chair/ wheelchair/ exam table/ exam chair for fall prevention and safety reasons. Patient is aware to have assistance to step down off exam table/exam chair with personnel. Patient voiced full comprehension of instructions. documented in this encounter Plan of Treatment Upcoming Encounters Date Type Department Care Team (Late st Contact Info) Description 04/23/2023 1:00 PM EST Office Visit Cardiology, [facility] [address] [facility] [place] [address] Willard Cameron, [address] [place] [address] 05/03/2023 8:40 AM EST Telemedicine General Internal Medicine, [facility] [address] [place] [address] Warner Santiago MD [address] [place] [address] 05/16/2023 3:00 PM EST NeuroDiagnostic Study Neurophysiology [facility] [address] [facility] [place] [address] Chace Ackerman DO [address] [place] [address] 06/06/2023 2:00 PM EST Telemedicine Psychiatry, [facility] [address] [place] [address] Nela Figueroa CRNP [address] [place] [address] [address] 07/31/2023 1:20 PM EST Office Visit Neurology [facility] [place] [address] [place] [address] Hina Oropeza PA-C [address] [place] [address] 09/04/2023 5:00 PM EDT Office Visit Family [facility] [address] [place] [address] Christine Bhardwaj DO [address] [place] [address] 10/23/2023 4:00 PM EDT Office Visit Hematology/Oncology [facility] [address] [facility] [place] [address] River Vizcaino MD [address] [facility] [place] [address] Scheduled Orders Name Type Priority Associated Diagnoses Orde r Schedule CBC WITH WBC DIFFERENTIAL Lab Routine Cryoglobulinemia (HCC) Rheumatoid arthritis, involving unspecified site, unspecified whether rheumatoid factor present (HCC) Von Willebrand's disease (HCC) Expected: 10/21/2023, Expires: 05/17/2024 COMPREHENSIVE METABOLIC PANEL Lab Routine Cryoglobulinemia (HCC) Rheumatoid arthritis, involving unspecified site, unspecified whether rheumatoid factor present (HCC) Von Willebrand's disease (HCC) Expected: 10/21/2023, Expires: 05/17/2024 LD Lab Routine Cryoglobulinemia (HCC) Rheumatoid arthritis, involving unspecified site, unspecified whether rheumatoid factor present (HCC) Expected: 10/21/2023, Expires: 05/17/2024 CRYOGLOBULIN REFLEX PROFILE Lab Routine Cryoglobulinemia (HCC) Rheumatoid arthritis, involving unspecified site, unspecified whether rheumatoid factor present (HCC) Expected: 10/21/2023, Expires: 05/17/2024 Scheduled Referrals Name Type Priority Associated Diagnoses [...] as of this encounter Visit Diagnoses Diagnosis Cryoglobulinemia (HCC)- Primary Other paraproteinemias Rheumatoid arthritis, involving unspecified site, unspecified whether rheumatoid factor present (HCC) Von Willebrand's disease (HCC) Von Willebrand's disease documented in this encounter Advance Directives Latest Code Status on File Code Status Date Activated Date Inactivated Comments Full Code 06/11/2018 10:31 PM 06/13/2018 4:48 PM This o rder reflects the patients wishes and were consensually agreed upon. 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
--- NOTE | 2023-10-13 21:58 | Electrocardiogram Report ---
Test Reason : Blood Pressure : / mmHG Vent. Rate : 080 BPM Atrial Rate : 080 BPM P-R Int : 156 ms QRS Dur : 082 ms QT Int : 352 ms P-R-T Axes : 027 -09 037 degrees QTc Int : 405 ms Normal sinus rhythm Normal ECG When compared with ECG of 04-JAN-2023 10:33, No significant change was found Confirmed by Eugene An ([id number]) on 10/13/2023 9:58:10 PM Referred By: Confirmed By:Eugene An
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
--- OUTSIDE RECORDS SUMMARY | 2023-10-14 12:19 | External Medical Summary | Summary of Care ---
Author Name Unknown Organization [facility] Address [address] [place] [facility] [place] [address] Phone [phone] Care Team Providers Care Automatic Oven Operator Name Role Phone Christine Bhardwaj DO Primary Care Provider [phone] Reason for Referral * Evaluate & Treat - Unlimited Visits (Within 10 days (routine)) - Pending Review Specialty Diagnoses / Procedures Referred By Contakila t Referred To Contact Infectious Diseases / Infectious Disease Diagnoses History of Lyme disease Christine Bhardwaj DO [address] [place] [phone] Arnaldo Galan MD [address] [place] [address] Referral ID Status Reason Start Date Expiration Date Visits Requested Visits Authorized [id number] Pending Review Specialty Services Required 07/15/[phone] Question Answer Referral Priority Within 10 days (routine) Where should this appointment be scheduled? [facility] What condition is the patient being seen for? Lyme Disease, Parasites / Bugs / Worms Reason for Visit * Reason Onset Date Comments Information 07/12/2023 Encounter Details Date Type Department Care Team (Late st Contact Info) Description 07/12/2023 Telephone Family Practice [facility] [address] [place] [id number] Christine Bhardwaj DO [address] [place] [phone] Information Allergies Active Allergy Reactions Criticality Noted Date [...] as of this encounter (statuses as of 10/11/2023) Medications Medication Sig Dispensed Refills Start Date End Date Status TYLENOL EXTRA STRENGTH 500 MG PO TABS Take by mouth. 0 Active CENTRUM PO TABS Take by mouth. Centrum Silver 0 Active OneTouch Delica Lancets FineIndications:P rediabetes Test BS one time daily 100 Each 5 04/05/2020 Active OneTouch Delica Plus [id number] use 1 LANCET to TEST BLOOD SUGAR UP TO four times a day as directed 400 Each 1 10/04/2022 Active OneTouch Ultra 2 w/Device KitIndications:Ty pe 2 diabetes mellitus with hemoglobin A1c goal of less than 7.0% ([facility]) Use 4x/day as directed. E11.9. 1 Kit 0 10/26/2022 Active Lisinopril 2.5 MG Oral Tablet (Prinivil) Take 1-2 Tablets by mouth in the morning. 0 01/21/2023 Active Nystatin 887903 UNIT/GM External Cream Apply topically to affected [...] Additional Information Patient not taking.Reported on 09/04/2023 Amoxicillin 500 MG Oral Capsule (Amoxil) Take 1 Capsule by mouth in the morning and 1 Capsule at noon and 1 Capsule before bedtime. 0 04/05/2023 4 Discontinue d(Medicatio n List Clean Up) ALPRAZolam 0.25 MG Oral Tablet (xaNAX)Indication s:Generalized anxiety disorder Take 1 Tablet by mouth 3 times a day as needed (severe anxiety). 90 Tablet 0 07/08/2023 4 Discontinue d(Refill) documented as of this encounter (statuses as of 10/11/2023) Active Problems Problem Noted Date Diagnosed Date [...] as of this encounter (statuses as of 10/11/2023) Resolved Problems Problem Noted Date Diagnosed Date Resolved Date Diabetes mellitus with background retinopathy 04/04/20 19 04/04/2019 Diabetes mellitus without complication 04/04/2019 04/04/2019 Disorder of arteries and arterioles 04/04/2019 08/05/2019 Essential and other specified forms of tremor 06/22/19 12 07/14/2018 documented as of this encounter (statuses as of 10/11/2023) Social History Tobacco Use Types Packs/Day Years [...] Telephone Encounter - Louann Schmid LPN - 07/17/2023 3:33 PM EST Patient calling. Informed referral placed and faxed. Verbalized understanding. * Telephone Encounter - Heidy Tom LPN - 07/16/2023 12:45 PM EST Faxed over labs, pictures of rash and referral to Dr Galan's office to number in message below. * Telephone Encounter - Christine Bhardwaj DO - 07/15/2023 11:24 AM EST ID referral placed Please fax w/requested records * Telephone Encounter - Louann Schmid LPN - 07/12/2023 12:09 PM EST Patient is calling. Would like to see Dr. Arnaldo Galan MD infectious disease in [facility] the Lymes disease research center @ [facility]. Needs to know if she has Lymes or not. Asking forLyme labs, anything for lymes, pictures of her rash, etc sent to them. Anything from Katarina Denis the doctor might have.Their fax is [phone] documented in this encounter Plan of Treatment Upcoming Encounters Date Type Department Care Team (Late st Contact Info) Description 10/23/2023 4:00 PM EDT Office Visit Hematology/Oncology [facility] [place] [address] [place] [phone] River Vizcaino MD [address] [facility] [place] [phone] 10/30/2023 5:20 PM EDT Office Visit Family Practice [facility] [address] [facility] [place] [address] Christine Bhardwaj DO [address] [place] [phone] 11/28/2023 4:10 PM EDT Office Visit Neurology [facility] [place] [address] [facility] [place] [address] Hina Oropeza PA-C [address] [facility] [place] [address] 01/23/2024 1:00 PM EDT Telemedicine Psychiatry, [facility] [address] [facility] [place] [address] Nela Figueroa CRNP [address] [facility] [place] [address] Scheduled Referrals Name Type Priority Associated Diagnoses Orde r Schedule INFECTIOUS DISEASE REFERRAL OP Referral Within 10 days (routine) History of Lyme disease Ordered: 07/15/2023 Health Maintenance Due Date Last Done Comments [...] of 2) 2014 COVID-19 Vaccine (1 - 2022- season) 2023 HbA1c 10/05/2023 04/05/2023, 07/3 , 07/20/2022, Additional history exists Influenza Vaccine (FLU [...] as of this encounter Visit Diagnoses Diagnosis Lyme disease, unspecified- Primary History of Lyme disease Personal history of other infectious and parasitic disease documented in this encounter Advance Directives Latest Code Status on File Code Status Date Activated Date Inactivated Comments Full Code 06/11/2018 10:31 PM 06/13/2018 4:48 PM This order reflects the patients wishes and were consensually agreed upon. Question Answer Comments Discussion of Advance Directives occurred with: Patient Care Teams Automatic Oven Operator Relationship Specialty Start Date End Date Christine Bhardwaj DO [address] [place] [address] PCP - General Family Medicine 10/03/22 documented as of this encounter
--- NOTE | 2023-10-14 13:17 | Discharge Summary ---
Date of Service October 14, 2023 Admission HPI Per Admitting Provider 58 yo F with h/o diabetes, vWD, cryoglobulinemia and rheumatoid arthritis presents with generalized pain worse in her chest and lower back with radiation into her legs posteriorly. This has been present for the past two days in the setting of chronic pain. Going about her day when all of a sudden, she was reaching forward in a second level dresser drawer, suddenly felt sharp "zolding pain" all the way across the lower back did not involve the legs at that time. Tingling into her groin, and buttocks, and into her feet she started feeling this last night. Three days ago, the first night was torture in bed. She tried biofreeze, heat and tylenol and her pain was improving with trying to ambulate. Went to lay down the next night and became more locked up. She has had intermittent pain in her back and unable to consistently ambulate. Lying flat hurts her back worse, hard for her to say what moves make it worse or better. Also reports chest pain, states that she has been having this. Feels a heavines s in her chest when she gets up in the morning. Her chest pain is described as "it is all over". "Today I just hurt." Had chest pain like this throughout the years. Feels worse for her today. Has shoulder girdle pains. She feels like she is turning into a rock. ROS reveals dysequilibrium chronically but worse with "spells". Vision goes fuzzy and feels like she is going to fall down. These spells appear to be increasing in frequency. She is considered legally blind but still has some vision with refractive lenses. She just saw her retinal specialist and no changes per him or her regular wire coiner in vision recently. Has h/o oscillopsia. Admission Exam Per Admitting Provider CONSTITUTIONAL: WNWD, vitals as above, generally well-appearing, emotional and tearful at times. EYES: normal conjunctivae, no scleral icterus ENT: external ear and nose normal NECK: trachea midline RESPIRATORY: clear to auscultation bilaterally, no crackles, rales or wheezes, normal respiratory effort CARDIOVASCULAR: regular rate and rhythm, S1 and 2 heard without murmurs, gallops or rubs, no JVD, no peripheral edema CHEST: inspection of chest was normal GASTROINTESTINAL: soft, nontender, ND, no guarding MUSCULOSKELETAL: strength 5/5 throughout, difficulty sitting up 2/2 back pain, head is normocephalic and atraumatic multiple tender points along chest and back, paraspinal muscle tenderness with muscle tightness in the upper thoracic region and in the SI joint region bilaterally. Strap muscles of her neck are also tight. SKIN: warm and dry NEUROLOGIC: 2/4 DTRs knees bilaterally, CN 2-12 grossly intact, no sensory deficit, normal cognition, normal speech, no tremor PSYCHIATRIC: alert cooperative and oriented to person, place and time. Euthymic mood, makes good eye contact, language grossly intact, recent and remote memory grossly intact. Principal Diagnosis Worsening of her chronic generalized pain Post Lyme disease syndrome Bilateral trochanteric bursitis Discharge Exam CONSTITUTIONAL: WNWD, vitals as above, generally well-appearing. Obese Class II. EYES: normal conjunctivae, no scleral icterus ENT: external ear and nose normal NECK: trachea midline RESPIRATORY: clear to auscultation bilaterally, no crackles, rales or wheezes, normal respiratory effort CARDIOVASCULAR: regular rate and rhythm, S1 and 2 heard without murmurs, gallops or rubs, no JVD, no peripheral edema CHEST: inspection of chest was normal GASTROINTESTINAL: soft, nontender, ND, no guarding MUSCULOSKELETAL: strength 5/5 throughout, difficulty sitting up 2/2 back pain, head is normocephalic and atraumatic multiple tender points along chest and back, paraspinal muscle tenderness with muscle tightness in the upper thoracic region and in the SI joint region bilaterally. Strap muscles of her neck are also tight. SKIN: warm and dry NEUROLOGIC: CN 2-12 grossly intact, no sensory deficit, normal cognition, normal speech, no tremor PSYCHIATRIC: alert cooperative and oriented to person, place and time. Euthymic mood, makes good eye contact, language grossly intact, recent and remote memory grossly intact. Discharge Data Allergies Allergy/AdvReac Type Severity Reaction Status Date / Time Iodinated Contrast Media Allergy Severe Anaphylaxis Verified 10/11/23 16:13 [Iodinated Contrast- Oral and IV Dye] midazolam Allergy Severe Anaphylaxis Verified 10/11/23 16:13 azelastine Allergy Unknown CAN'T Verified 10/11/23 16:13 REMEMBER budesonide Allergy Unknown CAN'T Verified 10/11/23 16:13 REMEMBER cephalexin Allergy Unknown CAN'T Verified 10/11/23 16:13 REMEMBER clavulanic acid Allergy Unknown CAN'T Verified 10/11/23 16:13 REMEMBER fexofenadine Allergy Unknown CAN'T Verified 10/11/23 16:13 REMEMBER levofloxacin Allergy Unknown CAN'T Verified 10/11/23 16:13 REMEMBER nebivolol Allergy Unknown CAN'T Verified 10/11/23 16:13 REMEMBER nitrofurantoin Allergy Unknown CAN'T Verified 10/11/23 16:13 REMEMBER nizatidine Allergy Unknown CAN'T Verified 10/11/23 16:13 REMEMBER pumpkin Allergy Unknown Rash Verified 10/11/23 16:13 sorbitan esters Allergy Unknown CAN'T Verified 10/11/23 16:13 REMEMBER Sulfa (Sulfonamide Allergy Unknown CAN'T Verified 10/11/23 16:13 Antibiotics) REMEMBER sulfamethoxazole Allergy Unknown CAN'T Verified 10/11/23 16:13 [From Bactrim] REMEMBER trimethoprim [From Bactrim] Allergy Unknown CAN'T Verified 10/11/23 16:13 REMEMBER venlafaxine Allergy Unknown CAN'T Verified 10/11/23 16:13 REMEMBER Gadolinium-Containing AdvReac Severe POISONING--REMAINS Verified 10/11/23 16:13 Contrast Medi IN BODY TO PRESENT--HEADACHE aspirin AdvReac Intermediate BLEEDS Verified 10/11/23 16:13 VERY EASILY phenacetin AdvReac Intermediate BLEEDS Verified 10/11/23 16:13 VERY EASILY caffeine AdvReac Unknown CAN'T Verified 10/11/23 16:13 REMEMBER ciprofloxacin [From Cipro] AdvReac Unknown CAN'T Verified 10/11/23 16:13 REMEMBER doxycycline AdvReac Unknown CAN'T Verified 10/11/23 16:13 REMEMBER gentamicin AdvReac Unknown CAN'T Verified 10/11/23 16:13 REMEMBER Consultations 10/11/23 17:15 ED Decision to Admit Stat 10/12/23 14:48 Consult Pain Management Routine 10/13/23 13:15 Consult Behavioral Health Liaison Routine Ordered Studies 10/11/23 17:15 MR lumbar spine wo con Stat 10/12/23 14:35 MR pelvis wo con Routine Hospital Course (1) Pain: Plan 58-year-old lady with PMH of DM, VWD, cryoglobulinemia, rheumatoid arthritis presents to the ED / with worsening of 4 chronic generalized pain for few days OPTHALMIC TECH. She also reported dry cough for few days OPTHALMIC TECH, respiratory pathogen panel negative at presentation. She was managed for the following: Worsening of her chronic generalized pain Post Lyme disease syndrome Patient did come in with worsening pain across her chest, shoulders, upper back and lower back affecting her ADL. No signs of infections are noted. Lumbar spine MRI with no acute finding. Patient was diagnosed with post Lyme disease syndrome at [facility] recently, patient is currently on amoxicillin for the same. Refer to admitting note for details. Patient reports no improvement in her pain. Patient has been declining Tylenol and diclofenac gel and alternatives offered by pain management. Pain management consult, appreciate recommendation. PT/OT. Patient has declined rehab or SNF. Bilateral trochanteric bursitis: Noted on pelvic MRI 10/11. Patient agreeable for diclofenac gel, patient does not want oral NSAIDs due to her hematologic conditions. It appears that patient has been declining diclofenac gel and Tylenol, patient has been advised the importance of controlling inflammation to control the pain. Patient to continue with home health PT/OT. Peripheral neuropathy: chronic, persistent. Has been followed by neurology for this. Cryoglobulinemia: normal viral hepatitis panel in Mar 2023. No clear underlying cause. Continues to be monitored for this in outpatient setting. Dysequilibrium: chronic, patient continues to report spells that are intermittent but contribute to her mobility issues. She recently underwent a brain MRI and head and neck MRA for severe vertigo with no acute abnormalities seen. She reports having gone to the [facility] in [place]. She will continue to follow up with her PCP. Serologic abnormality: seen by rheumatology for abnormal RF and SUSANA in the past, unclear if she has autoimmune disease. No evidence of inflammatory arthritis at this time. Normal ESR and CRP on workup. DVT proph: SCDs/ambulation, relative contraindication to anticoagulation with patient's h/o factor deficiency and reported bleeding issues. Full Code Dispo- to home after PT/OT recommendations and when her pain and mobility improve. Pain Mx eval pending. Patient has been declining SNF/rehab/Tylenol/diclofenac gel/alternatives of her chronic pain management. Patient is hemodynamically stable and would like to go home. She is being discharged with following instruction at the point of discharge: Follow-up with your primary care physician within a week time and likely you will need labs CBC/CMP/magnesium/phosphorus. You have bilateral trochanteric bursitis, you can apply [id number] diclofenac gel over the bilateral hip area as discussed at the bedside every 4-6 hours for 7-10 days. Also continue with hot compression or cold compression at per your comfort. Also recommend you establish with pain management clinic as an outpatient for your long-term management of chronic pain. Closely follow-up with your primary care physician and physician group at [facility] for overall management of your medical issues. If not established, recommend establishing with psychiatry as an outpatient. Follow-up with your psychiatry as an outpatient. Take your medications as prescribed. Please make sure that you are able to get your medications today by calling your pharmacy before you leave the hospital so that your treatment continuity is not broken. Home Health Attestation I certify that this patient is under my care and that I, or a physicians family assistant working with me, had a face to-face encounter that meets the home health [id number] encounter requirements with this patient. The encounter with the patient was in whole, or in part, for the following medical condition, which is the primary reason for home health care (list medical condition): I certify that, based on my findings, the following services are medically necessary home health services: My clinical findings support the need for the above services because: Further, I certify that my clinical findings support that this patient is homebound (i.e. absences from home require considerable and taxing effort and are for medical reasons or jehovah's witness services or infrequently or of short duration when for other reasons) because: Certification for Home Health Services: Based on the above findings, I certify that this patient is confined to the home and needs intermittent jail care, physical therapy and/or speech therapy or continues to need occupational therapy. The patient is under my care, and I have initiated the establishment of the plan of care. This patient will be followed by a physician who will periodically review the plan of care. Total Time Total Time Spent Total Time Spent (In Minutes): 45 Discharge Plan Discharge Items Patient Disposition: Home - Home Health Services Reason For Visit: CHEST PAIN, ACUTE BACK PAIN Discharge Diagnosis: Worsening of her chronic generalized pain Post Lyme disease syndrome Bilateral trochanteric bursitis Activity: As commented below Activity Comment: Continue with PT/OT at home. Non-emergency contact: Primary Care Provider Call non-emergency contact if: you have any medication questions, your symptoms worsen and your temperature is above 101.5 Follow-up/Referrals: Newhouser,Christine M., DO [Primary Care Provider] - (Date & Time 10/16/2023 3:40 PM Provider Christine Bhardwaj DO Department [facility] ) Diet: Heart Healthy Addtl Attending Provider Instructions: Follow-up with your primary care physician within a week time and likely you will need labs CBC/CMP/magnesium/phosphorus. You have bilateral trochanteric bursitis, you can apply [id number] diclofenac gel over the bilateral hip area as discussed at the bedside every 4-6 hours for 7-10 days. Also continue with hot compression or cold compression at per your comfort. Also recommend you establish with pain management clinic as an outpatient for your long-term management of chronic pain. Closely follow-up with your primary care physician and physician group at [facility] for overall management of your medical issues. If not established, recommend establishing with psychiatry as an outpatient. Follow-up with your psychiatry as an outpatient. Take your medications as prescribed. Please make sure that you are able to get your medications today by calling your pharmacy before you leave the hospital so that your treatment continuity is not broken. Pending Studies at Discharge: No Stand-Alone Forms: My [employer], Smoking Cessation Medications and DC Order Prescriptions: New diclofenac sodium [Voltaren Arthritis Pain] 1 % Gel 4 g EXT Q4 PRN (Reason: b/l hip pain) Qty: 100 0RF Continued alprazolam 0.25 mg tablet 0.25 mg PO TID PRN (Reason: Anxiety) multivitamin Tablet 1 tab PO DAILY amoxicillin 500 mg capsule 500 mg PO Q8H Rx Instructions: Start Date 10/02/23 - 28 day therapy acetaminophen [Tylenol Ex Str Arthritis Pain] 500 mg Tablet 500 mg PO Q6H PRN (Reason: Pain) lisinopril 2.5 mg tablet 2.5 mg PO HS Admission Data Admit Date/Time: 10/11/23 17:18 Attending Provider: Felicity Pinzon Admit Provider: Odessa Diaz Primary Care Provider: Christine Bhardwaj Other Providers: Odessa Diaz; Cheryl Duke
== END 2023-10-14 15:53 | disposition home health service (06) ==
LOC: ED 14:31 → EDINP 14:31 → SUATTDRO 17:18 → 2N 22:28 → 3W 10-13 18:23